=== PATIENT | male | born 1935 | race Caucasian/White ===

== ENCOUNTER → 2016-11-17 | Day surgery (SDC) | payer OTHER ==
[~2016-11-17] MED LIST: PICC LINE 8 ML FLUSH PROTOCOL IVPUSH PRN
== END | disposition home or self-care (01) ==
LOC: JRADIR 10:32
PROVIDERS: ATTEND Surgery Vascular Surgery
PROC: 02HV33Z Insertion of Infusion Device into Superior Vena Cava, Percutaneous Approach (ICD-10-PCS; principal; 2016-11-17)
PROC: B518ZZA Fluoroscopy of Superior Vena Cava, Guidance (ICD-10-PCS; 2016-11-17)
PROC: 02HV33Z Insertion of Infusion Device into Superior Vena Cava, Percutaneous Approach (ICD-10-PCS; 2016-11-17)
PROC: B548ZZA Ultrasonography of Superior Vena Cava, Guidance (ICD-10-PCS; 2016-11-17)
DX: M86.9 Osteomyelitis, unspecified (principal)
CPT/HCPCS: 36569; 77001-TC; C1751

== ENCOUNTER 2016-12-01 09:24 | Emergency (ER) | payer OTHER ==
[2016-12-01 09:33] VITALS: BP 125/96; PULSE 83; TEMP 97.8; BMI 19.8
--- NOTE | 2016-12-01 10:24 | PDOC ---
History of Present Illness - General Chief Complaint: RX Refill Stated Complaint: REVISIT Time Seen by Provider: 12/01/16 10:07 History Source: Patient Exam Limitations: No Limitations - History of Present Illness Initial Comments: This is an 81 yo male with h/o diabetic toe ulcer and osteomyelitis (currently on ceftriaxone via PICC line), IDDM, CVA, and HTN who presents for antibiotic administration. He normally sees his offender employment specialist who administers his ceftriaxone through his PICC line, but they are closed today d/t the . He notes no new bodily pain other than the right 2nd toe, no SOB, and no known reactions to the antibiotic. Past History - Past Medical History Allergies/Adverse Reactions: Allergies Allergy/AdvReac Type Severity Reaction Status Date / Time No Known Allergies Allergy Verified 12/01/16 09:30 Home Medications: Ambulatory Orders Ceftriaxone Na/Dextrose,Iso [Ceftriaxone 2 gm-D5w Bag] 2 gm IV DAILY 12/01/16 Insulin Glargine,Hum.rec.anlog [Lantus Solostar PEN (NF)] 5 units SQ HS Insulin Glargine,Hum.rec.anlog [Lantus Solostar PEN (NF)] 8 units SQ AM Insulin Lispro [Humalog] 100 unit SQ ASDIR 12/01/16 CVA: Yes Diabetes: Yes (iddm) HTN: Yes - Immunization History Immunization Up to Date: Yes - Psycho/Social/Smoking Cessation Hx Anxiety: No Suicidal Ideation: No Smoking Status: No Smoking History: Never smoked Have you smoked in the past 12 months: No Number of Cigarettes Smoked Daily: 0 Hx Alcohol Use: No Drug/Substance Use Hx: No Substance Use Type: None Review of Systems - Review of Systems Constitutional: No: Chills, Fever, Unexplained wgt Loss HEENTM: No: Nose Congestion, Throat Pain Respiratory: No: Cough, Shortness of Breath Cardiac (ROS): No: Chest Pain, Palpitations ABD/GI: No: Constipated, Diarrhea, Nausea, Vomiting : No: Burning, Dysuria Musculoskeletal: Yes: Other (right 2nd toe pain). No: Back Pain, Neck Pain Integumentary: No: Bruising, Rash Neurological: No: Headache, Numbness, Tingling, Weakness, Dizziness Endocrine: No: Unexplained Weight Gain, Unexplained Weight Loss *Physical Exam - Vital Signs Last Vital Signs Temp Pulse Resp BP Pulse Ox 97.8 F 83 18 125/96 99 12/01/16 09:30 12/01/16 09:30 12/01/16 09:30 12/01/16 09:30 12/01/16 09:30 - Physical Exam General Appearance: Yes: Nourished, Appropriately Dressed, Thin, Other (well- appearing older male who appears younger than stated age and who is conversing in Green[place]ic appropriately). No: Apparent Distress HEENT: positive: EOMI, Normal Voice, Hearing Grossly Normal. negative: Scleral Icterus (R), Scleral Icterus (L), Nasal Congestion Neck: positive: Trachea midline, Supple. negative: Tender, Rigid Respiratory/Chest: positive: Lungs Clear, Normal Breath Sounds. negative: Respiratory Distress, Crackles, Rhonchi, Stridor, Wheezing Cardiovascular: positive: Regular Rhythm, Regular Rate. negative: Murmur Gastrointestinal/Abdominal: positive: Normal Bowel Sounds, Soft. negative: Tender, Organomegaly, Pulsatile Mass, Guarding Musculoskeletal: positive: Normal Inspection. negative: Decreased Range of Motion, Vertebral Tenderness Extremity: positive: Normal Capillary Refill, Normal Inspection, Normal Range of Motion, Other (RUE with PICC line in place without surrounding warmth, erythema, or swelling; right foot onychomycosis with 2nd toe tenderness and mild swelling/erythema). negative: Tender, Cyanosis Integumentary: positive: Normal Color, Dry, Warm. negative: Erythema, Rash, Bruising Neurologic: positive: chinese herbalist II-XII NML intact, Fully Oriented, Alert, Normal Mood/ Affect, Normal Response, Motor Strength 5/5 Medical Decision Making - Medical Decision Making 81 yo male with recently diagnosed osteomyelitis from right 2nd toe infection and IDDM presents for PICC line abx. He presents with his normal dose of ceftriaxone and reporting no new symptoms. He is given his ceftriaxone through the PICC without complication. He is given bacitracin to take home. He is appropriate for outpatient management with close f/u with wound care. *DC/Admit/Observation/Transfer Diagnosis at time of Disposition: Medication administered - Discharge Dispostion Disposition: HOME Condition at time of disposition: Stable Admit: No - Referrals Referrals: Ej Stacy MD [Primary Care Provider] - - Patient Instructions Additional Instructions: You were seen in the emergency room for antibiotic administration through your PICC line. We gave you your medication without any complications. Please follow up with your regular doctor or offender employment specialist, or return to the emergency department for any new or worsening symptoms like shortness of breath , rash, fever, new or worsening pain, or other symptoms.
--- NOTE | 2016-12-01 10:31 | PDOC ---
Attending Attestation - HPI HPI: 12/01/16 10:44 The patient is a 81 year old male, with a significant past medical history of IDDM, chronic foot ulcer treated for osteomyelitis at wound care, hypertension, and CVA, who presents to the emergency department for abx administration. Patient is here with his own abx that he routinely gets administered via picc line at the wound care and he is due for his dose today but the wound care clinic is closed. Patient was prompted to present to the ED for medication administration. Patient has no other complaints today. - Medical Decision Making 12/01/16 10:44 Documentation prepared by YAMILEX Bacon, acting as special forces medical sergeant for Renee Green MD. <Anamaria Malcolm - Last Filed: 12/01/16 10:44> - Resident Resident Name: JazmyneRakel - ED Attending Attestation I have performed the following: I have examined & evaluated the patient, The case was reviewed & discussed with the resident, I agree w/resident's findings & plan, Exceptions are as noted - Physicial Exam PE: GENERAL: Awake, alert, and fully oriented, in no acute distress HEAD: No signs of trauma EYES: PERRLA, EOMI, sclera anicteric, conjunctiva clear ENT: Auricles normal inspection, hearing grossly normal, nares patent, oropharynx clear without exudates. Moist mucosa NECK: Normal ROM, supple, no lymphadenopathy, JVD, or masses EXTREMITIES: R upper arm PICC line in place, site is nonerythematous, dressing intact. R 2nd toe with purple tinted, dried material applied. Toe is erythematous, edematous, with healing wound to the tip. No active drainage. Remainder of extremities with normal range of motion, no edema. No clubbing or cyanosis. No cords, erythema, or tenderness NEUROLOGICAL: Cranial nerves II through XII grossly intact. Normal speech, normal gait SKIN: Warm, Dry, normal turgor, no rashes. - Medical Decision Making 12/01/16 10:52 Will access PICC line and administer abx. After that, patient stable for DC home. <Renee Green - Last Filed: 12/01/16 10:53>
[2016-12-01] MEDS ORDERED: BACITRACIN 0.9 GM PACKET ONE (11:16)
== END 2016-12-01 11:22 | disposition home or self-care (01) ==
LOC: JER 09:24 → JERFT 09:24 → JER 11:22
DX: E10.69 Type 1 diabetes mellitus with other specified complication (principal); M86.9 Osteomyelitis, unspecified; E10.621 Type 1 diabetes mellitus with foot ulcer; L97.519 Non-pressure chronic ulcer of other part of right foot with unspecified severity; Z79.4 Long term (current) use of insulin; I10 Essential (primary) hypertension; Z86.73 Personal history of transient ischemic attack (TIA), and cerebral infarction without residual deficits
CPT/HCPCS: 96365; 99282-25

== ENCOUNTER 2016-12-02 16:02 | Emergency (ER) | payer OTHER ==
[2016-12-02 16:08] VITALS: BP 148/58; PULSE 76; TEMP 98; BMI 20.9
--- NOTE | 2016-12-02 17:23 | PDOC ---
History of Present Illness - General Chief Complaint: Wound Stated Complaint: ANTIBIOTIC INFUSION Time Seen by Provider: 12/02/16 16:24 History Source: Patient Exam Limitations: Language Barrier ([employer] lump maker number [id number]) - History of Present Illness Initial Comments: 12/02/16 17:17 CHIEF COMPLAINT: Here for antibiotic infusion HISTORY OF PRESENT ILLNESS: Patient is an 81 year old male, with a significant past medical history of IDDM, chronic foot ulcer treated for osteomyelitis at wound care, hypertension, and CVA, who presents to the emergency department for second day of abx administration. Patient reports that he was seen in wound care and the infusion center was not foot up in insurance will not cover the infusions. Reports having nursing come to his house on Thursday and Thursday and did not return. She presents here with ceftriaxone 2 g, 2 flushes and a heparin flush. Patient has no other complaints today. Location: reports: feet Respiratory Risk Factors: reports: no cause identified Associated Symptoms: denies: fever Past History - Past Medical History Allergies/Adverse Reactions: Allergies Allergy/AdvReac Type Severity Reaction Status Date / Time No Known Allergies Allergy Verified 12/02/16 16:08 Home Medications: Ambulatory Orders Ceftriaxone Na/Dextrose,Iso [Ceftriaxone 2 gm-D5w Bag] 2 gm IV DAILY 12/01/16 Insulin Glargine,Hum.rec.anlog [Lantus Solostar PEN (NF)] 5 units SQ HS Insulin Glargine,Hum.rec.anlog [Lantus Solostar PEN (NF)] 8 units SQ AM Insulin Lispro [Humalog] 100 unit SQ ASDIR 12/01/16 CVA: Yes Diabetes: Yes (iddm) HTN: Yes - Immunization History Immunization Up to Date: Yes - Psycho/Social/Smoking Cessation Hx Anxiety: No Suicidal Ideation: No Smoking Status: No Smoking History: Never smoked Have you smoked in the past 12 months: No Number of Cigarettes Smoked Daily: 0 Information on smoking cessation initiated: No Hx Alcohol Use: No Drug/Substance Use Hx: No Substance Use Type: None Review of Systems - Review of Systems Constitutional: No: Symptoms Reported HEENTM: No: Symptoms Reported Respiratory: No: Symptoms reported Cardiac (ROS): No: Symptoms Reported ABD/GI: No: Symptoms Reported : No: Symptoms Reported Musculoskeletal: No: Symptoms Reported Integumentary: Yes: Erythema (right second toe. ) Neurological: No: Symptoms reported Hematologic/Lymphatic: No: Symptoms Reported All Other Systems: Reviewed and Negative *Physical Exam - Vital Signs Last Vital Signs Temp Pulse Resp BP Pulse Ox 98 F 76 18 148/58 98 12/02/16 16:04 12/02/16 16:04 12/02/16 16:04 12/02/16 16:04 12/02/16 16:04 - Physical Exam General Appearance: Yes: Appropriately Dressed. No: Apparent Distress Musculoskeletal: positive: Normal Inspection Extremity: positive: Swelling, Erythema (right second toe and right foot. ) Integumentary: positive: Erythema, Swelling. negative: Ecchymosis, Bruising Neurologic: positive: Alert, Normal Mood/Affect Medical Decision Making - Medical Decision Making 12/02/16 17:26 A/P: Patient here for IV infusion, ceftriaxone infused using proper protocol, tempted to call physician 2 awaiting call back to clarify and have social work* to set up his infusions at the infusion center. Social work to follow 12/02/16 18:09 Spoke to Shaned and from social work, trying to set patient up for outpatient infusion, awaiting requested for patient to stay until proper set up is initiated 12/02/16 18:42 IV was completed and flushed, patient eloped from emergency department prior to rapid discharge, patient was awaiting future set up of IV infusions. *DC/Admit/Observation/Transfer Diagnosis at time of Disposition: eloped - Discharge Dispostion Disposition: ELOPED - Referrals Referrals: Mihaela Card MD [Primary Care Provider] -
== END 2016-12-02 18:41 | disposition left against medical advice (07) ==
LOC: JERFT 16:02
DX: Z53.21 Procedure and treatment not carried out due to patient leaving prior to being seen by health care provider (principal); E11.9 Type 2 diabetes mellitus without complications; M86.9 Osteomyelitis, unspecified; I10 Essential (primary) hypertension
CPT/HCPCS: 99281-25

== ENCOUNTER 2016-12-03 09:41 | Day surgery (SDC) | payer OTHER ==
[2016-12-03] MEDS ORDERED: CEFTRIAXONE 2 GM in DEXTROSE 5%-WATER 100 ML IVPB ONE (11:00)
[2016-12-03 11:05] VITALS: TEMP 98.2
[2016-12-03 12:45] VITALS: BP 147/64; PULSE 68
== END 2016-12-03 11:40 | disposition home or self-care (01) ==
LOC: JINFUSION 09:41
PROVIDERS: ATTEND Internal Medicine Infectious Disease
DX: M19.071 Primary osteoarthritis, right ankle and foot (principal)
CPT/HCPCS: 96365

== ENCOUNTER 2016-12-04 10:29 | Day surgery (SDC) | payer OTHER ==
[2016-12-04] MEDS ORDERED: CEFTRIAXONE 2 GM in DEXTROSE 5%-WATER 100 ML IVPB ONE (10:45)
[2016-12-04 12:27] VITALS: TEMP 98
[2016-12-04 12:29] VITALS: BP 140/62; PULSE 72
== END 2016-12-04 12:00 | disposition home or self-care (01) ==
LOC: JINFUSION 10:29
PROVIDERS: ATTEND Internal Medicine Infectious Disease
DX: M19.071 Primary osteoarthritis, right ankle and foot (principal)
CPT/HCPCS: 96365

== ENCOUNTER 2016-12-05 09:34 | Day surgery (SDC) | payer OTHER ==
[2016-12-05] MEDS ORDERED: CEFTRIAXONE 2 GM in DEXTROSE 5%-WATER 100 ML IVPB ONE (10:15)
[2016-12-05 12:07] VITALS: BP 140/60; PULSE 60; TEMP 97
== END 2016-12-05 10:44 | disposition home or self-care (01) ==
LOC: JINFUSION 09:34
PROVIDERS: ATTEND Internal Medicine Infectious Disease
DX: M19.071 Primary osteoarthritis, right ankle and foot (principal)
CPT/HCPCS: 11042; 96365

== ENCOUNTER 2016-12-06 10:43 | Day surgery (SDC) | payer OTHER ==
[2016-12-06] MEDS ORDERED: CEFTRIAXONE 2 GM in DEXTROSE 5%-WATER 100 ML IVPB ONE (11:15)
[2016-12-06] MEDS ORDERED: DEXTROSE 5%-WATER 100 ML IVPB ONE (11:26)
[2016-12-06 12:06] VITALS: BP 140/64; TEMP 98.3
[2016-12-06 12:34] VITALS: PULSE 66
== END 2016-12-06 13:13 | disposition home or self-care (01) ==
LOC: JINFUSION 10:43 → J7W 10:45 → JINFUSION 13:13
PROVIDERS: ATTEND Internal Medicine Infectious Disease
DX: M19.071 Primary osteoarthritis, right ankle and foot (principal)
CPT/HCPCS: 96365

== ENCOUNTER 2016-12-07 09:32 | Day surgery (SDC) | payer OTHER ==
[2016-12-07] MEDS ORDERED: CEFTRIAXONE 2 GM in DEXTROSE 5%-WATER 100 ML IVPB ONE (10:00)
[2016-12-07] MEDS ORDERED: DEXTROSE 5%-WATER 100 ML IVPB ONE (10:07)
[2016-12-07 11:20] VITALS: BP 136/77; PULSE 68; TEMP 97.9
== END 2016-12-07 13:39 | disposition home or self-care (01) ==
LOC: J7W 09:32 → JINFUSION 09:32
PROVIDERS: ATTEND Internal Medicine Infectious Disease
DX: M19.071 Primary osteoarthritis, right ankle and foot (principal)
CPT/HCPCS: 96365

== ENCOUNTER 2016-12-08 09:36 | Day surgery (SDC) | payer OTHER ==
[2016-12-08 10:19] VITALS: TEMP 98.3
[2016-12-08 10:57] VITALS: BP 110/56; PULSE 80
[2016-12-08 11:15] LABS: MCH 30.7 pg (25.7-33.7); MCHC 33.2 g/dl (32.0-35.9); MEAN CELL VOLUME 92.6 fl (80-96); MEAN PLT VOLUME 8.7 fl (7.5-11.1); PLATELET COUNT 184 K/MM3 (134-434); RDW 13.5 % (11.9-15.9); WHITE BLOOD COUNT 5.8 K/mm3 (4.0-10.0)
[2016-12-08 11:46] LABS: ALBUMIN 3.1 g/dl (3.4-5.0); ALK PHOS 88 U/L (45-117); ANION GAP 11 (8-16); BILIRUBIN,TOTAL 0.2 mg/dL (0.2-1.0); C-REACTIVE PROTEIN < 0.3 MG/DL (0.00-0.3); CALCIUM 8.3 mg/dL (8.5-10.1); CO2 24 mmol/L (21-32); CREATININE 1.3 mg/dL (0.7-1.3); GLUCOSE,RANDOM 299 mg/dL (74-106); SGOT/AST 19 U/L (15-37); SGPT/ALT 23 U/L (12-78); TOT PROT 6.1 g/dl (6.4-8.2)
[2016-12-08 12:29] LABS: ERYTHROCYTE SEDIMENTATION RATE 14 mm/hr (0-20)
== END 2016-12-08 11:04 | disposition home or self-care (01) ==
LOC: JINFUSION 09:36
PROVIDERS: ATTEND Internal Medicine Infectious Disease
DX: M19.071 Primary osteoarthritis, right ankle and foot (principal)
CPT/HCPCS: 36415; 80053; 85027; 85651; 86140; 96365

== ENCOUNTER 2016-12-09 09:36 | Day surgery (SDC) | payer OTHER ==
[2016-12-09] MEDS ORDERED: CEFTRIAXONE 2 GM in DEXTROSE 5%-WATER - 100 ML IVPB ONE (10:15)
[2016-12-09 10:30] VITALS: TEMP 97.8
[2016-12-09 10:58] VITALS: BP 148/71; PULSE 73
== END 2016-12-09 11:00 | disposition home or self-care (01) ==
LOC: JINFUSION 09:36
PROVIDERS: ATTEND Internal Medicine Infectious Disease
DX: M19.071 Primary osteoarthritis, right ankle and foot (principal)
CPT/HCPCS: 96365

== ENCOUNTER 2016-12-10 09:30 | Day surgery (SDC) | payer OTHER ==
[2016-12-10 10:15] VITALS: TEMP 98.1
[2016-12-10] MEDS ORDERED: CEFTRIAXONE 2 GM in DEXTROSE 5%-WATER 100 ML IVPB ONE (10:45)
[2016-12-10 10:57] VITALS: BP 120/57; PULSE 68
== END 2016-12-10 10:55 | disposition home or self-care (01) ==
LOC: JINFUSION 09:30
PROVIDERS: ATTEND Internal Medicine Infectious Disease
DX: M19.071 Primary osteoarthritis, right ankle and foot (principal)
CPT/HCPCS: 96365

== ENCOUNTER 2016-12-11 09:56 | Day surgery (SDC) | payer OTHER ==
--- NOTE | 2016-12-05 12:24 | PN ---
[facility]-Physical Exam - History History: No Change - Physical Physical: No Change - Physical Exam Extremities: Yes: Normal Pulses (By Doppler) Wound Assessment - Wound Right Toe Wound Length (cm.): 1.0 Wound Width (cm.): 1.0 Wound Depth (cm.): 0.2 Right Foot 2nd digit Wound Length (cm.): 1.0 Wound Width (cm.): 1.0 Wound Depth (cm.): 0.2 Fibrotic Tissue: No Necrotic tissue: No Granulation tissue: No Drainage: No Drainage odor: None Aseptic Debridement: Skin, Subq Tissue Dressing/Treatment: Other (santyl) Plan: 81 YO M presents due to wound on the L foot second digit. PT and DP pulses dopplerable 1. Wound debrided 2. Apply santyl 3. U/S done on 11/12 showed monophasic flow in the KARLEY of the L leg, pt informed that he will need an angiogram 4. Pt instructed that he will need medical clearance before the procedure Return to [facility]: 2 Weeks
[2016-12-11 10:22] VITALS: BP 128/64; PULSE 64; TEMP 98.1
[2016-12-11] MEDS ORDERED: CEFTRIAXONE 2 GM in DEXTROSE 5%-WATER - 100 ML IVPB ONE (10:45)
== END 2016-12-11 11:27 | disposition home or self-care (01) ==
LOC: JINFUSION 09:56
PROVIDERS: ATTEND Internal Medicine Infectious Disease
DX: M19.071 Primary osteoarthritis, right ankle and foot (principal)
CPT/HCPCS: 96365

== ENCOUNTER 2016-12-12 08:46 | Day surgery (SDC) | payer OTHER ==
[2016-12-12] MEDS ORDERED: CEFTRIAXONE 2 GM in DEXTROSE 5%-WATER 100 ML IVPB ONE (09:15)
[2016-12-12 09:26] VITALS: BP 138/50; PULSE 68; TEMP 97.8
== END 2016-12-12 10:03 | disposition home or self-care (01) ==
LOC: JINFUSION 08:46
PROVIDERS: ATTEND Internal Medicine Infectious Disease
DX: M19.071 Primary osteoarthritis, right ankle and foot
CPT/HCPCS: 96365; G0463-25

== ENCOUNTER 2016-12-13 08:31 | Day surgery (SDC) | payer OTHER ==
[2016-12-13] MEDS ORDERED: CEFTRIAXONE 2 GM in DEXTROSE 5%-WATER 100 ML IVPB ONE (09:15)
[2016-12-13] MEDS ORDERED: DEXTROSE 5%-WATER 100 ML IVPB ONE (09:24)
[2016-12-13 09:54] VITALS: TEMP 98.1
[2016-12-13 12:11] VITALS: BP 149/64; PULSE 68
== END 2016-12-13 11:40 | disposition home or self-care (01) ==
LOC: JINFUSION 08:31 → J7W 08:31 → JINFUSION 11:40
PROVIDERS: ATTEND Internal Medicine Infectious Disease
DX: M19.071 Primary osteoarthritis, right ankle and foot (principal)
CPT/HCPCS: 96365

== ENCOUNTER 2016-12-14 10:01 | Day surgery (SDC) | payer OTHER ==
[2016-12-14] MEDS ORDERED: CEFTRIAXONE 2 GM in DEXTROSE 5%-WATER 100 ML IVPB ONE (10:30)
[2016-12-14 10:32] VITALS: TEMP 98.5
[2016-12-14] MEDS ORDERED: DEXTROSE 5%-WATER 100 ML IVPB ONE (10:33)
[2016-12-14 11:50] VITALS: BP 155/69; PULSE 66
== END 2016-12-14 11:50 | disposition home or self-care (01) ==
LOC: JINFUSION 10:01 → J7W 10:02 → JINFUSION 11:50
PROVIDERS: ATTEND Internal Medicine Infectious Disease
DX: M19.071 Primary osteoarthritis, right ankle and foot (principal)
CPT/HCPCS: 96365

== ENCOUNTER 2016-12-15 08:38 | Day surgery (SDC) | payer OTHER ==
[2016-12-15 10:28] VITALS: BP 135/62; PULSE 66; TEMP 98.3
== END 2016-12-15 10:20 | disposition home or self-care (01) ==
LOC: JINFUSION 08:38
PROVIDERS: ATTEND Internal Medicine Infectious Disease
DX: M19.071 Primary osteoarthritis, right ankle and foot (principal)
CPT/HCPCS: 96365

== ENCOUNTER 2016-12-16 08:36 | Day surgery (SDC) | payer OTHER ==
[2016-12-16 09:07] VITALS: TEMP 98.3
[2016-12-16] MEDS ORDERED: cefTRIAXone 2 GM/100 ML BAG (PRE-DOCKED) IVPB ONE (09:30)
[2016-12-16 10:51] VITALS: BP 133/69; PULSE 72
== END 2016-12-16 09:50 | disposition home or self-care (01) ==
LOC: JINFUSION 08:36
PROVIDERS: ATTEND Internal Medicine Infectious Disease
DX: M19.071 Primary osteoarthritis, right ankle and foot (principal)
CPT/HCPCS: 96365; G0277

== ENCOUNTER 2016-12-17 08:18 | Day surgery (SDC) | payer OTHER ==
[~2016-12-17 08:18] MED LIST changes: +CEFTRIAXONE 2 GM in DEXTROSE 5%-WATER 100 ML IVPB ONE; +CEFTRIAXONE 2 GM in DEXTROSE 5%-WATER 100 ML IVPB SCH; -PICC LINE 8 ML FLUSH PROTOCOL IVPUSH PRN
[2016-12-17 08:54] VITALS: TEMP 97.8
[2016-12-17 09:22] VITALS: BP 139/64; PULSE 70
[2016-12-17] MEDS ORDERED: CEFTRIAXONE 2 GM in DEXTROSE 5%-WATER 100 ML IVPB ONE (11:00)
== END 2016-12-17 09:24 | disposition home or self-care (01) ==
LOC: JINFUSION 08:18
PROVIDERS: ATTEND Internal Medicine Infectious Disease
DX: E11.621 Type 2 diabetes mellitus with foot ulcer (principal); M86.671 Other chronic osteomyelitis, right ankle and foot; Z79.4 Long term (current) use of insulin
CPT/HCPCS: 96365; G0277

== ENCOUNTER 2016-12-18 08:32 | Inpatient (IN) | payer OTHER ==
[2016-12-18 09:59] LABS: BASOPHIL 0.6 % (0-2.0); EOSINOPHIL 10.6 % (0-4.5); MCH 30.8 pg (25.7-33.7); MCHC 33.3 g/dl (32.0-35.9); MEAN CELL VOLUME 92.3 fl (80-96); MEAN PLT VOLUME 8.1 fl (7.5-11.1); NEUTROPHILS 72.5 % (42.8-82.8); PLATELET COUNT 183 K/MM3 (134-434); RDW 13.3 % (11.9-15.9); WHITE BLOOD COUNT 6.7 K/mm3 (4.0-10.0)
--- NOTE | 2016-12-18 10:03 | PDOC ---
History of Present Illness - General Chief Complaint: Injury Stated Complaint: FALL, HEAD CONTUSION Time Seen by Provider: 12/18/16 08:59 History Source: Patient Exam Limitations: Language Barrier (Procedure Analyst [id number] used) - History of Present Illness Initial Comments: 12/18/16 09:56 The patient is an 81M with a PMH of CVA, HTN, IDDM, osteo (PICC with ceftriaxone) who presents to the ED after sustaining a fall. The patient states that he fell over night when he was going to the bathroom. He denies LOC. He is taking aggrenox. He denies tripping over anything. He states that he lost balance but denies any CP, SOB, n/v. He remembers the entire event. He states that he has been admitted for falling in the past with no cause found. He has no complaints currently. Last tetanus w/in 5 years. Past History - Past Medical History Allergies/Adverse Reactions: Allergies Allergy/AdvReac Type Severity Reaction Status Date / Time No Known Allergies Allergy Verified 12/18/16 08:37 Home Medications: Ambulatory Orders Ceftriaxone Na/Dextrose,Iso [Ceftriaxone 2 gm-D5w Bag] 2 gm IV DAILY 12/01/16 Insulin Glargine,Hum.rec.anlog [Lantus Solostar PEN (NF)] 5 units SQ HS Insulin Glargine,Hum.rec.anlog [Lantus Solostar PEN (NF)] 8 units SQ AM Insulin Lispro [Humalog] 100 unit SQ ASDIR 12/01/16 Becaplermin [Regranex] 15 gm TP DAILY #1 gel..gram. 12/12/16 CVA: Yes Diabetes: Yes (iddm) HTN: Yes Other medical history: Rt foot infection has PICC line RT arm 11/2016 - Immunization History Immunization Up to Date: Yes - Suicide/Smoking/Psychosocial Hx Smoking Status: No Smoking History: Never smoked Have you smoked in the past 12 months: No Number of Cigarettes Smoked Daily: 0 Information on smoking cessation initiated: No Hx Alcohol Use: No Drug/Substance Use Hx: No Substance Use Type: None Review of Systems - Review of Systems Able to Perform ROS?: Yes Is the patient limited [place] Islander proficient: No Constitutional: No: Chills, Fever HEENTM: No: Blurred Vision Respiratory: No: Cough, Shortness of Breath Cardiac (ROS): No: Chest Pain, Lightheadedness ABD/GI: No: Constipated, Diarrhea, Nausea, Vomiting : No: Burning, Dysuria, Discharge Neurological: No: Headache, Numbness, Tingling, Weakness *Physical Exam - Vital Signs Last Vital Signs Temp Pulse Resp BP Pulse Ox 75 18 133/61 98 12/18/16 08:35 12/18/16 08:35 12/18/16 08:35 12/18/16 08:35 - Physical Exam General Appearance: Yes: Nourished, Appropriately Dressed HEENT: positive: Normal Voice, Hearing Grossly Normal Respiratory/Chest: positive: Lungs Clear, Normal Breath Sounds. negative: Chest Tender, Respiratory Distress Cardiovascular: positive: Regular Rhythm, Regular Rate, S1, S2. negative: Diastolic Murmur, Systolic Murmur Gastrointestinal/Abdominal: positive: Flat, Soft. negative: Tender, Distended, Guarding, Rebound Musculoskeletal: negative: CVA Tenderness, CVA Tenderness (R), CVA Tenderness (L ) Extremity: positive: Normal Inspection, Normal Range of Motion. negative: Swelling, Calf Tenderness Integumentary: positive: Dry, Warm, Other (RU extremity PICC. L occipital 0.5cm laceration.). negative: Clammy, Swelling Neurologic: positive: dope firer II-XII NML intact, Fully Oriented, Alert, Normal Mood/ Affect, Normal Response, Motor Strength 5/5. negative: Abnormal Cranial NS, EOM Palsy, Facial Droop, Numbness, Sensory Deficit, Finger to Nose, Confused Procedures - Laceration/Wound Repair Left Upper Parietal Wound Length: to 2.5 cm Wound Explored: clean Wound's Depth, Shape: superficial Irrigated w/ Saline: Yes Betadine Prep: No Anesthesia: 1% Lidocaine Wound Debrided: minimal Wound Repaired With: [place] Suture Size/Type: other Number of Sutures: 2 (Gabbi) Sterile Dressing Applied: Yes Splint Applied: No Heart Score/ECG Review - ECG Impressions Comment:: 12/18/16 10:14 NSR. ED Treatment Course - LABORATORY CBC & Chemistry Diagram: 12/18/16 09:51 12/18/16 09:51 - RADIOLOGY Radiology Studies Ordered: Category Date Time Status HEAD CT WITHOUT CONTRAST [CT] Stat CT Scan 12/18/16 09:37 Ordered Medical Decision Making - Medical Decision Making 12/18/16 10:12 The patient is an 81M with a PMH of CVA, HTN, IDDM and osteo w/ PICC line who presents after a fall. The patient will require a head CT to r/o brain bleed, basic labs, EKG. I will reassess the patient when labs and imaging return and I will fix the laceration after CT. 12/18/16 10:[address] negative. 12/18/16 10:58 Labs WNL. BUN elevated but that is normal for patient. 12/18/16 12:51 Laceration irrigated and repaired with gabbi. Patient understands need for f/ u with PCP. 12/18/16 12:55 Postal Clerk: Dr. Hay Neurologist: Dr. León Patient discussed with Dr. Alejo. She advised that if he has family and/or aide with him when he goes home, that he can be safely discharge. If not, he should be admitted for observation. I will discuss this with the patient. PMD also expressed concern for the patient falling frequently, having an unsteady gait, and bout of hypoglycemia and would feel safer if he stayed for observation. 12/18/16 13:08 After speaking with the patient, he states that he does not feel comfortable going home with the help of his aides. This, along with his PCP's advice, makes me concerned for the patient's safety with regards to falling at home. I will page the hospitalist for an obs admission. 12/18/16 13:17 Hospitalist resident aware and will forward admission to hospitalist STORE SALES MANAGER. Pending call back. *DC/Admit/Observation/Transfer Diagnosis at time of Disposition: Fall Qualifiers: Encounter type: subsequent encounter Qualified Code(s): W19.XXXD - Unspecified fall, subsequent encounter - Discharge Dispostion Condition at time of disposition: Stable Admit: Yes - Referrals Referrals: Mihaela Card MD [Primary Care Provider] - - Patient Instructions Printed Discharge Instructions: How to Prevent Falls Additional Instructions: Please return to the ER if symptoms persist, worsen, or if new symptoms arise. Please follow up with your primary care doctor within 2-3 days. Please return to the ER or go to your primary care doctor in 7 days for removal of the gabbi. Please return if you have any fever, chills, headache, bleeding or pus come from where you cut your head. Please come to the ER if it is very red or painful. Print Language: TAJIK
--- NOTE | 2016-12-18 10:13 | PDOC ---
Attending Attestation - Resident Resident Name: Yazan Perez - ED Attending Attestation I have performed the following: I have examined & evaluated the patient, The case was reviewed & discussed with the resident, I agree w/resident's findings & plan, Exceptions are as noted - Medical Decision Making 12/18/16 10:12 Vital Signs Temp Pulse Resp BP Pulse Ox 75 18 133/61 98 12/18/16 08:35 12/18/16 08:35 12/18/16 08:35 12/18/16 08:35 81 year old male with past medical history of diabetes, CVA, hypertension, vasculitis with a right upper any PICC line presents with mechanical fall. Patient reports feeling intermittent dizzy but denies other symptoms. He had fell approximately 3:00 this morning and struck his head. Denies loss of conscious. Patient takes Aggrenox. Denies any neuro deficits at this time. Last tetanus within 5 years. I agree with the residence plan to obtain a head CT and labs and urinalysis. We' ll need lac repair and workup is unremarkable, patient be discharged with PMD follow-up. <Daquan Betancourt - Last Filed: 12/18/16 10:12> - HPI HPI: 12/18/16 10:13 The patient is a 81 year old male, with a significant past medical history of IDDM, chronic foot ulcer treated for osteomyelitis at wound care ( PICC line RT arm 11/2016), hypertension, and CVA, who presents to the emergency department s/ p mechanical fall at 3am this morning. He reports hitting his head and presents with pain to the back of his head, but states he remembers the entire event. He states he lives alone and denies any other complaints. He reports his last tetanus was within the last 5 years. He denies chest pain, shortness of breath, headache and dizziness. He denies fever, chills, nausea, vomit, diarrhea and constipation. He denies dysuria, frequency, urgency and hematuria. Allergies: NKDA Social history: Pt denies tobacco use PCP - Dr. Card - Physicial Exam PE: 12/18/16 10:14 GENERAL: Awake, alert, and fully oriented, in no acute distress HEAD: (+) 1.0 cm laceration to left posterior occipital. EYES: PERRLA, EOMI, sclera anicteric, conjunctiva clear ENT: Auricles normal inspection, hearing grossly normal, nares patent, oropharynx clear without exudates. Moist mucosa NECK: Normal ROM, supple, no lymphadenopathy, JVD, or masses LUNGS: Breath sounds equal, clear to auscultation bilaterally. No wheezes, and no crackles HEART: Regular rate and rhythm, normal S1 and S2, no murmurs, rubs or gallops ABDOMEN: Soft, nontender, normoactive bowel sounds. No guarding, no rebound. No masses EXTREMITIES: (+) RUE picc line. Normal range of motion, no edema. No clubbing or cyanosis. No cords, erythema, or tenderness NEUROLOGICAL: Cranial nerves II-XII intact. Normal speech, normal gait. Sensation intact in upper and lower extremities. 5/5 motor strength in upper and lower extremities. No pronator drift. Finger to nose intact. Rapid alternations intact. SKIN: (+) 1.0 cm laceration to left posterior occipital. Warm, Dry, normal turgor, no rashes or lesions noted. - Medical Decision Making 12/18/16 10:15 Documentation prepared by Jane Mendoza, acting as medical observer for Daquan Betancourt MD, <Jane Mendoza - Last Filed: 12/18/16 10:15> Heart Score/ECG Review #1 ECG reviewed & interpreted by me at: 10:00 12/18/16 10:12 NSR 64, no std/stefano, normal axis, normal intervals, QTC 429 msec. <Daquan Betancourt - Last Filed: 12/18/16 10:12>
[2016-12-18 10:25] LABS: ALBUMIN 3.1 g/dl (3.4-5.0); ANION GAP 6 (8-16); BILIRUBIN,TOTAL 0.4 mg/dL (0.2-1.0); CALCIUM 8.6 mg/dL (8.5-10.1); CO2 27 mmol/L (21-32); CREATININE 1.3 mg/dL (0.7-1.3); GLUCOSE,RANDOM 153 mg/dL (74-106); SGOT/AST 19 U/L (15-37); SGPT/ALT 22 U/L (12-78); TOT PROT 6.3 g/dl (6.4-8.2)
[2016-12-18 10:26] LABS: ALK PHOS 98 U/L (45-117)
[2016-12-18 13:18] LABS: URINE APPEARANCE CLEAR; URINE BILIRUBIN NEGATIVE (NEGATIVE); URINE BLOOD NEGATIVE (NEGATIVE); URINE COLOR YELLOW; URINE GLUCOSE (UA) 1+ (NEGATIVE); URINE KETONE TRACE (NEGATIVE); URINE LEUK ESTERASE NEGATIVE (NEGATIVE); URINE NITRITE NEGATIVE (NEGATIVE); URINE PROTEIN 2+ (NEGATIVE); URINE UROBILINOGEN NEGATIVE mg/dL (0.2-1.0)
[2016-12-18 13:20] LABS: URINE HYALINE CAST 5 /lpf; URINE MUCUS RARE; URINE RBC 1 /hpf (0-3); URINE WBC 3 /hpf (3-5)
--- NOTE | 2016-12-18 13:32 | EKG ---
Test Reason : Blood Pressure : / mmHG Vent. Rate : 064 BPM Atrial Rate : 064 BPM P-R Int : 168 ms QRS Dur : 084 ms QT Int : 416 ms P-R-T Axes : 064 001 042 degrees QTc Int : 429 ms NORMAL SINUS RHYTHM NORMAL ECG WHEN COMPARED WITH ECG OF 21-JAN-2016 23:59, CRITERIA FOR SEPTAL INFARCT ARE NO LONGER PRESENT QT HAS SHORTENED Confirmed by LEOLA CARPIO, KAREN ([id number]) on 12/18/2016 1:32:24 PM Referred By: Confirmed By:KAREN BHAGAT MD
[2016-12-18] MEDS ORDERED: CEFTRIAXONE 2 GM in DEXTROSE 5%-WATER - 100 ML IVPB ONE (14:12)
[2016-12-18] MEDS ORDERED: CEFTRIAXONE 100 ML IVPB ONE (14:30)
--- NOTE | 2016-12-18 16:28 | HP ---
CHIEF COMPLAINT: Fall when walking to bathroom at night. 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 Patient presented to the ED after falling last night when he lost his balance going to the bathroom. Patient lives alone and this was an unwitnessed fall. Patient denies LOC and states he remembers all events before and after. He sustained a 2.5cm laceration to left upper parietal scalp requiring two gabbi in the ED. 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 12/12/16 REVIEW OF SYSTEMS CONSTITUTIONAL: Absent: fever, chills, diaphoresis, generalized weakness, malaise, loss of appetite, weight change HEENT: Absent: rhinorrhea, nasal congestion, throat pain, throat swelling, difficulty swallowing, mouth swelling, ear pain, eye pain, visual changes CARDIOVASCULAR: Absent: chest pain, syncope, palpitations, irregular heart rate, lightheadedness , peripheral edema RESPIRATORY: Absent: cough, shortness of breath, dyspnea with exertion, orthopnea, wheezing, stridor, hemoptysis GASTROINTESTINAL: Absent: abdominal pain, abdominal distension, nausea, vomiting, diarrhea, constipation, melena, hematochezia GENITOURINARY: Absent: dysuria, frequency, urgency, hesitancy, hematuria, flank pain, genital pain MUSCULOSKELETAL: Absent: myalgia, arthralgia, joint swelling, back pain, neck pain SKIN: Absent: rash, itching, pallor HEMATOLOGIC/IMMUNOLOGIC: Absent: easy bleeding, easy bruising, lymphadenopathy, frequent infections ENDOCRINE: Absent: unexplained weight gain, unexplained weight loss, heat intolerance, cold intolerance NEUROLOGIC: Present: previous falls, unsteady gait Absent: headache, focal weakness or paresthesias, dizziness, seizure, mental status changes, bladder or bowel incontinence PSYCHIATRIC: Absent: anxiety, depression, suicidal or homicidal ideation, hallucinations. PHYSICAL EXAMINATION Vital Signs Period Temp Pulse Resp BP Sys/Ellis Pulse Ox Last 24 Hr 97.7 F-98.7 F 72-80 16-20 133-172/61-72 97-98 GENERAL: Awake, alert, and fully oriented, in no acute distress. HEAD: Two surgical gabbi right parietal scalp. No bleeding, swelling, or tenderness. EYES: Pupils equal, round and reactive to light, extraocular movements intact, sclera anicteric, conjunctiva clear. No ptosis. EARS, NOSE, THROAT: Ears normal, nares patent, oropharynx clear without exudates. Moist mucous membranes. NECK: Normal range of motion, supple without lymphadenopathy, JVD, or masses. LUNGS: Breath sounds equal, clear to auscultation bilaterally. No wheezes, and no crackles. No accessory muscle use. HEART: Regular rate and rhythm, normal S1 and S2 without murmur, rub or gallop. ABDOMEN: Soft, nontender, not distended, normoactive bowel sounds, no guarding, no rebound, no masses. No hepatomegaly or splenomegaly. MUSCULOSKELETAL: Normal range of motion at all joints. No bony deformities or tenderness. No CVA tenderness. UPPER EXTREMITIES: 2+ pulses, warm, well-perfused. No cyanosis. No clubbing. No peripheral edema. LOWER EXTREMITIES: Scab on left knee; bilateral 2+ pulses, warm, well-perfused. No calf tenderness. No peripheral edema. Vascular wounds to toes on right foot. NEUROLOGICAL: Cranial nerves II-XII intact. Normal speech. Gait not observed. ASSESSMENT/PLAN: 81 year-old male with a PMH significant for HTN, h/o CVA, IDDM, chronic foot ulcer with osteo with PICC line on ceftriaxone. Admitted s/p fall and minor head laceration. Fall --unwitnessed fall, patient lost his balance walking to bathroom --minor head laceration --nonfocal physical exam --first CT head negative; second CT ordered x 12 hours from first --neuro consult pending Hypertension --on no medications h/o CVA --patient reports chronic gait instability --PT evaluation IDDM --Levemir qam and qhs --Novolog sliding scale Osteo of toes of right foot --continue ceftriaxone 2g IV daily --patient uses Regranex topical daily; non-forumlary; if hospitalization stay is extended will need to bring from home DVT prophylaxis: no chemical prophylaxis pending CT scan; SCDs Visit type - Emergency Visit Emergency Visit: Yes ED Registration Date: 12/18/16 Care time: The patient presented to the Emergency Department on the above date and was hospitalized for further evaluation of their emergent condition. - New Patient This patient is new to me today: Yes Date on this admission: 12/18/16 - Critical Care Critical Care patient: No
[2016-12-18 17:41] VITALS: BMI 18.8
[2016-12-18] MEDS ORDERED: INSULIN (NOVOLOG) ASPART 100 UNITS/ML 10ML VIAL ONE (21:03)
[2016-12-18] MEDS: INSULIN DETEMIR 100 UNITS/ML MDV SQ SCH (21:41)
[2016-12-18] MEDS: INSULIN SLIDING SCALE (NOVOLOG) 1 VIAL SQ SCH (21:42)
[2016-12-19] MEDS: INSULIN SLIDING SCALE (NOVOLOG) 1 VIAL SQ SCH ×4 (06:43→22:30)
[2016-12-19] MEDS: INSULIN DETEMIR 100 UNITS/ML MDV SQ SCH ×2 (06:44→22:31)
[2016-12-19] MEDS ORDERED: ASPIRIN 81 MG CHEWABLE TABLETS PO ONE (06:50)
[2016-12-19 07:13] LABS: BASOPHIL 0.6 % (0-2.0); EOSINOPHIL 12.6 % (0-4.5); MCH 30.8 pg (25.7-33.7); MCHC 33.5 g/dl (32.0-35.9); MEAN CELL VOLUME 92.1 fl (80-96); MEAN PLT VOLUME 8.9 fl (7.5-11.1); NEUTROPHILS 66.4 % (42.8-82.8); PLATELET COUNT 193 K/MM3 (134-434); RDW 13.3 % (11.9-15.9); WHITE BLOOD COUNT 5.4 K/mm3 (4.0-10.0)
[2016-12-19 07:29] LABS: ALBUMIN 3.1 g/dl (3.4-5.0); ANION GAP 7 (8-16); CALCIUM 8.4 mg/dL (8.5-10.1); CO2 28 mmol/L (21-32); GLUCOSE,RANDOM 154 mg/dL (74-106); MAGNESIUM 2.4 mg/dL (1.8-2.4); SGOT/AST 19 U/L (15-37); SGPT/ALT 21 U/L (12-78)
[2016-12-19 07:31] LABS: ALK PHOS 90 U/L (45-117); BILIRUBIN,TOTAL 0.9 mg/dL (0.2-1.0); TOT PROT 5.8 g/dl (6.4-8.2)
[2016-12-19] MEDS ORDERED: DEXTROSE 5%-WATER 100 ML IVPB ONE (09:06)
[2016-12-19] MEDS: CEFTRIAXONE 2 GM in DEXTROSE 5%-WATER 100 ML IVPB SCH (09:09)
--- NOTE | 2016-12-19 10:36 | CONSULT ---
Consult - text type - Consultation Consultation Note: Neurology 81M with a PMH of CVA, HTN, IDDM, osteo (PICC with ceftriaxone) who presents to the ED after sustaining a fall. The patient states that he fell over night when he was going to the bathroom. He denies LOC. He is taking aggrenox. He denies tripping over anything. He states that he lost balance but denies any CP , SOB, n/v. He remembers the entire event. Initial CT head did not show acute changes, age related volume loss seen. Repeat CT with ? R occipital infarct, MRI brain recommended. Clinically, does not have deficit and would not be TPA case as there is no deficit. Past History - Past Medical History Allergies/Adverse Reactions: Allergies Allergy/AdvReac Type Severity Reaction Status Date / Time No Known Allergies Allergy Verified 12/18/16 08:37 Home Medications: Ambulatory Orders Ceftriaxone Na/Dextrose,Iso [Ceftriaxone 2 gm-D5w Bag] 2 gm IV DAILY 12/01/16 Insulin Glargine,Hum.rec.anlog [Lantus Solostar PEN (NF)] 5 units SQ HS Insulin Glargine,Hum.rec.anlog [Lantus Solostar PEN (NF)] 8 units SQ AM Insulin Lispro [Humalog] 100 unit SQ ASDIR 12/01/16 Becaplermin [Regranex] 15 gm TP DAILY #1 gel..gram. 12/12/16 CVA: Yes Diabetes: Yes (iddm) HTN: Yes Other medical history: Rt foot infection has PICC line RT arm 11/2016 - Immunization History Immunization Up to Date: Yes - Suicide/Smoking/Psychosocial Hx Smoking Status: No Smoking History: Never smoked Have you smoked in the past 12 months: No Number of Cigarettes Smoked Daily: 0 Information on smoking cessation initiated: No Hx Alcohol Use: No Drug/Substance Use Hx: No Substance Use Type: None Review of Systems - Review of Systems Able to Perform ROS?: Yes Is the patient limited Finnish proficient: No Constitutional: No: Chills, Fever HEENTM: No: Blurred Vision Respiratory: No: Cough, Shortness of Breath Cardiac (ROS): No: Chest Pain, Lightheadedness ABD/GI: No: Constipated, Diarrhea, Nausea, Vomiting : No: Burning, Dysuria, Discharge Neurological: No: Headache, Numbness, Tingling, Weakness *Physical Exam - Vital Signs Last Vital Signs Temp Pulse Resp BP Pulse Ox 75 18 133/61 98 12/18/16 08:35 12/18/16 08:35 12/18/16 08:35 12/18/16 08:35 - Physical Exam General Appearance: Yes: Nourished, Appropriately Dressed HEENT: positive: Normal Voice, Hearing Grossly Normal Respiratory/Chest: positive: Lungs Clear, Normal Breath Sounds. negative: Chest Tender, Respiratory Distress Cardiovascular: positive: Regular Rhythm, Regular Rate, S1, S2. negative: Diastolic Murmur, Systolic Murmur Gastrointestinal/Abdominal: positive: Flat, Soft. negative: Tender, Distended, Guarding, Rebound Musculoskeletal: negative: CVA Tenderness, CVA Tenderness (R), CVA Tenderness (L ) Extremity: positive: Normal Inspection, Normal Range of Motion. negative: Swelling, Calf Tenderness Integumentary: positive: Dry, Warm, Other (RU extremity PICC. L occipital 0.5cm laceration.). negative: Clammy, Swelling Neurologic: positive: clock and watch hands painter II-XII NML intact, Fully Oriented, Alert, Normal Mood/ Affect, Normal Response, Motor Strength 5/5. Sensory intact, no field cut, gait deferred - RADIOLOGY CT head reviewed X 2 CBCD WBC 5.4 K/mm3 (4.0-10.0) 12/19/16 06:15 RBC 3.49 M/mm3 (4.00-5.60) L 12/19/16 06:15 Hgb 10.8 GM/dL (11.7-16.9) L 12/19/16 06:15 Hct 32.2 % (35.4-49) L 12/19/16 06:15 MCV 92.1 fl (80-96) 12/19/16 06:15 MCHC 33.5 g/dl (32.0-35.9) 12/19/16 06:15 RDW 13.3 % (11.9-15.9) 12/19/16 06:15 Plt Count 193 K/MM3 (134-434) 12/19/16 06:15 MPV 8.9 fl (7.5-11.1) 12/19/16 06:15 CMP Sodium 140 mmol/L (136-145) 12/19/16 06:15 Potassium 4.9 mmol/L (3.5-5.1) 12/19/16 06:15 Chloride 105 mmol/L (98-107) 12/19/16 06:15 Carbon Dioxide 28 mmol/L (21-32) 12/19/16 06:15 Anion Gap 7 (8-16) L 12/19/16 06:15 BUN 24 mg/dL (7-18) H 12/19/16 06:15 Creatinine 1.0 mg/dL (0.7-1.3) D 12/19/16 06:15 Creat Clearance w eGFR > 60 (>60) 12/19/16 06:15 Calcium 8.4 mg/dL (8.5-10.1) L 12/19/16 06:15 Total Bilirubin 0.9 mg/dL (0.2-1.0) D 12/19/16 06:15 AST 19 U/L (15-37) 12/19/16 06:15 ALT 21 U/L (12-78) 12/19/16 06:15 Alkaline Phosphatase 90 U/L (45-117) 12/19/16 06:15 Total Protein 5.8 g/dl (6.4-8.2) L 12/19/16 06:15 Albumin 3.1 g/dl (3.4-5.0) L 12/19/16 06:15 Plan: 81M with a PMH of CVA, HTN, IDDM, osteo (PICC with ceftriaxone) who presents to the ED after sustaining a fall. The patient states that he fell over night when he was going to the bathroom. He denies LOC. He is taking aggrenox. He denies tripping over anything. He states that he lost balance but denies any CP , SOB, n/v. He remembers the entire event. Initial CT head did not show acute changes, age related volume loss seen. Repeat CT with ? R occipital infarct, MRI brain recommended. Clinically, does not have deficit and would not be TPA case as there is no deficit. Received ASA. Would recommend evaluating with MRI brain to rule out CVA. If CVA, then would need full work up including Carotid Doppler, echo, lipid profile, etc. but would want to confirm infarct first.
[2016-12-19] MEDS ORDERED: INSULIN (NOVOLOG) ASPART 100 UNITS/ML 10ML VIAL ONE ×2 (11:15→16:10)
--- NOTE | 2016-12-19 15:27 | PN ---
Physical Exam: SUBJECTIVE: Patient seen and examined OBJECTIVE: GENERAL: The patient is awake, alert, and fully oriented, in no acute distress. HEAD: Normal with no signs of trauma. EYES: PERRL, extraocular movements intact, sclera anicteric, conjunctiva clear. No ptosis. ENT: Ears normal, nares patent, oropharynx clear without exudates, moist mucous membranes. NECK: Trachea midline, full range of motion, supple. LUNGS: Breath sounds equal, clear to auscultation bilaterally, no wheezes, no crackles, no accessory muscle use. HEART: Regular rate and rhythm, S1, S2 without murmur, rub or gallop. ABDOMEN: Soft, nontender, nondistended, normoactive bowel sounds, no guarding, no rebound, no hepatosplenomegaly, no masses. EXTREMITIES: 2+ pulses, warm, well-perfused, no edema. NEUROLOGICAL: Cranial nerves II through XII grossly intact. Normal speech, gait not observed. PSYCH: Normal mood, normal affect. SKIN: Warm, dry, normal turgor, no rashes or lesions noted Laboratory Results - last 24 hr 12/19/16 11:18 POC Glucometer 328 Active Medications Generic Name Dose Route Start Last Admin Trade Name Freq PRN Reason Stop Dose Admin Atorvastatin Calcium 40 mg 12/19/16 22:00 Lipitor - PO HS AARON Ceftriaxone Sodium 2 gm/ 100 mls @ 200 mls/hr 12/19/16 10:00 12/19/16 09:09 Dextrose IVPB 200 mls/hr DAILY AARON Administration Insulin Aspart 1 vial 12/18/16 22:00 12/19/16 11:19 Novolog Vial Sliding Scale - SQ 8 units ACHS AARON Administration Protocol Insulin Detemir 5 units 12/18/16 22:00 12/18/16 21:41 Levemir Vial SQ 5 units HS AARON Administration Insulin Detemir 8 units 12/19/16 07:00 12/19/16 06:44 Levemir Vial SQ Not Given AM AARON ASSESSMENT/PLAN:
--- NOTE | 2016-12-19 16:01 | DS ---
Physical Exam: SUBJECTIVE: Patient seen and examined OBJECTIVE: Vital Signs Period Temp Pulse Resp BP Sys/Ellis Pulse Ox Last 24 Hr 98.5 F 68 20 147/61 PHYSICAL EXAM GENERAL: The patient is awake, alert, and fully oriented, in no acute distress. HEAD: Normal with no signs of trauma. EYES: PERRL, extraocular movements intact, sclera anicteric, conjunctiva clear. ENT: Ears normal, nares patent, oropharynx clear without exudates, moist mucous membranes. NECK: Trachea midline, full range of motion, supple. LUNGS: Breath sounds equal, clear to auscultation bilaterally, no wheezes, no crackles, no accessory muscle use. HEART: Regular rate and rhythm, S1, S2 without murmur, rub or gallop. ABDOMEN: Soft, nontender, nondistended, normoactive bowel sounds, no guarding, no rebound, no hepatosplenomegaly, no masses. EXTREMITIES: 2+ pulses, warm, well-perfused, no edema. NEUROLOGICAL: Cranial nerves II through XII grossly intact. Normal speech, gait not observed. PSYCH: Normal mood, normal affect. SKIN: Warm, dry, normal turgor, no rashes or lesions noted. LABS Laboratory Results - last 24 hr 12/19/16 11:18 POC Glucometer 328 HOSPITAL COURSE: Date of Admission:12/19/16 Date of Discharge: 12/19/16 Discharge Summary Reason For Visit: FALL Current Active Problems Fall (Acute) Condition: Improved - Instructions Diet, Activity, Other Instructions: Please return to the ER if symptoms persist, worsen, or if new symptoms arise. Please follow up with your primary care doctor within 2-3 days. Please return to the ER or go to your primary care doctor in 7 days for removal of the gabbi. Please return if you have any fever, chills, headache, bleeding or pus come from where you cut your head. Please come to the ER if it is very red or painful. Referrals: Mihaela Card MD [Primary Care Provider] - Disposition: HOME - Home Medications Comprehensive Discharge Medication List: Ambulatory Orders Ceftriaxone Na/Dextrose,Iso [Ceftriaxone 2 gm-D5w Bag] 2 gm IV DAILY 12/01/16 Insulin Glargine,Hum.rec.anlog [Lantus Solostar PEN -] 5 units SQ HS 12/01/16 Insulin Glargine,Hum.rec.anlog [Lantus Solostar PEN -] 8 units SQ AM 12/01/16 Insulin Lispro [Humalog] 100 unit SQ ASDIR 12/01/16 Becaplermin [Regranex] 15 gm TP DAILY #1 gel..gram. 12/12/16
--- NOTE | 2016-12-19 17:56 | PN ---
Physical Exam: SUBJECTIVE: Patient seen and examined OBJECTIVE: Vital Signs Period Temp Pulse Resp BP Sys/Ellis Pulse Ox Last 24 Hr 98.5 F 68 20 147/61 GENERAL: The patient is awake, alert, and fully oriented, in no acute distress. HEAD: Normal with no signs of trauma. EYES: PERRL, extraocular movements intact, sclera anicteric, conjunctiva clear. No ptosis. LUNGS: Breath sounds equal, clear to auscultation bilaterally, no wheezes, no crackles, no accessory muscle use. HEART: Regular rate and rhythm, S1, S2 without murmur, rub or gallop. ABDOMEN: Soft, nontender, nondistended, normoactive bowel sounds, no guarding, no rebound UPPER EXTREMITIES: 2+ pulses, warm, well-perfused. No cyanosis. No clubbing. No peripheral edema. LOWER EXTREMITIES: Scab on left knee; bilateral 2+ pulses, warm, well-perfused. No calf tenderness. No peripheral edema. Vascular wounds to toes on right foot. NEUROLOGICAL: Cranial nerves II-XII intact. Normal speech. Gait not observed. CBCD WBC 5.4 K/mm3 (4.0-10.0) 12/19/16 06:15 RBC 3.49 M/mm3 (4.00-5.60) L 12/19/16 06:15 Hgb 10.8 GM/dL (11.7-16.9) L 12/19/16 06:15 Hct 32.2 % (35.4-49) L 12/19/16 06:15 MCV 92.1 fl (80-96) 12/19/16 06:15 MCHC 33.5 g/dl (32.0-35.9) 12/19/16 06:15 RDW 13.3 % (11.9-15.9) 12/19/16 06:15 Plt Count 193 K/MM3 (134-434) 12/19/16 06:15 MPV 8.9 fl (7.5-11.1) 12/19/16 06:15 CMP Sodium 140 mmol/L (136-145) 12/19/16 06:15 Potassium 4.9 mmol/L (3.5-5.1) 12/19/16 06:15 Chloride 105 mmol/L (98-107) 12/19/16 06:15 Carbon Dioxide 28 mmol/L (21-32) 12/19/16 06:15 Anion Gap 7 (8-16) L 12/19/16 06:15 BUN 24 mg/dL (7-18) H 12/19/16 06:15 Creatinine 1.0 mg/dL (0.7-1.3) D 12/19/16 06:15 Creat Clearance w eGFR > 60 (>60) 12/19/16 06:15 Calcium 8.4 mg/dL (8.5-10.1) L 12/19/16 06:15 Total Bilirubin 0.9 mg/dL (0.2-1.0) D 12/19/16 06:15 AST 19 U/L (15-37) 12/19/16 06:15 ALT 21 U/L (12-78) 12/19/16 06:15 Alkaline Phosphatase 90 U/L (45-117) 12/19/16 06:15 Total Protein 5.8 g/dl (6.4-8.2) L 12/19/16 06:15 Albumin 3.1 g/dl (3.4-5.0) L 12/19/16 06:15 Active Medications Generic Name Dose Route Start Last Admin Trade Name Carlosq PRN Reason Stop Dose Admin Atorvastatin Calcium 40 mg 12/19/16 22:00 Lipitor - PO HS [facility] Ceftriaxone Sodium 2 gm/ 100 mls @ 200 mls/hr 12/19/16 10:00 12/19/16 09:09 Dextrose IVPB 200 mls/hr DAILY [facility] Administration Insulin Aspart 1 vial 12/18/16 22:00 12/19/16 16:19 Novolog Vial Sliding Scale - SQ 8 units ACHS [facility] Administration Protocol Insulin Detemir 5 units 12/18/16 22:00 12/18/16 21:41 Levemir Vial SQ 5 units HS [facility] Administration Insulin Detemir 8 units 12/19/16 07:00 12/19/16 06:44 Levemir Vial SQ Not Given AM [facility] ASSESSMENT/PLAN 81 year-old male with a PMH significant for HTN, h/o CVA, IDDM, chronic foot ulcer with osteo with PICC line on ceftriaxone. Admitted s/p fall and minor head laceration. Fall --unwitnessed fall, patient lost his balance walking to bathroom --minor head laceration --nonfocal physical exam --first CT head negative; second CT suggestive of developing infarct but MRI negative for any acute event --seen and evaluated by neuro Dr. Rhoades, no further intervention indicated Hypertension --on no medications h/o CVA --patient reports chronic gait instability; has a walker at home, encouraged to use it --seen and evaluated by PT IDDM --Levemir qam and qhs --Novolog sliding scale Osteo of toes of right foot --continue ceftriaxone 2g IV daily --patient uses Regranex topical daily; non-forumlary; if hospitalization stay is extended will need to bring from home DVT prophylaxis: OK to start subq heparin. Dispo: scheduled for discharge today but [facility] could not provide home health aide until Thursday. Patient lives alone and there is no family involvement. Full Code. Visit type - Emergency Visit Emergency Visit: Yes ED Registration Date: 12/19/16 Care time: The patient presented to the Emergency Department on the above date and was hospitalized for further evaluation of their emergent condition. - New Patient This patient is new to me today: No - Critical Care Critical Care patient: No
[2016-12-19] MEDS: HEPARIN NA (PORCINE) 5,000 UNITS/ML 1ML VIAL SQ SCH (22:30)
[2016-12-19] MEDS: ATORVASTATIN CA 40 MG TABLET (FP) PO SCH (22:31)
[2016-12-20] MEDS: INSULIN DETEMIR 100 UNITS/ML MDV SQ SCH ×2 (06:12→21:21)
[2016-12-20] MEDS: INSULIN SLIDING SCALE (NOVOLOG) 1 VIAL SQ SCH ×4 (06:13→21:20)
[2016-12-20] MEDS: HEPARIN NA (PORCINE) 5,000 UNITS/ML 1ML VIAL SQ SCH ×3 (06:13→21:21)
[2016-12-20] MEDS ORDERED: PT OWN MED DRAWER 7, Y5N ONE (07:01)
[2016-12-20] MEDS ORDERED: DEXTROSE 5%-WATER 100 ML IVPB ONE (09:28)
[2016-12-20] MEDS: CEFTRIAXONE 2 GM in DEXTROSE 5%-WATER 100 ML IVPB SCH (09:37)
--- NOTE | 2016-12-20 17:39 | PN ---
Physical Exam: SUBJECTIVE: Patient seen and examined at the bedside. Reports feeling well. Denies any pain or dizziness. OBJECTIVE: Spoke to son who is asking about rehab vs home on d/c Assured son I will speak with SW Vital Signs Period Temp Pulse Resp BP Sys/Ellis Pulse Ox Last 24 Hr 98.1 F-98.6 F 63-79 16-18 116-151/56-66 100 GENERAL: The patient is awake, alert, and fully oriented, in no acute distress. Denies pain. HEAD: 2 gabbi to his left upper parietal scalp intact, no drainage. EYES: PERRL, extraocular movements intact, sclera anicteric, conjunctiva clear. No ptosis. LUNGS: Breath sounds equal, clear to auscultation bilaterally, no wheezes, no crackles, no accessory muscle use. ABDOMEN: Soft, nontender, nondistended, normoactive bowel sounds, no guarding, no rebound LOWER EXTREMITIES: +vascular wounds to toes on right foot, followed by Dr. Stacy and under care/treatment with Ceftriaxone via right upper arm picc NEUROLOGICAL: Normal speech. Fall Risk, walks with cane. Laboratory Results - last 24 hr 12/19/16 12/20/16 12/20/16 22:29 04:39 05:59 POC Glucometer 304 210 316 12/20/16 12/20/16 12:13 16:37 POC Glucometer 321 160 Active Medications Generic Name Dose Route Start Last Admin Trade Name Freq PRN Reason Stop Dose Admin Atorvastatin Calcium 40 mg 12/19/16 22:00 12/19/16 22:31 Lipitor - PO 40 mg HS [facility]ON Administration Heparin Sodium (Porcine) 5,000 unit 12/19/16 22:00 12/20/16 14:06 Heparin - SQ 5,000 unit TID [facility]ON Administration Ceftriaxone Sodium 2 gm/ 100 mls @ 200 mls/hr 12/19/16 10:00 12/20/16 09:37 Dextrose IVPB 200 mls/hr DAILY [facility] Administration Insulin Aspart 1 vial 12/18/16 22:00 12/20/16 17:34 Novolog Vial Sliding Scale - SQ 2 units ACHS [facility]ON Administration Protocol Insulin Detemir 5 units 12/18/16 22:00 12/19/16 22:31 Levemir Vial SQ Not Given HS AARON Insulin Detemir 8 units 12/19/16 07:00 12/20/16 06:12 Levemir Vial SQ 8 units AM [facility] Administration ASSESSMENT/PLAN: Patient is an 81 year old male with a significant past medical hx of hypertension, CVA, diabetes and a chronic +vascular wounds to toes on right foot , followed by Dr. Stacy. Patient is currently under care/treatment with Ceftriaxone via right upper arm picc for this chronic wound. Patient was admitted on 12/19/2016 s/p fall with small head laceration. On exam, patient denied any dizziness or headaches. Neuro: Fall with Injury in an elderly patient - acute A/P: As per ED notes, patient had an unwitnessed fall at home while attempting to ambulate to bathroom He sustained a minor head laceration requiring 2 gabbi to his left upper parietal scalp, open to air CT head 11/28/2016 showed possibility of developing infarct, but MRI negative for same Followed by neurology, noted reviewed At present time, no further interventions needed CVA - history A/P: Continue to have PT ambulation Will be followed by home [facility] aide for home safety Patient has cane and walker Fall risk precautions Endocrine: Diabetes - chronic A/P: Novolog sliding scale, Levemir Skeletal: Chronic +vascular wounds to toes on right foot A/P: Patient followed by [facility] as an outpatient On ceftriaxone 2g IV daily Monitor cbc/bmp in am. Prophylaxis: DVT: Heparin TID GI: deferred Disposition: Awaiting safe discharge home with [facility] will be available on Thursday. Likely d/c Thursday. Full code. Visit type - Emergency Visit Emergency Visit: Yes ED Registration Date: 12/19/16 Care time: The patient presented to the Emergency Department on the above date and was hospitalized for further evaluation of their emergent condition. - New Patient This patient is new to me today: Yes Date on this admission: 12/20/16 - Critical Care Critical Care patient: No - Discharge Referral Referred to [facility] Med [facility] No
[2016-12-20] MEDS ORDERED: INSULIN (NOVOLOG) ASPART 100 UNITS/ML 10ML VIAL ONE (21:18)
[2016-12-20] MEDS: ATORVASTATIN CA 40 MG TABLET (FP) PO SCH (21:21)
[2016-12-21] MEDS: HEPARIN NA (PORCINE) 5,000 UNITS/ML 1ML VIAL SQ SCH ×3 (05:42→21:20)
[2016-12-21] MEDS: INSULIN DETEMIR 100 UNITS/ML MDV SQ SCH ×2 (06:38→21:19)
[2016-12-21] MEDS: INSULIN SLIDING SCALE (NOVOLOG) 1 VIAL SQ SCH ×4 (06:38→21:20)
[2016-12-21 07:30] LABS: BASOPHIL 0.7 % (0-2.0); EOSINOPHIL 10.2 % (0-4.5); MCH 30.9 pg (25.7-33.7); MEAN CELL VOLUME 90.8 fl (80-96); MEAN PLT VOLUME 8.7 fl (7.5-11.1); NEUTROPHILS 69.4 % (42.8-82.8); PLATELET COUNT 212 K/MM3 (134-434); RDW 13.4 % (11.9-15.9); WHITE BLOOD COUNT 6.7 K/mm3 (4.0-10.0)
[2016-12-21 07:49] LABS: ALBUMIN 3.1 g/dl (3.4-5.0); ANION GAP 9 (8-16); CALCIUM 8.3 mg/dL (8.5-10.1); CO2 26 mmol/L (21-32); GLUCOSE,RANDOM 144 mg/dL (74-106)
[2016-12-21 07:53] LABS: ALK PHOS 107 U/L (45-117); BILIRUBIN,TOTAL 0.3 mg/dL (0.2-1.0); SGOT/AST 18 U/L (15-37); SGPT/ALT 21 U/L (12-78); TOT PROT 6.2 g/dl (6.4-8.2)
[2016-12-21] MEDS ORDERED: DEXTROSE 5%-WATER 100 ML IVPB ONE (10:05)
[2016-12-21] MEDS: CEFTRIAXONE 2 GM in DEXTROSE 5%-WATER 100 ML IVPB SCH (10:06)
[2016-12-21] MEDS ORDERED: INSULIN (NOVOLOG) ASPART 100 UNITS/ML 10ML VIAL ONE (11:53)
--- NOTE | 2016-12-21 12:21 | PN ---
Physical Exam: SUBJECTIVE: Patient seen and examined at the bedside. Denies any dizziness or shortness of breath. Patient states he feels like he may benefit from rehab since he is having increased weakness with ambulation at home. This year alone he states he has fallen 6 times since March 2016. He denies any LOC but states that he feels that his legs "give out" OBJECTIVE: Will discuss patient's concern and safety issues with SW prior to d/c Vital Signs Period Temp Pulse Resp BP Sys/Ellis Pulse Ox Last 24 Hr 97.9 F-98.5 F 66-70 18-20 141-160/60-67 100 GENERAL: The patient is awake, alert, and fully oriented, in no acute distress. Denies pain. HEAD: 2 gabbi to his left upper parietal scalp intact, no drainage - gabbi were placed on 12/18 - to be removed on 12/25 EYES: PERRL, extraocular movements intact, sclera anicteric, conjunctiva clear. No ptosis. LUNGS: Breath sounds equal, clear to auscultation bilaterally, no wheezes, no crackles, no accessory muscle use. ABDOMEN: Soft, nontender, nondistended, normoactive bowel sounds, no guarding, no rebound LOWER EXTREMITIES: +vascular wounds on right foot, on tip of 2nd toe, followed by Dr. Stacy and under care/treatment with Ceftriaxone via right upper arm picc which started on 11/28 for 6 weeks. NEUROLOGICAL: Normal speech. Fall Risk, walks with cane and has a rolling walker at home. Laboratory Results - last 24 hr 12/20/16 12/20/16 12/20/16 12:13 16:37 20:52 WBC RBC Hgb Hct MCV MCH MCHC RDW Plt Count MPV Neutrophils % Lymphocytes % Monocytes % Eosinophils % Basophils % Sodium Potassium Chloride Carbon Dioxide Anion Gap BUN Creatinine Creat Clearance w eGFR POC Glucometer 321 160 320 Random Glucose Calcium Total Bilirubin AST ALT Alkaline Phosphatase Total Protein Albumin 12/21/16 12/21/16 12/21/16 05:40 06:30 06:30 WBC 6.7 RBC 3.74 L Hgb 11.5 L Hct 33.9 L MCV 90.8 MCH 30.9 MCHC 34.0 RDW 13.4 Plt Count 212 MPV 8.7 Neutrophils % 69.4 Lymphocytes % 13.8 Monocytes % 5.9 Eosinophils % 10.2 H Basophils % 0.7 Sodium 141 Potassium 4.5 Chloride 106 Carbon Dioxide 26 Anion Gap 9 BUN 27 H Creatinine 1.0 Creat Clearance w eGFR > 60 POC Glucometer 79 Random Glucose 144 H Calcium 8.3 L Total Bilirubin 0.3 D AST 18 ALT 21 Alkaline Phosphatase 107 Total Protein 6.2 L Albumin 3.1 L 12/21/16 11:12 WBC RBC Hgb Hct MCV MCH MCHC RDW Plt Count MPV Neutrophils % Lymphocytes % Monocytes % Eosinophils % Basophils % Sodium Potassium Chloride Carbon Dioxide Anion Gap BUN Creatinine Creat Clearance w eGFR POC Glucometer 282 Random Glucose Calcium Total Bilirubin AST ALT Alkaline Phosphatase Total Protein Albumin Active Medications Generic Name Dose Route Start Last Admin Trade Name Freq PRN Reason Stop Dose Admin Atorvastatin Calcium 40 mg 12/19/16 22:00 12/20/16 21:21 Lipitor - PO 40 mg HS AARON Administration Heparin Sodium (Porcine) 5,000 unit 12/19/16 22:00 12/21/16 05:42 Heparin - SQ 5,000 unit TID AARON Administration Ceftriaxone Sodium 2 gm/ 100 mls @ 200 mls/hr 12/19/16 10:00 12/21/16 10:06 Dextrose IVPB 200 mls/hr DAILY AARON Administration Insulin Aspart 1 vial 12/18/16 22:00 12/21/16 11:53 Novolog Vial Sliding Scale - SQ 6 units ACHS AARON Administration Protocol Insulin Detemir 5 units 12/18/16 22:00 12/20/16 21:21 Levemir Vial SQ 5 units HS AARON Administration Insulin Detemir 8 units 12/19/16 07:00 12/21/16 06:38 Levemir Vial SQ 8 units AM AARON Administration ASSESSMENT/PLAN: Patient is an 81 year old male with a significant past medical hx of hypertension, CVA, diabetes and 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 Patient is currently under care/treatment with vascular MD (Dr. Stacy) who is currently treating patient with Ceftriaxone 2 gm daily via right upper arm PICC. He was started on IV Ceftriaxone on 11/28/2016 and is scheduled for 6 weeks of this IV therapy. Patient was admitted on 12/19/2016 s/p fall with small head laceration. On exam , patient denied any dizziness or headaches but reports to me that he has fallen 6 times at home this year. He denies any LOC, states that during ambulation, he experiences lower ext weakness. Muscular/Skeletal: Fall with Injury in an elderly patient - acute on chronic A/P: As per ED notes, patient had an unwitnessed fall at home while attempting to ambulate to bathroom He sustained a minor head laceration requiring 2 gabbi to his left upper parietal scalp, open to air Patient reports multiple falls at home in the past without injury. 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 Likely d/c Thursday. Full code. Visit type - Emergency Visit Emergency Visit: Yes ED Registration Date: 12/19/16 Care time: The patient presented to the Emergency Department on the above date and was hospitalized for further evaluation of their emergent condition. - New Patient This patient is new to me today: No - Critical Care Critical Care patient: No - Discharge Referral Referred to [facility] Med P.C.: No
[2016-12-21] MEDS: ATORVASTATIN CA 40 MG TABLET (FP) PO SCH (21:20)
[2016-12-22] MEDS: HEPARIN NA (PORCINE) 5,000 UNITS/ML 1ML VIAL SQ SCH (06:09)
[2016-12-22 06:16] VITALS: BP 137/69; PULSE 64; TEMP 97.6
[2016-12-22] MEDS ORDERED: INSULIN (NOVOLOG) ASPART 100 UNITS/ML 10ML VIAL ONE (06:26)
[2016-12-22] MEDS: INSULIN SLIDING SCALE (NOVOLOG) 1 VIAL SQ SCH (06:45)
[2016-12-22] MEDS: INSULIN DETEMIR 100 UNITS/ML MDV SQ SCH (06:45)
[2016-12-22 08:36] LABS: BASOPHIL 0.8 % (0-2.0); EOSINOPHIL 28.3 % (0-4.5); MCH 30.5 pg (25.7-33.7); MCHC 33.8 g/dl (32.0-35.9); MEAN CELL VOLUME 90.4 fl (80-96); MEAN PLT VOLUME 8.8 fl (7.5-11.1); NEUTROPHILS 45.6 % (42.8-82.8); PLATELET COUNT 207 K/MM3 (134-434); RDW 13.4 % (11.9-15.9); WHITE BLOOD COUNT 6.5 K/mm3 (4.0-10.0)
--- NOTE | 2016-12-22 09:08 | DS ---
Physical Exam: SUBJECTIVE: Patient seen and examined at the bedside. States he feels well, denies any shortness of breath, chest pain or discomfort. OBJECTIVE: Eosinophils elevated, clinically patient appears unchanged, will need repeat labs with PCP Right foot 2nd toe unchanged Repeat labs with PCP Vital Signs Period Temp Pulse Resp BP Sys/Ellis Pulse Ox Last 24 Hr 97.6 F-98.8 F 64-71 18-20 125-148/58-69 PHYSICAL EXAM GENERAL: The patient is awake, alert, and fully oriented, in no acute distress. Denies pain. HEAD: 2 gabbi to his left upper parietal scalp intact, no drainage - gabbi were placed on 12/18 - to be removed on 12/25 EYES: PERRL, extraocular movements intact, sclera anicteric, conjunctiva clear. No ptosis. LUNGS: Breath sounds equal, clear to auscultation bilaterally, no wheezes, no crackles, no accessory muscle use. ABDOMEN: Soft, nontender, nondistended, normoactive bowel sounds, no guarding, no rebound LOWER EXTREMITIES: +vascular wounds on right foot, on tip of 2nd toe, followed by Dr. Stacy and under care/treatment with Ceftriaxone via right upper arm picc which started on 11/28 for 6 weeks. NEUROLOGICAL: Normal speech. Fall Risk, walks with cane and has a rolling walker at home. LABS Laboratory Results - last 24 hr 12/21/16 12/21/16 12/21/16 11:12 12:20 16:52 WBC RBC Hgb Hct MCV MCH MCHC RDW Plt Count MPV Neutrophils % Lymphocytes % Monocytes % Eosinophils % Basophils % POC Glucometer 282 165 Hemoglobin A1c % 7.1 H 12/21/16 12/21/16 12/22/16 21:17 21:25 05:49 WBC RBC Hgb Hct MCV MCH MCHC RDW Plt Count MPV Neutrophils % Lymphocytes % Monocytes % Eosinophils % Basophils % POC Glucometer 250 253 186 Hemoglobin A1c % 12/22/16 07:30 WBC 6.5 RBC 3.65 L Hgb 11.1 L Hct 33.0 L MCV 90.4 MCH 30.5 MCHC 33.8 RDW 13.4 Plt Count 207 MPV 8.8 Neutrophils % 45.6 D Lymphocytes % 18.5 D Monocytes % 6.8 Eosinophils % 28.3 H* D Basophils % 0.8 POC Glucometer Hemoglobin A1c % HOSPITAL COURSE: Date of Admission:12/19/16 Date of Discharge: 12/22/16 ASSESSMENT/PLAN: Patient is an 81 year old male with a significant past medical hx of hypertension, CVA, diabetes and 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 Patient is currently under care/treatment with vascular MD (Dr. Stacy) who is currently treating patient with Ceftriaxone 2 gm daily via right upper arm PICC. He was started on IV Ceftriaxone on 11/28/2016 and is scheduled for 6 weeks of this IV therapy for osteomylitis of the right foot, second toe. Patient was admitted on 12/19/2016 s/p fall with small head laceration. On exam , patient denied any dizziness or headaches but reports to me that he has fallen 6 times at home this year. He denies any LOC, states that during ambulation, he experiences lower ext weakness. 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 SW made aware. Muscular/Skeletal: Fall with Injury in an elderly patient - acute on chronic A/P: As per ED notes, patient had an unwitnessed fall at home while attempting to ambulate to bathroom He sustained a minor head laceration requiring 2 gabbi to his left upper parietal scalp, open to air Patient reports multiple falls at home in the past without injury. 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 Discharge home today. Minutes to complete discharge: 60 Discharge Summary Reason For Visit: FALL Current Active Problems Fall (Acute) Condition: Improved - Instructions Diet, Activity, Other Instructions: Please return to the ER if symptoms persist, worsen, or if new symptoms arise. Please follow up with your primary care doctor within 2-3 days. Please return to the ER or go to your primary care doctor in 7 days for removal of the gabbi. Please return if you have any fever, chills, headache, bleeding or pus come from where you cut your head. Please come to the ER if it is very red or painful. Referrals: Mihaela Card MD [Primary Care Provider] - Ej Stacy MD [Staff Physician] - Disposition: HOME - Home Medications Comprehensive Discharge Medication List: Ambulatory Orders Ceftriaxone Na/Dextrose,Iso [Ceftriaxone 2 gm-D5w Bag] 2 gm IV DAILY 12/01/16 Insulin Glargine,Hum.rec.anlog [Lantus Solostar PEN -] 5 units SQ HS 12/01/16 Insulin Glargine,Hum.rec.anlog [Lantus Solostar PEN -] 8 units SQ AM 12/01/16 Insulin Lispro [Humalog] 100 unit SQ ASDIR 12/01/16 Becaplermin [Regranex] 15 gm TP DAILY #1 gel..gram. 12/12/16 This patient is new to me today: No Emergency Visit: Yes ED Registration Date: 12/19/16 Care time: The patient presented to the Emergency Department on the above date and was hospitalized for further evaluation of their emergent condition. Critical Care patient: No - Discharge Referral Referred to [facility] Med P.C.: No
[2016-12-22 09:21] LABS: ALBUMIN 2.9 g/dl (3.4-5.0); ANION GAP 5 (8-16); BILIRUBIN,TOTAL 0.3 mg/dL (0.2-1.0); CALCIUM 8.3 mg/dL (8.5-10.1); CO2 29 mmol/L (21-32); GLUCOSE,RANDOM 149 mg/dL (74-106); SGOT/AST 18 U/L (15-37); SGPT/ALT 22 U/L (12-78); TOT PROT 5.9 g/dl (6.4-8.2)
[2016-12-22 09:22] LABS: ALK PHOS 99 U/L (45-117)
[2016-12-22] MEDS ORDERED: DEXTROSE 5%-WATER 100 ML IVPB ONE (09:46)
[2016-12-22] MEDS: CEFTRIAXONE 2 GM in DEXTROSE 5%-WATER 100 ML IVPB SCH (09:59)
--- NOTE | 2016-12-22 10:36 | PN ---
Progress Note (short form) - Note Progress Note: Neurology 81M with a PMH of CVA, HTN, IDDM, osteo (PICC with ceftriaxone) who presents to the ED after sustaining a fall. The patient states that he fell over night when he was going to the bathroom. He denies LOC. He is taking aggrenox. He denies tripping over anything. He states that he lost balance but denies any CP , SOB, n/v. He remembers the entire event. Initial CT head did not show acute changes, age related volume loss seen. Repeat CT with ? R occipital infarct, repeat imaging without abnormality. Clinically, stable over the weekend and plan for dischage. Active Medications Atorvastatin Calcium (Lipitor -) 40 mg PO HS [facility] Last Admin: 12/21/16 21:20 Dose: 40 mg Heparin Sodium (Porcine) (Heparin -) 5,000 unit SQ TID [facility] Last Admin: 12/22/16 06:09 Dose: 5,000 unit Ceftriaxone Sodium 2 gm/ (Dextrose) 100 mls @ 200 mls/hr IVPB DAILY [facility] Last Admin: 12/22/16 09:59 Dose: 200 mls/hr Insulin Aspart (Novolog Vial Sliding Scale -) 1 vial SQ ACHS [facility] PRN Reason: Protocol Last Admin: 12/22/16 06:45 Dose: 2 units Insulin Detemir (Levemir Vial) 5 units SQ HS [facility] Last Admin: 12/21/16 21:19 Dose: 5 units Insulin Detemir (Levemir Vial) 8 units SQ AM [facility] Last Admin: 12/22/16 06:45 Dose: 8 units *Physical Exam Vital Signs Temperature 97.6 F 12/22/16 06:00 Pulse Rate 64 12/22/16 06:00 Respiratory Rate 18 12/22/16 06:00 Blood Pressure 137/69 12/22/16 06:00 O2 Sat by Pulse Oximetry (%) 100 12/20/16 19:56 - Physical Exam General Appearance: Yes: Nourished, Appropriately Dressed HEENT: positive: Normal Voice, Hearing Grossly Normal Respiratory/Chest: positive: Lungs Clear, Normal Breath Sounds. negative: Chest Tender, Respiratory Distress Cardiovascular: positive: Regular Rhythm, Regular Rate, S1, S2. negative: Diastolic Murmur, Systolic Murmur Gastrointestinal/Abdominal: positive: Flat, Soft. negative: Tender, Distended, Guarding, Rebound Musculoskeletal: negative: CVA Tenderness, CVA Tenderness (R), CVA Tenderness (L ) Extremity: positive: Normal Inspection, Normal Range of Motion. negative: Swelling, Calf Tenderness Integumentary: positive: Dry, Warm, Other (RU extremity PICC. L occipital 0.5cm laceration.). negative: Clammy, Swelling Neurologic: positive: technical product manager II-XII NML intact, Fully Oriented, Alert, Normal Mood/ Affect, Normal Response, Motor Strength 5/5. Sensory intact, no field cut, gait deferred - RADIOLOGY CT head reviewed X 2 CBCD WBC 6.5 K/mm3 (4.0-10.0) 12/22/16 07:30 RBC 3.65 M/mm3 (4.00-5.60) L 12/22/16 07:30 Hgb 11.1 GM/dL (11.7-16.9) L 12/22/16 07:30 Hct 33.0 % (35.4-49) L 12/22/16 07:30 MCV 90.4 fl (80-96) 12/22/16 07:30 MCHC 33.8 g/dl (32.0-35.9) 12/22/16 07:30 RDW 13.4 % (11.9-15.9) 12/22/16 07:30 Plt Count 207 K/MM3 (134-434) 12/22/16 07:30 MPV 8.8 fl (7.5-11.1) 12/22/16 07:30 CMP Sodium 140 mmol/L (136-145) 12/22/16 06:00 Potassium 4.2 mmol/L (3.5-5.1) 12/22/16 06:00 Chloride 106 mmol/L (98-107) 12/22/16 06:00 Carbon Dioxide 29 mmol/L (21-32) 12/22/16 06:00 Anion Gap 5 (8-16) L 12/22/16 06:00 BUN 28 mg/dL (7-18) H 12/22/16 06:00 Creatinine 1.0 mg/dL (0.7-1.3) 12/22/16 06:00 Creat Clearance w eGFR > 60 (>60) 12/22/16 06:00 Calcium 8.3 mg/dL (8.5-10.1) L 12/22/16 06:00 Total Bilirubin 0.3 mg/dL (0.2-1.0) 12/22/16 06:00 AST 18 U/L (15-37) 12/22/16 06:00 ALT 22 U/L (12-78) 12/22/16 06:00 Alkaline Phosphatase 99 U/L (45-117) 12/22/16 06:00 Total Protein 5.9 g/dl (6.4-8.2) L 12/22/16 06:00 Albumin 2.9 g/dl (3.4-5.0) L 12/22/16 06:00 Plan: 81M with a PMH of CVA, HTN, IDDM, osteo (PICC with ceftriaxone) who presents to the ED after sustaining a fall. The patient states that he fell over night when he was going to the bathroom. He denies LOC. He is taking aggrenox. He denies tripping over anything. He states that he lost balance but denies any CP , SOB, n/v. He remembers the entire event. Initial CT head did not show acute changes, age related volume loss seen. Repeat CT with ? R occipital infarct, imaging did not confirm. Neurologically stable and at baseline. Planned for discharge today.
== END 2016-12-22 11:00 | disposition home or self-care (01) | DRG 605 ==
LOC: JER 08:32 → JERBED 15:10 → J6S 17:15 → OBSVTOIN 12-19 08:34
PROVIDERS: ADMIT Internal Medicine; ATTEND Nurse Practitioner Family
PROC: 0HQ0XZZ Repair Scalp Skin, External Approach (ICD-10-PCS; principal; 2016-12-18)
DX: S01.81XA Laceration without foreign body of other part of head, initial encounter (principal); M86.8X7 Other osteomyelitis, ankle and foot; W18.39XA Other fall on same level, initial encounter; Y93.89 Activity, other specified; Y92.098 Other place in other non-institutional residence as the place of occurrence of the external cause; I10 Essential (primary) hypertension; E11.69 Type 2 diabetes mellitus with other specified complication; Z86.73 Personal history of transient ischemic attack (TIA), and cerebral infarction without residual deficits; Z79.4 Long term (current) use of insulin
CPT/HCPCS: 36415; 70450-TC; 70551-TC; 71010-TC; 80053; 81003; 81015; 83036; 83735; 85025; 87086; 93005; 93010; 96365; 97116-GP; 97161-GP; 99284-25; G0277; G0378; J1644

== ENCOUNTER 2016-12-23 08:19 | Day surgery (SDC) | payer OTHER ==
[2016-12-23 08:36] VITALS: PULSE 78; TEMP 97.9
[2016-12-23] MEDS ORDERED: CEFTRIAXONE 2 GM in DEXTROSE 5%-WATER - 100 ML IVPB ONE (08:45)
[2016-12-23 09:43] VITALS: BP 120/71
== END 2016-12-23 09:45 | disposition home or self-care (01) ==
LOC: JINFUSION 08:19
PROVIDERS: ATTEND Internal Medicine Infectious Disease
DX: M86.8X7 Other osteomyelitis, ankle and foot (principal)
CPT/HCPCS: 96365; G0277

== ENCOUNTER 2016-12-24 08:35 | Day surgery (SDC) | payer OTHER ==
[2016-12-24] MEDS ORDERED: CEFTRIAXONE 2 GM in DEXTROSE 5%-WATER 100 ML IVPB ONE (09:30)
[2016-12-24 10:03] VITALS: TEMP 98.3
[2016-12-24 10:07] VITALS: BP 133/69; PULSE 67
== END 2016-12-24 10:00 | disposition home or self-care (01) ==
LOC: JINFUSION 08:35
PROVIDERS: ATTEND Internal Medicine Infectious Disease
DX: M86.8X7 Other osteomyelitis, ankle and foot (principal)
CPT/HCPCS: 96365; G0277

== ENCOUNTER 2016-12-25 08:26 | Day surgery (SDC) | payer OTHER ==
[2016-12-25] MEDS ORDERED: CEFTRIAXONE 2 GM in DEXTROSE 5%-WATER - 100 ML IVPB ONE (09:15)
[2016-12-25 09:44] VITALS: TEMP 98.1
[2016-12-25 09:51] VITALS: BP 162/71; PULSE 66
== END 2016-12-25 09:45 | disposition home or self-care (01) ==
LOC: JINFUSION 08:26
PROVIDERS: ATTEND Internal Medicine Infectious Disease
DX: M86.8X7 Other osteomyelitis, ankle and foot (principal)
CPT/HCPCS: 96365; G0277

== ENCOUNTER 2016-12-26 08:37 | Day surgery (SDC) | payer OTHER ==
[2016-12-26] MEDS ORDERED: CEFTRIAXONE 2 GM in DEXTROSE 5%-WATER - 100 ML IVPB ONE (09:15)
[2016-12-26 13:39] VITALS: BP 146/62; PULSE 66; TEMP 96.5
== END 2016-12-26 09:57 | disposition home or self-care (01) ==
LOC: JINFUSION 08:37
PROVIDERS: ATTEND Internal Medicine Infectious Disease
DX: M86.8X7 Other osteomyelitis, ankle and foot (principal); E11.621 Type 2 diabetes mellitus with foot ulcer; M86.671 Other chronic osteomyelitis, right ankle and foot; Z79.4 Long term (current) use of insulin
CPT/HCPCS: 96365; G0277; G0463-25

== ENCOUNTER 2016-12-28 09:01 | Day surgery (SDC) | payer OTHER ==
[2016-12-28] MEDS ORDERED: DEXTROSE 5%-WATER 100 ML IVPB ONE (10:04)
[2016-12-28] MEDS ORDERED: CEFTRIAXONE 2 GM in DEXTROSE 5%-WATER 100 ML IVPB ONE (11:00)
[2016-12-28 12:57] VITALS: BP 140/71; PULSE 72; TEMP 98.1
== END 2016-12-28 13:02 | disposition home or self-care (01) ==
LOC: J7W 09:01 → JINFUSION 09:01
PROVIDERS: ATTEND Internal Medicine Infectious Disease
DX: M86.8X7 Other osteomyelitis, ankle and foot (principal)
CPT/HCPCS: 96365

== ENCOUNTER 2016-12-29 08:24 | Day surgery (SDC) | payer OTHER ==
[2016-12-29 09:06] LABS: MCH 30.9 pg (25.7-33.7); MCHC 33.7 g/dl (32.0-35.9); MEAN CELL VOLUME 91.5 fl (80-96); MEAN PLT VOLUME 8.3 fl (7.5-11.1); PLATELET COUNT 198 K/MM3 (134-434); RDW 13.3 % (11.9-15.9); WHITE BLOOD COUNT 6.2 K/mm3 (4.0-10.0)
[2016-12-29 09:34] LABS: ALBUMIN 3.1 g/dl (3.4-5.0); ANION GAP 9 (8-16); BILIRUBIN,TOTAL 0.4 mg/dL (0.2-1.0); C-REACTIVE PROTEIN < 0.3 MG/DL (0.00-0.3); CO2 25 mmol/L (21-32); CREATININE 1.3 mg/dL (0.7-1.3); GLUCOSE,RANDOM 194 mg/dL (74-106); SGOT/AST 17 U/L (15-37); SGPT/ALT 23 U/L (12-78); TOT PROT 5.9 g/dl (6.4-8.2)
[2016-12-29 09:35] LABS: ALK PHOS 122 U/L (45-117)
[2016-12-29 10:29] VITALS: BP 137/62; PULSE 71
[2016-12-29 10:29] LABS: ERYTHROCYTE SEDIMENTATION RATE 15 mm/hr (0-20)
[2016-12-29] MEDS ORDERED: CEFTRIAXONE 2 GM in DEXTROSE 5%-WATER 100 ML IVPB ONE (11:15)
== END 2016-12-29 10:29 | disposition home or self-care (01) ==
LOC: JINFUSION 08:24
PROVIDERS: ATTEND Internal Medicine Infectious Disease
DX: M86.8X7 Other osteomyelitis, ankle and foot (principal)
CPT/HCPCS: 36415; 80053; 85027; 85651; 86140; 96365; G0277

== ENCOUNTER 2016-12-30 08:22 | Day surgery (SDC) | payer OTHER ==
[2016-12-30] MEDS ORDERED: CEFTRIAXONE 2 GM in DEXTROSE 5%-WATER 100 ML IVPB ONE (09:00)
[2016-12-30 09:24] VITALS: BP 143/63; PULSE 65; TEMP 98.2
== END 2016-12-30 09:51 | disposition home or self-care (01) ==
LOC: JINFUSION 08:22
PROVIDERS: ATTEND Internal Medicine Infectious Disease
DX: M86.8X7 Other osteomyelitis, ankle and foot (principal)
CPT/HCPCS: 96365; G0277

== ENCOUNTER 2016-12-31 08:33 | Day surgery (SDC) | payer OTHER ==
[2016-12-31 10:07] VITALS: BP 136/64; PULSE 73; TEMP 97.7
[2016-12-31] MEDS ORDERED: CEFTRIAXONE 2 GM in DEXTROSE 5%-WATER - 100 ML IVPB ONE (11:30)
== END 2016-12-31 09:00 | disposition home or self-care (01) ==
LOC: JINFUSION 08:33
PROVIDERS: ATTEND Internal Medicine Infectious Disease
DX: M86.8X7 Other osteomyelitis, ankle and foot (principal)
CPT/HCPCS: 96365; G0277

== ENCOUNTER 2017-01-01 08:39 | Day surgery (SDC) | payer OTHER ==
[2017-01-01] MEDS ORDERED: CEFTRIAXONE 2 GM in DEXTROSE 5%-WATER - 100 ML IVPB ONE (09:15)
[2017-01-01 09:29] VITALS: TEMP 98.3
[2017-01-01 09:57] VITALS: BP 137/68; PULSE 66
== END 2017-01-01 09:57 | disposition home or self-care (01) ==
LOC: JINFUSION 08:39
PROVIDERS: ATTEND Internal Medicine Infectious Disease
DX: M86.8X7 Other osteomyelitis, ankle and foot (principal)
CPT/HCPCS: 96365

== ENCOUNTER 2017-01-02 08:44 | Day surgery (SDC) | payer OTHER ==
[2017-01-02 09:07] VITALS: BP 146/60; PULSE 63; TEMP 98.4
[2017-01-02] MEDS ORDERED: CEFTRIAXONE 2 GM in DEXTROSE 5%-WATER - 100 ML IVPB ONE (10:00)
== END 2017-01-02 09:49 | disposition home or self-care (01) ==
LOC: JINFUSION 08:44
PROVIDERS: ATTEND Internal Medicine Infectious Disease
DX: M86.8X7 Other osteomyelitis, ankle and foot (principal); E11.621 Type 2 diabetes mellitus with foot ulcer; M86.671 Other chronic osteomyelitis, right ankle and foot; Z79.4 Long term (current) use of insulin
CPT/HCPCS: 96365; G0277

== ENCOUNTER 2017-01-03 08:21 | Day surgery (SDC) | payer OTHER ==
[2017-01-03] MEDS ORDERED: CEFTRIAXONE 2 GM in DEXTROSE 5%-WATER 100 ML IVPB ONE (09:30)
[2017-01-03] MEDS ORDERED: DEXTROSE 5%-WATER 100 ML IVPB ONE (09:34)
[2017-01-03 09:52] VITALS: BP 132/63; PULSE 63; TEMP 98
== END 2017-01-03 10:26 | disposition home or self-care (01) ==
LOC: J7W 08:21 → JINFUSION 08:21
PROVIDERS: ATTEND Internal Medicine Infectious Disease
DX: M86.8X7 Other osteomyelitis, ankle and foot (principal)
CPT/HCPCS: 96365

== ENCOUNTER 2017-01-04 08:28 | Day surgery (SDC) | payer OTHER ==
[2017-01-04] MEDS ORDERED: DEXTROSE 5%-WATER 100 ML IVPB ONE (08:51)
[2017-01-04] MEDS ORDERED: CEFTRIAXONE 2 GM in DEXTROSE 5%-WATER 100 ML IVPB ONE (09:00)
[2017-01-04 09:54] VITALS: TEMP 98.5
[2017-01-04 09:58] VITALS: BP 138/63; PULSE 83; BMI 24.3
== END 2017-01-04 10:23 | disposition home or self-care (01) ==
LOC: JINFUSION 08:28 → J7W 08:29 → JINFUSION 10:23
PROVIDERS: ATTEND Internal Medicine Infectious Disease
DX: M86.8X7 Other osteomyelitis, ankle and foot (principal)
CPT/HCPCS: 96365

== ENCOUNTER 2017-01-05 08:36 | Day surgery (SDC) | payer OTHER ==
[2017-01-05 09:27] VITALS: BP 114/64; PULSE 62; TEMP 97.9
[2017-01-05] MEDS ORDERED: CEFTRIAXONE 2 GM in DEXTROSE 5%-WATER - 100 ML IVPB ONE (10:00)
== END 2017-01-05 10:20 | disposition home or self-care (01) ==
LOC: JINFUSION 08:36
PROVIDERS: ATTEND Internal Medicine Infectious Disease
DX: M86.8X7 Other osteomyelitis, ankle and foot (principal); E11.621 Type 2 diabetes mellitus with foot ulcer; M86.671 Other chronic osteomyelitis, right ankle and foot; Z79.4 Long term (current) use of insulin
CPT/HCPCS: 96365; G0277

== ENCOUNTER 2017-01-06 08:41 | Day surgery (SDC) | payer OTHER ==
[2017-01-06] MEDS ORDERED: CEFTRIAXONE 2 GM in DEXTROSE 5%-WATER - 100 ML IVPB ONE (09:00)
[2017-01-06 09:15] VITALS: BP 144/61; PULSE 68; TEMP 98.2
== END 2017-01-06 09:55 | disposition home or self-care (01) ==
LOC: JINFUSION 08:41
PROVIDERS: ATTEND Internal Medicine Infectious Disease
DX: M86.8X7 Other osteomyelitis, ankle and foot (principal)
CPT/HCPCS: 96365; G0277

== ENCOUNTER 2017-01-07 08:38 | Day surgery (SDC) | payer OTHER ==
[2017-01-07 09:22] VITALS: BP 135/65; PULSE 62; TEMP 98.1
[2017-01-07] MEDS ORDERED: CEFTRIAXONE 2 GM in DEXTROSE 5%-WATER - 100 ML IVPB ONE (10:15)
== END 2017-01-07 10:01 | disposition home or self-care (01) ==
LOC: JINFUSION 08:38
PROVIDERS: ATTEND Internal Medicine Infectious Disease
DX: M86.8X7 Other osteomyelitis, ankle and foot (principal)
CPT/HCPCS: 96365; G0277

== ENCOUNTER 2017-01-08 08:37 | Day surgery (SDC) | payer OTHER ==
[2017-01-08 09:12] VITALS: BP 133/62; PULSE 64; TEMP 97.9
[2017-01-08] MEDS ORDERED: CEFTRIAXONE 2 GM in DEXTROSE 5%-WATER 100 ML IVPB ONE (10:00)
== END 2017-01-08 09:52 | disposition home or self-care (01) ==
LOC: JINFUSION 08:37
PROVIDERS: ATTEND Internal Medicine Infectious Disease
DX: M86.8X7 Other osteomyelitis, ankle and foot (principal)
CPT/HCPCS: 96365; G0277

== ENCOUNTER 2017-01-09 08:51 | Day surgery (SDC) | payer OTHER ==
[2017-01-09] MEDS ORDERED: CEFTRIAXONE 2 GM in DEXTROSE 5%-WATER - 100 ML IVPB ONE (10:00)
--- NOTE | 2017-01-09 13:40 | PN ---
Past Medical History Chief Complaint: right 2nd toe ulcer History Provided By: Patient Limitations to Obtaining History: Yes: No Limitations - Past Medical History Vital Signs: Last Vital Signs Temp Pulse Resp BP Pulse Ox 97.9 F 66 20 139/76 01/09/17 09:35 01/09/17 09:35 01/09/17 09:35 01/09/17 09:35 PMH,PSH,Fam Hx, Meds,Allergies,Previous Tx: Reviewed in Nursing Documentation and no changes since last visit. Review of Systems Constitutional: reports: No Symptoms Eyes: reports: No Symptoms Cardiovascular: reports: No Symptoms Respiratory: reports: No Symptoms Musculoskeletal: reports: No Symptoms Integumentary: reports: Wound Neurological: reports: No Symptoms Endocrine: reports: No Symptoms Hematology/Lymphatic: reports: No Symptoms Psychiatric: reports: No Symptoms Nutrition: Good appetite - Appearance General Appearance: Well groomed, Well nourished, No acute distress Assistive Devices: Cane - Vascular Lower extremity Pulses: 2+ Right Dorsalis Pedis, 2+ Right Posterior Tibial, 2+ Right Popliteal, 2+ Right Femoral, 2+ Left Doralis Pedis, 2+ Left Posterior Tibial, 2+ Left Popliteal, 2+ Left Femoral Varicosities: No Skin Temperature: Warm CFT: Instantaneous Amputations: No - Wound Assessment Right Toe 2nd digit Assessment: Right Drainage: Serous Drainage amount: Scant Wound length (cm) [Pre-debridement]: 0.2 Wound width(cm) [Pre-debridement]: 0.2 Wound depth (cm) [Pre-debridement]: 0.2 Wound bed: Latta/Red Plan of Care: A history was completed , an examination was performed. Continue to use Santyl. RTC in 3 weeks. Goal of Care __x___ To Heal To Maintain (wound healing is slow or stalled but stable, little / no deterioration) To Monitor / Manage ( wound healing not achievable due to untreatable underlying condition e.g. cancer, un-reversible severe peripheral vascular disease. Patient Counseled on: Diagnosis and Tx Plan, Medication use and possible effects Instructions: Instructions were provided to the Patient/Family/PATTERN ILLUSTRATOR, and the patient is to RTC in 3 weeks.. Continue to use Santyl. Patient demonstrated verbal understanding of all that was said today and they agreed to alert me on effectiveness. Problem List - Problems (1) Osteomyelitis Code(s): M86.9 - OSTEOMYELITIS, UNSPECIFIED
[2017-01-09 16:46] VITALS: BP 122/74; PULSE 70; TEMP 96.1
== END 2017-01-09 10:20 | disposition home or self-care (01) ==
LOC: JINFUSION 08:51
PROVIDERS: ATTEND Internal Medicine Infectious Disease
DX: M86.8X7 Other osteomyelitis, ankle and foot (principal); E11.621 Type 2 diabetes mellitus with foot ulcer; M86.671 Other chronic osteomyelitis, right ankle and foot; Z79.4 Long term (current) use of insulin
CPT/HCPCS: 96365; G0277

== ENCOUNTER 2017-01-10 08:24 | Day surgery (SDC) | payer OTHER ==
[2017-01-10] MEDS ORDERED: CEFTRIAXONE 1 G/50 ML PREMIX 50 ML IVPB ONE (09:15)
[2017-01-10] MEDS ORDERED: CEFTRIAXONE 2 GM in DEXTROSE 5%-WATER - 100 ML IVPB ONE (09:30)
[2017-01-10 10:51] VITALS: BMI 20.3
[2017-01-10 10:54] VITALS: BP 177/55; PULSE 70; TEMP 98.1
== END 2017-01-10 11:10 | disposition home or self-care (01) ==
LOC: JINFUSION 08:24 → J7W 08:24 → JINFUSION 11:10
PROVIDERS: ATTEND Internal Medicine Infectious Disease
DX: M86.8X7 Other osteomyelitis, ankle and foot (principal)
CPT/HCPCS: 96365

== ENCOUNTER 2017-01-11 08:19 | Day surgery (SDC) | payer OTHER ==
[2017-01-11 08:47] VITALS: TEMP 97.7
[2017-01-11] MEDS ORDERED: DEXTROSE 5%-WATER 100 ML IVPB ONE (08:49)
[2017-01-11 09:26] VITALS: BP 136/70; PULSE 77
[2017-01-11] MEDS ORDERED: CEFTRIAXONE 2 GM in DEXTROSE 5%-WATER 100 ML IVPB ONE (10:00)
== END 2017-01-11 09:26 | disposition home or self-care (01) ==
LOC: JINFUSION 08:19 → J7W 08:21 → JINFUSION 09:26
PROVIDERS: ATTEND Internal Medicine Infectious Disease
DX: M86.8X7 Other osteomyelitis, ankle and foot (principal)
CPT/HCPCS: 96365

== ENCOUNTER 2017-01-12 08:36 | Day surgery (SDC) | payer OTHER ==
[2017-01-12 09:00] LABS: MCH 30.3 pg (25.7-33.7); MEAN CELL VOLUME 91.7 fl (80-96); MEAN PLT VOLUME 8.3 fl (7.5-11.1); PLATELET COUNT 204 K/MM3 (134-434); RDW 13.7 % (11.9-15.9); WHITE BLOOD COUNT 5.8 K/mm3 (4.0-10.0)
[2017-01-12 09:33] LABS: ALBUMIN 3.1 g/dl (3.4-5.0); ANION GAP 5 (8-16); BILIRUBIN,TOTAL 0.4 mg/dL (0.2-1.0); CO2 27 mmol/L (21-32); CREATININE 1.4 mg/dL (0.7-1.3); GLUCOSE,RANDOM 206 mg/dL (74-106); SGOT/AST 25 U/L (15-37); SGPT/ALT 28 U/L (12-78)
[2017-01-12 09:34] LABS: ALK PHOS 120 U/L (45-117)
[2017-01-12 09:35] LABS: C-REACTIVE PROTEIN < 0.3 MG/DL (0.00-0.3)
[2017-01-12] MEDS ORDERED: CEFTRIAXONE 2 GM in DEXTROSE 5%-WATER - 100 ML IVPB ONE (10:00)
[2017-01-12 10:27] LABS: ERYTHROCYTE SEDIMENTATION RATE 18 mm/hr (0-20)
[2017-01-12 14:23] VITALS: BP 136/63; PULSE 74; TEMP 97.5
== END 2017-01-12 10:05 | disposition home or self-care (01) ==
LOC: JINFUSION 08:36
PROVIDERS: ATTEND Internal Medicine Infectious Disease
DX: M86.8X7 Other osteomyelitis, ankle and foot (principal); E11.621 Type 2 diabetes mellitus with foot ulcer; M86.671 Other chronic osteomyelitis, right ankle and foot; Z79.4 Long term (current) use of insulin
CPT/HCPCS: 36415; 80053; 85027; 85651; 86140; 96365; G0277; G0463-25

== ENCOUNTER 2017-01-13 08:33 | Day surgery (SDC) | payer OTHER ==
--- NOTE | 2016-12-29 12:44 | PN ---
[facility]-Physical Exam - Physical Physical: No Change - Physical Exam Constitutional: Yes: Well Nourished ENT: Yes: Clear Lungs: Yes: Clear to auscultation Heart: Yes: Regular rate & rhythm Abdomen: Yes: Soft Extremities: Yes: Normal Pulses Edema: No Neurological: Yes: Intact Wound Assessment - Wound Right Toe Wound Length (cm.): 1.0 Wound Width (cm.): 1.0 Wound Depth (cm.): 0.2 Right Foot 2nd digit Assessment: Improved Wound Length (cm.): 0.6 Wound Width (cm.): 1.0 Wound Depth (cm.): 0.1 Fibrotic Tissue: No Necrotic tissue: No Granulation tissue: Yes Drainage: No Drainage odor: None Dressing/Treatment: Other (santyl) Plan: doing well Healing cont nat ID on the case Return to [facility]: 3 Weeks
[2017-01-13] MEDS ORDERED: CEFTRIAXONE 2 GM in DEXTROSE 5%-WATER - 100 ML IVPB ONE (09:00)
[2017-01-13 12:25] VITALS: TEMP 97.4
[2017-01-13 12:29] VITALS: BP 139/73; PULSE 67
== END 2017-01-13 09:50 | disposition home or self-care (01) ==
LOC: JINFUSION 08:33
PROVIDERS: ATTEND Internal Medicine Infectious Disease
DX: M86.8X7 Other osteomyelitis, ankle and foot (principal)
CPT/HCPCS: 96365; G0277

== ENCOUNTER 2017-01-14 08:38 | Day surgery (SDC) | payer OTHER ==
[2017-01-14] MEDS ORDERED: CEFTRIAXONE 2 GM in DEXTROSE 5%-WATER - 100 ML IVPB ONE (10:00)
[2017-01-14 11:27] VITALS: BP 138/62; PULSE 63; TEMP 97.9
== END 2017-01-14 10:15 | disposition home or self-care (01) ==
LOC: JINFUSION 08:38
PROVIDERS: ATTEND Internal Medicine Infectious Disease
DX: M86.8X7 Other osteomyelitis, ankle and foot (principal)
CPT/HCPCS: 96365; G0277

== ENCOUNTER 2017-02-11 15:47 | Observation (INO) | payer OTHER ==
--- NOTE | 2017-02-11 16:05 | PDOC ---
History of Present Illness - General Chief Complaint: Syncope/Near Syncope Stated Complaint: Syncope/Near Syncope Time Seen by Provider: 02/11/17 16:05 - History of Present Illness Initial Comments: 02/11/17 16:07 81 yo M with h/o NIDDM, HTN, and CVA who presents with syncope. Patient reports 1 hour PIANO ACCOMPANIST he checked his BS and read 400. After home health aide administered 8 U Insulin while on couch his daughter ( at bedside) reports he became lethargic, disoriented to place, and unresponsive to questions. Pt. reports he was lightheaded following the Insulin. Recheck BS was 167 and patient was given soup.Symptoms resolved after 10 minutes. Endorses fatigue. Denies any other associated complaints, chest pain, SOB, N/V, fevers/chills, LOC, seizures, urinary complaints, or GI/abdominal complaints. Chronic gait instability. Ambulates with cane. MRI Head ( 12/19/16). Chronic atrophy and microvascular ischemic changes. Old left periventricular focal infarct w/ no evidence of acute infarct. PCP Dr. Shrestha. Past History - Past Medical History Allergies/Adverse Reactions: Allergies Allergy/AdvReac Type Severity Reaction Status Date / Time No Known Allergies Allergy Verified 02/11/17 16:15 Home Medications: Ambulatory Orders Insulin Glargine,Hum.rec.anlog [Lantus Solostar PEN -] 5 units SQ HS 12/01/16 Insulin Glargine,Hum.rec.anlog [Lantus Solostar PEN -] 8 units SQ AM 12/01/16 Insulin Lispro [Humalog] 100 unit SQ ASDIR 12/01/16 Becaplermin [Regranex] 15 gm TP DAILY #1 gel..gram. 12/12/16 Aspirin/Dipyridamole [Aggrenox -] 1 combo PO BID 02/11/17 Cholecalciferol (Vitamin D3) [Vitamin D3] 5,000 unit PO WEEKLY 02/11/17 Ibuprofen [Motrin -] 400 mg PO TID PRN 02/11/17 Melatonin 5 mg PO HS 02/11/17 CVA: Yes Diabetes: Yes (iddm) HTN: Yes - Immunization History Immunization Up to Date: Yes - Suicide/Smoking/Psychosocial Hx Smoking Status: No Smoking History: Never smoked Have you smoked in the past 12 months: No Number of Cigarettes Smoked Daily: 0 Hx Alcohol Use: No Drug/Substance Use Hx: No Substance Use Type: None Review of Systems - Review of Systems Comments:: 02/11/17 16:08 GENERAL/CONSTITUTIONAL: + Weakness, and fatigue. No fever or chills. No weakness. HEAD, EYES, EARS, NOSE AND THROAT: No change in vision. No ear pain or discharge. No sore throat.- CARDIOVASCULAR: No chest pain or shortness of breath RESPIRATORY: No cough, wheezing, or hemoptysis. GASTROINTESTINAL: No nausea, vomiting, diarrhea or constipation. GENITOURINARY: No dysuria, frequency, or change in urination. MUSCULOSKELETAL: No joint or muscle swelling or pain. No neck or back pain. SKIN: No rash NEUROLOGIC: No headache, vertigo, loss of consciousness, or change in strength/ sensation. ENDOCRINE: No increased thirst. No abnormal weight change HEMATOLOGIC/LYMPHATIC: No anemia, easy bleeding, or history of blood clots. ALLERGIC/IMMUNOLOGIC: No hives or skin allergy. Is the patient limited Citizen Of [place] proficient: No *Physical Exam - Physical Exam Comments: 02/11/17 16:08 GENERAL: Awake, alert, and fully oriented, in no acute distress HEAD: No signs of trauma, normocephalic, atraumatic EYES: PERRLA, EOMI, sclera anicteric, conjunctiva clear ENT: hearing grossly normal, nares patent, oropharynx clear without exudates. Moist mucosa NECK: Normal ROM, supple, no lymphadenopathy, JVD, or masses LUNGS: No distress, speaks full sentences, clear to auscultation bilaterally HEART: Regular rate and rhythm, normal S1 and S2, no murmurs, rubs or gallops, peripheral pulses normal and equal bilaterally. EXTREMITIES : Normal inspection, Normal range of motion, no edema. No clubbing or cyanosis. NEUROLOGICAL: Cranial nerves II through XII grossly intact. Normal speech, normal gait, no focal sensorimotor deficits. Normal MARSHA, absent dysmetria on FTN. Normal Heel joel. 5/5 UE and LE strength. SKIN: Warm, Dry, normal turgor, no rashes or lesions noted. ED Treatment Course - LABORATORY CBC & Chemistry Diagram: 02/12/17 05:30 02/12/17 05:30 Medical Decision Making - Medical Decision Making 02/11/17 16:47 81 yo M with h/o NIDDM, HTN, and CVA who presents with presyncope 1 hour PIANO ACCOMPANIST following Insulin administration. 8 U Insulin given after BS~400 with subsequent drop to 167. Experienced transient episode of lethargy, and disorientation. Now resting comfortably at bedside, with complaint of fatigue. Arrived hemodynamically stable and denies chest pain, SOB, N/V, fevers/chills, LOC, seizures, urinary complaints, or GI/abdominal complaints. Patient with no neruo deficits nd cardiopulmanry exam unremarkable. Previous MRI Head ( 12/19/16 ). Chronic atrophy and microvascular ischemic changes. Old left periventricular focal infarct w/ no evidence of acute infarct. Symptoms and clinical report suggest that pateint experienced transeint hypoglycemic event following 8 U insulin. Low suspicion of CVA, with Neg Hope Stroke scale. Conisder Orthostasis. ED Course: CBC, CMP, Trop, Cardiac EKG, CXR ADRIEN Stroke scale 0. 02/11/17 17:39 02/11/17 17:49 Constantino Hutchinson Medical Student:Orthostatic vitals : Laying 166/55, Sitting 165/56, Standing 115/55 02/11/17 18:30 CR 1.4 ( 1.0-1.3) 02/11/17 18:30 CKI 0.2,TROP NEG 02/11/17 18:31 GLU 293 02/11/17 18:31 UA NEG 02/11/17 18:31 CXR: No acute lung change or caridopulm pathology. EKG: NSR with absent PATTIE, STD, or inverted T waves. Absent QT prolongation. 02/11/17 18:32 Admit inpatient med obs admitting symphony. PCP Michelle. Concern for ILANA, fluid down on physical exam. 1 L NS. Micoblogged Hospitalist group. *DC/Admit/Observation/Transfer Diagnosis at time of Disposition: Hypoglycemia associated with diabetes, Orthostatic hypotension, ILANA (acute kidney injury) - Discharge Dispostion Condition at time of disposition: Fair Admit: No - Referrals - Patient Instructions - Post Discharge Activity
[2017-02-11 16:59] VITALS: BMI 19.8
[2017-02-11 17:25] LABS: MCH 30.6 pg (25.7-33.7); MCHC 33.7 g/dl (32.0-35.9); MEAN CELL VOLUME 90.7 fl (80-96); MEAN PLT VOLUME 8.6 fl (7.5-11.1); PLATELET COUNT 190 K/MM3 (134-434); WHITE BLOOD COUNT 5.8 K/mm3 (4.0-10.0)
--- NOTE | 2017-02-11 17:31 | PDOC ---
Attending Attestation - Physicial Exam PE: 02/11/17 18:50 GENERAL: Awake, alert, and fully oriented, in no acute distress HEAD: No signs of trauma EYES: PERRLA, EOMI, sclera anicteric, conjunctiva clear ENT: Auricles normal inspection, hearing grossly normal, nares patent, oropharynx clear without exudates. +Dry mucous membranes, dry cracked mouth. NECK: Normal ROM, supple, no lymphadenopathy, JVD, or masses LUNGS: Breath sounds equal, clear to auscultation bilaterally. No wheezes, and no crackles HEART: Regular rate and rhythm, normal S1 and S2, no murmurs, rubs or gallops ABDOMEN: Soft, nontender, normoactive bowel sounds. No guarding, no rebound. No masses EXTREMITIES: Normal range of motion, no edema. No clubbing or cyanosis. No cords, erythema, or tenderness NEUROLOGICAL: Cranial nerves II through XII grossly intact. Normal speech, normal gait SKIN: +tenting of skin, warm, Dry, no rashes or lesions noted. <Saira Rain - Last Filed: 02/11/17 18:50> - Resident Resident Name: Jas Altamirano - ED Attending Attestation I have performed the following: I have examined & evaluated the patient, The case was reviewed & discussed with the resident, I agree w/resident's findings & plan, Exceptions are as noted - HPI HPI: 02/13/17 01:12 81yo male with lightheadedness/confusion, low bp sent by clinic for eval. currently resolved. - Medical Decision Making 02/11/17 17:31 I, Dr. Lisa Centeno, DO, attest that this document has been prepared under my direction and personally reviewed by me in its entirety. I further attest, that it accurately reflects all work, treatment, procedures and medical decision -making performed by me. 02/11/17 19:58 case discussed with IM AIRPORT SKILLED MAINTENANCE SUPERVISOR who accepts pt to service under Dr. 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 glucose check given elevated glucose around 400 then took insulin then felt confused orthostatic vs 02/13/17 01:41 pt was orthostatic 160systolic when laying, 153 systolic when sitting, 115 sysotlic when standing will give ivf 02/13/17 01:41 pt with dehydration and orthostatic hypotension, will keep in obs for ivf hydration and further eval <Lisa Centeno - Last Filed: 02/13/17 01:42> Discharge Disposition <Saira Rain - Last Filed: 02/11/17 18:50> - Discharge Dispostion Last Admission D/C Date: 12/22/16 Admit: Yes <Lisa Centeno - Last Filed: 02/13/17 01:42> - Diagnosis Hypoglycemia associated with diabetes, Orthostatic hypotension, ILANA (acute kidney injury) - Discharge Dispostion Condition at time of disposition: Fair
[2017-02-11 17:43] LABS: ALBUMIN 2.9 g/dl (3.4-5.0); ANION GAP 6 (8-16); CALCIUM 7.9 mg/dL (8.5-10.1); CO2 24 mmol/L (21-32); CREATININE 1.4 mg/dL (0.7-1.3); GLUCOSE,RANDOM 293 mg/dL (74-106); SGOT/AST 13 U/L (15-37); SGPT/ALT 18 U/L (12-78)
[2017-02-11 17:44] LABS: ALK PHOS 157 U/L (45-117); BILIRUBIN,TOTAL 0.2 mg/dL (0.2-1.0); TOT PROT 5.8 g/dl (6.4-8.2)
[2017-02-11 17:45] LABS: CPK 594 IU/L (39-308); TROPONIN I < 0.02 ng/ml (0.00-0.05)
[2017-02-11 17:46] LABS: URINE APPEARANCE CLEAR; URINE BILIRUBIN NEGATIVE (NEGATIVE); URINE BLOOD NEGATIVE (NEGATIVE); URINE COLOR LTYELLOW; URINE GLUCOSE (UA) 3+ (NEGATIVE); URINE KETONE NEGATIVE (NEGATIVE); URINE NITRITE NEGATIVE (NEGATIVE); URINE UROBILINOGEN NEGATIVE mg/dL (0.2-1.0)
[2017-02-11 18:00] LABS: URINE PROTEIN 2+ (NEGATIVE)
[2017-02-11] MEDS ORDERED: SODIUM CHLORIDE 0.9% 1000 ML INFUS.BAG IV ONE (18:04)
[2017-02-11 18:13] LABS: URINE HYALINE CAST 3 /lpf; URINE RBC < 1
[2017-02-11 18:33] LABS: INR 0.89 (0.82-1.09); PROTHROMBIN TIME (PATIENT) 10.1 SEC (9.98-11.88)
--- NOTE | 2017-02-11 20:19 | HP ---
CHIEF COMPLAINT: PCP: HISTORY OF PRESENT ILLNESS: This is a 81 y.o man with a PMHx of IDDM, CKD Stage III, HLD, Anemia. Who presents from home with syncope, hyperglycemia x today. Patient is Yakut speaking, [employer] line used #[id number]. Patient reports after having his blood sugar checked it was 400, and that he was given 8 units of insulin by his SAVINGS COUNSELOR. He reports subsequently feeling lightheaded and dizzy. He states he was given soup by his daughter but was brought in for evaluation. Patient now at bedside, is requesting to leave, he states" they do tests on me and never find anything wrong. Patient was advised of the risks and dangers of leaving against medical advice, his daughter was contacted and he agreed to stay to continue his treatment. 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 12/12/16 Aspirin/Dipyridamole [Aggrenox -] 1 combo PO BID 02/11/17 Cholecalciferol (Vitamin D3) 5,000 unit PO WEEKLY 02/11/17 [Vitamin D3] Ibuprofen [Motrin -] 400 mg PO TID PRN 02/11/17 Melatonin 5 mg PO HS 02/11/17 REVIEW OF SYSTEMS CONSTITUTIONAL: malaise Absent: fever, chills, diaphoresis, generalized weakness, loss of appetite, weight change HEENT: Absent: rhinorrhea, nasal congestion, throat pain, throat swelling, difficulty swallowing, mouth swelling, ear pain, eye pain, visual changes CARDIOVASCULAR: syncope, Absent: chest pain, palpitations, irregular heart rate, lightheadedness, peripheral edema RESPIRATORY: Absent: cough, shortness of breath, dyspnea with exertion, orthopnea, wheezing, stridor, hemoptysis GASTROINTESTINAL: Absent: abdominal pain, abdominal distension, nausea, vomiting, diarrhea, constipation, melena, hematochezia GENITOURINARY: Absent: dysuria, frequency, urgency, hesitancy, hematuria, flank pain, genital pain MUSCULOSKELETAL: Absent: myalgia, arthralgia, joint swelling, back pain, neck pain SKIN: Absent: rash, itching, pallor HEMATOLOGIC/IMMUNOLOGIC: Absent: easy bleeding, easy bruising, lymphadenopathy, frequent infections ENDOCRINE: Absent: unexplained weight gain, unexplained weight loss, heat intolerance, cold intolerance NEUROLOGIC: mental status changes Absent: headache, focal weakness or paresthesias, dizziness, unsteady gait, seizure, bladder or bowel incontinence PSYCHIATRIC: Absent: anxiety, depression, suicidal or homicidal ideation, hallucinations. PHYSICAL EXAMINATION Vital Signs - 24 hr 02/11/17 16:20 Temperature 98.3 F Pulse Rate 63 Respiratory 18 Rate Blood Pressure 144/50 GENERAL: Awake, alert, and fully oriented, in no acute distress. HEAD: Normal with no signs of trauma. EYES: Pupils round and reactive to light, extraocular movements intact, sclera anicteric, conjunctiva clear. No lid lag. EARS, NOSE, THROAT: Ears normal, nares patent, oropharynx clear without exudates. Dry mucous membranes. NECK: Normal range of motion, supple without lymphadenopathy, JVD, or masses. LUNGS: Breath sounds equal, clear to auscultation bilaterally. No wheezes, and no crackles. No accessory muscle use. HEART: Regular rate and rhythm, normal S1 and S2 without murmur, rub or gallop. ABDOMEN: Soft, nontender, not distended, normoactive bowel sounds, no guarding, no rebound, no masses. No hepatomegaly or splenomegaly. MUSCULOSKELETAL: Normal range of motion at all joints. No bony deformities or tenderness. No CVA tenderness. UPPER EXTREMITIES: 2+ pulses, warm, well-perfused. No cyanosis. No clubbing. No peripheral edema. LOWER EXTREMITIES: 2+ pulses, warm, well-perfused. No calf tenderness. No peripheral edema. NEUROLOGICAL: Cranial nerves II-XII intact. Normal speech. Gait not observed. PSYCHIATRIC: Cooperative. Good eye contact. Appropriate mood and affect. SKIN: Warm, dry, normal turgor, no rashes or lesions noted, normal capillary refill. Laboratory Results - last 24 hr 02/11/17 02/11/17 02/11/17 16:50 16:50 16:50 WBC 5.8 RBC 3.32 L Hgb 10.1 L Hct 30.1 L MCV 90.7 MCH 30.6 MCHC 33.7 RDW 14.0 Plt Count 190 MPV 8.6 Neutrophils % No Result Required. Neutrophils % (Manual) 48.0 Band Neutrophils % 2.0 Lymphocytes % No Result Required. Lymphocytes % (Manual) 15.0 Monocytes % (Manual) 8 Eosinophils % (Manual) 27.0 H PT with INR 10.10 INR 0.89 Sodium Potassium Chloride Carbon Dioxide Anion Gap BUN Creatinine Creat Clearance w eGFR Random Glucose Calcium Total Bilirubin AST ALT Alkaline Phosphatase Creatine Kinase 594 H Creatine Kinase Index 0.3 CK-MB (CK-2) 1.950 Troponin I < 0.02 Total Protein Albumin Urine Color Urine Appearance Urine pH Ur Specific Boring Urine Protein Urine Glucose (UA) Urine Ketones Urine Blood Urine Nitrite Urine Bilirubin Urine Urobilinogen Urine WBC (Auto) Urine RBC (Auto) Ur Epithelial Cells Hyaline Casts 02/11/17 02/11/17 16:50 17:20 WBC RBC Hgb Hct MCV MCH MCHC RDW Plt Count MPV Neutrophils % Neutrophils % (Manual) Band Neutrophils % Lymphocytes % Lymphocytes % (Manual) Monocytes % (Manual) Eosinophils % (Manual) PT with INR INR Sodium 141 Potassium 4.7 Chloride 111 H Carbon Dioxide 24 Anion Gap 6 L BUN 35 H D Creatinine 1.4 H Creat Clearance w eGFR 48.40 Random Glucose 293 H D Calcium 7.9 L Total Bilirubin 0.2 D AST 13 L D ALT 18 D Alkaline Phosphatase 157 H D Creatine Kinase Creatine Kinase Index CK-MB (CK-2) Troponin I Total Protein 5.8 L Albumin 2.9 L Urine Color Ltyellow Urine Appearance Clear Urine pH 6.0 Ur Specific Boring 1.012 Urine Protein 2+ H Urine Glucose (UA) 3+ H Urine Ketones Negative Urine Blood Negative Urine Nitrite Negative Urine Bilirubin Negative Urine Urobilinogen Negative Urine WBC (Auto) No Result Required. Urine RBC (Auto) < 1 Ur Epithelial Cells Rare Hyaline Casts 3 ASSESSMENT/PLAN: This is a 81 y/o man with a PMHx of:iDDM, HTN, CVA. Placed on Tele Observation for Syncope, Dehydration for further evaluation of their emergent condition. FEN - NS@42cc/hr - Replete lytes prn - NPO Code Status: Full Code Dispo: Tele Obs Problem List - Problem (1) Syncope Assessment/Plan: - Likely secondary to Arrhythmia vs Hyperglycemia vs Anemia - Tele monitoring - Serial Enzymes - EKG reviewed - Appreciate Cardiology consult - Echo in am - CBC, BMP, Lipid Panel in am Code(s): R55 - SYNCOPE AND COLLAPSE (2) Dehydration Assessment/Plan: - Likely secondary to poor PO intake - BUN 35 above baseline - NS bolus given in ED- patient reports feeling better - Will continue gentle IVF overnight and reassess in am- concern for BP elevation, fluid overload - Monitor vitals - Repeat CBC, BMP in am Code(s): E86.0 - DEHYDRATION (3) HTN (hypertension) Assessment/Plan: - Monitor BP - Will need to verify with family, if patient is taking Norvasc 2.5 daily (per patient summary) Code(s): I10 - ESSENTIAL (PRIMARY) HYPERTENSION (4) CVA (cerebral vascular accident) Assessment/Plan: - Continue Aggrenox - Fall precautions Code(s): I63.9 - CEREBRAL INFARCTION, UNSPECIFIED (5) Diabetes mellitus, insulin dependent (IDDM), uncontrolled Assessment/Plan: - Not well controlled - BGMs - ISS- with close parameters, according to patient's outpatient records, he has a hx of being very brittle- concern for hypoglycemia - HgbA1C in am - FU with Endocrinology outpatient - RD Code(s): E10.65 - TYPE 1 DIABETES MELLITUS WITH HYPERGLYCEMIA (6) Anemia Assessment/Plan: Hgb 10.1 at baseline -Will transfuse if Hgb < 7.0 -Repeat CBC in am Code(s): D64.9 - ANEMIA, UNSPECIFIED (7) CKD (chronic kidney disease) stage 3, GFR 30-59 ml/min Assessment/Plan: - Likely secondary to poorly controlled Diabetes - Cr 1.4, slightly above baseline (0.9-1.3) - Monitor renal function - Avoid nephrotoxic drugs - FU with nephrology as needed in outpatient Code(s): N18.3 - CHRONIC KIDNEY DISEASE, STAGE 3 (MODERATE) (8) HLD (hyperlipidemia) Assessment/Plan: - Lipid profile in am - No record of a statin, will need to verify with patient's PMD or home pharmacy Code(s): E78.5 - HYPERLIPIDEMIA, UNSPECIFIED (9) DVT prophylaxis Assessment/Plan: -OOB -SCDs -Consider ACs if LOS > 48 hrs Code(s): QHI7884 - Visit type - Emergency Visit Emergency Visit: Yes ED Registration Date: 02/11/17 Care time: The patient presented to the Emergency Department on the above date and was hospitalized for further evaluation of their emergent condition. - New Patient This patient is new to me today: Yes Date on this admission: 02/11/17 - Critical Care Critical Care patient: No
[2017-02-11 21:26] LABS: URINE LEUK ESTERASE Negative (NEGATIVE)
[2017-02-11] MEDS ORDERED: ASPIRIN/DIPYRIDAMOLE 25 MG/200 MG CAPSULE (FP) ONE (22:07)
[2017-02-11] MEDS: ASPIRIN/DIPYRIDAMOLE 25 MG/200 MG CAPSULE (FP) PO SCH (22:09)
[2017-02-12] MEDS ORDERED: SODIUM CHLORIDE 1,000 ML IV SCH (05:15)
[2017-02-12] MEDS ORDERED: INSULIN SLIDING SCALE (NOVOLOG) 1 VIAL SQ SCH ×2 (05:45→08:40)
[2017-02-12 05:56] LABS: BASOPHIL 0.4 % (0-2.0); EOSINOPHIL 27.7 % (0-4.5); MCH 29.9 pg (25.7-33.7); MCHC 33.1 g/dl (32.0-35.9); MEAN CELL VOLUME 90.2 fl (80-96); MEAN PLT VOLUME 8.8 fl (7.5-11.1); NEUTROPHILS 46.3 % (42.8-82.8); PLATELET COUNT 188 K/MM3 (134-434); RDW 13.8 % (11.9-15.9); WHITE BLOOD COUNT 6.5 K/mm3 (4.0-10.0)
[2017-02-12 06:22] LABS: ANION GAP 6 (8-16); CALCIUM 7.5 mg/dL (8.5-10.1); CHOLESTEROL 165 mg/dL (50-200); CO2 25 mmol/L (21-32); CREATININE 1.1 mg/dL (0.7-1.3); GLUCOSE,RANDOM 265 mg/dL (74-106)
[2017-02-12 06:24] LABS: CPK 519 IU/L (39-308); TROPONIN I < 0.02 ng/ml (0.00-0.05)
[2017-02-12] MEDS ORDERED: LISINOPRIL 10 MG TABLET (FP) PO SCH (08:00)
[2017-02-12] MEDS ORDERED: ASPIRIN/DIPYRIDAMOLE 25 MG/200 MG CAPSULE (FP) PO ONE (11:15)
[2017-02-12] MEDS: INSULIN SLIDING SCALE (NOVOLOG) 1 VIAL SQ SCH ×3 (11:59→21:12)
--- NOTE | 2017-02-12 12:24 | EKG ---
Test Reason : Blood Pressure : / mmHG Vent. Rate : 066 BPM Atrial Rate : 066 BPM P-R Int : 158 ms QRS Dur : 090 ms QT Int : 406 ms P-R-T Axes : 057 -20 026 degrees QTc Int : 425 ms NORMAL SINUS RHYTHM NORMAL ECG WHEN COMPARED WITH ECG OF 18-DEC-2016 09:58, NO SIGNIFICANT CHANGE WAS FOUND Confirmed by KAREN BHAGAT MD ([id number]) on 02/12/2017 12:23:44 PM Referred By: Confirmed By:KAREN BHAGAT MD
[2017-02-12 13:01] LABS: CPK 562 IU/L (39-308); TROPONIN I < 0.02 ng/ml (0.00-0.05)
--- NOTE | 2017-02-12 13:04 | PN ---
Progress Note (short form) - Note Progress Note: Subjective: The patient was seen and examined at the bedside, he has no complaints at this time. He denies any chest pain or palpitations Awaiting ECHO Current Medications Generic Name Dose Route Start Last Admin Trade Name Med PRN Reason Stop Dose Admin Dipyridamole/Aspirin 1 combo 02/11/17 22:00 02/11/17 22:09 Aggrenox - PO 1 combo BID AARON Administration Insulin Aspart 1 vial 02/12/17 11:45 02/12/17 11:59 Novolog Vial Sliding Scale - SQ 8 units 0745,1145,1715,2200 AARON Administration Protocol Lisinopril 10 mg 02/12/17 08:00 02/12/17 09:50 Prinivil PO Not Given DAILY AARON Objective: Vital Signs Period Temp Pulse Resp BP Sys/Ellis Pulse Ox Last 24 Hr 97.9 F-98.7 F 63-77 18-18 85-168/43-90 98-99 Physical Exam: General: NAD, A&Ox3 Lungs: CTA bilaterally Heart: RRR, S1S2 Abd: Soft, non-tender, non-distended. Normoactive bowel sounds Ext: Refused to remove shoes. No edema CBCD WBC 6.5 K/mm3 (4.0-10.0) 02/12/17 05:30 RBC 3.23 M/mm3 (4.00-5.60) L 02/12/17 05:30 Hgb 9.6 GM/dL (11.7-16.9) L 02/12/17 05:30 Hct 29.1 % (35.4-49) L 02/12/17 05:30 MCV 90.2 fl (80-96) 02/12/17 05:30 MCHC 33.1 g/dl (32.0-35.9) 02/12/17 05:30 RDW 13.8 % (11.9-15.9) 02/12/17 05:30 Plt Count 188 K/MM3 (134-434) 02/12/17 05:30 MPV 8.8 fl (7.5-11.1) 02/12/17 05:30 CMP Sodium 142 mmol/L (136-145) 02/12/17 05:30 Potassium 4.0 mmol/L (3.5-5.1) 02/12/17 05:30 Chloride 111 mmol/L (98-107) H 02/12/17 05:30 Carbon Dioxide 25 mmol/L (21-32) 02/12/17 05:30 Anion Gap 6 (8-16) L 02/12/17 05:30 BUN 29 mg/dL (7-18) H 02/12/17 05:30 Creatinine 1.1 mg/dL (0.7-1.3) D 02/12/17 05:30 Creat Clearance w eGFR 48.40 (>60) 02/11/17 16:50 Random Glucose 265 mg/dL (74-106) H 02/12/17 05:30 Calcium 7.5 mg/dL (8.5-10.1) L 02/12/17 05:30 Total Bilirubin 0.2 mg/dL (0.2-1.0) D 02/11/17 16:50 AST 13 U/L (15-37) L D 02/11/17 16:50 ALT 18 U/L (12-78) D 02/11/17 16:50 Alkaline Phosphatase 157 U/L (45-117) H D 02/11/17 16:50 Total Protein 5.8 g/dl (6.4-8.2) L 02/11/17 16:50 Albumin 2.9 g/dl (3.4-5.0) L 02/11/17 16:50 CARDIAC ENZYMES Creatine Kinase 562 IU/L (39-308) H 02/12/17 12:10 Troponin I < 0.02 ng/ml (0.00-0.05) 02/12/17 12:10 Assessment: This is an 81 year old male with PMHx of IDDM, CKD, hyperlipidemia, anemia, chronic eosinophilia who presented to the ED with syncope and hyperglycemia. Plan: 1) Syncope - Continuous cardiac monitoring - F/u ECHO - Trop x3 negative - F/u carotid dopplers - EKG NSR - Head CT with no acute intracranial process. Sinusitis (no sinus tenderness, no WBC elevation, afebrile, will not treat with abx at this time as the patient is asymptomatic) - F/u cardiology consult 2) IDDM - BGM ACHS - Resume home insulin 8u sq am and 5u sq hs 3) CKD - Cr at baseline 4) Anemia - Continue to trend - F/u pcp for further workup 5) Chronic eosinophilia - Has been worked up in the past by hematology - F/u with hematology (Dr. Simpson) as an outpatient 6) F/E/N: - Diabetic/sodium controlled diet - Monitor electrolytes 7) Prophylaxis: - SCDs bilaterally - OOB ambulating 8) Dispo: - Pending ECHO and cards consult CODE STATUS: FULL CODE Visit type - Emergency Visit Emergency Visit: Yes ED Registration Date: 02/11/17 Care time: The patient presented to the Emergency Department on the above date and was hospitalized for further evaluation of their emergent condition. - New Patient This patient is new to me today: Yes Date on this admission: 02/12/17 - Critical Care Critical Care patient: No
--- NOTE | 2017-02-12 16:04 | CON.CARD ---
Consult Consult Specialty:: Cardiology Reason for Consultation:: Syncope - History of Present Illness Chief Complaint: Syncope History of Present Illness: This is an 81 year old male with a PMH of DM, HTN, and a history of a past CVA. He presents now with an episode of syncope. His blood sugar was 400 and his home health aide gave him 8 units of insulin. He then became lethargic and disoriented. A recheck of his fingerstick was 167. He was noted to be orthostatic. Sitting BP was 165/56 mmHg and standing BP was 115/55 mmHg. He may have had some degree of dehydration because his BUN was 35 and his Cr was 1.4. Troponin negative. EKG NSR with no acute changes - Past Surgical History Past Surgical History: Yes: Cataract Removal, Tonsillectomy - Alcohol/Substance Use Hx Alcohol Use: No - Smoking History Smoking history: Never smoked Have you smoked in the past 12 months: No Aproximately how many cigarettes per day: 0 Home Medications - Allergies Allergies/Adverse Reactions: Allergies Allergy/AdvReac Type Severity Reaction Status Date / Time No Known Allergies Allergy Verified 02/11/17 16:15 - Home Medications Home Medications: Ambulatory Orders Insulin Glargine,Hum.rec.anlog [Lantus Solostar PEN -] 5 units SQ HS 12/01/16 Insulin Glargine,Hum.rec.anlog [Lantus Solostar PEN -] 8 units SQ AM 12/01/16 Insulin Lispro [Humalog] 100 unit SQ ASDIR 12/01/16 Becaplermin [Regranex] 15 gm TP DAILY #1 gel..gram. 12/12/16 Aspirin/Dipyridamole [Aggrenox -] 1 combo PO BID 02/11/17 Cholecalciferol (Vitamin D3) [Vitamin D3] 5,000 unit PO WEEKLY 02/11/17 Ibuprofen [Motrin -] 400 mg PO TID PRN 02/11/17 Melatonin 5 mg PO HS 02/11/17 Review of Systems Unable to obtain ROS, reason: As per HPI Vital Signs: Vital Signs Temperature 98.3 F 02/12/17 14:24 Pulse Rate 69 02/12/17 14:24 Respiratory Rate 18 02/12/17 14:24 Blood Pressure 128/51 02/12/17 14:24 O2 Sat by Pulse Oximetry (%) 97 02/12/17 09:00 Constitutional: Yes: No Distress Neck: Yes: WNL Respiratory: Yes: CTA Bilaterally Gastrointestinal: Yes: Soft Cardiovascular: Yes: Regular Rate and Rhythm (NL S1S2, no MRHG) Extremities: Yes: WNL Psychiatric: Yes: Alert, Oriented (Grossly nonfocal) - Other Data Labs, Other Data: CBC, BMP 02/12/17 05:30 02/12/17 05:30 INR, PTT INR 0.89 (0.82-1.09) 02/11/17 16:50 Troponin, BNP 02/11/17 02/12/17 02/12/17 16:50 05:30 12:10 Troponin I < 0.02 < 0.02 < 0.02 Troponin, BNP 02/11/17 02/12/17 02/12/17 16:50 05:30 12:10 Troponin I < 0.02 < 0.02 < 0.02 Assessment/Plan Syncope Eitology is unclear May have been dehydrated with blood glucose of 400 The episode may have been related to swings in blood glucose Would obtain an echocardiogram Would lower lisinopril from 10 mg daily to 5 mg daily Repeat orthostatics Will follow with you
[2017-02-12] MEDS: LISINOPRIL 10 MG TABLET (FP) PO SCH (17:05)
[2017-02-12] MEDS: ASPIRIN/DIPYRIDAMOLE 25 MG/200 MG CAPSULE (FP) PO SCH (21:12)
[2017-02-12] MEDS ORDERED: INSULIN DETEMIR 100 UNITS/ML MDV SQ SCH (22:00)
[2017-02-12] MEDS ORDERED: INSULIN GLARGINE HUM REC ANLOG 5 UNIT SQ SCH (22:00)
[2017-02-13] MEDS ORDERED: INSULIN GLARGINE HUM REC ANLOG 8 UNIT SQ SCH (07:00)
[2017-02-13] MEDS ORDERED: INSULIN DETEMIR 100 UNITS/ML MDV SQ SCH (07:00)
[2017-02-13] MEDS: INSULIN SLIDING SCALE (NOVOLOG) 1 VIAL SQ SCH (07:42)
--- NOTE | 2017-02-13 08:15 | DS ---
Physical Examination Vital Signs: Vital Signs Temperature 98.4 F 02/13/17 06:00 Pulse Rate 65 02/13/17 06:00 Respiratory Rate 18 02/13/17 06:00 Blood Pressure 141/60 02/13/17 06:00 O2 Sat by Pulse Oximetry (%) 96 02/12/17 22:00 Labs: CBC, BMP 02/12/17 05:30 02/12/17 05:30 Discharge Summary Reason For Visit: ORTHOSTATIC HYPOTENSION Current Active Problems ILANA (acute kidney injury) (Acute) Anemia (Acute) CKD (chronic kidney disease) stage 3, GFR 30-59 ml/min (Acute) CVA (cerebral vascular accident) (Acute) DVT prophylaxis (Acute) Dehydration (Acute) Diabetes mellitus, insulin dependent (IDDM), uncontrolled (Acute) HLD (hyperlipidemia) (Acute) HTN (hypertension) (Acute) Hypoglycemia associated with diabetes (Acute) Orthostatic hypotension (Acute) Syncope (Acute) Condition: Improved - Instructions Diet, Activity, Other Instructions: Please return to the ED with new, persistent, or worsening symptoms. Please follow-up with providers as indicated. Referrals: Nasir Moses MD [Staff Physician] - (Please follow-up with cardiology for further outpatient management of your high blood pressure) Mihaela Card MD [Primary Care Provider] - 1 Week (Please follow-up with your primary care provider for further management of your diabetes and to have your elevated eosinophilia worked up) Chai Simpson MD [Staff Physician] - (Please follow-up with Dr. Simpson within 1 week to have your chronic eosinophila worked up) Disposition: VNS/HOME HEALTH CARE - Home Medications Comprehensive Discharge Medication List: Ambulatory Orders Becaplermin [Regranex] 15 gm TP DAILY #1 gel..gram. 12/12/16 Aspirin/Dipyridamole [Aggrenox -] 1 combo PO BID 02/11/17 Cholecalciferol (Vitamin D3) [Vitamin D3] 5,000 unit PO WEEKLY 02/11/17 Ibuprofen [Motrin -] 400 mg PO TID PRN 02/11/17 Melatonin 5 mg PO HS 02/11/17 Insulin Glargine,Hum.rec.anlog [Lantus Solostar PEN -] 3 units SQ HS #0 ml 02/13 Insulin Glargine,Hum.rec.anlog [Lantus Solostar PEN -] 5 units SQ AM #0 ml 02/13 Insulin Lispro [Humalog] 0 unit SQ ASDIR #0 ml 02/13/17 Lisinopril 5 mg PO DAILY #30 tablet 02/13/17
[2017-02-13] MEDS: ASPIRIN/DIPYRIDAMOLE 25 MG/200 MG CAPSULE (FP) PO SCH (09:06)
[2017-02-13] MEDS: LISINOPRIL 10 MG TABLET (FP) PO SCH (09:06)
[2017-02-13 09:08] VITALS: BP 132/58; PULSE 78; TEMP 98
== END 2017-02-13 10:40 | disposition home health service (06) ==
LOC: JER 15:47 → JERBED 19:57 → J4W 02-12 01:29
PROVIDERS: ADMIT Internal Medicine; ATTEND Registered Nurse
PROC: 3E013VG Introduction of Insulin into Subcutaneous Tissue, Percutaneous Approach (ICD-10-PCS; principal; 2017-02-11)
PROC: 3E0337Z Introduction of Electrolytic and Water Balance Substance into Peripheral Vein, Percutaneous Approach (ICD-10-PCS; 2017-02-11)
DX: I95.1 Orthostatic hypotension (principal); E11.649 Type 2 diabetes mellitus with hypoglycemia without coma; I12.9 Hypertensive chronic kidney disease with stage 1 through stage 4 chronic kidney disease, or unspecified chronic kidney disease; E11.22 Type 2 diabetes mellitus with diabetic chronic kidney disease; N18.3 Chronic kidney disease, stage 3 (moderate); N17.9 Acute kidney failure, unspecified; E86.0 Dehydration; D64.9 Anemia, unspecified; Z79.4 Long term (current) use of insulin; Z86.73 Personal history of transient ischemic attack (TIA), and cerebral infarction without residual deficits; Z79.82 Long term (current) use of aspirin
CPT/HCPCS: 36415; 70450-TC; 71010-TC; 80048; 80053; 80061; 81003; 81015; 82550; 82553; 83036; 83721; 84484; 85025; 85610; 93005; 93010; 93306-TC; 93880-TC; 96372; 99285-25; G0277; G0378

== ENCOUNTER 2017-02-28 23:10 | Observation (INO) | payer OTHER ==
[2017-02-28 23:32] LABS: MCH 30.9 pg (25.7-33.7); MCHC 33.9 g/dl (32.0-35.9); MEAN CELL VOLUME 91.3 fl (80-96); MEAN PLT VOLUME 8.3 fl (7.5-11.1); PLATELET COUNT 194 K/MM3 (134-434); RDW 14.7 % (11.9-15.9); WHITE BLOOD COUNT 7.3 K/mm3 (4.0-10.0)
--- NOTE | 2017-02-28 23:33 | PDOC ---
History of Present Illness - General History Source: Patient Exam Limitations: No Limitations - History of Present Illness Initial Comments: 03/01/17 01:11 The patient is a 81 year old male, with a significant past medical history of IDDM, hypertension, CVA, and enlarged prostate, who presents to the emergency department [facility] for evaluation of hypoglycemia earlier this evening. Per EMS, they received a call from patients family members, who monitor him by cameras, due to patients altered mental status and unresponsiveness. When EMS arrived on scene, the patients blood glucose was 27. Patient reports he blacked out for 10- 15 minutes. However, he remembers taking 5 units of insulin at around 19:00 today. Patient reports eating a regular meal shortly after. Patient denies any head trauma, changes in vision, headache, dizziness, or lightheadedness. He denies any fever, chills, cough, headache, or dizziness. He denies any abdominal pain, nausea, vomiting, diarrhea, constipation, melena, or hematochezia. He denies any chest pain, shortness of breath, diaphoresis, or palpitations. Patient reports difficulty starting a urinary stream, which is part of his baseline, but denies any dysuria, hematuria, frequency, or urgency. He denies any recent travel or sick contacts. Patient reports no other complaints at this time. Allergies: NKDA Past Surgical History: None reported Social History: Non smoker. No ETOH or recreational drug use. 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 <Kathy Tapia - Last Filed: 03/01/17 01:11> <Chai Solorio - Last Filed: 03/01/17 01:50> <Marissa Suarez - Last Filed: 03/02/17 04:02> - General Chief Complaint: Blood Sugar Problem Stated Complaint: Sugar Problem Time Seen by Provider: 02/28/17 23:16 Past History <Kathy Tapia - Last Filed: 03/01/17 01:11> - Past Medical History CVA: Yes COPD: No Diabetes: Yes (iddm) HTN: Yes - Immunization History Immunization Up to Date: Yes - Suicide/Smoking/Psychosocial Hx Smoking Status: No Smoking History: Never smoked Have you smoked in the past 12 months: No Number of Cigarettes Smoked Daily: 0 Hx Alcohol Use: No Drug/Substance Use Hx: No Substance Use Type: None Hx Substance Use Treatment: No <Chai Solorio - Last Filed: 03/01/17 01:50> <Marissa Suarez - Last Filed: 03/02/17 04:02> - Past Medical History Allergies/Adverse Reactions: Allergies Allergy/AdvReac Type Severity Reaction Status Date / Time No Known Allergies Allergy Verified 02/11/17 16:15 Home Medications: Ambulatory Orders Aspirin/Dipyridamole [Aggrenox -] 1 combo PO BID 02/11/17 Cholecalciferol (Vitamin D3) [Vitamin D3] 5,000 unit PO WEEKLY 02/11/17 Ibuprofen [Motrin -] 400 mg PO TID PRN 02/11/17 Melatonin 5 mg PO HS 02/11/17 Insulin Lispro [Humalog] 0 unit SQ ASDIR #0 ml 02/13/17 Lisinopril 5 mg PO DAILY #30 tablet 02/13/17 Insulin Glargine,Hum.rec.anlog [Lantus Solostar PEN -] 5 units SQ HS 02/28/17 Insulin Glargine,Hum.rec.anlog [Lantus Solostar PEN -] 8 units SQ AM 02/28/17 Review of Systems - Review of Systems Able to Perform ROS?: Yes Comments:: 03/01/17 01:11 CONSTITUTIONAL: +Hypoglycemia No reported: Fever, Chills, Diaphoresis, Generalized Weakness, Malaise, Loss of Appetite HEENT: No reported: Rhinorrhea, Nasal Congestion, Throat Pain, Throat Swelling, Difficulty Swallowing, Mouth Swelling, Ear Pain, Eye Pain, Visual Changes CARDIOVASCULAR: No reported: Chest Pain, Syncope, Palpitations, Irregular Heart Rate, Lightheadedness, Peripheral Edema RESPIRATORY: No reported: Cough, Shortness of Breath, SOB with Exertion, Orthopnea, Wheezing , Stridor, Hemoptysis GASTROINTESTINAL: No reported: Abdominal pain, Abdominal Distension, Nausea, Vomiting, Diarrhea, Constipation, Melena, Hematochezia GENITOURINARY: No reported: Dysuria, Frequency, Urgency, Hesitancy, Flank Pain, Genital Pain MUSCULOSKELETAL: No reported: Myalgia, Arthralgia, Joint Swelling, Back pain, Neck Pain SKIN: No reported: Rash, Itching, Pallor HEMATOLOGIC/IMMUNOLOGIC: No reported: Easy Bleeding, Easy Bruising, Lymphadenopathy, Frequent infections ENDOCRINE: No reported: Unexplained Weight Gain, Unexplained Weight Loss, Heat Intolerance , Cold Intolerance NEUROLOGIC: +Altered mental status, +Unresponsive, +Syncope No reported: Headache, Focal Weakness, Paresthesias, Vertigo, Lightheadedness, Unsteady Gait, Seizure,, Incontinence PSYCHIATRIC: No reported: Anxiety, Depression <Kathy Tapia - Last Filed: 03/01/17 01:11> *Physical Exam - Vital Signs Last Vital Signs Temp Pulse Resp BP Pulse Ox 62 18 176/58 100 02/28/17 23:13 02/28/17 23:13 02/28/17 23:13 02/28/17 23:13 - Physical Exam Comments: 03/01/17 01:11 GENERAL: The patient is awake, alert, and fully oriented, Nontoxic - in no acute distress. HEAD: Normocephalic, atraumatic. EYES: extraocular movements intact, sclera anicteric, conjunctiva clear. ENT: Normal voice, Moist mucous membranes. NECK: Normal range of motion, supple LUNGS: Breath sounds equal, clear to auscultation bilaterally. No wheezes, no rhonchi, no rales. HEART: Regular rate and rhythm, without murmur, rub or gallop. ABDOMEN: Soft, nontender, normoactive bowel sounds. No guarding, no rebound.No CVA tenderness EXTREMITIES: Normal range of motion, no edema. No clubbing or cyanosis. No cords, erythema, or tenderness. NEUROLOGICAL: No facial assymetry, Normal speech, PSYCH: Normal mood, normal affect. SKIN: Warm, Dry, normal turgor <Kathy Tapia - Last Filed: 03/01/17 01:11> - Vital Signs Last Vital Signs Temp Pulse Resp BP Pulse Ox 61 16 142/59 100 03/01/17 01:48 03/01/17 01:48 03/01/17 01:48 02/28/17 23:13 <Marissa Suarez - Last Filed: 03/02/17 04:02> Heart Score/ECG Review - ECG Impressions Comment:: 03/01/17 00:04 Twelve-lead EKG was performed and reviewed by me. There is normal sinus rhythm with a rate of 58 The axis is normal. The intervals are normal. There is normal R wave progression There are no ST or T wave abnormalities. Impression: Sinus bradycardia <Chai Solorio - Last Filed: 03/01/17 01:50> ED Treatment Course - LABORATORY CBC & Chemistry Diagram: 02/28/17 23:24 02/28/17 23:24 - ADDITIONAL ORDERS Additional order review: Laboratory Results 02/28/17 23:24 Sodium 143 Potassium 4.1 Chloride 111 H Carbon Dioxide 24 Anion Gap 8 BUN 32 H Creatinine 1.4 H D Creat Clearance w eGFR 48.40 Random Glucose 148 H D Calcium 7.9 L Total Bilirubin 0.3 D AST 13 L ALT 18 Alkaline Phosphatase 104 D Total Protein 6.1 L Albumin 3.2 L 02/28/17 23:24 RBC 3.43 L MCV 91.3 MCHC 33.9 RDW 14.7 MPV 8.3 Neutrophils % No Result Required. Lymphocytes % No Result Required. <Kathy Tapia - Last Filed: 03/01/17 01:11> - LABORATORY CBC & Chemistry Diagram: 02/28/17 23:24 02/28/17 23:24 <OsminChai swift - Last Filed: 03/01/17 01:50> - LABORATORY CBC & Chemistry Diagram: 02/28/17 23:24 02/28/17 23:24 - ADDITIONAL ORDERS Additional order review: Laboratory Results 03/01/17 02/28/17 01:55 23:24 Sodium 143 Potassium 4.1 Chloride 111 H Carbon Dioxide 24 Anion Gap 8 BUN 32 H Creatinine 1.4 H D Creat Clearance w eGFR 48.40 Random Glucose 148 H D Calcium 7.9 L Total Bilirubin 0.3 D AST 13 L ALT 18 Alkaline Phosphatase 104 D Total Protein 6.1 L Albumin 3.2 L Urine Color Lt. yellow Urine Appearance Clear Urine pH 6.0 Ur Specific [place] 1.025 Urine Protein 2+ H Urine Glucose (UA) 1+ H Urine Ketones Trace H Urine Blood Negative Urine Nitrite Negative Urine Bilirubin Negative Urine Urobilinogen 0.2 Urine WBC (Auto) <1 Urine RBC (Auto) 2 Ur Epithelial Cells Rare Hyaline Casts 6 Urine Mucus Rare 02/28/17 23:24 RBC 3.43 L MCV 91.3 MCHC 33.9 RDW 14.7 MPV 8.3 Neutrophils % No Result Required. Lymphocytes % No Result Required. <Marissa Suarez - Last Filed: 03/02/17 04:02> Medical Decision Making - Medical Decision Making 03/01/17 00:02 81y M hx of IDDM, HTN, CVA, presenst with episode of hypoglycemia. Was noted to have BGM of 27 by EMS, was given D10, BGM improved to the hundreds. pt currently asypmntomatic. NO pcomplaints prior to hypoglycemic episode. Denies any usage of oral antihypoglycemics. will ck absic labs will r/o occult infection will recheck his bgm in 10 hr if neg will dc with pmd fu return precautions were disucssed A portion of this note was documented by scribe services under my direction. I have reviewed the details of the note, within reason, and agree with the documentation with the following case summary and management plan written by me 03/01/17 01:35 pts labs noted for mild elevatin of cr - possibly prerenal azotemia awaiting UA awaiting repeat bgm if neg will dc with pmd fu <Chai Solorio - Last Filed: 03/01/17 01:50> - Medical Decision Making 03/01/17 02:23 UA is normal. BGM repeat is stable. Pt will be discharged home in the AM after a course of ED observation, as he seems shaky. Pt lives alone and I do not want to send him home at 2:30AM. 03/02/17 04:01 Pt was signed out to the day team as he is under ED obs status. <Marissa Suarez - Last Filed: 03/02/17 04:02> *DC/Admit/Observation/Transfer - Attestations Scribe Attestion: 03/01/17 01:12 Documentation prepared by Kathy Tapia, acting as medical staff services manager for Chai Solorio MD. <Kathy Tapia - Last Filed: 03/01/17 01:11> <Chai Solorio - Last Filed: 03/01/17 01:50> - Discharge Dispostion Admit: Yes <Marissa Suarez - Last Filed: 03/02/17 04:02> Diagnosis at time of Disposition: Hypoglycemia due to insulin, Dehydration, Eosinophilia - Discharge Dispostion Disposition: HOME Condition at time of disposition: Stable
[2017-02-28 23:39] VITALS: BMI 22.8
[2017-02-28 23:56] LABS: ALBUMIN 3.2 g/dl (3.4-5.0); ALK PHOS 104 U/L (45-117); ANION GAP 8 (8-16); BILIRUBIN,TOTAL 0.3 mg/dL (0.2-1.0); CALCIUM 7.9 mg/dL (8.5-10.1); CO2 24 mmol/L (21-32); CREATININE 1.4 mg/dL (0.7-1.3); GLUCOSE,RANDOM 148 mg/dL (74-106); SGOT/AST 13 U/L (15-37); SGPT/ALT 18 U/L (12-78); TOT PROT 6.1 g/dl (6.4-8.2)
[2017-03-01 00:43] LABS: TOTAL CELLS COUNTED 100
[2017-03-01] MEDS ORDERED: SODIUM CHLORIDE 500 ML IV STA (01:35)
[2017-03-01 02:03] LABS: URINE APPEARANCE CLEAR; URINE BILIRUBIN NEGATIVE (NEGATIVE); URINE BLOOD NEGATIVE (NEGATIVE); URINE COLOR LT. YELLOW; URINE GLUCOSE (UA) 1+ (NEGATIVE); URINE KETONE TRACE (NEGATIVE); URINE NITRITE NEGATIVE (NEGATIVE); URINE UROBILINOGEN 0.2 mg/dL (0.2-1.0)
[2017-03-01 02:04] LABS: URINE PROTEIN 2+ (NEGATIVE)
[2017-03-01 02:09] LABS: URINE HYALINE CAST 6 /lpf; URINE MUCUS RARE; URINE RBC 2 /hpf (0-3); URINE WBC <1 /hpf (3-5)
--- NOTE | 2017-03-01 07:37 | PDOC ---
*Physical Exam - Vital Signs Last Vital Signs Temp Pulse Resp BP Pulse Ox 61 16 142/59 100 03/01/17 01:48 03/01/17 01:48 03/01/17 01:48 02/28/17 23:13 - Physical Exam Comments: 03/01/17 07:31 gen: aaox3, sitting up, had been ambulatory in the ED HEENT: MMM, eomi Neck: supple heart;+s1s2 reg Lungs: cta b/l abd: soft, nt/nd +bs Ext: no c/c/e neuro: cn ii-xii grossly intact, no focal deficits. skin: no rashes ED Treatment Course - LABORATORY CBC & Chemistry Diagram: 02/28/17 23:24 02/28/17 23:24 - ADDITIONAL ORDERS Additional order review: Laboratory Results 03/01/17 02/28/17 01:55 23:24 Sodium 143 Potassium 4.1 Chloride 111 H Carbon Dioxide 24 Anion Gap 8 BUN 32 H Creatinine 1.4 H D Creat Clearance w eGFR 48.40 Random Glucose 148 H D Calcium 7.9 L Total Bilirubin 0.3 D AST 13 L ALT 18 Alkaline Phosphatase 104 D Total Protein 6.1 L Albumin 3.2 L Urine Color Lt. yellow Urine Appearance Clear Urine pH 6.0 Ur Specific [place] 1.025 Urine Protein 2+ H Urine Glucose (UA) 1+ H Urine Ketones Trace H Urine Blood Negative Urine Nitrite Negative Urine Bilirubin Negative Urine Urobilinogen 0.2 Urine WBC (Auto) <1 Urine RBC (Auto) 2 Ur Epithelial Cells Rare Hyaline Casts 6 Urine Mucus Rare 02/28/17 23:24 RBC 3.43 L MCV 91.3 MCHC 33.9 RDW 14.7 MPV 8.3 Neutrophils % No Result Required. Lymphocytes % No Result Required. - Medications Given in the ED: ED Medications Discontinued Medications Generic Name Dose Route Start Last Admin Trade Name Freq PRN Reason Stop Dose Admin Sodium Chloride 500 mls @ 500 mls/hr 03/01/17 01:35 03/01/17 01:39 Normal Saline - IV 03/01/17 02:34 500 mls/hr ASDIR STA Administration Medical Decision Making - Medical Decision Making 03/01/17 07:35 pt signed out pending re-eval from nighttime staff after being found at home hypoglycemic. pt states he takes his lantus with dinner, but then was supposed to drink glucerna and eat a sandwich before bed. States his glucose dropped before he could get to the sandwich. Pt states feeling much better. Denies all complaints and states he felt normal yesterday. Pt has been ambulatory in the ED. Tolerated PO. Sitting up in a chair. States his home improvement advisor comes at 8am. Contacted home improvement advisor so she will wait. Call placed to son Bret and daughter Sophia to update, left messages. Pt stable for d/c to home. Glucose has been stable in the ED. *DC/Admit/Observation/Transfer Diagnosis at time of Disposition: Hypoglycemia due to insulin, Dehydration, Eosinophilia - Discharge Dispostion Disposition: HOME Condition at time of disposition: Stable Admit: No - Referrals - Patient Instructions - Post Discharge Activity
[2017-03-01 08:00] VITALS: BP 140/67; PULSE 78; TEMP 97.9
--- NOTE | 2017-03-01 08:46 | EKG ---
Test Reason : Blood Pressure : / mmHG Vent. Rate : 058 BPM Atrial Rate : 058 BPM P-R Int : 176 ms QRS Dur : 084 ms QT Int : 432 ms P-R-T Axes : 056 -02 038 degrees QTc Int : 424 ms SINUS BRADYCARDIA OTHERWISE NORMAL ECG WHEN COMPARED WITH ECG OF 11-FEB-2017 16:24, NO SIGNIFICANT CHANGE WAS FOUND Confirmed by GABRIELE VORA MD ([id number]) on 03/01/2017 8:46:23 AM Referred By: Confirmed By:GABRIELE VORA MD
[2017-03-01 11:27] LABS: URINE LEUK ESTERASE Negative (NEGATIVE)
== END 2017-03-01 08:00 | disposition home or self-care (01) ==
LOC: JER 23:10 → JERBED 03-01 02:46
PROVIDERS: ADMIT Internal Medicine; ATTEND Internal Medicine
PROC: 3E0337Z Introduction of Electrolytic and Water Balance Substance into Peripheral Vein, Percutaneous Approach (ICD-10-PCS; principal; 2017-03-01)
DX: E10.649 Type 1 diabetes mellitus with hypoglycemia without coma (principal); Z79.4 Long term (current) use of insulin; I10 Essential (primary) hypertension; N40.0 Benign prostatic hyperplasia without lower urinary tract symptoms; Z86.73 Personal history of transient ischemic attack (TIA), and cerebral infarction without residual deficits
CPT/HCPCS: 36415; 80053; 81003; 81015; 85025; 93005; 93010; 96360; 99284-25; G0378

== ENCOUNTER 2018-07-31 18:46 | Inpatient (IN) | payer OTHER ==
[2018-07-31 19:10] VITALS: BMI 22.8
[2018-07-31 20:13] LABS: BASO % 0.6 % (0-2.0); EOS % 30.8 % (0-4.5); HEMATOCRIT 30.7 % (35.4-49); HEMOGLOBIN 10.1 GM/dL (11.7-16.9); LYMPH % 21.8 % (8-40); MCH 30.2 pg (25.7-33.7); MEAN CELL VOLUME 91.5 fl (80-96); MEAN PLT VOLUME 8.9 fl (7.5-11.1); MONO % 7.5 % (3.8-10.2); NEUT % 39.3 % (42.8-82.8); PLATELET COUNT 206 K/MM3 (134-434); RBC 3.36 M/mm3 (4.00-5.60); RDW 13.6 % (11.9-15.9); WHITE BLOOD COUNT 5.7 K/mm3 (4.0-10.0)
--- NOTE | 2018-07-31 20:43 | PDOC ---
History of Present Illness - General Chief Complaint: Chest Pain Stated Complaint: CHEST PAIN - History of Present Illness Initial Comments: The pt is an 83M w/ a history of HTN, HLD, reported previous [place] 11 years ago, CVA per chart review who presents w/ 3 weeks of intermittent, non-exertional, non-radiating, left-sided chest pain described as 'thumping'. Denies associated SOB, RUFFIN, vision changes, N/V/C/D, abdominal pain, sweating, dysuria, hematuria. Denies recent illness or fevers. Pt states that he presented today because the pain is worse today. 07/31/18 21:29 Past History - Past Medical History Allergies/Adverse Reactions: Allergies Allergy/AdvReac Type Severity Reaction Status Date / Time No Known Allergies Allergy Verified 02/11/17 16:15 Home Medications: Ambulatory Orders Aspirin/Dipyridamole [Aggrenox -] 1 combo PO BID 02/11/17 Cholecalciferol (Vitamin D3) [Vitamin D3] 50,000 unit PO WEEKLY 02/11/17 Ibuprofen [Motrin -] 400 mg PO TID PRN 02/11/17 Insulin Glargine,Hum.rec.anlog [Lantus Solostar PEN -] 100 units SQ AM 02/28/17 Atorvastatin Calcium 20 mg PO DAILY 07/31/18 Clotrimazole 1 applic TP DAILY 07/31/18 Finasteride 5 mg PO DAILY 07/31/18 Fluticasone Prop 0.05% Nasal [Flonase -] 1 spray NS DAILY 07/31/18 Insulin Lispro [Humalog] 100 unit SQ ASDIR 07/31/18 Lisinopril 2.5 mg PO DAILY 07/31/18 CVA: Yes COPD: No Diabetes: Yes (iddm) HTN: Yes - Immunization History Immunization Up to Date: Yes - Suicide/Smoking/Psychosocial Hx Smoking Status: No Smoking History: Never smoked Have you smoked in the past 12 months: No Number of Cigarettes Smoked Daily: 0 Information on smoking cessation initiated: No Hx Alcohol Use: No Drug/Substance Use Hx: No Substance Use Type: None Hx Substance Use Treatment: No Review of Systems - Review of Systems Able to Perform ROS?: Yes Comments:: GENERAL/CONSTITUTIONAL: No fever or chills. No weakness HEAD, EYES, EARS, NOSE AND THROAT: No change in vision. No ear pain or discharge. No sore throat CARDIOVASCULAR: No shortness of breath RESPIRATORY: Denies cough, hemoptysis GASTROINTESTINAL: No nausea, vomiting, diarrhea or constipation GENITOURINARY: No dysuria, frequency, or change in urination MUSCULOSKELETAL: No joint or muscle swelling or pain. No neck or back pain SKIN: No rash NEUROLOGIC: No headache, vertigo, loss of consciousness, or change in strength/ sensation ENDOCRINE: No increased thirst. No abnormal weight change ALLERGIC/IMMUNOLOGIC: No hives or skin allergy 07/31/18 21:32 *Physical Exam - Vital Signs Last Vital Signs Temp Pulse Resp BP Pulse Ox 98.5 F 70 18 121/58 L 99 07/31/18 19:02 07/31/18 19:02 07/31/18 19:02 07/31/18 19:02 07/31/18 19:02 - Physical Exam Comments: GENERAL: Awake, alert, and oriented to person/place/time, in no acute distress HEAD: No signs of trauma, normocephalic, atraumatic EYES: PERRLA, EOMI, sclera anicteric, conjunctiva clear ENT: Hearing grossly normal, nares patent, oropharynx clear without exudates. Moist mucosa LUNGS: No distress, speaks full sentences, clear to auscultation bilaterally CHEST: Chest wall mildly TTP inferior to left nipple w/o rash or bony crepitus HEART: Regular rate and rhythm, normal S1 and S2, no murmurs appreciated, peripheral pulses normal and equal bilaterally ABDOMEN: Soft, nontender, normoactive bowel sounds. No guarding, no rebound EXTREMITIES: Normal inspection, Normal range of motion, no edema. No clubbing or cyanosis NEUROLOGICAL: Cranial nerves II through XII grossly intact. Normal speech, normal gait, no focal sensorimotor deficits SKIN: Warm, Dry 07/31/18 21:33 ED Treatment Course - LABORATORY CBC & Chemistry Diagram: 07/31/18 20:01 07/31/18 19:56 - ADDITIONAL ORDERS Additional order review: Laboratory Results 07/31/18 19:14 POC Glucometer 127 07/31/18 07/31/18 20:01 19:14 RBC 3.36 L MCV 91.5 MCHC 33.0 RDW 13.6 MPV 8.9 Neutrophils % 39.3 L Lymphocytes % 21.8 Monocytes % 7.5 Eosinophils % 30.8 H* Basophils % 0.6 POC Glucometer 127 Medical Decision Making - Medical Decision Making The pt is an 83M w/ a history HTN, HLD, reported previous [place] who presents for evaluation of atypical chest pain for 3 weeks that is worse today. Ddx: ACS; PNA; consider PNX, shingles, MSK ED Course Labs sent CXR ECG ECG w/ NSR; HR 65; QTc 436; No evidence of acute ischemia Eosinophilia - Reportedly has been worked up in the past by hematology. F/u with hematology ( Dr. Simpson) as an outpatient 07/31/18 20:39 Initial Trop I neg Lytes wnl LFTs wnl BUN mildly elevated, Cr wnl Plan for tele obs admission 07/31/18 21:42 *DC/Admit/Observation/Transfer Diagnosis at time of Disposition: Chest pain Qualifiers: Chest pain type: unspecified Qualified Code(s): R07.9 - Chest pain, unspecified HTN (hypertension) Qualifiers: Hypertension type: unspecified Qualified Code(s): I10 - Essential (primary) hypertension Diabetes Qualifiers: Diabetes mellitus type: other specified (including [employer]) Diabetes mellitus upstairs maid insulin use: unspecified group home insulin use status Diabetes mellitus complication status: with unspecified complications Qualified Code(s): E13.8 - Other specified diabetes mellitus with unspecified complications - Discharge Dispostion Condition at time of disposition: Good Decision to Admit order: Yes - Referrals Referrals: Mihaela Card MD [Primary Care Provider] - - Patient Instructions - Post Discharge Activity
--- NOTE | 2018-07-31 21:09 | PDOC ---
Documentation entered by Barbi Olvera SCRIBE, acting as scribe for Varsha Fulton MD. Varsha Fulton MD: This documentation has been prepared by the bridgettibeWade Lincy, SCRIBE, under my direction and personally reviewed by me in its entirety. I confirm that the documentation accurately reflects all work, treatment, procedures, and medical decision making performed by me. Attending Attestation - Resident Resident Name: YennisusiTrey - ED Attending Attestation I have performed the following: I have examined & evaluated the patient, The case was reviewed & discussed with the resident, I agree w/resident's findings & plan, Exceptions are as noted - HPI HPI: 07/31/18 19:59 The patient is an 83-year-old male with a past medical history significant for HTN, HLD, DM, and [place] (11 years ago) presents to the emergency department with chest pain. The patient presents with 3 weeks of intermittent, nonexertional chest pain, associated with palpitations, localized to the left chest wall. The patient reports the pain is present at rest and with exertion. Denies fever, chills, cough, shortness of breath, nausea, vomiting, diaphoresis. Denies prior history of PE, DVT or CVA. Denies leg pain or swelling. The patient had an echo done on 07/27 which was unremarkable. Allergies: NKDA Surgical history: NKDA Social history: Denies the use of tobacco, alcohol or recreational drug use. PCP: Dr. Alejo. - Physicial Exam PE: 07/31/18 19:42 awake alert lungs clear bilaterally heart rrr no mrg abd soft nt nd ext wwp no edema. skin warm neuro alert and oriented x 3. - Medical Decision Making 07/31/18 23:29 83 yo male h/o htn dm hld prior mi here with c/o intermittent cp. denies sob or nausea. no mod factor.s happens at rest. has been happening for several weeks. did have an echo last week. denies prior stress test. no h/o tobacco use. no pain currently. no leg swelling. no h/o pe or dvt. on exam pt normal cardiac and lung exam. no peripheral edema. differential acs, dysrhythmia, infection such as pna, msk pain no pe risk factors. plan asa, ekg cxr labs will likely require admission for r/o acs. trop and cxr negative. labs unremarkable. asa given. Heart Score/ECG Review #1 General ECG Interpretation: Sinus Rhythm, Normal Rate (65), Normal Intervals, No acute ischemic changes
[2018-07-31] MEDS ORDERED: ASPIRIN 81 MG CHEWABLE TABLETS PO ONE (21:32)
[2018-07-31 21:41] LABS: ALK PHOS 92 U/L (45-117); ANION GAP 7 MMOL/L (8-16); BILIRUBIN,TOTAL 0.2 mg/dL (0.2-1); BLOOD UREA NITROGEN 30 mg/dL (7-18); CALCIUM 8.3 mg/dL (8.5-10.1); CHLORIDE 108 mmol/L (98-107); CO2 24 mmol/L (21-32); CREATININE 1.1 mg/dL (0.55-1.3); GLUCOSE,RANDOM 151 mg/dL (74-106); POTASSIUM 4.7 mmol/L (3.5-5.1); SGOT/AST 19 U/L (15-37); SGPT/ALT 18 U/L (13-61); SODIUM 139 mmol/L (136-145)
[2018-07-31] MEDS ORDERED: ASPIRIN 81 MG CHEWABLE TABLETS ONE (21:42)
[2018-07-31 21:50] LABS: ANISOCYTOSIS 1+; MACROCYTOSIS 1+; PLATELET ESTIMATE NORMAL
--- NOTE | 2018-08-01 00:03 | PN ---
Teaching Attending Note Name of Resident: Denice Love ATTENDING PHYSICIAN STATEMENT I saw and evaluated the patient. I reviewed the resident's note and discussed the case with the resident. I agree with the resident's findings and plan as documented. SUBJECTIVE: Seen and examined; please refer to resident note for further historical information. Briefly, this is a 83 y/o male presenting with several weeks of atypical L-sided throbbing chest pain. Associated with cough making it worse. No SOB, no orthopnea, no LE edema, no fevers, no chills. Chest pain is reported to be reproducible. He was seen here in the past by Dr. Moses in cardiology for syncope. He has a PMH of DM, HTN, HLD, remote HI, CVA. Had CXR and echo done here on 07/27; studies reviewed. 10 sys ROS done and negative aside from HPI PMH, PSH, FH, SH reviewed Home Medications Medication Instructions Recorded Aspirin/Dipyridamole [Aggrenox -] 1 combo PO BID 02/11/17 Cholecalciferol (Vitamin D3) 50,000 unit PO WEEKLY 02/11/17 [Vitamin D3] Ibuprofen [Motrin -] 400 mg PO TID PRN 02/11/17 Insulin Glargine,Hum.rec.anlog 100 units SQ AM 02/28/17 [Lantus Solostar PEN -] Atorvastatin Calcium 20 mg PO DAILY 07/31/18 Clotrimazole 1 applic TP DAILY 07/31/18 Finasteride 5 mg PO DAILY 07/31/18 Fluticasone Prop 0.05% Nasal 1 spray NS DAILY 07/31/18 [Flonase -] Insulin Lispro [Humalog] 100 unit SQ ASDIR 07/31/18 Lisinopril 2.5 mg PO DAILY 07/31/18 OBJECTIVE: VS, labs, imaging reviewed NAD, AAO, resting comfortably in bed NC AT EOMI PERRLA RRR s1/2 no mgr Lungs CTAB, w/ sym exp NT ND +BS CN2-12 wnl, no fnd Normal mood, appropriate behavior Echo 07/27/18: Normal LVEF with normal RV. Mild MR with mild TR. Moderate to severe aortic sclerosis with mild AR EKG reviewed CXR reviewed ASSESSMENT AND PLAN: Patient presents with atypical chest pain; does have risk factors for CAD. Has seen Dr. Moses before here Atypical CP, r/o HI -Place on observation on medical service; can consult his CV in AM nonurgently. Echo reviewed. Trend trops, monitor telemetry. Pain is atypical. Followup A1c, TSH, Lipids to fully risk stratify. Continue him on home aggrenox CAD s/p HI -Continue him on home aggrenox, home atorva; no home BB documented. Continue AGUSTO. HTN -Reconcile and continue appropriate home medications HLD -Continue statin; checking lipids Chronic Severe Eosinophilia -Follows with hematology (Dr. Simpson); known on labs since 2017 Full Code
--- NOTE | 2018-08-01 00:14 | HP ---
CHIEF COMPLAINT: " i have chest pain" PCP: Dr Alejo HISTORY OF PRESENT ILLNESS: This is an 83 yo M with PMH of HTN, HLD, [place] 11 yrs ago, CVA, IDDM (hgb a1c 7.9 1 yr ago), who presents due to cp x 3 w. pain is L sided, contant but varies in severity, non-exertional, non-radiating and worse today, prompting his arrival to ED. Pain has no alleviating factors but is worse in the morning and when patient coughs. He states that at this time is is almost gone but is 8/10 at its worst. he denies orthopnea, sob, palpitations, le edema, weight gain or poor appetitie. Denies h/a, vision changes, N/V/C/D, abdominal pain, dysuria, hematuria, f/c. does have dribbling and difficulty initiating urination. Last TTE 07/27/18 normal ef, mild mr and tr, mod-severe aortic sclerosis ER course was notable for: (1)labs (2)ekg, cxr (3) asa 81 Recent Travel: denies PAST MEDICAL HISTORY: as above PAST SURGICAL HISTORY: as above Social History: Smoking: denies Alcohol: denies Drugs: denies Family History: htn, hld Allergies No Known Allergies Allergy (Verified 02/11/17 16:15) HOME MEDICATIONS: Home Medications Medication Instructions Recorded Aspirin/Dipyridamole [Aggrenox -] 1 combo PO BID 02/11/17 Cholecalciferol (Vitamin D3) 50,000 unit PO WEEKLY 02/11/17 [Vitamin D3] Ibuprofen [Motrin -] 400 mg PO TID PRN 02/11/17 Insulin Glargine,Hum.rec.anlog 100 units SQ AM 02/28/17 [Lantus Solostar PEN -] Atorvastatin Calcium 20 mg PO DAILY 07/31/18 Clotrimazole 1 applic TP DAILY 07/31/18 Finasteride 5 mg PO DAILY 07/31/18 Fluticasone Prop 0.05% Nasal 1 spray NS DAILY 07/31/18 [Flonase -] Insulin Lispro [Humalog] 100 unit SQ ASDIR 07/31/18 Lisinopril 2.5 mg PO DAILY 07/31/18 REVIEW OF SYSTEMS CONSTITUTIONAL: Absent: fever, chills HEENT: Absent: rhinorrhea, nasal congestion, throat pain CARDIOVASCULAR: Absent: syncope, palpitations, irregular heart rate, lightheadedness, peripheral edema RESPIRATORY: Absent: shortness of breath, dyspnea with exertion, orthopnea, wheezing, stridor , hemoptysis GASTROINTESTINAL: Absent: abdominal pain, abdominal distension, nausea, vomiting, diarrhea, constipation, melena, hematochezia GENITOURINARY: Absent: dysuria MUSCULOSKELETAL: Absent: back pain, neck pain SKIN: Absent: rash, itching, pallor HEMATOLOGIC/IMMUNOLOGIC: Absent: easy bleeding, easy bruising ENDOCRINE: Absent: heat intolerance, cold intolerance NEUROLOGIC: Absent: headache, focal weakness or paresthesias PSYCHIATRIC: Absent: anxiety, depression PHYSICAL EXAMINATION Vital Signs - 24 hr 07/31/18 19:02 Temperature 98.5 F Pulse Rate 70 Respiratory 18 Rate Blood Pressure 121/58 L O2 Sat by Pulse 99 Oximetry (%) GENERAL: Awake, alert, and fully oriented, in no acute distress. HEAD: Normal with no signs of trauma. EYES: Pupils equal, round and reactive to light, extraocular movements intact, sclera anicteric, conjunctiva clear. EARS, NOSE, THROAT: Moist mucous membranes. NECK: supple without JVD LUNGS: Breath sounds equal, clear to auscultation bilaterally. HEART: Regular rate and rhythm, normal S1 and S2. reproducible CP under left nipple ABDOMEN: Soft, nontender, not distended, normoactive bowel sounds, no guarding, no rebound, no masses. MUSCULOSKELETAL: No CVA tenderness. UPPER EXTREMITIES: 2+ pulses, warm, well-perfused. peripheral edema. LOWER EXTREMITIES: warm, well-perfused. No calf tenderness. No peripheral edema. NEUROLOGICAL: Cranial nerves II-XII grossly intact. Normal speech. PSYCHIATRIC: Cooperative. Good eye contact. Appropriate mood and affect. SKIN: Warm, dry Laboratory Results - last 24 hr 07/31/18 07/31/18 07/31/18 19:14 19:56 20:01 WBC 5.7 RBC 3.36 L Hgb 10.1 L Hct 30.7 L MCV 91.5 MCH 30.2 MCHC 33.0 RDW 13.6 Plt Count 206 MPV 8.9 Absolute Neuts (auto) 2.2 Neutrophils % 39.3 L Neutrophils % (Manual) 44.0 Lymphocytes % 21.8 Lymphocytes % (Manual) 20.0 Monocytes % 7.5 Monocytes % (Manual) 6 D Eosinophils % 30.8 H* Eosinophils % (Manual) 30.0 H Basophils % 0.6 Nucleated RBC % 0 Hypochromia 1+ Platelet Estimate Normal Platelet Comment No clumping noted Anisocytosis 1+ Macrocytosis 1+ Sodium 139 Potassium 4.7 Chloride 108 H Carbon Dioxide 24 Anion Gap 7 L BUN 30 H Creatinine 1.1 Creat Clearance w eGFR 63.62 POC Glucometer 127 Random Glucose 151 H Calcium 8.3 L Total Bilirubin 0.2 AST 19 ALT 18 Alkaline Phosphatase 92 Creatine Kinase 222 Creatine Kinase Index 0.8 CK-MB (CK-2) 1.8 Troponin I < 0.02 Total Protein 6.0 L Albumin 3.0 L ASSESSMENT/PLAN: This is an 83 yo M with PMH of HTN, HLD, [place] 11 yrs ago, CVA, IDDM (hgb a1c 7.9 1 yr ago), who presents due to cp x 3 w. atypical reproducible chest pain, likely musculoskeletal r/o acs normocytic anemia at baseline htn hld cad IDDM -recent tte noted -ekg unremarkable for acs -trop negative x 1, trend 3 qh -f/u tfts, a1c, lipid panel -cardio consult -tyenol prn -bgm achs, iss -tele monitoring -obs please reconcile home meds in the morning, especially dose of long acting insulin Visit type - Emergency Visit Emergency Visit: Yes ED Registration Date: 07/31/18 Care time: The patient presented to the Emergency Department on the above date and was hospitalized for further evaluation of their emergent condition. - New Patient This patient is new to me today: Yes Date on this admission: 08/01/18 - Critical Care Critical Care patient: No
[2018-08-01] MEDS ORDERED: ACETAMINOPHEN 325 MG TABLET (FP) PO PRN ×2 (01:33→16:22)
[2018-08-01] MEDS ORDERED: INSULIN REGULAR HUMAN 100 UNITS/ML *VIAL SQ ONE (06:39)
[2018-08-01] MEDS ORDERED: INSULIN (NOVOLOG) ASPART 100 UNITS/ML 10ML VIAL SQ ONE (06:39)
[2018-08-01] MEDS: INSULIN SLIDING SCALE (NOVOLOG) 1 VIAL SQ SCH ×5 (06:43→21:56)
[2018-08-01 07:56] LABS: ALBUMIN 3.2 g/dl (3.4-5.0); ALK PHOS 98 U/L (45-117); ANION GAP 16 MMOL/L (8-16); BILIRUBIN,TOTAL 0.6 mg/dL (0.2-1); BLOOD UREA NITROGEN 42 mg/dL (7-18); CALCIUM 8.4 mg/dL (8.5-10.1); CHLORIDE 101 mmol/L (98-107); CO2 18 mmol/L (21-32); CREATININE 1.8 mg/dL (0.55-1.3); POTASSIUM 5.5 mmol/L (3.5-5.1); SGOT/AST 14 U/L (15-37); SGPT/ALT 15 U/L (13-61); SODIUM 135 mmol/L (136-145); TOT PROT 5.9 g/dl (6.4-8.2)
[2018-08-01 08:00] LABS: GLUCOSE,RANDOM 710 mg/dL (74-106)
[2018-08-01] MEDS ORDERED: SODIUM CHLORIDE 500 ML IV STA (08:41)
[2018-08-01 08:42] LABS: ARTERIAL BLD GAS O2 SATURATION 97.3 % (95-98); ARTERIAL BLOOD GAS BASE EXCESS -5.7 meq/l (-2-2); ARTERIAL BLOOD GAS PO2 98.7 mmHg (80-105); ARTERIAL BLOOD GAS pH 7.37 (7.35-7.45)
[2018-08-01 08:44] LABS: ALLENS TEST POSITIVE
[2018-08-01] MEDS ORDERED: INSULIN REGULAR 100 UNITS in SODIUM CHLORIDE 99 ML IVPB SCH ×2 (08:45→16:22)
[2018-08-01] MEDS ORDERED: SODIUM CHLORIDE 1,000 ML IV SCH (08:45)
[2018-08-01] MEDS ORDERED: INSULIN REGULAR HUMAN 100 UNITS/ML *VIAL ONE (08:46)
--- NOTE | 2018-08-01 08:49 | PN ---
Progress Note (short form) - Note Progress Note: Subjective: conference interpreter [id number] used has CP , minimal, improved, constant. lasted for few days. no abd pain,no d iarhea, no dysuria, no SOB, . he uses insulin lantus and NOvolog per his sugar. he did not use any insulin yesterday. his sugar was normal yesterday. he has no fever. Objective: Vital Signs: Last Vital Signs Temp Pulse Resp BP Pulse Ox 98.5 F 87 16 127/56 L 98 07/31/18 19:02 08/01/18 05:31 08/01/18 05:31 08/01/18 05:31 08/01/18 05:31 Laboratory Results - last 24 hr 07/31/18 07/31/18 07/31/18 19:14 19:56 20:01 WBC 5.7 RBC 3.36 L Hgb 10.1 L Hct 30.7 L MCV 91.5 MCH 30.2 MCHC 33.0 RDW 13.6 Plt Count 206 MPV 8.9 Absolute Neuts (auto) 2.2 Neutrophils % 39.3 L Neutrophils % (Manual) 44.0 Lymphocytes % 21.8 Lymphocytes % (Manual) 20.0 Monocytes % 7.5 Monocytes % (Manual) 6 D Eosinophils % 30.8 H* Eosinophils % (Manual) 30.0 H Basophils % 0.6 Nucleated RBC % 0 Hypochromia 1+ Platelet Estimate Normal Platelet Comment No clumping noted Anisocytosis 1+ Macrocytosis 1+ Anticoagulation Therapy O2 Delivery Device Oxygen Flow Rate Vent Mode Vent Rate Mechanical Rate Pressure Support Vent Sodium 139 Potassium 4.7 Chloride 108 H Carbon Dioxide 24 Anion Gap 7 L BUN 30 H Creatinine 1.1 Creat Clearance w eGFR 63.62 POC Glucometer 127 Random Glucose 151 H Hemoglobin A1c % Calcium 8.3 L Total Bilirubin 0.2 AST 19 ALT 18 Alkaline Phosphatase 92 Creatine Kinase 222 Creatine Kinase Index 0.8 CK-MB (CK-2) 1.8 Troponin I < 0.02 Total Protein 6.0 L Albumin 3.0 L Triglycerides Cholesterol Total LDL Cholesterol HDL Cholesterol TSH Free T4 08/01/18 08/01/18 08/01/18 02:00 05:20 05:20 WBC RBC Hgb Hct MCV MCH MCHC RDW Plt Count MPV Absolute Neuts (auto) Neutrophils % Neutrophils % (Manual) Lymphocytes % Lymphocytes % (Manual) Monocytes % Monocytes % (Manual) Eosinophils % Eosinophils % (Manual) Basophils % Nucleated RBC % Hypochromia Platelet Estimate Platelet Comment Anisocytosis Macrocytosis Anticoagulation Therapy O2 Delivery Device Oxygen Flow Rate Vent Mode Vent Rate Mechanical Rate Pressure Support Vent Sodium Potassium Chloride Carbon Dioxide Anion Gap BUN Creatinine Creat Clearance w eGFR POC Glucometer Random Glucose Hemoglobin A1c % 7.1 H Calcium Total Bilirubin AST ALT Alkaline Phosphatase Creatine Kinase Creatine Kinase Index CK-MB (CK-2) Troponin I < 0.02 Total Protein Albumin Triglycerides 60 Cholesterol 127 Total LDL Cholesterol 57 HDL Cholesterol 61 H TSH 2.26 Free T4 1.36 H 08/01/18 08/01/18 08/01/18 06:21 06:24 06:50 WBC RBC Hgb Hct MCV MCH MCHC RDW Plt Count MPV Absolute Neuts (auto) Neutrophils % Neutrophils % (Manual) Lymphocytes % Lymphocytes % (Manual) Monocytes % Monocytes % (Manual) Eosinophils % Eosinophils % (Manual) Basophils % Nucleated RBC % Hypochromia Platelet Estimate Platelet Comment Anisocytosis Macrocytosis Anticoagulation Therapy O2 Delivery Device Oxygen Flow Rate Vent Mode Vent Rate Mechanical Rate Pressure Support Vent Sodium 135 L Potassium 5.5 H Chloride 101 Carbon Dioxide 18 L Anion Gap 16 BUN 42 H Creatinine 1.8 H Creat Clearance w eGFR 36.04 POC Glucometer > 600 > 600 Random Glucose 710 H* Hemoglobin A1c % Calcium 8.4 L Total Bilirubin 0.6 AST 14 L ALT 15 Alkaline Phosphatase 98 Creatine Kinase Creatine Kinase Index CK-MB (CK-2) Troponin I < 0.02 Total Protein 5.9 L Albumin 3.2 L Triglycerides Cholesterol Total LDL Cholesterol HDL Cholesterol TSH Free T4 08/01/18 08/01/18 08:21 08:29 WBC RBC Hgb Hct MCV MCH MCHC RDW Plt Count MPV Absolute Neuts (auto) Neutrophils % Neutrophils % (Manual) Lymphocytes % Lymphocytes % (Manual) Monocytes % Monocytes % (Manual) Eosinophils % Eosinophils % (Manual) Basophils % Nucleated RBC % Hypochromia Platelet Estimate Platelet Comment Anisocytosis Macrocytosis Anticoagulation Therapy No Result Required. O2 Delivery Device No Result Required. Oxygen Flow Rate No Result Required. Vent Mode No Result Required. Vent Rate No Result Required. Mechanical Rate No Result Required. Pressure Support Vent No Result Required. Sodium Potassium Chloride Carbon Dioxide Anion Gap BUN Creatinine Creat Clearance w eGFR POC Glucometer 509 Random Glucose Hemoglobin A1c % Calcium Total Bilirubin AST ALT Alkaline Phosphatase Creatine Kinase Creatine Kinase Index CK-MB (CK-2) Troponin I Total Protein Albumin Triglycerides Cholesterol Total LDL Cholesterol HDL Cholesterol TSH Free T4 Physical Exam: NAD, Awake, alert, cooperative HEENT: dry MM. no facial droop, round equal pupils. CV: RRR, 3/6 Sm at base with radiation to carotids, 3/6 SM at LLSB and apex with radiationt o axilla. Abd: soft, NT, Nd , NL Bs Ext : no edema or erythema. no signs o fungal infection in feet. Assessment/Plan: 83 y/o man with h/o CVAa, DM, HTN, HLP, [place] who presented with CP . 1- DKA; elevated sugar with AG of 16 ( was 7 yesterday ) . very dry clinically, has ILANA. no signs of infection. no compliance with insulin - check ABG, Phos, Mag, and UA - start insulin gtt at 0.1 units /hr. - BMP, phos q2 hrs. - BGM q 1 hr - give 500 cc bolus , then 150 cc/hr of NS - NPO for now - A1c pending 2- Atypical CP: EKG with L axis,m no ST or TW changes . cp is constant, atypical, and unlikley cardiac. trop neg x 3. last echo 07/27 reviewed. - tele monitoring. - card was consulted last night. 3-ILANA: likely prerenal from volume depletion . - IVF as above. - reports frequently urinating at night, if no improvement with IVF, will check US - hyperkalemia, will correct with insulin use. 4- H/o CAD, HTN, HLp: will confirm his home meds when pharmacy opens dispo : Transfer to ICU. will call for signout Visit type - Emergency Visit Emergency Visit: Yes ED Registration Date: 07/31/18 Care time: The patient presented to the Emergency Department on the above date and was hospitalized for further evaluation of their emergent condition. - New Patient This patient is new to me today: Yes Date on this admission: 08/01/18 - Critical Care Critical Care patient: Yes Total Critical Care Time (in minutes): 40 Critical Care Statement: The care of this patient involved high complexity decision making to prevent further life threatening deterioration of the patient 's condition and/or to evaluate & treat vital organ system(s) failure or risk of failure.
--- NOTE | 2018-08-01 09:20 | EKG ---
Test Reason : Blood Pressure : / mmHG Vent. Rate : 065 BPM Atrial Rate : 065 BPM P-R Int : 176 ms QRS Dur : 086 ms QT Int : 420 ms P-R-T Axes : 063 -27 026 degrees QTc Int : 436 ms NORMAL SINUS RHYTHM CANNOT RULE OUT ANTERIOR INFARCT , AGE UNDETERMINED ABNORMAL ECG WHEN COMPARED WITH ECG OF 28-FEB-2017 23:35, NO SIGNIFICANT CHANGE WAS FOUND Confirmed by VIELKA CARPIO, GABRIELE ([id number]) on 08/01/2018 9:19:43 AM Referred By: Confirmed By:GABRIELE VORA MD
[2018-08-01 09:36] LABS: MAGNESIUM 2.5 mg/dL (1.8-2.4); PHOSPHOROUS 4.4 mg/dL (2.5-4.9)
[2018-08-01] MEDS ORDERED: FLUTICASONE PROP 0.05% 16 GM NASAL SPRAY NS SCH (10:00)
[2018-08-01] MEDS ORDERED: INSULIN (LEVEMIR) 100 UNITS/ML UNITS SQ SCH ×2 (10:00→22:00)
[2018-08-01] MEDS ORDERED: FINASTERIDE 5 MG TABLET (FP) PO SCH (10:00)
[2018-08-01] MEDS ORDERED: ASPIRIN/DIPYRIDAMOLE 25 MG/200 MG CAPSULE (FP) PO SCH (10:00)
[2018-08-01] MEDS ORDERED: LISINOPRIL 5 MG TABLET (FP) PO SCH (10:00)
[2018-08-01] MEDS ORDERED: INSULIN (LEVEMIR) 100 UNITS/ML UNITS SQ ONE ×2 (10:12→12:25)
[2018-08-01] MEDS ORDERED: DOCUSATE SODIUM 100 MG CAPSULE (FP) PO ONE (11:04)
[2018-08-01] MEDS ORDERED: POLYETHYLENE GLYCOL 3350 119 GM BTL PO SCH (11:15)
[2018-08-01 11:47] LABS: ANION GAP 11 MMOL/L (8-16); BLOOD UREA NITROGEN 42 mg/dL (7-18); CALCIUM 8.5 mg/dL (8.5-10.1); CHLORIDE 107 mmol/L (98-107); CO2 19 mmol/L (21-32); CREATININE 1.7 mg/dL (0.55-1.3); PHOSPHOROUS 3.2 mg/dL (2.5-4.9); POTASSIUM 4.1 mmol/L (3.5-5.1); SODIUM 137 mmol/L (136-145)
[2018-08-01 11:57] LABS: GLUCOSE,RANDOM 370 mg/dL (74-106)
[2018-08-01 13:42] LABS: ANION GAP 6 MMOL/L (8-16); BLOOD UREA NITROGEN 39 mg/dL (7-18); CALCIUM 8.4 mg/dL (8.5-10.1); CHLORIDE 110 mmol/L (98-107); CO2 24 mmol/L (21-32); GLUCOSE,RANDOM 149 mg/dL (74-106); SODIUM 141 mmol/L (136-145)
[2018-08-01 14:08] LABS: CREATININE 1.5 mg/dL (0.55-1.3); PHOSPHOROUS 3.1 mg/dL (2.5-4.9)
--- NOTE | 2018-08-01 15:12 | CON.CARD ---
Consult Consult Specialty:: Cardiology Reason for Consultation:: chest pain - History of Present Illness History of Present Illness: 83 yo M with PMH of HTN, HLD, [place] 11 yrs ago, CVA, IDDM, presented with almost constant and daily chest pain. Symptoms are left sided and do not change with activity, varies in severity, non-radiating. VAN negative x 2 and currently mild. A recent echocardiogram showed normal LV size and function with Aortic valve sclerosis but no evidence of stenosis. - History Source Limitations to Obtaining History: No Limitations - Past Medical History [employer]: Yes: CVA Cardio/Vascular: Yes: CAD, HTN - Past Surgical History Past Surgical History: Yes: Cataract Removal, Tonsillectomy - Alcohol/Substance Use Hx Alcohol Use: No - Smoking History Smoking history: Never smoked Have you smoked in the past 12 months: No Aproximately how many cigarettes per day: 0 Home Medications - Allergies Allergies/Adverse Reactions: Allergies Allergy/AdvReac Type Severity Reaction Status Date / Time No Known Allergies Allergy Verified 02/11/17 16:15 - Home Medications Home Medications: Ambulatory Orders Aspirin/Dipyridamole [Aggrenox -] 1 combo PO BID 02/11/17 Cholecalciferol (Vitamin D3) [Vitamin D3] 50,000 unit PO WEEKLY 02/11/17 Ibuprofen [Motrin -] 400 mg PO TID PRN 02/11/17 Insulin Glargine,Hum.rec.anlog [Lantus Solostar PEN -] 100 units SQ AM 02/28/17 Atorvastatin Calcium 20 mg PO DAILY 07/31/18 Clotrimazole 1 applic TP DAILY 07/31/18 Finasteride 5 mg PO DAILY 07/31/18 Fluticasone Prop 0.05% Nasal [Flonase -] 1 spray NS DAILY 07/31/18 Insulin Lispro [Humalog] 100 unit SQ ASDIR 07/31/18 Lisinopril 2.5 mg PO DAILY 07/31/18 Review of Systems - Review of Systems Constitutional: reports: No Symptoms Eyes: reports: No Symptoms HENT: reports: No Symptoms Neck: reports: No Symptoms Cardiovascular: reports: Chest Pain Respiratory: reports: No Symptoms Gastrointestinal: reports: No Symptoms Genitourinary: reports: No Symptoms Breasts: reports: No Symptoms Reported Musculoskeletal: reports: No Symptoms Vital Signs: Vital Signs Temperature 98.2 F 08/01/18 12:18 Pulse Rate 80 08/01/18 10:20 Respiratory Rate 18 08/01/18 10:20 Blood Pressure 119/57 L 08/01/18 10:20 O2 Sat by Pulse Oximetry (%) 100 08/01/18 15:02 Constitutional: Yes: Well Nourished, No Distress, Calm Eyes: Yes: Conjunctiva Clear, EOM Intact HENT: Yes: Atraumatic, Normocephalic Neck: Yes: Supple, Trachea Midline Respiratory: Yes: Regular, CTA Bilaterally Gastrointestinal: Yes: Normal Bowel Sounds Cardiovascular: Yes: Regular Rate and Rhythm JVD: No Carotid Bruit: No PMI: Non-Displaced Heart Sounds: Yes: S1, S2 Murmur: No: Systolic Murmur, Diastolic Murmur Edema: No Peripheral Pulses WNL: Yes - Other Data Labs, Other Data: CBC, BMP 07/31/18 20:01 08/01/18 12:20 Troponin, BNP 07/31/18 08/01/18 08/01/18 19:56 02:00 06:50 Troponin I < 0.02 < 0.02 < 0.02 Troponin, BNP 07/31/18 08/01/18 08/01/18 19:56 02:00 06:50 Troponin I < 0.02 < 0.02 < 0.[address] T changes. Echo: Report Reviewed Imaging - Results Chest X-ray: Report Reviewed Problem List - Problems (1) Chest pain Code(s): R07.9 - CHEST PAIN, UNSPECIFIED Qualifiers: Chest pain type: unspecified Qualified Code(s): R07.9 - Chest pain, unspecified Assessment/Plan Chronic chest pain syndrome which is atypical and almost constant. Waxing and waning in quality without exacerbation on effort. ECG, recent echo and cardiac enzymes are negative for ischemia. Continue out patient therapy. Can DC telemetry. Out patient cardiac follow up. Will see as needed.
[2018-08-01] MEDS: SODIUM CHLORIDE 1,000 ML IV SCH (18:42)
[2018-08-01 21:29] LABS: EPI CELLS 0.2 /HPF (0-5/HPF); URINE APPEARANCE CLEAR; URINE BACTERIA 0.7 /hpf (NEGATIVE); URINE BILIRUBIN NEGATIVE (NEGATIVE); URINE CASTS 4 /lpf (0-8); URINE COLOR YELLOW; URINE GLUCOSE (UA) 1+ (NEGATIVE); URINE KETONE NEGATIVE (NEGATIVE); URINE LEUK ESTERASE NEGATIVE (NEGATIVE); URINE NITRITE NEGATIVE (NEGATIVE); URINE PROTEIN 1+ (NEGATIVE); URINE RBC 1 /hpf (0-4); URINE UROBILINOGEN 0.2 mg/dL (0.2-1.0); URINE WBC 0 /hpf (0-5)
[2018-08-01] MEDS: ATORVASTATIN CA 20 MG TABLET (FP) PO SCH (21:33)
[2018-08-01] MEDS: ASPIRIN/DIPYRIDAMOLE 25 MG/200 MG CAPSULE (FP) PO SCH (21:33)
[2018-08-01] MEDS: CHLORHEXIDINE GLUCONATE 4% CLEANSER FOR DECOLONIZATION TP SCH (21:34)
[2018-08-01] MEDS ORDERED: SENNOSIDES 8.6MG TABLET (FP) PO SCH (22:00)
[2018-08-01] MEDS ORDERED: MUPIROCIN 2% TOPICAL OINTMENT FOR DECOLONIZATION NS SCH (22:00)
[2018-08-01] MEDS ORDERED: ATORVASTATIN CA 20 MG TABLET (FP) PO SCH (22:00)
[2018-08-02] MEDS: SODIUM CHLORIDE 1,000 ML IV SCH ×2 (02:44→16:39)
[2018-08-02] MEDS: INSULIN SLIDING SCALE (NOVOLOG) 1 VIAL SQ SCH ×4 (06:23→21:34)
[2018-08-02] MEDS ORDERED: INSULIN (LEVEMIR) 100 UNITS/ML UNITS SQ SCH (07:00)
[2018-08-02 08:18] LABS: ANION GAP 13 MMOL/L (8-16); BLOOD UREA NITROGEN 37 mg/dL (7-18); CHLORIDE 110 mmol/L (98-107); CO2 20 mmol/L (21-32); CREATININE 1.3 mg/dL (0.55-1.3); GLUCOSE,RANDOM 247 mg/dL (74-106); POTASSIUM 4.6 mmol/L (3.5-5.1); SODIUM 143 mmol/L (136-145)
[2018-08-02] MEDS ORDERED: FLUTICASONE PROP 0.05% 16 GM NASAL SPRAY NS SCH (10:00)
[2018-08-02] MEDS ORDERED: FINASTERIDE 5 MG TABLET (FP) PO SCH (10:00)
[2018-08-02] MEDS ORDERED: DOCUSATE SODIUM 100 MG CAPSULE (FP) PO SCH (10:00)
[2018-08-02] MEDS ORDERED: LISINOPRIL 5 MG TABLET (FP) PO SCH (10:00)
[2018-08-02] MEDS: ASPIRIN/DIPYRIDAMOLE 25 MG/200 MG CAPSULE (FP) PO SCH ×2 (10:12→21:34)
[2018-08-02] MEDS ORDERED: INSULIN (LEVEMIR) 100 UNITS/ML UNITS SQ ONE (10:15)
--- NOTE | 2018-08-02 13:16 | PN ---
Teaching Attending Note Name of Resident: Antonio Hatfield ATTENDING PHYSICIAN STATEMENT I saw and evaluated the patient. I reviewed the resident's note and discussed the case with the resident. I agree with the resident's findings and plan as documented. SUBJECTIVE: No fever or chills. No RUFFIN ,no N/V. No abd pain. OBJECTIVE: NAD, Awake, alert, cooperative HEENT: MMM. no facial droop, round equal pupils. CV: RRR, 3/6 SM at base with radiation to carotids, 3/6 SM at LLSB and apex with radiation to axilla. Abd: soft, NT, Nd , NL Bs Ext : no edema or erythema. . No axillary sweating Assessment/Plan: 83 y/o man with h/o CVAa, DM, HTN, HLP, [place] who presented with CP . 1- DKA; resolved. off insulin gtt since yesterday. - Bicarb is down and AG is slightly higher than yesterday. sugar improved. - repeat BMP for AG and Bicarb - increase levemir to 14 units . cont SSI for now. - cont IVF . 2- Atypical CP: out pt f/u 3-ILANA: resolved. still mild evidence of volume depletion . cont IVF at this rate 4- H/o CAD, HTN, HLp: resident to confirm meds dispo : Possible dc home if BMP and volume status improves. will assess later . dietitian education. diabetes teaching
[2018-08-02 14:02] LABS: ANION GAP 9 MMOL/L (8-16); BLOOD UREA NITROGEN 32 mg/dL (7-18); CHLORIDE 112 mmol/L (98-107); CO2 24 mmol/L (21-32); CREATININE 1.3 mg/dL (0.55-1.3); GLUCOSE,RANDOM 147 mg/dL (74-106); POTASSIUM 4.2 mmol/L (3.5-5.1); SODIUM 144 mmol/L (136-145)
--- NOTE | 2018-08-02 19:52 | DS ---
Physical Exam: SUBJECTIVE: Patient seen and examined this AM. States he is doing well. He is still having chest pain which is stable. Denies any SOB, weakness, n/v/d. OBJECTIVE: Vital Signs Period Temp Pulse Resp BP Sys/Ellis Pulse Ox Last 24 Hr 97.3 F-98.7 F 66-92 18-20 103-142/46-67 PHYSICAL EXAM GEN: A&O, no acute distress HEENT: Moist mucus membranes, no pharyngeal erythema/exudate CHEST: chest pain not reproducible HEART: RRR, no murmurs noted LUNGS: CTA b/l, no wheezes or rhonchi ABDOMEN: Soft, nontender, normoactive bowel sounds EXTREMITIES: no peripheral edema or calf pain LABS Laboratory Results - last 24 hr 08/01/18 08/01/18 08/02/18 20:25 21:36 05:33 Sodium Potassium Chloride Carbon Dioxide Anion Gap BUN Creatinine Creat Clearance w eGFR POC Glucometer 203 159 Random Glucose Calcium Phosphorus Urine Color Yellow Urine Appearance Clear Urine pH 5.0 Ur Specific [place] 1.017 Urine Protein 1+ H Urine Glucose (UA) 1+ H Urine Ketones Negative Urine Blood Negative Urine Nitrite Negative Urine Bilirubin Negative Urine Urobilinogen 0.2 Ur Leukocyte Esterase Negative Urine WBC (Auto) 0 Urine RBC (Auto) 1 Urine Casts (Auto) 4 U Epithel Cells (Auto) 0.2 Urine Bacteria (Auto) 0.7 08/02/18 08/02/18 08/02/18 06:30 10:38 12:55 Sodium 143 144 Potassium 4.6 4.2 Chloride 110 H 112 H Carbon Dioxide 20 L 24 Anion Gap 13 9 BUN 37 H 32 H Creatinine 1.3 1.3 Creat Clearance w eGFR 52.47 52.47 POC Glucometer 213 Random Glucose 247 H 147 H Calcium 8.0 L 8.0 L Phosphorus 4.0 Urine Color Urine Appearance Urine pH Ur Specific [place] Urine Protein Urine Glucose (UA) Urine Ketones Urine Blood Urine Nitrite Urine Bilirubin Urine Urobilinogen Ur Leukocyte Esterase Urine WBC (Auto) Urine RBC (Auto) Urine Casts (Auto) U Epithel Cells (Auto) Urine Bacteria (Auto) 08/02/18 16:38 Sodium Potassium Chloride Carbon Dioxide Anion Gap BUN Creatinine Creat Clearance w eGFR POC Glucometer 235 Random Glucose Calcium Phosphorus Urine Color Urine Appearance Urine pH Ur Specific [place] Urine Protein Urine Glucose (UA) Urine Ketones Urine Blood Urine Nitrite Urine Bilirubin Urine Urobilinogen Ur Leukocyte Esterase Urine WBC (Auto) Urine RBC (Auto) Urine Casts (Auto) U Epithel Cells (Auto) Urine Bacteria (Auto) HOSPITAL COURSE: Date of Admission:08/01/18 Date of Discharge: 08/02/18 HPI on Admission: This is an 83 yo M with PMH of HTN, HLD, [place] 11 yrs ago, CVA, IDDM (hgb a1c 7.9 1 yr ago), who presents due to cp x 3 w. pain is L sided, contant but varies in severity, non-exertional, non-radiating and worse today, prompting his arrival to ED. Pain has no alleviating factors but is worse in the morning and when patient coughs. He states that at this time is is almost gone but is 8/10 at its worst. he denies orthopnea, sob, palpitations, le edema, weight gain or poor appetitie. Denies h/a, vision changes, N/V/C/D, abdominal pain, dysuria, hematuria, f/c. does have dribbling and difficulty initiating urination. Last TTE 07/27/18 normal ef, mild mr and tr, mod-severe aortic sclerosis Hospital Course: EKG without new concerning changes. Troponins negative. Seen by cardiology who did not feel the patient was having any acute cardiac event. Though initially normal, pts glucose was found to be >700 with anion gap of 13 (9 on admission). Started on insulin drip and fluids. Glucose resolved and gap closed. Home insulin Lantus increased to 14. Pt counseled about Insulin sliding scale and deemed medically safe for discharge with close follow up by primary care and cardiology. Minutes to complete discharge: 35 Discharge Summary Reason For Visit: DIABETES MELLITUS,ACUTE CORONARY SYNDROME. Current Active Problems DKA (diabetic ketoacidoses) (Acute) Chest pain (Chronic) Diabetes (Chronic) Diabetes mellitus, insulin dependent (IDDM), uncontrolled (Chronic) HTN (hypertension) (Chronic) Condition: Good - Instructions Diet, Activity, Other Instructions: You were in the hospital because of chest pain. You were seen by a process mold technician who feel you were safe for discharge with follow up by a process mold technician in the office. Your blood sugar was very high when you were in the hospital. You were given insulin and fluids which corrected your blood sugar. you were in a condition called diabetic ketoacidosis You need to take the following medications: Insulin Lantus 14 units every day in morning Insulin sliding scale for short acting insulin (Humalog): Blood sugar Insulin 101-150 0 units 151-200 2 units 201-250 4 units 251-300 6 units 301-350 8 units 351-400 10 units >400 12 units and call your doctor Continue taking your other medications as before. check your sugar before each meal . if you develop low numbers 9 < 0) drink orange juice, do not inject inslin and call your doctor right away for instructions . this could be very serious and life threatening. if your sugar is > 400 inject your insulin and call MD Please follow up with your process mold technician, Dr. Moses. You should also follow up with your primary care physician Dr. Alejo. we have referred you to an filterer ( Dr. Martell) , please follow with him for better control of your diabetes If you have any further concerning symptoms, you should call your doctor or return to the emergency department for further evaluation. diabetic diet Referrals: Nasir Moses MD [Staff Physician] - 1 Week Mihaela Card MD [Primary Care Provider] - Cuong Welsh MD [Staff Physician] - 2 Weeks Disposition: HOME - Home Medications Comprehensive Discharge Medication List: Ambulatory Orders Aspirin/Dipyridamole [Aggrenox -] 25 - 200 combo PO BID 02/11/17 Cholecalciferol (Vitamin D3) [Vitamin D3] 50,000 unit PO DAILY 02/11/17 Insulin Glargine,Hum.rec.anlog [Lantus Solostar PEN -] 14 units SQ AM 02/28/17 Atorvastatin Calcium 20 mg PO DAILY 07/31/18 Finasteride 5 mg PO DAILY 07/31/18 Fluticasone Prop 0.05% Nasal [Flonase -] 1 spray NS DAILY 07/31/18 Insulin Lispro [Humalog] See Protocol SQ ASDIR 07/31/18 Lisinopril 2.5 mg PO DAILY 07/31/18 Donepezil HCl 10 mg PO DAILY 08/02/18 Latanoprost 1 drop OU HS 08/02/18 Tamsulosin HCl 0.4 mg PO DAILY 08/02/18 This patient is new to me today: Yes Date on this admission: 08/02/18 Emergency Visit: Yes ED Registration Date: 08/01/18 Care time: The patient presented to the Emergency Department on the above date and was hospitalized for further evaluation of their emergent condition. Critical Care patient: No - Discharge Referral Referred to [facility] No
[2018-08-02 20:47] VITALS: BP 133/57; PULSE 60; TEMP 98.1
[2018-08-02] MEDS: ATORVASTATIN CA 20 MG TABLET (FP) PO SCH (21:34)
[2018-08-02] MEDS: CHLORHEXIDINE GLUCONATE 4% CLEANSER FOR DECOLONIZATION TP SCH (22:18)
== END 2018-08-02 21:46 | disposition home or self-care (01) | DRG 638 ==
LOC: JER 18:46 → JERBED 22:52 → OBSVTOIN 08-01 10:50 → J8W 08-01 15:55
PROVIDERS: ADMIT Internal Medicine; ATTEND Internal Medicine
DX: E11.10 Type 2 diabetes mellitus with ketoacidosis without coma (principal); N17.9 Acute kidney failure, unspecified; R07.89 Other chest pain; I10 Essential (primary) hypertension; E78.5 Hyperlipidemia, unspecified; E11.9 Type 2 diabetes mellitus without complications; I25.2 Old myocardial infarction; Z86.73 Personal history of transient ischemic attack (TIA), and cerebral infarction without residual deficits; Z79.4 Long term (current) use of insulin; I25.10 Atherosclerotic heart disease of native coronary artery without angina pectoris; D72.1 Eosinophilia; I70.0 Atherosclerosis of aorta; D64.9 Anemia, unspecified
CPT/HCPCS: 36415; 36600; 71046-TC-FY; 80048; 80053; 80061; 81003; 82550; 82553; 82803; 82962; 83036; 83721; 83735; 84100; 84439; 84443; 84484; 85025; 93005; 93010; 99285-25; G0378; J7030

== ENCOUNTER 2018-10-01 14:40 | Inpatient (IN) | payer OTHER ==
[2018-10-01 15:45] LABS: BASO % 0.4 % (0-2.0); EOS % 20.5 % (0-4.5); HEMATOCRIT 32.8 % (35.4-49); LYMPH % 14.6 % (8-40); MCH 30.4 pg (25.7-33.7); MCHC 33.5 g/dl (32.0-35.9); MEAN CELL VOLUME 90.9 fl (80-96); MEAN PLT VOLUME 8.7 fl (7.5-11.1); MONO % 5.9 % (3.8-10.2); NEUT % 58.6 % (42.8-82.8); PLATELET COUNT 209 K/MM3 (134-434); RBC 3.61 M/mm3 (4.00-5.60); RDW 14.2 % (11.9-15.9); WHITE BLOOD COUNT 6.9 K/mm3 (4.0-10.0)
[2018-10-01 16:14] LABS: ALBUMIN 3.3 g/dl (3.4-5.0); ALK PHOS 113 U/L (45-117); AMYLASE 69 U/L (25-115); ANION GAP 6 MMOL/L (8-16); BILIRUBIN,TOTAL 0.4 mg/dL (0.2-1); BLOOD UREA NITROGEN 24.4 mg/dL (7-18); CALCIUM 8.3 mg/dL (8.5-10.1); CHLORIDE 109 mmol/L (98-107); CO2 29 mmol/L (21-32); CREATININE 1.2 mg/dL (0.55-1.3); GLUCOSE,RANDOM 159 mg/dL (74-106); LIPASE 141 U/L (73-393); POTASSIUM 5.1 mmol/L (3.5-5.1); SGOT/AST 15 U/L (15-37); SGPT/ALT 16 U/L (13-61); SODIUM 144 mmol/L (136-145); TOT PROT 6.3 g/dl (6.4-8.2)
[2018-10-01 16:52] LABS: EPI CELLS 0.4 /HPF (0-5/HPF); HYALINE CASTS 0 /lpf (0-8); PH,URINE 7.5 (5.0-8.0); URINE APPEARANCE CLEAR; URINE BACTERIA 1.4 /hpf (NEGATIVE); URINE BILIRUBIN NEGATIVE (NEGATIVE); URINE COLOR YELLOW; URINE GLUCOSE (UA) NEGATIVE (NEGATIVE); URINE KETONE NEGATIVE (NEGATIVE); URINE LEUK ESTERASE NEGATIVE (NEGATIVE); URINE NITRITE NEGATIVE (NEGATIVE); URINE PROTEIN 2+ (NEGATIVE); URINE RBC 2 /hpf (0-4); URINE WBC 0 /hpf (0-5)
--- NOTE | 2018-10-01 17:03 | PDOC ---
History of Present Illness - General Chief Complaint: Nausea/Vomiting Stated Complaint: Nausea/Vomiting Time Seen by Provider: 10/01/18 15:39 History Source: Patient - History of Present Illness Initial Comments: 10/01/18 17:04 The patient is an 83 year old male with a PMH of NIDDM, HTN and CVA who presents to our ED c/o 2 week h/o nausea/decreased appetite and acute onset of vomiting. Aide @ bedside assists in history. States pateint has been complaining of nausea for two weeks and eating very little with a 5 pound weight loss. This morning patient vomited after breakfast and has been vomiting intermittently, NBNB all day. 10/01/18 17:16 10/09/18 17:19 Past History - Past Medical History Allergies/Adverse Reactions: Allergies Allergy/AdvReac Type Severity Reaction Status Date / Time tamsulosin AdvReac Low Blood Verified 10/07/18 16:15 Pressure Home Medications: Ambulatory Orders Cholecalciferol (Vitamin D3) [Vitamin D3] 50,000 unit PO DAILY 02/11/17 Insulin Glargine,Hum.rec.anlog [Lantus Solostar PEN -] 5 units SQ AM 02/28/17 Atorvastatin Calcium 20 mg PO DAILY 07/31/18 Insulin Lispro [Humalog] See Protocol SQ ASDIR 07/31/18 Lisinopril 2.5 mg PO DAILY 07/31/18 Donepezil HCl 10 mg PO DAILY 10/05/18 Tamsulosin HCl 0.4 mg PO DAILY 10/05/18 Tolterodine Tartrate LA [Detrol LA -] 4 mg PO DAILY 10/05/18 traZODone HCL [Trazodone HCl] 50 mg PO DAILY 10/05/18 Cardiac Disorders: Yes ([place] 11 years ago) CVA: Yes COPD: No Dementia: Yes Diabetes: Yes (iddm) HTN: Yes Hypercholesterolemia: Yes Other medical history: left foot fracture - Immunization History Immunization Up to Date: Yes - Suicide/Smoking/Psychosocial Hx Smoking Status: No Smoking History: Never smoked Have you smoked in the past 12 months: No Number of Cigarettes Smoked Daily: 0 Hx Alcohol Use: No Drug/Substance Use Hx: No Substance Use Type: None Hx Substance Use Treatment: No Review of Systems - Review of Systems Constitutional: No: Chills, Fever HEENTM: No: Recent change in vision Respiratory: No: Cough, Shortness of Breath Cardiac (ROS): No: Chest Pain, Lightheadedness, Palpitations, Syncope ABD/GI: Yes: Nausea, Vomiting. No: Constipated, Diarrhea, Rectal Bleeding : No: Burning, Dysuria *Physical Exam - Vital Signs Last Vital Signs Temp Pulse Resp BP Pulse Ox 98.0 F 64 19 155/66 98 10/01/18 14:41 10/01/18 14:41 10/01/18 14:41 10/01/18 14:41 10/01/18 14:41 - Physical Exam General Appearance: Yes: Appropriately Dressed, Thin HEENT: positive: Normal Voice, Hearing Grossly Normal Neck: positive: Trachea midline, Supple Respiratory/Chest: positive: Lungs Clear, Normal Breath Sounds Cardiovascular: positive: S1, S2 Vascular Pulses: Dorsalis-Pedis (R): 2+, Doralis-Pedis (L): 2+ Gastrointestinal/Abdominal: positive: Normal Bowel Sounds, Soft. negative: Tenderness, Hernia, Mass ED Treatment Course - LABORATORY CBC & Chemistry Diagram: 10/09/18 07:03 10/09/18 07:03 - ADDITIONAL ORDERS Additional order review: Laboratory Results 10/01/18 10/01/18 16:36 15:30 Sodium 144 Potassium 5.1 Chloride 109 H Carbon Dioxide 29 Anion Gap 6 L BUN 24.4 H Creatinine 1.2 Est GFR (CKD-EPI)AfAm 63.52 Est GFR (CKD-EPI)NonAf 54.81 Random Glucose 159 H Calcium 8.3 L Total Bilirubin 0.4 AST 15 ALT 16 Alkaline Phosphatase 113 Creatine Kinase 103 Troponin I < 0.02 Total Protein 6.3 L Albumin 3.3 L Total Amylase 69 Lipase 141 Urine Color Yellow Urine Appearance Clear Urine pH 7.5 D Ur Specific [place] 1.015 Urine Protein 2+ H Urine Glucose (UA) Negative Urine Ketones Negative Urine Blood Negative Urine Nitrite Negative Urine Bilirubin Negative Urine Urobilinogen 1.0 Ur Leukocyte Esterase Negative Urine WBC (Auto) 0 Urine RBC (Auto) 2 Urine Casts (Auto) 0 U Epithel Cells (Auto) 0.4 Urine Bacteria (Auto) 1.4 10/01/18 15:30 RBC 3.61 L MCV 90.9 MCHC 33.5 RDW 14.2 MPV 8.7 Neutrophils % 58.6 D Lymphocytes % 14.6 D Monocytes % 5.9 Eosinophils % 20.5 H* Basophils % 0.4 Medical Decision Making - Medical Decision Making 10/09/18 17:23 83 y/o male w/2 weeks of nausea, acute onset of NBNB emesis today VS unremarkable Belly soft, non-tender, (+) bowel sounds Will obtain belly labs as well CTAP -r/o acute abdomen Reassess. Patient signed out to Dr. Tam, labs and imaging pending. *DC/Admit/Observation/Transfer Diagnosis at time of Disposition: Frequent falls Failure to thrive Qualifiers: Failure to thrive age range: in adult Qualified Code(s): R62.7 - Adult failure to thrive - Referrals - Patient Instructions - Post Discharge Activity
--- NOTE | 2018-10-01 18:01 | PDOC ---
Documentation entered by Demetrice Linn SCRIBE, acting as scribe for Jessenia Aguillon MD. Jessenia Aguillon MD: This documentation has been prepared by the Temitope hood Sammi, SCRIBE, under my direction and personally reviewed by me in its entirety. I confirm that the documentation accurately reflects all work, treatment, procedures, and medical decision making performed by me. Attending Attestation - Resident Resident Name: Jenniffer Schofield - ED Attending Attestation I have performed the following: I have examined & evaluated the patient, The case was reviewed & discussed with the resident, I agree w/resident's findings & plan, Exceptions are as noted - HPI HPI: 10/01/18 17:32 The patient is an 83 year old male, with a significant PMH of HTN, NIDDM, CVA, who presents to the emergency department, with aide, for evaluation of 2 weeks nausea, vomiting, and decreased PO. The patients aide notes the patient has lost 5 pounds during these 2 weeks. PCP: Sapna - Physicial Exam PE: 10/01/18 17:14 GENERAL: The patient is in no acute distress, actually standing to urinate when I was in the room to examine him. ENT: Ears normal, nares patent, oropharynx clear without exudates. Moist mucous membranes. NECK: Normal range of motion, supple LUNGS: Breath sounds equal, clear to auscultation bilaterally. No wheezes, and no crackles. HEART:Regular rate and rhythm, normal S1 and S2 without murmur, rub or gallop. ABDOMEN: Soft, nontender, no distention, no involuntary guarding EXTREMITIES: Normal range of motion, no edema. NEUROLOGICAL: Cranial nerves II through XII grossly intact. Normal speech. No focal neurological deficits. SKIN: No rash noted 10/01/18 17:22 - Medical Decision Making 10/01/18 17:14 EKG - NSR rate of 66 bpm, axis nml, intervals nml, no st elevation or depression , t waves upright 10/01/18 17:28 83 yo M h/o Presenting to the ER with a complaint of 2 weeks nausea, today pt vomited No diarrhea No fevers or chills No recent travel No ill contacts Pt has no distention or tenderness on examination DD broad and includes Pancreatitis, biliary pathology, SBO, gastritis, ACS Will do: Labs EKG IV CT abd and pelvis 10/01/18 17:31 Laboratory Tests 10/01/18 10/01/18 10/01/18 15:30 15:30 16:36 WBC 6.9 Hgb 11.0 L Hct 32.8 L Plt Count 209 BUN 24.4 H Creatinine 1.2 Creatine Kinase 103 Troponin I < 0.02 Urine Blood Negative Urine Nitrite Negative Ur Leukocyte Esterase Negative Urine Bacteria (Auto) 1.4 CT pending Signed out to Dr. Betancourt
--- NOTE | 2018-10-01 19:12 | PDOC ---
*Physical Exam - Vital Signs Last Vital Signs Temp Pulse Resp BP Pulse Ox 98.0 F 64 19 155/66 98 10/01/18 14:41 10/01/18 14:41 10/01/18 14:41 10/01/18 14:41 10/01/18 14:41 ED Treatment Course - LABORATORY CBC & Chemistry Diagram: 10/01/18 15:30 10/01/18 15:30 - ADDITIONAL ORDERS Additional order review: Laboratory Results 10/01/18 10/01/18 16:36 15:30 Sodium 144 Potassium 5.1 Chloride 109 H Carbon Dioxide 29 Anion Gap 6 L BUN 24.4 H Creatinine 1.2 Est GFR (CKD-EPI)AfAm 63.52 Est GFR (CKD-EPI)NonAf 54.81 Random Glucose 159 H Calcium 8.3 L Total Bilirubin 0.4 AST 15 ALT 16 Alkaline Phosphatase 113 Creatine Kinase 103 Troponin I < 0.02 Total Protein 6.3 L Albumin 3.3 L Total Amylase 69 Lipase 141 Urine Color Yellow Urine Appearance Clear Urine pH 7.5 D Ur Specific [place] 1.015 Urine Protein 2+ H Urine Glucose (UA) Negative Urine Ketones Negative Urine Blood Negative Urine Nitrite Negative Urine Bilirubin Negative Urine Urobilinogen 1.0 Ur Leukocyte Esterase Negative Urine WBC (Auto) 0 Urine RBC (Auto) 2 Urine Casts (Auto) 0 U Epithel Cells (Auto) 0.4 Urine Bacteria (Auto) 1.4 10/01/18 15:30 RBC 3.61 L MCV 90.9 MCHC 33.5 RDW 14.2 MPV 8.7 Neutrophils % 58.6 D Lymphocytes % 14.6 D Monocytes % 5.9 Eosinophils % 20.5 H* Basophils % 0.4 Medical Decision Making - Medical Decision Making 10/01/18 19:[address] Schofield. Patient is an 83 yo male w/ pmh of NIDDM, HTN, CVA in the past who presents for evaluation of decreased PO and frequent falls. Patient evaluated with Head, C-spine, Abd/Pelvis CT's w/ no acute findings. Patient will be admitted for frequent falls and failure to thrive. *DC/Admit/Observation/Transfer Diagnosis at time of Disposition: Frequent falls Failure to thrive Qualifiers: Failure to thrive age range: in adult Qualified Code(s): R62.7 - Adult failure to thrive - Discharge Dispostion Decision to Admit order: Yes - Referrals Referrals: Mihaela Card MD [Primary Care Provider] - - Patient Instructions - Post Discharge Activity
--- NOTE | 2018-10-01 20:42 | HP ---
CHIEF COMPLAINT: Dysphagia HISTORY OF PRESENT ILLNESS: The patient is an 83 year old male with PMHx of IDDM, HTN, CVA, dementia, [place], [place] (11 years ago), hypercholesterolemia who was brought from home by aide with 2 week history of dysphagia and decreased appetite. Aide at bedside assists in history. Pt complains of nausea and sensation that "food is stuck in his chest" for 2 weeks. This afternoon, patient vomited his food immediately after eating lunch. Per aide, he has been eating less and recently lost 5 pounds. Pt denies abd pain, diarrhea, or constipation. Last BM was yesterday. He has not had any other vomiting episodes. Aide reports pt has had a mild cough with phelgm for 2 weeks. ER course was notable for: (1) CXR, CT abd, CT head unremarkable (2) CBC, CMP unremarkable (3) EKG normal Recent Travel: No PAST MEDICAL HISTORY: MR Dementia IDDM HTN CVA [place] (11 years ago) Hypercholesterolemia PAST SURGICAL HISTORY: Social History: Smoking: denies Alcohol: denies Drugs: denies Family History: Unable to obtain due to pt's mental status. Aide was unable to provide any information. Allergies tamsulosin Adverse Reaction (Verified 10/01/18 15:13) Low Blood Pressure HOME MEDICATIONS: Home Medications Medication Instructions Recorded Aspirin/Dipyridamole [Aggrenox -] 25 - 200 combo PO BID 02/11/17 Cholecalciferol (Vitamin D3) 50,000 unit PO DAILY 02/11/17 [Vitamin D3] Insulin Glargine,Hum.rec.anlog 5 units SQ AM 02/28/17 [Lantus Solostar PEN -] Atorvastatin Calcium 20 mg PO DAILY 07/31/18 Finasteride 5 mg PO DAILY 07/31/18 Insulin Lispro [Humalog] See Protocol SQ ASDIR 07/31/18 Lisinopril 2.5 mg PO DAILY 07/31/18 REVIEW OF SYSTEMS CONSTITUTIONAL: weight change, loss of appetite Absent: fever, chills, diaphoresis, generalized weakness, malaise HEENT: difficulty swallowing Absent: rhinorrhea, nasal congestion, throat pain, throat swelling, mouth swelling, ear pain, eye pain, visual changes CARDIOVASCULAR: Absent: chest pain, syncope, palpitations, irregular heart rate, lightheadedness, peripheral edema RESPIRATORY: mild cough for several weeks Absent: shortness of breath, dyspnea with exertion, orthopnea, wheezing, stridor, hemoptysis GASTROINTESTINAL: nausea, vomiting Absent: abdominal pain, abdominal distension, diarrhea, constipation, melena , hematochezia GENITOURINARY: Absent: dysuria, frequency, urgency, hesitancy, hematuria, flank pain, genital pain MUSCULOSKELETAL: Absent: myalgia, arthralgia, joint swelling, back pain, neck pain NEUROLOGIC: unsteady gait (chronic) Absent: headache, focal weakness or paresthesias, dizziness, seizure, mental status changes, bladder or bowel incontinence PSYCHIATRIC: Absent: anxiety, depression, suicidal or homicidal ideation, hallucinations. PHYSICAL EXAMINATION Vital Signs - 24 hr 10/01/18 10/01/18 14:41 19:53 Temperature 98.0 F 98.4 F Pulse Rate 64 Pulse Rate [ 68 Apical] Respiratory 19 18 Rate Blood Pressure 155/66 Blood Pressure 154/68 [Left Arm] O2 Sat by Pulse 98 98 Oximetry (%) GENERAL: Awake, alert, in no acute distress. HEAD: Normal with no signs of trauma. EYES: Pupils equal, round and reactive to light, extraocular movements intact, sclera anicteric, conjunctiva clear. No lid lag. EARS, NOSE, THROAT: Ears normal, nares patent, oropharynx clear without exudates. Moist mucous membranes. NECK: Normal range of motion, supple without lymphadenopathy, JVD, or masses. LUNGS: Breath sounds equal, clear to auscultation bilaterally. No wheezes, and no crackles. No accessory muscle use. HEART: Regular rate and rhythm, normal S1 and S2 without murmur, rub or gallop. ABDOMEN: Soft, nontender, not distended, normoactive bowel sounds, no guarding, no rebound, no masses. No hepatomegaly or splenomegaly. MUSCULOSKELETAL: Decreased range of motion at all joints. No bony deformities or tenderness. No CVA tenderness. UPPER EXTREMITIES: 2+ pulses, warm, well-perfused. No cyanosis. No clubbing. No peripheral edema. LOWER EXTREMITIES: 2+ pulses, warm, well-perfused. No calf tenderness. No peripheral edema. Left foot in AGUSTO bandage from recent left foot fracture. NEUROLOGICAL: Gait not observed (pt has limited mobility) PSYCHIATRIC: Unable to assess due to mental status. SKIN: Warm, dry, normal turgor. Several ecchymoses noted on extremities. Several crusted lesions noted on LUE. Laboratory Results - last 24 hr 10/01/18 10/01/18 10/01/18 15:30 15:30 16:36 WBC 6.9 RBC 3.61 L Hgb 11.0 L Hct 32.8 L MCV 90.9 MCH 30.4 MCHC 33.5 RDW 14.2 Plt Count 209 MPV 8.7 Absolute Neuts (auto) 4.0 Neutrophils % 58.6 D Lymphocytes % 14.6 D Monocytes % 5.9 Eosinophils % 20.5 H* Basophils % 0.4 Nucleated RBC % 0 Sodium 144 Potassium 5.1 Chloride 109 H Carbon Dioxide 29 Anion Gap 6 L BUN 24.4 H Creatinine 1.2 Est GFR (CKD-EPI)AfAm 63.52 Est GFR (CKD-EPI)NonAf 54.81 Random Glucose 159 H Calcium 8.3 L Total Bilirubin 0.4 AST 15 ALT 16 Alkaline Phosphatase 113 Creatine Kinase 103 Troponin I < 0.02 Total Protein 6.3 L Albumin 3.3 L Total Amylase 69 Lipase 141 Urine Color Yellow Urine Appearance Clear Urine pH 7.5 D Ur Specific [place] 1.015 Urine Protein 2+ H Urine Glucose (UA) Negative Urine Ketones Negative Urine Blood Negative Urine Nitrite Negative Urine Bilirubin Negative Urine Urobilinogen 1.0 Ur Leukocyte Esterase Negative Urine WBC (Auto) 0 Urine RBC (Auto) 2 Urine Casts (Auto) 0 U Epithel Cells (Auto) 0.4 Urine Bacteria (Auto) 1.4 ASSESSMENT/PLAN: Pt is an 83 y/o M with PMHx of IDDM, HTN, CVA, dementia, [place], [place] (11 years ago), hypercholesterolemia brought from home by aide for dysphagia and decreased appetite. #Dysphagia Consult GI and speech and swallow NPO IVF NS PT on board Dysphagia precautions #Hyperglycemia Insulin sliding scale F/u Hgb a1c% #CKD Stage 1 Order renal US IVF NS Monitor I&Os, weight, CBC, CMP Recommend nephro f/u as outpt #Anemia Order ferritin, iron, Fe sat, TIBC, B12, TSH #Apical scarring per chest XR Consider quantiferon #Eosinophilia Blood smears RBC and WBCs #DVT prophylaxis Heparin 5,000 unit SQ BID #FEN NPO IVF NS Replete lytes as needed #Dispo Med surg Visit type - Emergency Visit Emergency Visit: Yes ED Registration Date: 10/01/18 Care time: The patient presented to the Emergency Department on the above date and was hospitalized for further evaluation of their emergent condition. - New Patient This patient is new to me today: Yes Date on this admission: 10/02/18 - Critical Care Critical Care patient: No
[2018-10-01] MEDS ORDERED: INSULIN SLIDING SCALE (NOVOLOG) 1 VIAL SQ SCH (22:00)
[2018-10-01 22:01] LABS: ANISOCYTOSIS 1+; MACROCYTOSIS 1+
[2018-10-01 22:02] LABS: OVALOCYTE 1+
[2018-10-01 22:03] LABS: PLATELET ESTIMATE ADEQUATE
[2018-10-02 00:23] VITALS: BMI 21.6
[2018-10-02] MEDS: INSULIN SLIDING SCALE (NOVOLOG) 1 VIAL SQ SCH ×4 (00:55→18:20)
[2018-10-02] MEDS: SODIUM CHLORIDE 1,000 ML IV SCH (01:05)
--- NOTE | 2018-10-02 04:05 | PN ---
Teaching Attending Note Name of Resident: Shelia Johnson ATTENDING PHYSICIAN STATEMENT I saw and evaluated the patient. chart, imaging, reviewed I reviewed the resident's note and discussed the case with the resident. I agree with the resident's findings and plan as documented. SUBJECTIVE: 83 year man with probable underlying dementia, CVAs, anemia, DM, with failure to thrive and reported difficulty in swallowing solid food for several days. Patient with reported history of falls however no signs of trauma on exam OBJECTIVE: Last Vital Signs Temp Pulse Resp BP Pulse Ox 97.3 F L 64 20 150/60 98 10/02/18 01:10/02/18 01:10/02/18 01:10/02/18 01:10/01/18 21:00 general - oriented to person and place, not time heent- atruamtic neck supple cor-s1+s2+ chest clear msk -no tenderness on palpation of limbs or head Abnormal Lab Results 10/01/18 10/01/18 10/01/18 15:30 15:30 16:36 RBC 3.61 L Hgb 11.0 L Hct 32.8 L Eosinophils % 20.5 H* Eosinophils % (Manual) 13.0 H Chloride 109 H Anion Gap 6 L BUN 24.4 H Random Glucose 159 H Calcium 8.3 L Total Protein 6.3 L Albumin 3.3 L Urine Protein 2+ H imaging studies reviewed - CT of abd/pelvis showed lower lung granulomas, apical pleural scarring suggesting 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 N o evidence of active pulmonary disease -quantiferon gold -obtain old medical records/ treatments #Uncontrolled hyperglycemia -tighter glucose control -a1c #dvt ppx -heparin sc
[2018-10-02] MEDS: INSULIN (LEVEMIR) 100 UNITS/ML UNITS SQ SCH (06:41)
[2018-10-02 07:42] LABS: BASO % 0.5 % (0-2.0); HEMATOCRIT 31.3 % (35.4-49); HEMOGLOBIN 10.7 GM/dL (11.7-16.9); LYMPH % 16.6 % (8-40); MCH 30.6 pg (25.7-33.7); MEAN CELL VOLUME 89.9 fl (80-96); MEAN PLT VOLUME 9.1 fl (7.5-11.1); MONO % 7.7 % (3.8-10.2); NEUT % 49.2 % (42.8-82.8); RBC 3.48 M/mm3 (4.00-5.60); RDW 13.7 % (11.9-15.9); WHITE BLOOD COUNT 5.5 K/mm3 (4.0-10.0)
[2018-10-02 07:51] LABS: ALBUMIN 3.1 g/dl (3.4-5.0); BILIRUBIN,TOTAL 0.6 mg/dL (0.2-1); CALCIUM 8.2 mg/dL (8.5-10.1); MAGNESIUM 2.4 mg/dL (1.8-2.4); PHOSPHOROUS 3.2 mg/dL (2.5-4.9); POTASSIUM 4.3 mmol/L (3.5-5.1); TOT PROT 5.8 g/dl (6.4-8.2)
[2018-10-02 08:39] LABS: PLATELET COUNT 191 K/MM3 (134-434)
[2018-10-02] MEDS: FINASTERIDE 5 MG TABLET (FP) PO SCH (09:00)
[2018-10-02] MEDS: LISINOPRIL 5 MG TABLET (FP) PO SCH (09:01)
[2018-10-02] MEDS ORDERED: PATIENT'S OWN MEDICATION (NON-FORMULARY) (Cholecalciferol (Vitamin D3) [Vitamin D3] 50,000 PO SCH (10:00)
[2018-10-02] MEDS ORDERED: HEPARIN NA (PORCINE) 5,000 UNITS/ML 1ML VIAL SQ SCH (10:00)
[2018-10-02 11:38] LABS: BASO % 0.5 % (0-2.0); EOS % 19.7 % (0-4.5); HEMATOCRIT 34.5 % (35.4-49); HEMOGLOBIN 11.4 GM/dL (11.7-16.9); LYMPH % 18.7 % (8-40); MCH 30.3 pg (25.7-33.7); MCHC 33.1 g/dl (32.0-35.9); MEAN CELL VOLUME 91.6 fl (80-96); MEAN PLT VOLUME 8.6 fl (7.5-11.1); MONO % 6.4 % (3.8-10.2); NEUT % 54.7 % (42.8-82.8); RBC 3.77 M/mm3 (4.00-5.60); RDW 14.1 % (11.9-15.9); WHITE BLOOD COUNT 6.3 K/mm3 (4.0-10.0)
[2018-10-02] MEDS: ONDANSETRON 4 MG/2 ML VIAL IVPB PRN (12:19)
[2018-10-02 12:24] LABS: PLATELET COUNT 220 K/MM3 (134-434)
[2018-10-02 12:33] LABS: ANISOCYTOSIS 2+; MACROCYTOSIS 1+; OVALOCYTE 1+; PLATELET ESTIMATE NORMAL
--- NOTE | 2018-10-02 14:37 | EKG ---
Test Reason : Blood Pressure : / mmHG Vent. Rate : 066 BPM Atrial Rate : 078 BPM P-R Int : 176 ms QRS Dur : 088 ms QT Int : 428 ms P-R-T Axes : 043 -21 044 degrees QTc Int : 448 ms SINUS RHYTHM WITH atrial bigemini SEPTAL INFARCT (CITED ON OR BEFORE 31-JUL-2018) ABNORMAL ECG Confirmed by MD HAQUE MOYSES ([id number]) on 10/02/2018 2:36:37 PM Referred By: Confirmed By:MARIANELA HAQUE MD
--- NOTE | 2018-10-02 16:35 | CON.GI ---
Consult Consult Specialty:: Gastroenterology ( covering the [facility] GI service) Referred by:: Dr. Azalea Villanueva Reason for Consultation:: vomiting - History of Present Illness Chief Complaint: vomiting x 15 days History of Present Illness: 83M Estonian speaking male has postprandial vomiting for the past 15 days leading to 5kg weight loss. 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 He also reports nose bleeding and black stools. He denies iron usage. He had an EGD remotely and belies that it was normal. I found and EGD and a colonoscopy with Dr Palomares in 2005 which were essentially normal. He denies dysphagia but has had acid reflux recently that reaches his throat. 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) Cardio/Vascular: Yes: CAD, HTN, Hyperlipdemia, MA Renal/: Yes: BPH, Renal Calculi Endocrine: Yes: Diabetes Mellitus - Past Surgical History Past Surgical History: Yes: Cataract Removal, Colonoscopy, Tonsillectomy, Upper Endoscopy - Alcohol/Substance Use Hx Alcohol Use: No - Smoking History Smoking history: Former smoker Have you smoked in the past 12 months: No Aproximately how many cigarettes per day: 0 If you are a former smoker, when did you quit?: as a teenager - Social History Usual Living Arrangement: Alone ADL: Independent 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 (year): age 38 History of Recent Travel: No Home Medications - Allergies Allergies/Adverse Reactions: Allergies Allergy/AdvReac Type Severity Reaction Status Date / Time tamsulosin AdvReac Low Blood Verified 10/01/18 15:13 Pressure - Home Medications Home Medications: Ambulatory Orders Aspirin/Dipyridamole [Aggrenox -] 25 - 200 combo PO BID 02/11/17 Cholecalciferol (Vitamin D3) [Vitamin D3] 50,000 unit PO DAILY 02/11/17 Insulin Glargine,Hum.rec.anlog [Lantus Solostar PEN -] 5 units SQ AM 02/28/17 Atorvastatin Calcium 20 mg PO DAILY 07/31/18 Finasteride 5 mg PO DAILY 07/31/18 Insulin Lispro [Humalog] See Protocol SQ ASDIR 07/31/18 Lisinopril 2.5 mg PO DAILY 07/31/18 Family Disease History - Family Disease History Family Disease History: Other: Father ( age 70 pneumonia), Mother (lived to 102) Review of Systems - Review of Systems Constitutional: reports: Unintentional Wgt. Loss Gastrointestinal: reports: Melena, Nausea, Vomiting Physical Exam-GI Vital Signs: Vital Signs Temperature 98.1 F 10/02/18 14:16 Pulse Rate 71 10/02/18 14:16 Respiratory Rate 18 10/02/18 14:16 Blood Pressure 156/76 10/02/18 14:16 O2 Sat by Pulse Oximetry (%) 98 10/02/18 08:52 CBC,CMP WBC 6.3 K/mm3 (4.0-10.0) 10/02/18 11:00 RBC 3.77 M/mm3 (4.00-5.60) L 10/02/18 11:00 Hgb 11.4 GM/dL (11.7-16.9) L 10/02/18 11:00 Hct 34.5 % (35.4-49) L 10/02/18 11:00 MCV 91.6 fl (80-96) 10/02/18 11:00 MCH 30.3 pg (25.7-33.7) 10/02/18 11:00 MCHC 33.1 g/dl (32.0-35.9) 10/02/18 11:00 RDW 14.1 % (11.9-15.9) 10/02/18 11:00 Plt Count 220 K/MM3 (134-434) 10/02/18 11:00 MPV 8.6 fl (7.5-11.1) 10/02/18 11:00 Absolute Neuts (auto) 3.4 K/mm3 (1.5-8.0) 10/02/18 11:00 Total Counted 100 10/01/18 15:30 Neutrophils % 54.7 % (42.8-82.8) 10/02/18 11:00 Neutrophils % (Manual) 57.0 % (42.8-82.8) D 10/02/18 05:50 Band Neutrophils % 0.0 % 10/02/18 05:50 Lymphocytes % 18.7 % (8-40) 10/02/18 11:00 Lymphocytes % (Manual) 15.0 % (8-40) D 10/02/18 05:50 Monocytes % 6.4 % (3.8-10.2) 10/02/18 11:00 Monocytes % (Manual) 4 % (3.8-10.2) 10/02/18 05:50 Eosinophils % 19.7 % (0-4.5) H 10/02/18 11:00 Eosinophils % (Manual) 22.0 % (0-4.5) H 10/02/18 05:50 Basophils % 0.5 % (0-2.0) 10/02/18 11:00 Basophils % (Manual) 0.0 % (0-2.0) 10/02/18 05:50 Myelocytes % (Man) 0 % (0-2) 10/02/18 05:50 Promyelocytes % (Man) 0 % (0-2) 10/02/18 05:50 Blast Cells % (Manual) 0 % (0-0) 10/02/18 05:50 Nucleated RBC % 0 % (0-0) 10/02/18 11:00 Metamyelocytes 0 % (0-2) 10/02/18 05:50 Hypochromia 0 10/02/18 05:50 Platelet Estimate Normal 10/02/18 05:50 Platelet Comment Present 10/02/18 05:50 Polychromasia 0 10/02/18 05:50 Poikilocytosis 2+ 10/02/18 05:50 Basophilic Stippling 1+ 10/02/18 05:50 Anisocytosis 2+ 10/02/18 05:50 Microcytosis 1+ 10/02/18 05:50 Macrocytosis 1+ 10/02/18 05:50 Spherocytes 1+ 10/02/18 05:50 Ovalocytes 1+ 10/02/18 05:50 Stomatocytes Few 10/01/18 15:30 Naty Cells 1+ 10/02/18 05:50 Acanthocytes (Spur) 1+ 10/01/18 15:30 Fragmented RBCs 1+ 10/02/18 05:50 Schistocytes 1+ 10/02/18 05:50 Sodium 140 mmol/L (136-145) 10/02/18 05:50 Potassium 4.3 mmol/L (3.5-5.1) 10/02/18 05:50 Chloride 105 mmol/L (98-107) 10/02/18 05:50 Carbon Dioxide 26 mmol/L (21-32) 10/02/18 05:50 Anion Gap 9 MMOL/L (8-16) 10/02/18 05:50 BUN 21.0 mg/dL (7-18) H 10/02/18 05:50 Creatinine 1.0 mg/dL (0.55-1.3) 10/02/18 05:50 Est GFR (CKD-EPI)AfAm 79.19 10/02/18 05:50 Est GFR (CKD-EPI)NonAf 68.33 10/02/18 05:50 POC Glucometer 200 UNITS (80-120) 10/02/18 13:20 Random Glucose 273 mg/dL (74-106) H 10/02/18 05:50 Hemoglobin A1c % 7.1 % (4.2-6.3) H 10/02/18 05:50 Calcium 8.2 mg/dL (8.5-10.1) L 10/02/18 05:50 Phosphorus 3.2 mg/dL (2.5-4.9) 10/02/18 05:50 Magnesium 2.4 mg/dL (1.8-2.4) 10/02/18 05:50 Ferritin 63.2 ng/ml (8-388) 10/02/18 05:50 Total Bilirubin 0.6 mg/dL (0.2-1) 10/02/18 05:50 AST 11 U/L (15-37) L 10/02/18 05:50 ALT 14 U/L (13-61) 10/02/18 05:50 Alkaline Phosphatase 105 U/L (45-117) 10/02/18 05:50 Creatine Kinase 103 U/L (26-308) 10/01/18 15:30 Troponin I < 0.02 ng/ml (0.00-0.05) 10/01/18 15:30 Total Protein 5.8 g/dl (6.4-8.2) L 10/02/18 05:50 Albumin 3.1 g/dl (3.4-5.0) L 10/02/18 05:50 Total Amylase 69 U/L (25-115) 10/01/18 15:30 Lipase 141 U/L (73-393) 10/01/18 15:30 Vitamin B12 676 pg/ml (193-986) 10/02/18 05:50 TSH 3.16 uIU/ml (0.358-3.74) D 10/02/18 05:50 Current Medications Generic Name Dose Route Start Last Admin Trade Name Freq PRN Reason Stop Dose Admin Atorvastatin Calcium 20 mg 10/02/18 22:00 Lipitor - PO HS AARON Finasteride 5 mg 10/02/18 10:00 10/02/18 09:00 Proscar - PO 5 mg DAILY AARON Administration Sodium Chloride 1,000 mls @ 75 mls/hr 10/02/18 00:45 10/02/18 01:05 Normal Saline - IV 10/03/18 14:04 75 mls/hr ASDIR AARON Administration Insulin Aspart 1 vial 10/02/18 00:41 10/02/18 13:22 Novolog Vial Sliding Scale - SQ Not Given Q6HPO [facility] Protocol Insulin Detemir 5 units 10/02/18 07:00 10/02/18 06:41 Levemir Vial SQ 5 units AM AARON Administration Lisinopril 2.5 mg 10/02/18 10:00 10/02/18 09:01 Prinivil PO 2.5 mg DAILY AARON Administration Ondansetron HCl 4 mg 10/02/18 12:05 10/02/18 12:19 Zofran Injection IVPB 4 mg Q8H PRN Administration NAUSEA AND/OR VOMITING Constitutional: Yes: No Distress Eyes: Yes: Conjunctiva Clear HENT: Yes: Atraumatic Neck: Yes: Supple Cardiovascular: Yes: Regular Rate and Rhythm Respiratory: Yes: CTA Bilaterally Gastrointestinal Inspection: Yes: WNL ...Auscultate: Yes: Normoactive Bowel Sounds ...Palpate: Yes: Soft, Other (nontender) ...Rectal Exam: Yes: Guaiac Negative (black guaiac positive stool) Labs: CBC, BMP 10/02/18 11:00 10/02/18 05:50 Imaging - Results Cat Scan: Report Reviewed ( Final Report CT ABDOMEN & PELVIS CT WITH CONTR Show Printer-Friendly Version Patient Name: Inder Chamorro : Apr-1935 ID: [id number] Study Date: 01-Oct-2018 18:06 Iggy Iglesias Name: INDER CHAMORRO DEPARTMENT OF RADIOLOGY Phys: Jenniffer Schofield RESIDENT : 1935 Age: 83 Sex: M [facility] Acct: [id number] Loc: [facility] [address] [facility] Exam Date: 10/01/18 Status: LIZETH Bonner Unit Number: [id number] EXAM#: TYPE/EXAM: RESULT: CT/ABDOMEN PELVIS CT WITH CONTR Abdomen and pelvis CT with contrast Clinical information given: not tolerating PO Multiplanar imaging was performed following the intravenous administration of nonionic contrast. A small amount of radiopaque material is seen within the descending colon possibly representing administered oral contrast. No evidence of pneumoperitoneum, abscess, free intraperitoneal fluid or bowel obstruction. The stomach and small bowel demonstrate no gross pathology allowing for lack of intraluminal contrast. The appendix is partially visualized and demonstrates no obvious abnormality. No indirect CT signs of acute appendicitis are noted. There is no definite evidence of acute diverticulitis or obvious colitis. The liver, spleen, pancreas, gallbladder, adrenal glands and kidneys demonstrate no definite abnormality allowing for respiratory motion artifact. Left renal cortical cyst. There is no aortic aneurysm. No obvious lymphadenopathy is identified. There is no definite CT evidence of pelvic pathology. Minimal to mild prostate enlargement. The visualized osseous structures appear diffusely demineralized. Moderate lumbar levoscoliosis. Small calcified right lower lobe pulmonary granulomas. Impression: No CT evidence of acute pathology allowing for motion artifact. There has been no obvious interval change in comparison to a prior CT exam of 03/04/2005. Reported By: Rodger Coulter MD 10/01/181903 Jenniffer Schofield Technologist: Hannah Stacy Transcribed Date/Time: 10/01/181903 Machinery Mover: Rodger Coulter Printed Date/Time: By: Signed by: Rodger Coulter Signed on: 01-Oct-2018 19:04) Problem List - Problems (1) Vomiting Assessment/Plan: Although the 15 day history of weight loss and vomiting suggest diabetic gastroparesis the melena suggests a gastric outlet obstruction due to an ulcer or neoplasm. EGD was advised and consent was obtained after informing Inder of the potential for such adverse effects as bleeding and perforation. Will start Reglan and stop aggrenox while starting a PPI drip. Code(s): R11.10 - VOMITING, UNSPECIFIED (2) Weight loss Code(s): R63.4 - ABNORMAL WEIGHT LOSS (3) Melena Code(s): K92.1 - MELENA (4) Nephrolithiasis Code(s): N20.0 - CALCULUS OF KIDNEY (5) BPH without urinary obstruction Code(s): N40.0 - BENIGN PROSTATIC HYPERPLASIA WITHOUT LOWER URINRY TRACT SYMP (6) Coronary artery disease Code(s): I25.10 - ATHSCL HEART DISEASE OF [place] CORONARY ARTERY W/O ANG PCTRS (7) History of myocardial infarction Code(s): I25.2 - OLD MYOCARDIAL INFARCTION (8) Diabetes mellitus, insulin dependent (IDDM), uncontrolled Code(s): E10.65 - TYPE 1 DIABETES MELLITUS WITH HYPERGLYCEMIA Assessment/Plan Impression - Although the 15 day history of weight loss and vomiting suggest diabetic gastroparesis the melena suggests a gastric outlet obstruction due to an ulcer or neoplasm. EGD was advised and consent was obtained after informing Inder of the potential for such adverse effects as bleeding and perforation. Plan: --Will start Reglan and stop aggrenox while starting a PPI drip. -- Serial CBCs -- CEA
[2018-10-02] MEDS ORDERED: PT OWN MED DRAWER 7, Y5N ONE (16:55)
--- NOTE | 2018-10-02 17:14 | PN ---
Progress Note (short form) - Note Progress Note: Patient is an 83yo male Lao speaking male with PMHx of T2DM , who presented with postprandial vomiting for the past 15 days leading to 5kg weight loss. He is also c/o having nose bleeds and and black stools. last EGD and a colonoscopy was done by Dr Palomares in 2005 which were essentially normal. also c/o having acid reflux. Vital Signs Temperature 98.1 F 10/02/18 14:16 Pulse Rate 71 10/02/18 14:16 Respiratory Rate 18 10/02/18 14:16 Blood Pressure 156/76 10/02/18 14:16 O2 Sat by Pulse Oximetry (%) 98 10/02/18 08:52 GENERAL: The patient is awake, alert, and fully oriented, in no acute distress. HEAD: Normal with no signs of trauma. EYES: PERRL, extraocular movements intact, sclera anicteric, conjunctiva clear. ENT: Ears normal, oropharynx clear without exudates, moist mucous membranes. NECK: Trachea midline, full range of motion, supple. LUNGS: Breath sounds equal, clear to auscultation bilaterally, no wheezes, no crackles, no accessory muscle use. HEART: RRR, S1, S2 positive for ANTOLIN 2/6, no rub or gallop. ABDOMEN: Soft, NT,ND, normoactive bowel sounds, no guarding, no rebound, no hepatosplenomegaly, no masses. EXTREMITIES: 2+ pulses, warm, well-perfused, no edema. NEUROLOGICAL: Cranial nerves II through XII grossly intact. Normal speech, gait not observed. PSYCH: Normal mood, normal affect. SKIN: Warm, dry, normal turgor, no rashes or lesions noted CBCD WBC 6.3 K/mm3 (4.0-10.0) 10/02/18 11:00 RBC 3.77 M/mm3 (4.00-5.60) L 10/02/18 11:00 Hgb 11.4 GM/dL (11.7-16.9) L 10/02/18 11:00 Hct 34.5 % (35.4-49) L 10/02/18 11:00 MCV 91.6 fl (80-96) 10/02/18 11:00 MCHC 33.1 g/dl (32.0-35.9) 10/02/18 11:00 RDW 14.1 % (11.9-15.9) 10/02/18 11:00 Plt Count 220 K/MM3 (134-434) 10/02/18 11:00 MPV 8.6 fl (7.5-11.1) 10/02/18 11:00 CMP Sodium 140 mmol/L (136-145) 10/02/18 05:50 Potassium 4.3 mmol/L (3.5-5.1) 10/02/18 05:50 Chloride 105 mmol/L (98-107) 10/02/18 05:50 Carbon Dioxide 26 mmol/L (21-32) 10/02/18 05:50 Anion Gap 9 MMOL/L (8-16) 10/02/18 05:50 BUN 21.0 mg/dL (7-18) H 10/02/18 05:50 Creatinine 1.0 mg/dL (0.55-1.3) 10/02/18 05:50 Random Glucose 273 mg/dL (74-106) H 10/02/18 05:50 Calcium 8.2 mg/dL (8.5-10.1) L 10/02/18 05:50 Total Bilirubin 0.6 mg/dL (0.2-1) 10/02/18 05:50 AST 11 U/L (15-37) L 10/02/18 05:50 ALT 14 U/L (13-61) 10/02/18 05:50 Alkaline Phosphatase 105 U/L (45-117) 10/02/18 05:50 Total Protein 5.8 g/dl (6.4-8.2) L 10/02/18 05:50 Albumin 3.1 g/dl (3.4-5.0) L 10/02/18 05:50 CARDIAC ENZYMES Creatine Kinase 103 U/L (26-308) 10/01/18 15:30 Troponin I < 0.02 ng/ml (0.00-0.05) 10/01/18 15:30 Current Medications Generic Name Dose Route Start Last Admin Trade Name Freq PRN Reason Stop Dose Admin Atorvastatin Calcium 20 mg 10/02/18 22:00 Lipitor - PO HS AARON Finasteride 5 mg 10/02/18 10:00 10/02/18 09:00 Proscar - PO 5 mg DAILY AARON Administration Sodium Chloride 1,000 mls @ 75 mls/hr 10/02/18 00:45 10/02/18 01:05 Normal Saline - IV 10/03/18 14:04 75 mls/hr ASDIR AARON Administration Pantoprazole Sodium 80 mg/ 100 mls @ 10 mls/hr 10/02/18 17:00 Sodium Chloride IVPB Q10H AARON 8 MG/HR Insulin Aspart 1 vial 10/02/18 00:41 10/02/18 13:22 Novolog Vial Sliding Scale - SQ Not Given Q6HPO AARON Protocol Insulin Detemir 5 units 10/02/18 07:00 10/02/18 06:41 Levemir Vial SQ 5 units AM AARON Administration Lisinopril 2.5 mg 10/02/18 10:00 10/02/18 09:01 Prinivil PO 2.5 mg DAILY AARON Administration Metoclopramide HCl 10 mg 10/02/18 17:00 Reglan Injection - IVPUSH Q6H AARON Ondansetron HCl 4 mg 10/02/18 12:05 10/02/18 12:19 Zofran Injection IVPB 4 mg Q8H PRN Administration NAUSEA AND/OR VOMITING Home Medications Medication Instructions Recorded Aspirin/Dipyridamole [Aggrenox -] 25 - 200 combo PO BID 02/11/17 Cholecalciferol (Vitamin D3) 50,000 unit PO DAILY 02/11/17 [Vitamin D3] Insulin Glargine,Hum.rec.anlog 5 units SQ AM 02/28/17 [Lantus Solostar PEN -] Atorvastatin Calcium 20 mg PO DAILY 07/31/18 Finasteride 5 mg PO DAILY 07/31/18 Insulin Lispro [Humalog] See Protocol SQ ASDIR 07/31/18 Lisinopril 2.5 mg PO DAILY 07/31/18 CT of brain showed b/l chronic infarcts imaging studies reviewed - CT of abd/pelvis showed lower lung granulomas, apical pleural scarring suggesting possible old TB ASSESSMENT AND PLAN: Patient is an 83yo man with T2DM with elevated BS, ckd, 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 #Dysphagia with solids: GI evaluation for further up , keep npo for now, q6hrs blood glucose checks. As per GI : 15 day history of weight loss and vomiting suggestive of diabetic gastroparesis the melena suggests a gastric outlet obstruction due to an ulcer or neoplasm. EGD was advised and consent was obtained by dr lE after informing Brandon of the potential adverse effects of EGD. started on Reglan and aggrenox is on hold and PPI drip. Serial CBCs, CEA ordered as well. 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 N o evidence of active pulmonary disease -quantiferon gold , obtain old medical records/ treatments #Uncontrolled hyperglycemia: tighter glucose control ,a1c #dvt ppx -heparin sc Visit type - Emergency Visit Emergency Visit: Yes ED Registration Date: 10/01/18 Care time: The patient presented to the Emergency Department on the above date and was hospitalized for further evaluation of their emergent condition. - New Patient This patient is new to me today: No - Critical Care Critical Care patient: No - Discharge Referral Referred to [facility] Med P.C.: No
[2018-10-02] MEDS: PANTOPRAZOLE SODIUM 80 MG in SODIUM CHLORIDE 100 ML IVPB SCH (17:56)
[2018-10-02] MEDS: METOCLOPRAMIDE HCL INJECTION 10 MG/2 ML VIAL IVPUSH SCH ×2 (17:59→22:00)
[2018-10-02] MEDS: ATORVASTATIN CA 20 MG TABLET (FP) PO SCH (21:59)
[2018-10-03] MEDS: INSULIN SLIDING SCALE (NOVOLOG) 1 VIAL SQ SCH ×4 (01:41→17:24)
[2018-10-03] MEDS: PANTOPRAZOLE SODIUM 80 MG in SODIUM CHLORIDE 100 ML IVPB SCH ×3 (02:36→22:17)
[2018-10-03 04:10] LABS: SERUM IRON SATURATION 34 % (15-55); TOTAL IRON BINDING CAPACITY 252 ug/dL (250-450)
[2018-10-03] MEDS: METOCLOPRAMIDE HCL INJECTION 10 MG/2 ML VIAL IVPUSH SCH ×4 (05:45→22:20)
[2018-10-03] MEDS: INSULIN (LEVEMIR) 100 UNITS/ML UNITS SQ SCH (06:04)
[2018-10-03] MEDS: SODIUM CHLORIDE 1,000 ML IV SCH (06:06)
[2018-10-03 06:47] LABS: BASO % 0.6 % (0-2.0); EOS % 24.3 % (0-4.5); HEMATOCRIT 32.9 % (35.4-49); HEMOGLOBIN 11.1 GM/dL (11.7-16.9); LYMPH % 19.6 % (8-40); MCH 30.7 pg (25.7-33.7); MCHC 33.6 g/dl (32.0-35.9); MEAN CELL VOLUME 91.3 fl (80-96); MONO % 7.1 % (3.8-10.2); NEUT % 48.4 % (42.8-82.8); PLATELET COUNT 191 K/MM3 (134-434); RBC 3.61 M/mm3 (4.00-5.60); RDW 13.6 % (11.9-15.9); WHITE BLOOD COUNT 5.4 K/mm3 (4.0-10.0)
[2018-10-03 07:12] LABS: ALBUMIN 3.2 g/dl (3.4-5.0); ALK PHOS 100 U/L (45-117); ANION GAP 6 MMOL/L (8-16); BILIRUBIN,TOTAL 0.6 mg/dL (0.2-1); BLOOD UREA NITROGEN 16.8 mg/dL (7-18); CALCIUM 8.2 mg/dL (8.5-10.1); CHLORIDE 108 mmol/L (98-107); CO2 27 mmol/L (21-32); CREATININE 1.1 mg/dL (0.55-1.3); GLUCOSE,RANDOM 260 mg/dL (74-106); POTASSIUM 4.9 mmol/L (3.5-5.1); SGOT/AST 12 U/L (15-37); SGPT/ALT 15 U/L (13-61); SODIUM 140 mmol/L (136-145); TOT PROT 5.8 g/dl (6.4-8.2)
[2018-10-03] MEDS: FINASTERIDE 5 MG TABLET (FP) PO SCH (10:26)
[2018-10-03] MEDS: LISINOPRIL 5 MG TABLET (FP) PO SCH (10:26)
--- NOTE | 2018-10-03 10:41 | PN.GI ---
GI Progress Note Subjective: GI NOte ( Covering the [facility] GI service) Feeling better. No vomiting. No melena overnight. Hb stable - Objective Vital Signs: Vital Signs Temperature 97.3 F L 10/03/18 06:00 Pulse Rate 90 10/03/18 06:00 Respiratory Rate 19 10/03/18 06:00 Blood Pressure 141/66 10/03/18 06:00 O2 Sat by Pulse Oximetry (%) 98 10/02/18 21:00 Laboratory Tests 10/02/18 10/02/18 10/03/18 05:50 11:00 05:28 Hgb 10.7 L 11.4 L 11.1 L Constitutional: Calm ...Auscultate: Yes: Normoactive Bowel Sounds ...Palpate: Yes: Soft, Other (nontender) Labs: CBC, BMP 10/03/18 05:28 Assessment/Plan Impression: - Weight loss and vomiting suggest diabetic gastroparesis however the melena suggests a gastric outlet obstruction due to an ulcer or neoplasm. Plan: -- Clear liquids -- NPO after midnight for possible EGD tomorrow -- Continue Reglan and PPI drip. Problem List - Problems (1) Vomiting Assessment/Plan: Although the 15 day history of weight loss and vomiting suggest diabetic gastroparesis the melena suggests a gastric outlet obstruction due to an ulcer or neoplasm. EGD was advised and consent was obtained after informing Brandon of the potential for such adverse effects as bleeding and perforation. Will start Reglan and stop aggrenox while starting a PPI drip. Code(s): R11.10 - VOMITING, UNSPECIFIED (2) Weight loss Code(s): R63.4 - ABNORMAL WEIGHT LOSS (3) Melena Code(s): K92.1 - MELENA (4) Nephrolithiasis Code(s): N20.0 - CALCULUS OF KIDNEY (5) BPH without urinary obstruction Code(s): N40.0 - BENIGN PROSTATIC HYPERPLASIA WITHOUT LOWER URINRY TRACT SYMP (6) Coronary artery disease Code(s): I25.10 - ATHSCL HEART DISEASE OF [place] CORONARY ARTERY W/O ANG PCTRS (7) History of myocardial infarction Code(s): I25.2 - OLD MYOCARDIAL INFARCTION (8) Diabetes mellitus, insulin dependent (IDDM), uncontrolled Code(s): E10.65 - TYPE 1 DIABETES MELLITUS WITH HYPERGLYCEMIA (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
[2018-10-03 10:51] LABS: HEMOGLOBIN 11.2 GM/dL (11.7-16.9)
[2018-10-03 10:53] LABS: ANISOCYTOSIS 1+; MACROCYTOSIS 0; OVALOCYTE 1+; PLATELET ESTIMATE NORMAL
[2018-10-03 11:19] LABS: BASO % 0.7 % (0-2.0); EOS % 17.6 % (0-4.5); HEMATOCRIT 33.3 % (35.4-49); LYMPH % 20.6 % (8-40); MCH 30.4 pg (25.7-33.7); MCHC 33.6 g/dl (32.0-35.9); MEAN CELL VOLUME 90.5 fl (80-96); MEAN PLT VOLUME 8.7 fl (7.5-11.1); MONO % 6.4 % (3.8-10.2); NEUT % 54.7 % (42.8-82.8); RBC 3.68 M/mm3 (4.00-5.60); RDW 13.9 % (11.9-15.9)
[2018-10-03 11:39] LABS: PLATELET COUNT 198 K/MM3 (134-434)
--- NOTE | 2018-10-03 16:03 | PN ---
Physical Exam: SUBJECTIVE: Patient seen and examined OBJECTIVE: Vital Signs Period Temp Pulse Resp BP Sys/Ellis Pulse Ox Last 24 Hr 97.3 F-98.7 F 60-94 18-19 141-159/66-84 98-98 GENERAL: The patient is awake, alert, and fully oriented, in no acute distress. HEAD: Normal with no signs of trauma. EYES: PERRL, extraocular movements intact, sclera anicteric, conjunctiva clear. No ptosis. ENT: Ears normal, nares patent, oropharynx clear without exudates, moist mucous membranes. NECK: Trachea midline, full range of motion, supple. LUNGS: Breath sounds equal, clear to auscultation bilaterally, no wheezes, no crackles, no accessory muscle use. HEART: Regular rate and rhythm, S1, S2 without murmur, rub or gallop. ABDOMEN: Soft, nontender, nondistended, normoactive bowel sounds, no guarding, no rebound, no hepatosplenomegaly, no masses. EXTREMITIES: 2+ pulses, warm, well-perfused, no edema. NEUROLOGICAL: Cranial nerves II through XII grossly intact. Normal speech, gait not observed. PSYCH: Normal mood, normal affect. SKIN: Warm, dry, normal turgor, no rashes or lesions noted Laboratory Results - last 24 hr 10/02/18 10/02/18 10/03/18 05:50 18:26 05:28 WBC RBC Hgb Hct MCV MCH MCHC RDW Plt Count MPV Absolute Neuts (auto) Neutrophils % Neutrophils % (Manual) Band Neutrophils % Lymphocytes % Lymphocytes % (Manual) Monocytes % Monocytes % (Manual) Eosinophils % Eosinophils % (Manual) Basophils % Basophils % (Manual) Myelocytes % (Man) Promyelocytes % (Man) Blast Cells % (Manual) Nucleated RBC % Metamyelocytes Hypochromia Platelet Estimate Platelet Comment Polychromasia Poikilocytosis Anisocytosis Microcytosis Macrocytosis Ovalocytes Naty Cells Acanthocytes (Spur) Sodium 140 Potassium 4.9 Chloride 108 H Carbon Dioxide 27 Anion Gap 6 L BUN 16.8 Creatinine 1.1 Est GFR (CKD-EPI)AfAm 70.57 Est GFR (CKD-EPI)NonAf 60.89 POC Glucometer 166 Random Glucose 260 H Calcium 8.2 L Iron 85 TIBC 252 Iron Saturation 34 Unsaturated IBC 167 Total Bilirubin 0.6 AST 12 L ALT 15 Alkaline Phosphatase 100 C-Reactive Protein < 0.3 Total Protein 5.8 L Albumin 3.2 L 10/03/18 10/03/18 10/03/18 05:28 06:00 10:02 WBC 5.4 6.0 RBC 3.61 L 3.68 L Hgb 11.1 L 11.2 L Hct 32.9 L 33.3 L MCV 91.3 90.5 MCH 30.7 30.4 MCHC 33.6 33.6 RDW 13.6 13.9 Plt Count 191 198 MPV 9.0 8.7 Absolute Neuts (auto) 2.6 3.3 Neutrophils % 48.4 54.7 Neutrophils % (Manual) 56.0 Band Neutrophils % 2.0 Lymphocytes % 19.6 20.6 Lymphocytes % (Manual) 10.0 D Monocytes % 7.1 6.4 Monocytes % (Manual) 2 L Eosinophils % 24.3 H* 17.6 H Eosinophils % (Manual) 25.0 H Basophils % 0.6 0.7 Basophils % (Manual) 1.0 D Myelocytes % (Man) 0 Promyelocytes % (Man) 0 Blast Cells % (Manual) 0 Nucleated RBC % 0 0 Metamyelocytes 0 Hypochromia 0 Platelet Estimate Normal Platelet Comment Present Polychromasia 1+ Poikilocytosis 1+ Anisocytosis 1+ Microcytosis 1+ Macrocytosis 0 Ovalocytes 1+ Naty Cells 1+ Acanthocytes (Spur) 2+ Sodium Potassium Chloride Carbon Dioxide Anion Gap BUN Creatinine Est GFR (CKD-EPI)AfAm Est GFR (CKD-EPI)NonAf POC Glucometer 254 Random Glucose Calcium Iron TIBC Iron Saturation Unsaturated IBC Total Bilirubin AST ALT Alkaline Phosphatase C-Reactive Protein Total Protein Albumin Active Medications Generic Name Dose Route Start Last Admin Trade Name Freq PRN Reason Stop Dose Admin Atorvastatin Calcium 20 mg 10/02/18 22:00 10/02/18 21:59 Lipitor - PO 20 mg HS AARON Administration Finasteride 5 mg 10/02/18 10:00 10/03/18 10:26 Proscar - PO 5 mg DAILY AARON Administration Pantoprazole Sodium 80 mg/ 100 mls @ 10 mls/hr 10/02/18 17:00 10/03/18 15:42 Sodium Chloride IVPB 10 mls/hr Q10H AARON Administration 8 MG/HR Insulin Aspart 1 vial 10/02/18 00:41 10/03/18 13:44 Novolog Vial Sliding Scale - SQ Not Given Q6HPO [facility] Protocol Insulin Detemir 5 units 10/02/18 07:00 10/03/18 06:04 Levemir Vial SQ 5 units AM AARON Administration Lisinopril 2.5 mg 10/02/18 10:00 10/03/18 10:26 Prinivil PO 2.5 mg DAILY AARON Administration Lisinopril 5 mg 10/04/18 10:00 Prinivil PO DAILY AARON Metoclopramide HCl 10 mg 10/02/18 17:00 10/03/18 10:29 Reglan Injection - IVPUSH 10 mg Q6H AARON Administration Ondansetron HCl 4 mg 10/02/18 12:05 10/02/18 12:19 Zofran Injection IVPB 4 mg Q8H PRN Administration NAUSEA AND/OR VOMITING ASSESSMENT/PLAN: The patient is an 83 year old male with PMHx of IDDM, HTN, CVA, dementia, MR, [place] (11 years ago), hypercholesterolemia who was brought from home by aide with 2 week history of dysphagia and decreased appetite. Aide at bedside assists in history. Pt complained of nausea and sensation that "food is stuck in his chest " for 2 weeks. Per aide, he has been eating less and recently lost 5 pounds. Pt denies abd pain, diarrhea, or constipation. He has not had any other vomiting episodes. Aide reports pt has had a mild cough with phelgm for 2 weeks. #Dysphagia due to ?Gastric outlet obstruction As per GI (Dr. Nobles)- Although the 15 day history of weight loss and vomiting suggests diabetic gastroparesis, the melena suggests a gastric outlet obstruction due to an ulcer or neoplasm. He has put pt on clear liquid diet and NPO after midnight to prepare pt for EGD tm am in hospital. -Started Reglan and IV protonix 80mg ggt. -Serial CBCs to monitor H&H and wbc specifically. -CEA pending for Colon CA. #Hyperglycemia Insulin sliding scale F/u Hgb a1c% #CKD Stage 1 renal US shows left renal exophytic simple cyst 4X3.9cm. Both kidneys unremarkable, no stones. IVF NS Monitor I&Os, weight, CBC, CMP Recommend nephro f/u as outpt #Anemia anemia workup within normal limits. #Eosinophilia - r/o eosinophillic esophagitis as cause for elevated eosinophil count of 24.3 - -> 17.6 except commonly presents within first 3 decades of life. - EGD will be done tm and potentially could do bx to dx if this is cause of dysphagia. - potentially due to pork ingestion or helminthic infection however B12 is normal. 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 #DVT prophylaxis Heparin 5,000 unit SQ BID D/c by pharmacy. SCD's ordered to be applied b/l #FEN clear liquids, NPO after midnight IVF NS 125 mL/hr Replete lytes as needed Visit type - Emergency Visit Emergency Visit: No - New Patient This patient is new to me today: Yes Date on this admission: 10/03/18 - Critical Care Critical Care patient: No - Discharge Referral Referred to [facility] Med P.C.: No
--- NOTE | 2018-10-03 18:53 | PN ---
Teaching Attending Note Name of Resident: Carroll Venegas ATTENDING PHYSICIAN STATEMENT I saw and evaluated the patient. I reviewed the resident's note and discussed the case with the resident. I agree with the resident's findings and plan as documented. SUBJECTIVE: Patient is an 83yo male Kazakh speaking male with PMHx of T2DM , who presented with postprandial vomiting for the past 15 days leading to 5kg weight loss. He is also c/o having nose bleeds and and black stools. last EGD and a colonoscopy was done by Dr Palomares in 2005 which were essentially normal. also c/o having acid reflux. OBJECTIVE: Vital Signs Temperature 98.2 F 10/03/18 15:15 Pulse Rate 83 10/03/18 15:15 Respiratory Rate 18 10/03/18 15:15 Blood Pressure 144/74 10/03/18 15:15 O2 Sat by Pulse Oximetry (%) 98 10/03/18 09:00 GENERAL: The patient is awake, alert, and fully oriented, in no acute distress. HEAD: Normal with no signs of trauma. EYES: PERRL, extraocular movements intact, sclera anicteric, conjunctiva clear. ENT: Ears normal, oropharynx clear without exudates, moist mucous membranes. NECK: Trachea midline, full range of motion, supple. LUNGS: Breath sounds equal, clear to auscultation bilaterally, no wheezes, no crackles, no accessory muscle use. HEART: RRR, S1, S2 positive for ANTOLIN 2/6, no rub or gallop. ABDOMEN: Soft, NT,ND, normoactive bowel sounds, no guarding, no rebound, no hepatosplenomegaly, no masses. EXTREMITIES: 2+ pulses, warm, well-perfused, no edema. NEUROLOGICAL: Cranial nerves II through XII grossly intact. Normal speech, gait not observed. PSYCH: Normal mood, normal affect. SKIN: Warm, dry, normal turgor, no rashes or lesions noted CBCD WBC 6.0 K/mm3 (4.0-10.0) 10/03/18 10:02 RBC 3.68 M/mm3 (4.00-5.60) L 10/03/18 10:02 Hgb 11.2 GM/dL (11.7-16.9) L 10/03/18 10:02 Hct 33.3 % (35.4-49) L 10/03/18 10:02 MCV 90.5 fl (80-96) 10/03/18 10:02 MCHC 33.6 g/dl (32.0-35.9) 10/03/18 10:02 RDW 13.9 % (11.9-15.9) 10/03/18 10:02 Plt Count 198 K/MM3 (134-434) 10/03/18 10:02 MPV 8.7 fl (7.5-11.1) 10/03/18 10:02 CMP Sodium 140 mmol/L (136-145) 10/03/18 05:28 Potassium 4.9 mmol/L (3.5-5.1) 10/03/18 05:28 Chloride 108 mmol/L (98-107) H 10/03/18 05:28 Carbon Dioxide 27 mmol/L (21-32) 10/03/18 05:28 Anion Gap 6 MMOL/L (8-16) L 10/03/18 05:28 BUN 16.8 mg/dL (7-18) 10/03/18 05:28 Creatinine 1.1 mg/dL (0.55-1.3) 10/03/18 05:28 Random Glucose 260 mg/dL (74-106) H 10/03/18 05:28 Calcium 8.2 mg/dL (8.5-10.1) L 10/03/18 05:28 Total Bilirubin 0.6 mg/dL (0.2-1) 10/03/18 05:28 AST 12 U/L (15-37) L 10/03/18 05:28 ALT 15 U/L (13-61) 10/03/18 05:28 Alkaline Phosphatase 100 U/L (45-117) 10/03/18 05:28 Total Protein 5.8 g/dl (6.4-8.2) L 10/03/18 05:28 Albumin 3.2 g/dl (3.4-5.0) L 10/03/18 05:28 CARDIAC ENZYMES Creatine Kinase 103 U/L (26-308) 10/01/18 15:30 Troponin I < 0.02 ng/ml (0.00-0.05) 10/01/18 15:30 Home Medications Medication Instructions Recorded Aspirin/Dipyridamole [Aggrenox -] 25 - 200 combo PO BID 02/11/17 Cholecalciferol (Vitamin D3) 50,000 unit PO DAILY 02/11/17 [Vitamin D3] Insulin Glargine,Hum.rec.anlog 5 units SQ AM 02/28/17 [Lantus Solostar PEN -] Atorvastatin Calcium 20 mg PO DAILY 07/31/18 Finasteride 5 mg PO DAILY 07/31/18 Insulin Lispro [Humalog] See Protocol SQ ASDIR 07/31/18 Lisinopril 2.5 mg PO DAILY 07/31/18 CT of brain showed b/l chronic infarcts imaging studies reviewed - CT of abd/pelvis showed lower lung granulomas, apical pleural scarring suggesting possible old TB ASSESSMENT AND PLAN: Patient is an 83yo man with T2DM with elevated BS, ckd, 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 #Dysphagia with solids: GI evaluation for further up , keep npo for now. EGD since patient has eight loss of 15 Pounds and dysphagia with solids. 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 No evidence of active pulmonary disease -quantiferon gold , obtain old medical records/ treatments #Uncontrolled hyperglycemia: tighter glucose control ,a1c #dvt ppx -heparin sc
[2018-10-03] MEDS: ATORVASTATIN CA 20 MG TABLET (FP) PO SCH (21:20)
[2018-10-03] MEDS: ONDANSETRON 4 MG/2 ML VIAL IVPB PRN (22:16)
[2018-10-04] MEDS: INSULIN SLIDING SCALE (NOVOLOG) 1 VIAL SQ SCH ×6 (01:56→21:36)
[2018-10-04] MEDS ORDERED: DEXTROSE 50%-WATER 25 GM/50 ML DISP.SYRIN ONE (02:31)
[2018-10-04] MEDS ORDERED: DEXTROSE 50%-WATER - 25 GM/50 ML VIAL ONE (02:34)
[2018-10-04] MEDS ORDERED: DEXTROSE 50%-WATER - 25 GM/50 ML VIAL IVPUSH PRN (02:39)
[2018-10-04] MEDS ORDERED: DEXTROSE 5%-WATER - 1,000 ML IV SCH (02:45)
--- NOTE | 2018-10-04 03:15 | RAPID ---
Physical Examination Vital Signs: Vital Signs Temperature 98.3 F 10/03/18 18:00 Pulse Rate 56 L 10/03/18 18:00 Respiratory Rate 18 10/03/18 18:00 Blood Pressure 145/53 L 10/03/18 18:00 O2 Sat by Pulse Oximetry (%) 98 10/03/18 09:00 Findings/Remarks: Rapid response was called at 2:29AM, team arrived at 2:30AM. Patient was seen to be seizing while sitting upright and held by nurses. Patient was not responding to nurses' commands. Earlier in the evening at 11 PM point of care blood sugar was measured to be 241 and no intervention was given. Patient's blood sugar upon testing at bedside during LOBBY PORTER was 15. Vitals at arrival were BP : 136/102, HR 100. 2 ampules of D50 were given through the right arm IV, and repeat sugar was 231. EKG was done and showed normal sinus rhythm, with some PVCs, but with artifact present on EKG. Repeat vitals showed: BP 139/75 and HR: 76. Patient was responsive to nurses and complaining of some chest pain. Constitutional: Yes: Thin Respiratory: Yes: WNL, CTA Bilaterally Labs: CBC, BMP 10/03/18 10:02 10/03/18 05:28
[2018-10-04] MEDS: METOCLOPRAMIDE HCL INJECTION 10 MG/2 ML VIAL IVPUSH SCH ×4 (06:12→23:34)
[2018-10-04] MEDS: INSULIN (LEVEMIR) 100 UNITS/ML UNITS SQ SCH (06:18)
[2018-10-04 07:42] LABS: BASO % 0.4 % (0-2.0); HEMATOCRIT 32.9 % (35.4-49); HEMOGLOBIN 11.1 GM/dL (11.7-16.9); LYMPH % 15.1 % (8-40); MCH 30.7 pg (25.7-33.7); MCHC 33.9 g/dl (32.0-35.9); MEAN CELL VOLUME 90.4 fl (80-96); MONO % 6.5 % (3.8-10.2); PLATELET COUNT 201 K/MM3 (134-434); RBC 3.63 M/mm3 (4.00-5.60); RDW 14.2 % (11.9-15.9); WHITE BLOOD COUNT 5.9 K/mm3 (4.0-10.0)
[2018-10-04 07:52] LABS: ALBUMIN 3.3 g/dl (3.4-5.0); BILIRUBIN,TOTAL 0.6 mg/dL (0.2-1); BLOOD UREA NITROGEN 12.9 mg/dL (7-18); CALCIUM 8.3 mg/dL (8.5-10.1); CREATININE 1.1 mg/dL (0.55-1.3); POTASSIUM 3.8 mmol/L (3.5-5.1); TOT PROT 5.8 g/dl (6.4-8.2)
[2018-10-04] MEDS ORDERED: DEXTROSE 5%-0.45% SALINE 1,000 ML IV SCH (08:00)
--- NOTE | 2018-10-04 08:59 | PN ---
Progress Note, DEXIGRAPH OPERATOR - Note Progress Note: Consultation received for routine dysphagia evaluation. Pt is currently NPO secondary to pending medical procedure in the OR. DEXIGRAPH OPERATOR to attempt to evaluate swallow status latter today.
[2018-10-04] MEDS ORDERED: PT OWN MED DRAWER 7, Y5N ONE (09:37)
[2018-10-04] MEDS: FINASTERIDE 5 MG TABLET (FP) PO SCH (10:09)
[2018-10-04] MEDS: PANTOPRAZOLE SODIUM 80 MG in SODIUM CHLORIDE 100 ML IVPB SCH ×3 (10:09→23:39)
[2018-10-04] MEDS: LISINOPRIL 5 MG TABLET (FP) PO SCH ×2 (10:09→10:10)
--- NOTE | 2018-10-04 10:14 | PN ---
Physical Exam: SUBJECTIVE: Patient seen and examined at bedside and in no acute distress. Pt had a hypoglycemic episode at 3am with blood sugar 15. He was given 2amps D5 IVF. Pt has good appetite and is tolerating foods well. No complaints at this time. OBJECTIVE: Vital Signs Period Temp Pulse Resp BP Sys/Ellis Pulse Ox Last 24 Hr 97.5 F-98.3 F 55-83 18-20 137-145/53-74 95 GENERAL: Awake, alert, in no acute distress. HEAD: Normal with no signs of trauma. EYES: Pupils equal, round and reactive to light, extraocular movements intact, sclera anicteric, conjunctiva clear. No lid lag. EARS, NOSE, THROAT: Ears normal, nares patent, oropharynx clear without exudates. Moist mucous membranes. NECK: Normal range of motion, supple without lymphadenopathy, JVD, or masses. LUNGS: Breath sounds equal, clear to auscultation bilaterally. No wheezes, and no crackles. No accessory muscle use. HEART: Regular rate and rhythm, normal S1 and S2 without murmur, rub or gallop. ABDOMEN: Soft, nontender, not distended, normoactive bowel sounds, no guarding, no rebound, no masses. No hepatomegaly or splenomegaly. MUSCULOSKELETAL: Decreased range of motion at all joints. No bony deformities or tenderness. No CVA tenderness. UPPER EXTREMITIES: 2+ pulses, warm, well-perfused. No cyanosis. No clubbing. No peripheral edema. LOWER EXTREMITIES: 2+ pulses, warm, well-perfused. No calf tenderness. No peripheral edema. Left foot in AGUSTO bandage from recent left foot fracture. NEUROLOGICAL: Gait not observed (pt has limited mobility) PSYCHIATRIC: Unable to assess due to mental status. SKIN: Warm, dry, normal turgor. Several ecchymoses noted on extremities. Several crusted lesions noted on LUE. Laboratory Results - last 24 hr CBC, BMP 10/04/18 06:40 10/04/18 06:40 Active Medications Atorvastatin Calcium (Lipitor -) 20 mg PO HS [facility] Last Admin: 10/03/18 21:20 Dose: 20 mg Finasteride (Proscar -) 5 mg PO DAILY AARON Last Admin: 10/04/18 10:09 Dose: 5 mg Pantoprazole Sodium 80 mg/ (Sodium Chloride) 100 mls @ 10 mls/hr IVPB Q10H AARON Last Admin: 10/04/18 10:09 Dose: 10 mls/hr Insulin Aspart (Novolog Vial Sliding Scale -) 1 vial SQ Q6HPO [facility]; Protocol Last Admin: 10/04/18 11:42 Dose: 8 units Lisinopril (Prinivil) 5 mg PO DAILY [facility] Last Admin: 10/04/18 10:09 Dose: 5 mg Metoclopramide HCl (Reglan Injection -) 10 mg IVPUSH Q6H [facility] Last Admin: 10/04/18 11:40 Dose: 10 mg Ondansetron HCl (Zofran Injection) 4 mg IVPB Q8H PRN PRN Reason: NAUSEA AND/OR VOMITING Last Admin: 10/03/18 22:16 Dose: 4 mg ASSESSMENT/PLAN: The patient is an 83 year old male with PMHx of IDDM, HTN, CVA, dementia, MR, [place] (11 years ago), hypercholesterolemia who was brought from home by aide with 2 week history of dysphagia and decreased appetite. #Dysphagia due to ?Gastric outlet obstruction - EGD tomorrow. As per GI (Dr. Nobles) - Although the 15 day history of weight loss and vomiting suggests diabetic gastroparesis, the melena suggests a gastric outlet obstruction due to an ulcer or neoplasm. - Reglan 10mg and IV protonix 80mg ggt. - Serial CBCs to monitor H&H and WBC - Dysphagia precautions - CEA pending for Colon CA. #Hyperglycemia - Insulin sliding scale - Frequent monitoring of FSG - F/u Hgb a1c% #CKD Stage 1 - Renal US shows left renal exophytic simple cyst 4X3.9cm. Both kidneys unremarkable, no stones. - Monitor I&Os, weight, CBC, CMP - Recommend nephro f/u as outpt #Anemia - Anemia workup within normal limits. #Eosinophilia - R/o eosinophillic esophagitis as cause for elevated eosinophil count of 24.3 - -> 17.6 except commonly presents within first 3 decades of life. - EGD will be done tm and potentially could do bx to dx if this is cause of dysphagia. - Potentially due to pork ingestion or helminthic infection however B12 is normal. 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 #DVT prophylaxis - Heparin 5,000 unit SQ BID D/c by pharmacy. - SCD's ordered to be applied b/l #FEN - Dysphagia puree diet, NPO after midnight to prepare for EGD in am - D/c fluids - Replete lytes as needed Visit type - Emergency Visit Emergency Visit: No - New Patient This patient is new to me today: No - Critical Care Critical Care patient: No ATTENDING PHYSICIAN STATEMENT I saw and evaluated the patient. I reviewed the resident's note and discussed the case with the resident. I agree with the resident's findings and plan as documented. SUBJECTIVE: OBJECTIVE: ASSESSMENT AND PLAN:
--- NOTE | 2018-10-04 11:11 | EKG ---
Test Reason : Blood Pressure : / mmHG Vent. Rate : 072 BPM Atrial Rate : 072 BPM P-R Int : 144 ms QRS Dur : 092 ms QT Int : 430 ms P-R-T Axes : 003 -37 -05 degrees QTc Int : 470 ms POOR DATA QUALITY, INTERPRETATION MAY BE ADVERSELY AFFECTED NORMAL SINUS RHYTHM WITH SINUS ARRHYTHMIA LEFT AXIS DEVIATION NONSPECIFIC ST ABNORMALITY ABNORMAL ECG WHEN COMPARED WITH ECG OF 01-OCT-2018 15:31, CRITERIA FOR SEPTAL INFARCT ARE NO LONGER PRESENT Confirmed by DIANNE PARDO MD ([id number]) on 10/04/2018 11:11:04 AM Referred By: Confirmed By:DIANNE PARDO MD
--- NOTE | 2018-10-04 12:02 | PN ---
Progress Note (short form) - Note Progress Note: Patient seen and examined Labs reviewed Had a hypoglycemic seizure at 3am with blood sugar 15. Now getting D5. No abdominal pain Reports last bm was yesterday Vital Signs Temp 97.9 F 10/04/18 10:00 Pulse 92 H 10/04/18 10:00 Resp 20 10/04/18 10:00 BP 141/50 L 10/04/18 10:00 Pulse Ox 95 10/03/18 21:00 Chronically ill appearing Abdomen soft NT ND CBC, BMP 10/04/18 06:40 10/04/18 06:40 Impression: Melena and weight loss. Warrants endoscopic evaluation. Now off Aggrenox since Thursday. Given hypoglycemic seizure this am, defer EGD for today and will plan for tomorrow. Hgb is stable and pt is hemodynamically stable. - can switch PPI to BID - trend hgb - diabetic diet today, NPO after MN for EGD tomorrow - frequent monitoring of fsg
--- NOTE | 2018-10-04 16:20 | CONSULT ---
Admitting History and Physical - Past Medical History CODING TECHNICIAN: Yes: CVA (left sided on MRI) Cardiovascular: Yes: CAD, HTN, Hyperlipdemia, TN Renal/: Yes: BPH, Renal Calculi Endocrine: Yes: Diabetes Mellitus - Past Surgical History Past Surgical History: Yes: Cataract Removal, Colonoscopy, Tonsillectomy, Upper Endoscopy - Smoking History Smoking history: Former smoker Have you smoked in the past 12 months: No Aproximately how many cigarettes per day: 0 If you are a former smoker, when did you quit?: as a teenager - Alcohol/Substance Use Hx Alcohol Use: No - Social History ADL: Independent 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 History of Recent Travel: No History - Admission Reason For Visit: FAILURE TO THRIVE/RECURRENT FALLS - Hearing Hearing: Normal Hearing Aide: No With Patient: No Speech Evaluation - Communication Primary Language: TURKISH Communication: Yes: Simple Responses, Language Barrier Oral Expression Ability: Yes: Mild Impairment - Speech Production Apraxia: No Able to Make Needs Known: Yes: Mildly Impaired Intelligibility: Yes: WNL - Speech Characteristics Voice Loudness: Normal Voice Pitch: Yes: Normal Voice Phonatory-based Quality: Yes: Normal Speech Pattern: Normal Nasal Resonance: Normal Articulation: Yes: Precise Voice Comment: Vocal quality is WNL for his environment - Language/Auditory Comprehension Follows: Yes: 1 Stage Simple Commands Observation: Able to respond to yes/no queries: Yes, Yes/No Confusion: No, Comprehends Conversational Speech: Yes, Benefits from Slow Speech: No, Benefits from Repetiton: Yes, Benefits from Increased Volume of Speech: No - Language/Verbal Expression Able to Respond to Simple Queries: Yes: WNL Able to Communicate Wants and Needs: Yes: WNL Functional Communication Status: Yes: WNL Aware of Errors: Yes Attempts to Correct Errors: Yes Use of Gestures: Yes Written Expression: Not examined Oral Expression: Language barrier. Primary language is Vincentian. Pt is able to expressive himself in Vincentian Reading Comprehension: Not examined Calculations: Not examined Attention: Yes: Intact - Memory/Perception custodial Memory: Yes: Mildly Impaired Short Term Memory: Yes: WNL - Swallow Evaluation/Bedside Assessment Current Nutritional Intake: Dysphagia Pureed, Thin Liquids Oral Secretions: Yes: WFL Tracheostomy Present: No Patient on Ventilator: No Dentition: Yes: Adequate Facial Symmetry at Rest: Symmetrical Facial Symmetry on Retraction: Symmetrical Facial Movement: Controlled Sensation: Normal Facial Comment: Not examined Jaw Position: Closed at Rest Against Resistance Opening: Normal Against Resistance Closing: Normal Pucker Lips: Normal Smile: Normal Lips, Comment: Not examined Lingual Movement: Normal Lingual Speed of Movement: Normal Lingual Movement Strgth Against Opposition: Normal Lingual Movement Characteristics: Normal Lingual Comment: Not examined Soft Palate Description: Normal Color Hard Palate Description: Normal Color Gag Reflex: Strong Bite Reflex: Present Laryngeal Elevation: WFL Laryngeal Movement: Able to Palpate Needs Assistance: No Rate of Intake: WFL Bolus Size: WFL Labial Seal: WFL Chewing: WFL Oral Prep Time: WFL A-P Transit: WFL Timing of Swallow: WFL Coughing/Throat Clear: No Change in Voice: No Other Findings/Remarks: 83 yo tremaine seen at chairside for swallow eval to r/o dysphagia. Pt is verbla in Vincentian, A&Ox2 cooperative. CC; dysphagia. Pt and personal aide reported that "food feels like it gets stuck in his chest." PMHX includes HTN, CVA, dementia, MR and TN. Vocal quality is WNL with adequate airway protection. Current diet: puree with thin liquids secondary to dysphagia. Pt given po trials of pureed, and mech soft solids without minimal assistance revealed, good acceptance, adequate mastication, bolus formation and transport. Pharyngeal swallows appears timely with no change in voicing or respiration. Thin liquid trials without assistance were unremarkable for dysphagia and / or aspiration at this time. Recommendations - Speech Evaluation, Impression/Plan Impression: 83 yo male presents with possible esphageal phase dysphagia for solids. Pt is able to tolerate purees, soft solids with thin liquids without s/ s of aspiration at chairside at this time. Language is WFL when given in Vincentian. Alf Goals: tolerate the least restrictive diet without s/s of aspiration. Short Term Goals: tolerate pureed, mech soft solids with thin liquids without s/ s of aspiration. - Dysphagia Impressions/Plan Swallowing Skills: Impaired Dysphagia Impressions: Minimal Impairment, Risk of Aspiration *Silent aspiration: cannot be R/O at bedside Dysphagia Treatment Plan: Small Bites, Safe Rate, 1/2 tsp. at a time, Elevate HOB during feed, OOB for meals, OOB for 1 h. after meals, Other (Monitor nutritional intake and pulmonary status) Dysphagia Evaluation Summary: Recommendations: Upgrade solids to dysphagia whole with thin liquids as tolerated. OOB for meals (if possible); observe standard aspiration precautions. Medications can be given whole with liquids. Results given verbally to charge weigher and PCP via chart. PHOTOGRAMMETRIST to follow up for diet tolerance. Consider GI consultation for esophagial dysmotilitiy. Recommendations: GI Consult (esophagial dysmotility??) - Recommendations Diet Consistency: Dysphagia Whole Medication Administration: Whole with water Liquids: Thin Liquids
--- NOTE | 2018-10-04 18:08 | PN ---
Teaching Attending Note Name of Resident: Shelia Johnson ATTENDING PHYSICIAN STATEMENT I saw and evaluated the patient. I reviewed the resident's note and discussed the case with the resident. I agree with the resident's findings and plan as documented. SUBJECTIVE: Events noted overnight, patient is feeling better now. OBJECTIVE: Vital Signs Temperature 99.3 F 10/04/18 14:01 Pulse Rate 80 10/04/18 14:01 Respiratory Rate 20 10/04/18 14:01 Blood Pressure 123/54 L 10/04/18 14:01 O2 Sat by Pulse Oximetry (%) 98 10/04/18 09:00 GENERAL: The patient is awake, alert, and fully oriented, in no acute distress. HEAD: Normal with no signs of trauma. EYES: PERRL, extraocular movements intact, sclera anicteric, conjunctiva clear. ENT: Ears normal, oropharynx clear without exudates, moist mucous membranes. NECK: Trachea midline, full range of motion, supple. LUNGS: Breath sounds equal, clear to auscultation bilaterally, no wheezes, no crackles, no accessory muscle use. HEART: RRR, S1, S2 positive for ANTOLIN 2/6, no rub or gallop. ABDOMEN: Soft, NT, ND, normoactive bowel sounds, no guarding, no rebound, no hepatosplenomegaly, no masses. EXTREMITIES: 2+ pulses, warm, well-perfused, no edema. NEUROLOGICAL: Cranial nerves II through XII grossly intact. PSYCH: Normal mood, normal affect. SKIN: Warm, dry, normal turgor, no rashes or lesions noted CBCD WBC 5.9 K/mm3 (4.0-10.0) 10/04/18 06:40 RBC 3.63 M/mm3 (4.00-5.60) L 10/04/18 06:40 Hgb 11.1 GM/dL (11.7-16.9) L 10/04/18 06:40 Hct 32.9 % (35.4-49) L 10/04/18 06:40 MCV 90.4 fl (80-96) 10/04/18 06:40 MCHC 33.9 g/dl (32.0-35.9) 10/04/18 06:40 RDW 14.2 % (11.9-15.9) 10/04/18 06:40 Plt Count 201 K/MM3 (134-434) 10/04/18 06:40 MPV 9.0 fl (7.5-11.1) 10/04/18 06:40 CMP Sodium 142 mmol/L (136-145) 10/04/18 06:40 Potassium 3.8 mmol/L (3.5-5.1) 10/04/18 06:40 Chloride 109 mmol/L (98-107) H 10/04/18 06:40 Carbon Dioxide 24 mmol/L (21-32) 10/04/18 06:40 Anion Gap 9 MMOL/L (8-16) 10/04/18 06:40 BUN 12.9 mg/dL (7-18) 10/04/18 06:40 Creatinine 1.1 mg/dL (0.55-1.3) 10/04/18 06:40 Random Glucose 137 mg/dL (74-106) H 10/04/18 06:40 Calcium 8.3 mg/dL (8.5-10.1) L 10/04/18 06:40 Total Bilirubin 0.6 mg/dL (0.2-1) 10/04/18 06:40 AST 15 U/L (15-37) 10/04/18 06:40 ALT 14 U/L (13-61) 10/04/18 06:40 Alkaline Phosphatase 96 U/L (45-117) 10/04/18 06:40 Total Protein 5.8 g/dl (6.4-8.2) L 10/04/18 06:40 Albumin 3.3 g/dl (3.4-5.0) L 10/04/18 06:40 CARDIAC ENZYMES Creatine Kinase 103 U/L (26-308) 10/01/18 15:30 Troponin I < 0.02 ng/ml (0.00-0.05) 10/01/18 15:30 Current Medications Generic Name Dose Route Start Last Admin Trade Name Carlosq PRN Reason Stop Dose Admin Atorvastatin Calcium 20 mg 10/02/18 22:00 10/03/18 21:20 Lipitor - PO 20 mg HS AARON Administration Finasteride 5 mg 10/02/18 10:00 10/04/18 10:09 Proscar - PO 5 mg DAILY AARON Administration Pantoprazole Sodium 80 mg/ 100 mls @ 10 mls/hr 10/02/18 17:00 10/04/18 10:09 Sodium Chloride IVPB 10 mls/hr Q10H AARON Administration 8 MG/HR Insulin Aspart 1 vial 10/02/18 00:41 10/04/18 17:43 Novolog Vial Sliding Scale - SQ 8 units Q6HPO AARON Administration Protocol Lisinopril 5 mg 10/04/18 10:00 10/04/18 10:09 Prinivil PO 5 mg DAILY AARON Administration Metoclopramide HCl 10 mg 10/02/18 17:00 10/04/18 16:27 Reglan Injection - IVPUSH 10 mg Q6H A[facility]ON Administration Ondansetron HCl 4 mg 10/02/18 12:05 10/03/18 22:16 Zofran Injection IVPB 4 mg Q8H PRN Administration NAUSEA AND/OR VOMITING Home Medications Medication Instructions Recorded RX: Aspirin/Dipyridamole [Aggrenox 25 - 200 combo PO BID 02/11/17 -] RX: Cholecalciferol (Vitamin D3) 50,000 unit PO DAILY 02/11/17 [Vitamin D3] RX: Insulin Glargine,Hum.rec.anlog 5 units SQ AM 02/28/17 [Lantus Solostar PEN -] RX: Atorvastatin Calcium 20 mg PO DAILY 07/31/18 RX: Finasteride 5 mg PO DAILY 07/31/18 RX: Insulin Lispro [Humalog] See Protocol SQ ASDIR 07/31/18 RX: Lisinopril 2.5 mg PO DAILY 07/31/18 CT of brain showed b/l chronic infarcts imaging studies reviewed - CT of abd/pelvis showed lower lung granulomas, apical pleural scarring suggesting possible old TB ASSESSMENT AND PLAN: Patient is an 83yo man with T2DM with elevated BS, ckd, 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 #Dysphagia with solids: GI evaluation for further up , keep npo for EGD in am . 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 No evidence of active pulmonary disease -quantiferon gold , obtain old medical records/ treatments #T2DM : ss with IV d51/2 ns, hold levemir dose . #dvt ppx -heparin sc
[2018-10-04] MEDS ORDERED: INSULIN (NOVOLOG) ASPART 100 UNITS/ML 10ML VIAL ONE (20:31)
[2018-10-04] MEDS: ATORVASTATIN CA 20 MG TABLET (FP) PO SCH (21:35)
[2018-10-05] MEDS: INSULIN SLIDING SCALE (NOVOLOG) 1 VIAL SQ SCH ×6 (01:52→22:15)
[2018-10-05] MEDS: METOCLOPRAMIDE HCL INJECTION 10 MG/2 ML VIAL IVPUSH SCH (05:07)
[2018-10-05] MEDS: PANTOPRAZOLE SODIUM 80 MG in SODIUM CHLORIDE 100 ML IVPB SCH (05:09)
--- NOTE | 2018-10-05 07:25 | PN ---
Physical Exam: SUBJECTIVE: Patient seen and examined at bedside. No acute events overnight. Pt slept well, denies any pain or discomfort. OBJECTIVE: Vital Signs Period Temp Pulse Resp BP Sys/Ellis Pulse Ox Last 24 Hr 97.9 F-99.3 F 63-92 18-20 123-161/50-61 98-99 GENERAL: Awake, alert, in no acute distress. HEAD: Normal with no signs of trauma. EYES: Pupils equal, round and reactive to light, extraocular movements intact, sclera anicteric, conjunctiva clear. No lid lag. EARS, NOSE, THROAT: Ears normal, nares patent, oropharynx clear without exudates. Moist mucous membranes. NECK: Normal range of motion, supple without lymphadenopathy, JVD, or masses. LUNGS: Breath sounds equal, clear to auscultation bilaterally. No wheezes, and no crackles. No accessory muscle use. HEART: Regular rate and rhythm, normal S1 and S2 without murmur, rub or gallop. ABDOMEN: Soft, nontender, not distended, normoactive bowel sounds, no guarding, no rebound, no masses. No hepatomegaly or splenomegaly. EXTREMITIES: 2+ pulses, warm, well-perfused, no edema. NEUROLOGICAL: Cranial nerves II through XII grossly intact. Normal speech, gait not observed. PSYCH: Normal mood, normal affect. SKIN: Warm, dry, normal turgor, no rashes or lesions noted Laboratory Results - last 24 hr CBC, BMP 10/05/18 06:16 10/05/18 06:16 Active Medications Atorvastatin Calcium (Lipitor -) 20 mg PO HS [facility] Last Admin: 10/04/18 21:35 Dose: 20 mg Finasteride (Proscar -) 5 mg PO DAILY [facility] Last Admin: 10/04/18 10:09 Dose: 5 mg Pantoprazole Sodium 80 mg/ (Sodium Chloride) 100 mls @ 10 mls/hr IVPB Q10H [facility] Last Admin: 10/05/18 05:09 Dose: Not Given Insulin Aspart (Novolog Vial Sliding Scale -) 1 vial SQ Q4HPO [facility]; Protocol Last Admin: 10/05/18 05:09 Dose: Not Given Lisinopril (Prinivil) 5 mg PO DAILY [facility] Last Admin: 10/04/18 10:09 Dose: 5 mg Metoclopramide HCl (Reglan Injection -) 10 mg IVPUSH Q6H [facility] Last Admin: 10/05/18 05:07 Dose: 10 mg Ondansetron HCl (Zofran Injection) 4 mg IVPB Q8H PRN PRN Reason: NAUSEA AND/OR VOMITING Last Admin: 10/03/18 22:16 Dose: 4 mg ASSESSMENT/PLAN: The patient is an 83 year old male with PMHx of IDDM, HTN, CVA, dementia, MR, [place] (11 years ago), hypercholesterolemia who was brought from home by aide with 2 week history of dysphagia and decreased appetite. #Dysphagia due to ?Gastric outlet obstruction - EGD was unable to be done today because surgeon could not get consent or ahold of family. Will try again tomorrow - Per GI (Dr. Nobles) - Although the 15 day history of weight loss and vomiting suggests diabetic gastroparesis, the melena suggests a gastric outlet obstruction due to an ulcer or neoplasm - IV protonix changed to 40mg BID per GI - Serial CBCs to monitor H&H and WBC - Dysphagia precautions - CEA normal: 3.2 #Acute renal failure - BUN/Cr: 20.6/1.5 (increase from 12.9/1.1) - Hold lisinopril and reglan for now - Started on 1 bag IVF NS - Continue to monitor kidney function #Hyperglycemia - Insulin sliding scale - Frequent monitoring of FSG #CKD Stage 1 - Renal US shows left renal exophytic simple cyst 4X3.9cm. Both kidneys unremarkable, no stones. - Monitor I&Os, weight, CBC, CMP - Recommend nephro f/u as outpt #Anemia - Anemia workup within normal limits #Eosinophilia - R/o eosinophillic esophagitis as cause for elevated eosinophil count of 24.3 - -> 17.6 except commonly presents within first 3 decades of life. - EGD tomorrow, potentially could do bx to dx if this is cause of dysphagia. - Potentially due to pork ingestion or helminthic infection however B12 is normal. 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 Pending strongyloides serology #DVT prophylaxis - SCDs BL #FEN - Dysphagia puree diet, NPO after midnight to prepare for EGD in am - Per S&S, upgrade diet to dysphagia whole with thin liquids as tolerated - Replete lytes as needed Visit type - Emergency Visit Emergency Visit: No - New Patient This patient is new to me today: No - Critical Care Critical Care patient: No ATTENDING PHYSICIAN STATEMENT I saw and evaluated the patient. I reviewed the resident's note and discussed the case with the resident. I agree with the resident's findings and plan as documented. SUBJECTIVE: OBJECTIVE: ASSESSMENT AND PLAN:
[2018-10-05 07:31] LABS: HEMATOCRIT 30.8 % (35.4-49); HEMOGLOBIN 10.4 GM/dL (11.7-16.9); MCH 30.8 pg (25.7-33.7); MCHC 33.9 g/dl (32.0-35.9); PLATELET COUNT 192 K/MM3 (134-434); RBC 3.39 M/mm3 (4.00-5.60); WHITE BLOOD COUNT 7.1 K/mm3 (4.0-10.0)
[2018-10-05 07:53] LABS: ALBUMIN 3.1 g/dl (3.4-5.0); BILIRUBIN,TOTAL 0.7 mg/dL (0.2-1); BLOOD UREA NITROGEN 20.6 mg/dL (7-18); CALCIUM 8.2 mg/dL (8.5-10.1); CREATININE 1.5 mg/dL (0.55-1.3); POTASSIUM 4.5 mmol/L (3.5-5.1); TOT PROT 5.5 g/dl (6.4-8.2)
[2018-10-05] MEDS ORDERED: SODIUM CHLORIDE 1,000 ML IV SCH (08:15)
[2018-10-05] MEDS: LISINOPRIL 5 MG TABLET (FP) PO SCH (09:26)
[2018-10-05] MEDS: PANTOPRAZOLE SODIUM 40 MG VIAL IVPUSH SCH ×2 (09:30→22:03)
[2018-10-05] MEDS: FINASTERIDE 5 MG TABLET (FP) PO SCH (09:30)
--- NOTE | 2018-10-05 10:04 | PN ---
Teaching Attending Note Name of Resident: Shelia Johnson ATTENDING PHYSICIAN STATEMENT I saw and evaluated the patient. I reviewed the resident's note and discussed the case with the resident. I agree with the resident's findings and plan as documented. SUBJECTIVE: Patient is comfortable going for EGD. OBJECTIVE: Vital Signs Temperature 98.5 F 10/05/18 09:17 Pulse Rate 83 10/05/18 09:17 Respiratory Rate 18 10/05/18 09:17 Blood Pressure 132/61 10/05/18 09:17 O2 Sat by Pulse Oximetry (%) 99 10/04/18 21:00 GENERAL: The patient is awake, alert, and fully oriented, in no acute distress. HEAD: Normal with no signs of trauma. EYES: PERRL, extraocular movements intact, sclera anicteric, conjunctiva clear. ENT: Ears normal, oropharynx clear without exudates, moist mucous membranes. NECK: Trachea midline, full range of motion, supple. LUNGS: Breath sounds equal, clear to auscultation bilaterally, no wheezes, no crackles, no accessory muscle use. HEART: RRR, S1, S2 positive for ANTOLIN 2/6, no rub or gallop. ABDOMEN: Soft, NT, ND, normoactive bowel sounds, no guarding, no rebound, no hepatosplenomegaly, no masses. EXTREMITIES: 2+ pulses, warm, well-perfused, no edema. NEUROLOGICAL: Cranial nerves II through XII grossly intact. PSYCH: Normal mood, normal affect. SKIN: Warm, dry, normal turgor, no rashes or lesions noted CBCD WBC 7.1 K/mm3 (4.0-10.0) 10/05/18 06:16 RBC 3.39 M/mm3 (4.00-5.60) L 10/05/18 06:16 Hgb 10.4 GM/dL (11.7-16.9) L 10/05/18 06:16 Hct 30.8 % (35.4-49) L 10/05/18 06:16 MCV 91.0 fl (80-96) 10/05/18 06:16 MCHC 33.9 g/dl (32.0-35.9) 10/05/18 06:16 RDW 14.0 % (11.9-15.9) 10/05/18 06:16 Plt Count 192 K/MM3 (134-434) 10/05/18 06:16 MPV 9.0 fl (7.5-11.1) 10/05/18 06:16 CMP Sodium 138 mmol/L (136-145) 10/05/18 06:16 Potassium 4.5 mmol/L (3.5-5.1) 10/05/18 06:16 Chloride 104 mmol/L (98-107) 10/05/18 06:16 Carbon Dioxide 23 mmol/L (21-32) 10/05/18 06:16 Anion Gap 12 MMOL/L (8-16) 10/05/18 06:16 BUN 20.6 mg/dL (7-18) H 10/05/18 06:16 Creatinine 1.5 mg/dL (0.55-1.3) H 10/05/18 06:16 Random Glucose 408 mg/dL (74-106) H* 10/05/18 06:16 Calcium 8.2 mg/dL (8.5-10.1) L 10/05/18 06:16 Total Bilirubin 0.7 mg/dL (0.2-1) 10/05/18 06:16 AST 13 U/L (15-37) L 10/05/18 06:16 ALT 17 U/L (13-61) 10/05/18 06:16 Alkaline Phosphatase 99 U/L (45-117) 10/05/18 06:16 Total Protein 5.5 g/dl (6.4-8.2) L 10/05/18 06:16 Albumin 3.1 g/dl (3.4-5.0) L 10/05/18 06:16 CARDIAC ENZYMES Creatine Kinase 103 U/L (26-308) 10/01/18 15:30 Troponin I < 0.02 ng/ml (0.00-0.05) 10/01/18 15:30 Current Medications Generic Name Dose Route Start Last Admin Trade Name Freq PRN Reason Stop Dose Admin Atorvastatin Calcium 20 mg 10/02/18 22:00 10/04/18 21:35 Lipitor - PO 20 mg HS AARON Administration Finasteride 5 mg 10/02/18 10:00 10/05/18 09:30 Proscar - PO Not Given DAILY A[facility]ON Sodium Chloride 1,000 mls @ 75 mls/hr 10/05/18 08:15 10/05/18 09:18 Normal Saline - IV 10/05/18 21:34 75 mls/hr ASDIR AARON Administration Insulin Aspart 1 vial 10/04/18 18:30 10/05/18 05:09 Novolog Vial Sliding Scale - SQ Not Given Q4HPO [facility] Protocol Lisinopril 5 mg 10/04/18 10:00 10/05/18 09:26 Prinivil PO Not Given DAILY [facility]ON Metoclopramide HCl 10 mg 10/02/18 17:00 10/05/18 05:07 Reglan Injection - IVPUSH 10 mg Q6H A[facility]ON Administration Ondansetron HCl 4 mg 10/02/18 12:05 10/03/18 22:16 Zofran Injection IVPB 4 mg Q8H PRN Administration NAUSEA AND/OR VOMITING Pantoprazole Sodium 40 mg 10/05/18 10:00 10/05/18 09:30 Protonix Iv IVPUSH 40 mg BID AARON Administration Home Medications Medication Instructions Recorded Aspirin/Dipyridamole [Aggrenox -] 25 - 200 combo PO BID 02/11/17 Cholecalciferol (Vitamin D3) 50,000 unit PO DAILY 02/11/17 [Vitamin D3] Insulin Glargine,Hum.rec.anlog 5 units SQ AM 02/28/17 [Lantus Solostar PEN -] Atorvastatin Calcium 20 mg PO DAILY 07/31/18 Finasteride 5 mg PO DAILY 07/31/18 Insulin Lispro [Humalog] See Protocol SQ ASDIR 07/31/18 Lisinopril 2.5 mg PO DAILY 07/31/18 Laboratory Tests 10/01/18 10/02/18 10/02/18 15:30 05:50 05:50 Hgb 10.7 L Eosinophils % 26.0 H* Creatinine 1.2 1.0 Strongyloides IgG Ab 10/02/18 10/02/18 10/03/18 11:00 11:00 05:28 Hgb 11.4 L Eosinophils % 19.7 H Creatinine 1.1 Strongyloides IgG Ab Pending 10/03/18 10/03/18 10/04/18 05:28 10:02 06:40 Hgb 11.1 L 11.2 L 11.1 L Eosinophils % 24.3 H* 17.6 H 17.0 H Creatinine Strongyloides IgG Ab 10/04/18 10/05/18 10/05/18 06:40 06:16 06:16 Hgb 10.4 L Eosinophils % Creatinine 1.1 1.5 H Strongyloides IgG Ab pending CT of brain showed b/l chronic infarcts imaging studies reviewed - CT of abd/pelvis showed lower lung granulomas, apical pleural scarring suggesting possible old TB ASSESSMENT AND PLAN: Patient is an 83yo man with T2DM with elevated BS, ckd, 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 # ARF: will hold Lisinopril and Reglan for now, patient is going for EGD today #Frequent falls - no evidence of fractures on exam or imaging ,fall precautions ,bed rest for now. #Dysphagia with solids: GI evaluation for further work up , npo for EGD today. 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 No evidence of active pulmonary disease -quantiferon gold , obtain old medical records/ treatments #T2DM : ss with coverage, IVf, hold levemir dose since patient became hypoglycemic yesterday morning. . #dvt ppx -heparin sc elevated Eosinophils: continue to monitor , check the result of strongoloides.
[2018-10-05] MEDS ORDERED: INSULIN (NOVOLOG) ASPART 100 UNITS/ML 10ML VIAL SQ ONE (11:11)
--- NOTE | 2018-10-05 15:20 | PN ---
Progress Note (short form) - Note Progress Note: Patient did not have witnessed consent in chart and carries diagnosis of dementia. endo staff tried repeatedly to get in touch with patient's family without response. Feed the patient, keep NPO and will attempt EGD tomorrow if consent for both procedure and anesthesia can be obtained from family
--- NOTE | 2018-10-05 17:23 | PN ---
Progress Note, LASER MACHINE OPERATOR - Note Progress Note: 83 yo male seen at bedside for follow up to swallow eval with recommendations for dysphagia whole with thin liquids. Pt is currently NPO secondary to EGD. LASER MACHINE OPERATOR spoke with field pipe lines supervisor and review nutritional intake chart. Pt is consuming approximately 75% of meals with no reported aspiration-like behaviors. LASER MACHINE OPERATOR will follow up for diet tolerance and possible upgrade once pt is cleared to consume meals again.
[2018-10-05] MEDS: ATORVASTATIN CA 20 MG TABLET (FP) PO SCH (22:03)
[2018-10-05] MEDS ORDERED: INSULIN (NOVOLOG) ASPART 100 UNITS/ML 10ML VIAL ONE (22:13)
[2018-10-05] MEDS ORDERED: SODIUM CHLORIDE 0.45% 1,000 ML IV SCH (22:15)
[2018-10-06] MEDS: INSULIN SLIDING SCALE (NOVOLOG) 1 VIAL SQ SCH ×4 (02:13→14:27)
[2018-10-06 07:55] LABS: ALBUMIN 3.1 g/dl (3.4-5.0); BILIRUBIN,TOTAL 0.7 mg/dL (0.2-1); BLOOD UREA NITROGEN 19.7 mg/dL (7-18); CALCIUM 8.1 mg/dL (8.5-10.1); CREATININE 1.4 mg/dL (0.55-1.3); TOT PROT 5.4 g/dl (6.4-8.2)
[2018-10-06 08:00] LABS: BASO % 0.4 % (0-2.0); EOS % 24.5 % (0-4.5); HEMATOCRIT 30.3 % (35.4-49); HEMOGLOBIN 10.3 GM/dL (11.7-16.9); MCH 30.7 pg (25.7-33.7); MCHC 33.9 g/dl (32.0-35.9); MEAN CELL VOLUME 90.5 fl (80-96); MONO % 7.2 % (3.8-10.2); NEUT % 47.9 % (42.8-82.8); PLATELET COUNT 200 K/MM3 (134-434); RBC 3.35 M/mm3 (4.00-5.60); RDW 14.1 % (11.9-15.9); WHITE BLOOD COUNT 7.7 K/mm3 (4.0-10.0)
[2018-10-06] MEDS ORDERED: SODIUM CHLORIDE 0.45% 1,000 ML IV SCH (09:00)
[2018-10-06] MEDS: PANTOPRAZOLE SODIUM 40 MG VIAL IVPUSH SCH ×2 (09:34→21:22)
[2018-10-06] MEDS: FINASTERIDE 5 MG TABLET (FP) PO SCH (09:35)
[2018-10-06] MEDS ORDERED: INSULIN (NOVOLOG) ASPART 100 UNITS/ML 10ML VIAL SQ ONE ×3 (09:48→11:30)
[2018-10-06] MEDS ORDERED: INSULIN (LEVEMIR) 100 UNITS/ML UNITS SQ ONE ×2 (10:40→12:11)
[2018-10-06 10:49] LABS: ANISOCYTOSIS 2+; MACROCYTOSIS 0; OVALOCYTE 1+; PLATELET ESTIMATE NORMAL
[2018-10-06] MEDS: SODIUM CHLORIDE 1,000 ML IV SCH (11:09)
--- NOTE | 2018-10-06 13:36 | PN ---
Progress Note (short form) - Note Progress Note: Attempted a few times this morning to contact pts son and daughter. Initially no answer on son's number, VM full on alternate number. Eventually able to speak with pts son, Woodrow Hargrove (#[phone]) regarding consent however glucose levels 400s therefore unable to proceed with endoscopy this am per anesthesia. Notified this afternoon that sugars are 200s however anesthesia team no longer available at this time due to staffing needs. Pt hemodynamically stable, no overt bleeding. Will resume diet and tentatively keep NPO for EGD tomorrow. Spoke again with pts son Woodrow and advised he will contacted by our team and anesthesia tomorrow if sugars controlled.
--- NOTE | 2018-10-06 15:16 | PN ---
Physical Exam: SUBJECTIVE: Patient seen and examined. No acute events overnight. Pt slept well and has been tolerating diet well. OBJECTIVE: Vital Signs Period Temp Pulse Resp BP Sys/Ellis Pulse Ox Last 24 Hr 97.7 F-98.9 F 59-83 18-20 129-155/55-61 99 GENERAL: Awake, alert, in no acute distress. HEAD: Normal with no signs of trauma. EYES: Pupils equal, round and reactive to light, extraocular movements intact, sclera anicteric, conjunctiva clear. No lid lag. EARS, NOSE, THROAT: Ears normal, nares patent, oropharynx clear without exudates. Moist mucous membranes. NECK: Normal range of motion, supple without lymphadenopathy, JVD, or masses. LUNGS: Breath sounds equal, clear to auscultation bilaterally. No wheezes, and no crackles. No accessory muscle use. HEART: Regular rate and rhythm, normal S1 and S2 without murmur, rub or gallop. ABDOMEN: Soft, nontender, not distended, normoactive bowel sounds, no guarding, no rebound, no masses. No hepatomegaly or splenomegaly. EXTREMITIES: 2+ pulses, warm, well-perfused, no edema. NEUROLOGICAL: Cranial nerves II through XII grossly intact. Normal speech, gait not observed. PSYCH: Normal mood, normal affect. SKIN: Warm, dry, normal turgor, no rashes or lesions noted Laboratory Results - last 24 hr CBC,CMP WBC 7.7 K/mm3 (4.0-10.0) RBC 3.35 M/mm3 (4.00-5.60) L Hgb 10.3 GM/dL (11.7-16.9) L Hct 30.3 % (35.4-49) L MCV 90.5 fl (80-96) MCH 30.7 pg (25.7-33.7) MCHC 33.9 g/dl (32.0-35.9) RDW 14.1 % (11.9-15.9) Plt Count 200 K/MM3 (134-434) MPV 9.0 fl (7.5-11.1) Absolute Neuts (auto) 3.7 K/mm3 (1.5-8.0) Total Counted 100 Neutrophils % 47.9 % (42.8-82.8) D Neutrophils % (Manual) 52.0 % (42.8-82.8) Band Neutrophils % 0.0 % Lymphocytes % 20.0 % (8-40) D Lymphocytes % (Manual) 23.0 % (8-40) D Monocytes % 7.2 % (3.8-10.2) Monocytes % (Manual) 3 % (3.8-10.2) L Eosinophils % 24.5 % (0-4.5) H* Eosinophils % (Manual) 22.0 % (0-4.5) H Basophils % 0.4 % (0-2.0) Basophils % (Manual) 0.0 % (0-2.0) Myelocytes % (Man) 0 % (0-2) Promyelocytes % (Man) 0 % (0-2) Blast Cells % (Manual) 0 % (0-0) Nucleated RBC % 0 % (0-0) Metamyelocytes 0 % (0-2) Hypochromia 0 Platelet Estimate Normal Platelet Comment Present Polychromasia 0 Poikilocytosis 2+ Basophilic Stippling 1+ Anisocytosis 2+ Microcytosis 1+ Macrocytosis 0 Spherocytes 1+ Ovalocytes 1+ Stomatocytes Few [place] Cells 1+ Acanthocytes (Spur) 1+ Fragmented RBCs 1+ Schistocytes 2+ Sodium 141 mmol/L (136-145) Potassium 5.0 mmol/L (3.5-5.1) Chloride 107 mmol/L (98-107) Carbon Dioxide 25 mmol/L (21-32) Anion Gap 9 MMOL/L (8-16) BUN 19.7 mg/dL (7-18) H Creatinine 1.4 mg/dL (0.55-1.3) H Est GFR (CKD-EPI)AfAm 52.72 Est GFR (CKD-EPI)NonAf 45.49 POC Glucometer 274 UNITS (80-120) Random Glucose 371 mg/dL (74-106) H* Hemoglobin A1c % 7.1 % (4.2-6.3) H Calcium 8.1 mg/dL (8.5-10.1) L Phosphorus 3.2 mg/dL (2.5-4.9) Magnesium 2.4 mg/dL (1.8-2.4) Iron 85 ug/dL (38-169) TIBC 252 ug/dL (250-450) Iron Saturation 34 % (15-55) Unsaturated IBC 167 ug/dL (111-343) Ferritin 63.2 ng/ml (8-388) Total Bilirubin 0.7 mg/dL (0.2-1) AST 13 U/L (15-37) L ALT 17 U/L (13-61) Alkaline Phosphatase 95 U/L (45-117) Creatine Kinase 103 U/L (26-308) Troponin I < 0.02 ng/ml (0.00-0.05) C-Reactive Protein < 0.3 MG/DL (0.00-0.3) Total Protein 5.4 g/dl (6.4-8.2) L Albumin 3.1 g/dl (3.4-5.0) L Total Amylase 69 U/L (25-115) Lipase 141 U/L (73-393) Carcinoembryonic Ag 3.2 ng/mL (0.0-4.7) Vitamin B12 676 pg/ml (193-986) TSH 3.16 uIU/ml (0.358-3.74) D Active Medications Atorvastatin Calcium (Lipitor -) 20 mg PO HS [facility] Last Admin: 10/05/18 22:03 Dose: 20 mg Finasteride (Proscar -) 5 mg PO DAILY [facility] Last Admin: 10/06/18 09:35 Dose: Not Given Sodium Chloride (Normal Saline -) 1,000 mls @ 75 mls/hr IV ASDIR [facility] Last Admin: 10/06/18 11:09 Dose: 75 mls/hr Insulin Aspart (Novolog Vial Sliding Scale -) 1 vial SQ Q4HPO [facility]; Protocol Last Admin: 10/06/18 14:27 Dose: 4 units Pantoprazole Sodium (Protonix Iv) 40 mg IVPUSH BID [facility] Last Admin: 10/06/18 09:34 Dose: 40 mg Polyethylene Glycol (Miralax (For Daily Use) -) 17 gm PO DAILY [facility] ASSESSMENT/PLAN: The patient is an 83 year old male with PMHx of IDDM, HTN, CVA, dementia, MR, [place] (11 years ago), hypercholesterolemia who was brought from home by aide with 2 week history of dysphagia and decreased appetite. #Dysphagia due to ?Gastric outlet obstruction EGD was unable to be done today due to glucose levels in 400s. Will try again tomorrow Per GI (Giuliano) - 15 day hx of weight loss & vomiting suggests diabetic gastroparesis, melena suggests a GOO due to an ulcer or neoplasm IV protonix changed to 40mg BID per GI Serial CBCs to monitor H&H and WBC Dysphagia precautions CEA normal: 3.2 #Acute renal failure BUN/Cr: 19.7/1.4 (decrease from 20.6/1.5) Hold lisinopril and reglan for now Started on 1 bag IVF NS Continue to monitor kidney function #Hyperglycemia Insulin sliding scale and Levemir 5mg Q.AM Pt hyperglycemic today, given 8 units Frequent monitoring of FSG #CKD Stage 1 Renal US shows left renal exophytic simple cyst 4X3.9cm. Both kidneys unremarkable, no stones. Monitor I&Os, weight, CBC, CMP Recommend nephro f/u as outpt #Anemia Anemia workup within normal limits #Eosinophilia R/o eosinophillic esophagitis as cause for elevated eosinophil count 24.3 -- > 17.6 except commonly presents within first 3 decades of life. EGD tomorrow, potentially could do bx to dx if this is cause of dysphagia. Potentially due to pork ingestion or helminthic infection however B12 is normal. 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 Pending strongyloides serology #DVT prophylaxis SCDs BL #FEN Dysphagia puree diet, NPO after midnight to prepare for EGD in am Per S&S, upgrade diet to dysphagia whole with thin liquids as tolerated Replete lytes as needed Visit type - Emergency Visit Emergency Visit: No - New Patient This patient is new to me today: No - Critical Care Critical Care patient: No ATTENDING PHYSICIAN STATEMENT I saw and evaluated the patient. I reviewed the resident's note and discussed the case with the resident. I agree with the resident's findings and plan as documented. SUBJECTIVE: OBJECTIVE: ASSESSMENT AND PLAN:
[2018-10-06] MEDS: POLYETHYLENE GLYCOL 3350 119 GM BTL PO SCH (16:21)
--- NOTE | 2018-10-06 18:37 | CONSULT ---
Consult - text type - Consultation Consultation Note: Dermatology Called to see patient for lesions on left forearm on exam patient has 1.5 cm verrucous papule consistent with a seborrheic keratosis or a squamous neoplasm requiring a procedure to remove lesion . please have patient follow up as an outpatient for minor surgical procedure. he also has multiple purpuric lesions due to solar damage. please keep skin lubricated .
--- NOTE | 2018-10-06 18:54 | PN ---
Teaching Attending Note Name of Resident: Leslee Corbin ATTENDING PHYSICIAN STATEMENT I saw and evaluated the patient. I reviewed the resident's note and discussed the case with the resident. I agree with the resident's findings and plan as documented. SUBJECTIVE: No fever or chills. No RUFFIN . no pain . OBJECTIVE: NAD, dry MM Cv: RRR Lungs: CTAB Abd: soft, NT, ND , NL BS Ext : no edema skin: L fore arm with verrocous lesion with an ulcerated base. ASSESSMENT AND PLAN: 83 y/o man with h/o DM , CKD, b/l cerebral infarcts, anemia, and dementia who presented with dysphagia. 1- Dysphagia: - EGD was canceled today. will be booked for tomorrow. 2- ILANA: probably prerenal azotemia - cont to hold lisinopril - start IVF 3- Falls: PT eval 4- Apical pleural scarring. no signs of PNA. no acute issues. old fining . f/u as out pt withpulmonary 5- Eosinophilia: follow strongyloides Abx. 6- DM : hyperglycemic today. was hypoglycemic on levemir BId - start levemir 5 units daily cont SSI no signs of DKA 7- renal cyst on CT scan : follow with repeat imaging as out pt DVT px : add heparin sq. hold befoe procedure
[2018-10-06] MEDS ORDERED: PT OWN MED DRAWER 7, Y5N ONE (19:07)
[2018-10-06] MEDS: ATORVASTATIN CA 20 MG TABLET (FP) PO SCH (21:22)
[2018-10-06] MEDS: HEPARIN NA (PORCINE) 5,000 UNITS/ML 1ML VIAL SQ SCH (21:30)
[2018-10-07] MEDS: SODIUM CHLORIDE 1,000 ML IV SCH ×2 (04:25→08:47)
[2018-10-07] MEDS: INSULIN SLIDING SCALE (NOVOLOG) 1 VIAL SQ SCH ×3 (06:41→16:52)
[2018-10-07 07:46] LABS: BASO % 0.5 % (0-2.0); EOS % 25.6 % (0-4.5); HEMATOCRIT 29.8 % (35.4-49); HEMOGLOBIN 10.4 GM/dL (11.7-16.9); LYMPH % 18.2 % (8-40); MCH 31.2 pg (25.7-33.7); MCHC 34.7 g/dl (32.0-35.9); MEAN CELL VOLUME 89.7 fl (80-96); MEAN PLT VOLUME 8.9 fl (7.5-11.1); MONO % 7.2 % (3.8-10.2); NEUT % 48.5 % (42.8-82.8); PLATELET COUNT 196 K/MM3 (134-434); RBC 3.33 M/mm3 (4.00-5.60); RDW 13.9 % (11.9-15.9); WHITE BLOOD COUNT 6.6 K/mm3 (4.0-10.0)
[2018-10-07] MEDS ORDERED: INSULIN (LEVEMIR) 100 UNITS/ML UNITS SQ ONE (08:00)
[2018-10-07 08:28] LABS: BLOOD UREA NITROGEN 21.1 mg/dL (7-18); CREATININE 1.3 mg/dL (0.55-1.3); POTASSIUM 4.3 mmol/L (3.5-5.1)
[2018-10-07] MEDS: INSULIN (LEVEMIR) 100 UNITS/ML UNITS SQ SCH (08:45)
[2018-10-07] MEDS ORDERED: MIDAZOLAM HCL 2 MG/2 ML SINGLE DOSE VIAL ONE (09:08)
[2018-10-07] MEDS: FINASTERIDE 5 MG TABLET (FP) PO SCH (09:41)
[2018-10-07] MEDS: POLYETHYLENE GLYCOL 3350 119 GM BTL PO SCH (09:41)
--- NOTE | 2018-10-07 10:27 | PN ---
Progress Note (short form) - Note Progress Note: EGD complete: report placed in procedureal section of physical chart and will be scanned into [facility]. Spoke with Bret his son. Discussed colonoscopy for continued evaluation of weight loss and guaiac positive stool noted on initial GI evaluation as EGD findings did not explain this. Discussed potential risks of the procedure like but not limited to bleeding, perforation requiring surgery to repair, infection and sedation medication effects all of which could be potentially life threatening. While he is not opposed to his father having colonoscopy, he would like to give him some time as his diet has been held for multiple days while attempts and EGD were postponed. Would be amenable for procedure on Thursday. Continued hematologic evaluation given significant peripheral eosinophilia. Blood smear for parasites negative. I placed a hematology consult yesterday.
[2018-10-07] MEDS ORDERED: SODIUM CHLORIDE 1,000 ML IV SCH ×2 (10:38→11:53)
[2018-10-07 10:46] LABS: ANISOCYTOSIS 0; MACROCYTOSIS 0; PLATELET ESTIMATE NORMAL
[2018-10-07] MEDS: PANTOPRAZOLE SODIUM 40 MG VIAL IVPUSH SCH (12:17)
--- NOTE | 2018-10-07 13:25 | CONSULT ---
Consultation: CONSULT REQUEST: HEME/ONC HISTORY OF PRESENT ILLNESS: Patient is an 83 year old male with PMHx of IDDM, HTN, CVA, dementia, MR, [place] ( 11 years ago), hypercholesterolemia who was brought from home by his aide with 2 week history of dysphagia, decreased appetite, nausea, vomiting and reported melena. He complains of postprandial vomiting for the past 15 days leading to 5kg weight loss. Patient is currently being seen by GI and is s/p EGD w/ biopsy. He was found to have an peripheral eosinophilia as high as 26% with an absolute count of 1689 today. Patient's previous visit also reveals elevated eosinophils dating back to 2011. Patient currently offers no complaints. Denies symptoms including diarrhea, sob , chest pain, cough, night sweats, allergies, asthma. He says he just ate food after his colonoscopy and is tolerating well. 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 [place] REVIEW OF SYSTEMS: CONSTITUTIONAL: loss of appetite, weight change Absent: fever, chills, diaphoresis, generalized weakness, malaise HEENT: Absent: rhinorrhea, nasal congestion, throat pain, throat swelling, difficulty swallowing, mouth swelling, ear pain, eye pain, visual changes CARDIOVASCULAR: Absent: chest pain, syncope, palpitations, irregular heart rate, lightheadedness , peripheral edema RESPIRATORY: Absent: cough, shortness of breath, dyspnea with exertion, orthopnea, wheezing, stridor, hemoptysis GASTROINTESTINAL: abd pain, nausea, vomiting Absent: abdominal distension, diarrhea, constipation, melena, hematochezia GENITOURINARY: Absent: dysuria, frequency, urgency, hesitancy, hematuria, flank pain, genital pain MUSCULOSKELETAL: Absent: myalgia, arthralgia, joint swelling, back pain, neck pain SKIN: Absent: rash, itching, pallor HEMATOLOGIC/IMMUNOLOGIC: Absent: easy bleeding, easy bruising, lymphadenopathy, frequent infections NEUROLOGIC: Absent: headache, focal weakness or paresthesias, dizziness, unsteady gait, seizure, mental status changes, bladder or bowel incontinence PHYSICAL EXAMINATION Vital Signs - 24 hr 10/06/18 10/06/18 10/06/18 18:43 21:00 21:34 Temperature 98.1 F 97.8 F Pulse Rate 60 65 Respiratory 18 20 20 Rate Blood Pressure 152/58 L 152/64 O2 Sat by Pulse 100 Oximetry (%) 10/07/18 10/07/18 10/07/18 05:38 09:00 10:00 Temperature 97.7 F 97.7 F Pulse Rate 60 64 Respiratory 20 18 14 Rate Blood Pressure 156/60 105/52 L O2 Sat by Pulse 99 Oximetry (%) 10/07/18 10/07/18 10/07/18 10:15 10:30 10:45 Temperature 97.6 F Pulse Rate 73 64 62 Respiratory 15 16 18 Rate Blood Pressure 134/62 145/59 L 169/58 L O2 Sat by Pulse 99 99 100 Oximetry (%) 10/07/18 10:50 Temperature Pulse Rate 61 Respiratory 17 Rate Blood Pressure 173/62 H O2 Sat by Pulse 100 Oximetry (%) GENERAL: Awake, alert, in no acute distress. HEAD: Normal with no signs of trauma. EYES: Pupils equal, round and reactive to light, extraocular movements intact, sclera anicteric EARS, NOSE, THROAT: Ears normal, nares patent, oropharynx clear without exudates. Moist mucous membranes. NECK: Normal range of motion, supple without lymphadenopathy, JVD, or masses. LUNGS: Breath sounds equal, clear to auscultation bilaterally. No wheezes, and no crackles. HEART: RRR, no MGR ABDOMEN: Soft, nontender, not distended, normoactive bowel sounds, no guarding, no rebound, no masses. No hepatomegaly or splenomegaly. EXTREMITIES: 2+ pulses, warm, well-perfused, no edema. NEUROLOGICAL: Cranial nerves II through XII grossly intact. Normal speech, gait not observed. Laboratory Results - last 24 hr 10/02/18 10/06/18 10/07/18 11:00 20:30 06:15 WBC 6.6 RBC 3.33 L Hgb 10.4 L Hct 29.8 L MCV 89.7 MCH 31.2 MCHC 34.7 RDW 13.9 Plt Count 196 MPV 8.9 Absolute Neuts (auto) 3.2 Neutrophils % 48.5 Neutrophils % (Manual) 54.0 Band Neutrophils % 0.0 Lymphocytes % 18.2 Lymphocytes % (Manual) 12.0 D Monocytes % 7.2 Monocytes % (Manual) 4 Eosinophils % 25.6 H* Eosinophils % (Manual) 29.0 H Basophils % 0.5 Basophils % (Manual) 0.0 Myelocytes % (Man) 0 Promyelocytes % (Man) 0 Blast Cells % (Manual) 0 Nucleated RBC % 0 Metamyelocytes 0 Hypochromia 0 Platelet Estimate Normal Polychromasia 0 Poikilocytosis 0 Anisocytosis 0 Microcytosis 0 Macrocytosis 0 Sodium Potassium Chloride Carbon Dioxide Anion Gap BUN Creatinine Est GFR (CKD-EPI)AfAm Est GFR (CKD-EPI)NonAf POC Glucometer Random Glucose Calcium Stool Occult Blood Negative Strongyloides IgG Ab Negative 10/07/18 10/07/18 10/07/18 06:15 06:36 08:06 WBC RBC Hgb Hct MCV MCH MCHC RDW Plt Count MPV Absolute Neuts (auto) Neutrophils % Neutrophils % (Manual) Band Neutrophils % Lymphocytes % Lymphocytes % (Manual) Monocytes % Monocytes % (Manual) Eosinophils % Eosinophils % (Manual) Basophils % Basophils % (Manual) Myelocytes % (Man) Promyelocytes % (Man) Blast Cells % (Manual) Nucleated RBC % Metamyelocytes Hypochromia Platelet Estimate Polychromasia Poikilocytosis Anisocytosis Microcytosis Macrocytosis Sodium 138 Potassium 4.3 Chloride 105 Carbon Dioxide 24 Anion Gap 9 BUN 21.1 H Creatinine 1.3 Est GFR (CKD-EPI)AfAm 57.66 Est GFR (CKD-EPI)NonAf 49.75 POC Glucometer 332 258 Random Glucose 364 H* Calcium 8.0 L Stool Occult Blood Strongyloides IgG Ab 10/07/18 11:51 WBC RBC Hgb Hct MCV MCH MCHC RDW Plt Count MPV Absolute Neuts (auto) Neutrophils % Neutrophils % (Manual) Band Neutrophils % Lymphocytes % Lymphocytes % (Manual) Monocytes % Monocytes % (Manual) Eosinophils % Eosinophils % (Manual) Basophils % Basophils % (Manual) Myelocytes % (Man) Promyelocytes % (Man) Blast Cells % (Manual) Nucleated RBC % Metamyelocytes Hypochromia Platelet Estimate Polychromasia Poikilocytosis Anisocytosis Microcytosis Macrocytosis Sodium Potassium Chloride Carbon Dioxide Anion Gap BUN Creatinine Est GFR (CKD-EPI)AfAm Est GFR (CKD-EPI)NonAf POC Glucometer 216 Random Glucose Calcium Stool Occult Blood Strongyloides IgG Ab Active Medications Generic Name Dose Route Start Last Admin Trade Name Freq PRN Reason Stop Dose Admin Atorvastatin Calcium 20 mg 10/02/18 22:00 10/06/18 21:22 Lipitor - PO 20 mg HS AARON Administration Finasteride 5 mg 10/02/18 10:00 10/07/18 09:41 Proscar - PO Not Given DAILY AARON Heparin Sodium (Porcine) 5,000 unit 10/06/18 22:00 10/06/18 21:30 Heparin - SQ Not Given TID AARON Sodium Chloride 1,000 mls @ 50 mls/hr 10/07/18 11:53 10/07/18 12:17 Normal Saline - IV 50 mls/hr ASDIR AARON Administration Insulin Aspart 1 vial 10/07/18 07:00 10/07/18 12:17 Novolog Vial Sliding Scale - SQ 2 units TIDAC AARON Administration Protocol Insulin Detemir 5 units 10/07/18 08:00 10/07/18 08:45 Levemir Vial SQ 5 units DAILY@0800 AARON Administration Pantoprazole Sodium 40 mg 10/05/18 10:00 10/07/18 12:17 Protonix Iv IVPUSH 40 mg BID AARON Administration Polyethylene Glycol 17 gm 10/06/18 14:15 10/07/18 09:41 Miralax (For Daily Use) - PO Not Given DAILY AARON ASSESSMENT/PLAN: #Hypereosinophilia -Blood smear for parasites negative -Strongyloides Ab negative -no history of asthma, allergies -s/p EGD: FU biopsies ,obtained to exlude eosinophilic infiltrates. -Stool O&P ordered -Tryptase level (could be elevated in myeloid variant) -CPK, ANAND,ESR,RF, Ige -Will order FISH, Flow, cytogenetics, PCP BCR-ABL -Chest CTAP without contrast Dispo: We will continue to follow the patient. Thank you for this consultative opportunity. Visit type - Emergency Visit Emergency Visit: Yes ED Registration Date: 10/01/18 Care time: The patient presented to the Emergency Department on the above date and was hospitalized for further evaluation of their emergent condition. - New Patient This patient is new to me today: Yes Date on this admission: 10/07/18 - Critical Care Critical Care patient: No ATTENDING PHYSICIAN STATEMENT I saw and evaluated the patient. I reviewed the resident's note and discussed the case with the resident. I agree with the resident's findings and plan as documented. SUBJECTIVE: OBJECTIVE: ASSESSMENT AND PLAN:
--- NOTE | 2018-10-07 14:19 | PN ---
Physical Exam: SUBJECTIVE: Patient seen and examined. No acute events overnight. Pt slept well and has been tolerating diet well. OBJECTIVE: Vital Signs Period Temp Pulse Resp BP Sys/Ellis Pulse Ox Last 24 Hr 97.6 F-98.1 F 60-73 14-20 105-173/52-64 99-100 GENERAL: Awake, alert, in no acute distress. HEAD: Normal with no signs of trauma. EYES: Pupils equal, round and reactive to light, extraocular movements intact, sclera anicteric, conjunctiva clear. No lid lag. EARS, NOSE, THROAT: Ears normal, nares patent, oropharynx clear without exudates. Moist mucous membranes. NECK: Normal range of motion, supple without lymphadenopathy, JVD, or masses. LUNGS: Breath sounds equal, clear to auscultation bilaterally. No wheezes, and no crackles. No accessory muscle use. HEART: Regular rate and rhythm, normal S1 and S2 without murmur, rub or gallop. ABDOMEN: Soft, nontender, not distended, normoactive bowel sounds, no guarding, no rebound, no masses. No hepatomegaly or splenomegaly. EXTREMITIES: 2+ pulses, warm, well-perfused, no edema. NEUROLOGICAL: Cranial nerves II through XII grossly intact. Normal speech, gait not observed. PSYCHIATRIC: Unable to assess due to mental status. SKIN: Warm, dry, normal turgor. Several ecchymoses noted on extremities. Several crusted lesions noted on LUE. Laboratory Results - last 24 hr CBC, BMP 10/07/18 06:15 10/07/18 06:15 Active Medications Atorvastatin Calcium (Lipitor -) 20 mg PO HS [facility] Last Admin: 10/06/18 21:22 Dose: 20 mg Finasteride (Proscar -) 5 mg PO DAILY [facility] Last Admin: 10/07/18 09:41 Dose: Not Given Heparin Sodium (Porcine) (Heparin -) 5,000 unit SQ TID [facility] Last Admin: 10/06/18 21:30 Dose: Not Given Sodium Chloride (Normal Saline -) 1,000 mls @ 50 mls/hr IV ASDIR [facility] Last Admin: 10/07/18 12:17 Dose: 50 mls/hr Insulin Aspart (Novolog Vial Sliding Scale -) 1 vial SQ TIDAC [facility]; Protocol Last Admin: 10/07/18 12:17 Dose: 2 units Insulin Detemir (Levemir Vial) 5 units SQ DAILY@0800 [facility] Last Admin: 10/07/18 08:45 Dose: 5 units Pantoprazole Sodium (Protonix Iv) 40 mg IVPUSH BID [facility] Last Admin: 10/07/18 12:17 Dose: 40 mg Polyethylene Glycol (Miralax (For Daily Use) -) 17 gm PO DAILY [facility] Last Admin: 10/07/18 09:41 Dose: Not Given ASSESSMENT/PLAN: The patient is an 83 year old male with PMHx of IDDM, HTN, CVA, dementia, MR, [place] (11 years ago), hypercholesterolemia who was brought from home by aide with 2 week history of dysphagia and decreased appetite. #Dysphagia due to ?Gastric outlet obstruction EGD done today: normal mucosa, multiple small non bleeding erosions, mild duodenitis. Bx taken Per GI, recommend colonoscopy, scheduled for Thursday (10/11) IV protonix 40mg BID per GI Serial CBCs to monitor H&H and WBC Dysphagia precautions CEA normal: 3.2 #Acute renal failure (prerenal azotemia) BUN/Cr: 21.1/1.3 (decrease from 20.6/1.5) Holding lisinopril and reglan for now IVF NS @ 50ml/hr Order urine Cr, urine Na, urine eosinophil #Hyperglycemia Insulin sliding scale TIDAC and Levemir 5mg Q.AM Frequent monitoring of FSG #CKD Stage 1 Renal US shows left renal exophytic simple cyst 4X3.9cm. Both kidneys unremarkable, no stones. Monitor I&Os, weight, CBC, CMP Recommend nephro f/u as outpt #Anemia Anemia workup within normal limits #Eosinophilia R/o eosinophillic esophagitis as cause for elevated eosinophil count 24.3 -- > 17.6 EGD Bx pending Strongyloides serology neg, parasite blood smear neg Consult heme/onc per GI #DVT prophylaxis SCDs BL #FEN Dysphagia whole diet with thin liquids as tolerated Replete lytes as needed Visit type - Emergency Visit Emergency Visit: No - New Patient This patient is new to me today: No - Critical Care Critical Care patient: No ATTENDING PHYSICIAN STATEMENT I saw and evaluated the patient. I reviewed the resident's note and discussed the case with the resident. I agree with the resident's findings and plan as documented. SUBJECTIVE: OBJECTIVE: ASSESSMENT AND PLAN:
--- NOTE | 2018-10-07 14:59 | PN ---
Teaching Attending Note Name of Resident: Shelia Johnson ATTENDING PHYSICIAN STATEMENT I saw and evaluated the patient. I reviewed the resident's note and discussed the case with the resident. I agree with the resident's findings and plan as documented. SUBJECTIVE: seen after EGD No fever or chills. No RUFFIN , no Abd pain, no N/V. OBJECTIVE: NAD,MMM Cv: RRR Lungs: CTAB Abd: soft, NT, ND, NL BS Ext: no edema Skin: L forearm with verrocous lesion with an ulcerated base. R forearm with superficial erosion ASSESSMENT AND PLAN: 83 y/o man with h/o DM , CKD, b/l cerebral infarcts, anemia, and dementia who presented with dysphagia. 1- Dysphagia: - EDG with atrophic gastric mucosa and duodenitis 2- ILANA: resolved with IVF - decrease IVF for today. possible dc in am 3- HTN: resume lisinopril . BP uncontrolled 4- Apical pleural scarring. no signs of PNA. no acute issues. old fining . f/u as out pt with pulmonary 5- Eosinophilia: chronic. neg strongyloides Abx. could be due to hematologic disorders. 6- DM: cont levemir and SSI 7- Renal cyst on CT scan : follow with repeat imaging as out pt 8- Normocytic anemia: no signs of iron def. nl TSH . nl B12. anemia is chronic with stable HB. ? BM disorder - colonoscopy on Thursday DVT px : DVT px with heparin
[2018-10-07] MEDS ORDERED: LISINOPRIL 5 MG TABLET (FP) PO ONE (16:30)
[2018-10-07] MEDS: HEPARIN NA (PORCINE) 5,000 UNITS/ML 1ML VIAL SQ SCH (21:22)
[2018-10-07] MEDS: ATORVASTATIN CA 20 MG TABLET (FP) PO SCH (21:22)
[2018-10-07 21:28] LABS: LDH 182 U/L (87-246)
--- NOTE | 2018-10-07 21:42 | PN ---
Teaching Attending Note Name of Resident: Shavon Stuart ATTENDING PHYSICIAN STATEMENT I saw and evaluated the patient. I reviewed the resident's note and discussed the case with the resident. I agree with the resident's findings and plan as documented. ASSESSMENT AND PLAN: 83 year old male with PMHx of IDDM, HTN, CVA, dementia, MR, [place] (11 years ago), hypercholesterolemia who was brought from home by his aide with 2 week history of dysphagia, decreased appetite, nausea, vomiting and reported melena GI w/u in progress We have been consulted for chronic eosinophilia Suspect underlying marrow pathology check stool ond P/IgElevels Strogyloides ab neg. CT a/p neg. check CT chest Check flow/FISH/cytogenetics
[2018-10-08] MEDS: HEPARIN NA (PORCINE) 5,000 UNITS/ML 1ML VIAL SQ SCH ×3 (06:04→21:47)
[2018-10-08] MEDS: INSULIN SLIDING SCALE (NOVOLOG) 1 VIAL SQ SCH ×3 (06:04→18:35)
[2018-10-08 07:28] LABS: BASO % 0.6 % (0-2.0); EOS % 22.1 % (0-4.5); HEMATOCRIT 31.1 % (35.4-49); HEMOGLOBIN 10.4 GM/dL (11.7-16.9); LYMPH % 14.2 % (8-40); MCH 30.3 pg (25.7-33.7); MCHC 33.5 g/dl (32.0-35.9); MEAN CELL VOLUME 90.5 fl (80-96); MONO % 4.9 % (3.8-10.2); NEUT % 58.2 % (42.8-82.8); PLATELET COUNT 201 K/MM3 (134-434); RBC 3.44 M/mm3 (4.00-5.60); RDW 14.2 % (11.9-15.9); WHITE BLOOD COUNT 6.7 K/mm3 (4.0-10.0)
[2018-10-08 07:52] LABS: BLOOD UREA NITROGEN 16.3 mg/dL (7-18); CALCIUM 7.9 mg/dL (8.5-10.1); CREATININE 1.1 mg/dL (0.55-1.3); POTASSIUM 3.9 mmol/L (3.5-5.1)
[2018-10-08] MEDS: INSULIN (LEVEMIR) 100 UNITS/ML UNITS SQ SCH (09:36)
[2018-10-08] MEDS: PANTOPRAZOLE 20 MG TABLET (FP) PO SCH (09:36)
[2018-10-08] MEDS: FINASTERIDE 5 MG TABLET (FP) PO SCH (09:36)
[2018-10-08] MEDS: POLYETHYLENE GLYCOL 3350 119 GM BTL PO SCH (09:36)
[2018-10-08] MEDS ORDERED: LISINOPRIL 5 MG TABLET (FP) PO SCH (10:00)
[2018-10-08] MEDS ORDERED: INSULIN (LEVEMIR) 100 UNITS/ML UNITS SQ ONE (11:09)
--- NOTE | 2018-10-08 12:16 | PN ---
Progress Note (short form) - Note Progress Note: Heme eval For colon 10/11 if blood glucose permits. Continued significant fluctuations
[2018-10-08 12:46] LABS: ANISOCYTOSIS 1+; MACROCYTOSIS 0; OVALOCYTE 1+; PLATELET ESTIMATE NORMAL
--- NOTE | 2018-10-08 14:23 | PN ---
Physical Exam: SUBJECTIVE: Patient seen and examined. No acute events overnight. Pt slept well and has been tolerating diet well. OBJECTIVE: Vital Signs Period Temp Pulse Resp BP Sys/Ellis Pulse Ox Last 24 Hr 97.4 F-97.8 F 65-77 18-20 122-140/50-69 98 GENERAL: Awake, alert, in no acute distress. HEAD: Normal with no signs of trauma. EYES: Pupils equal, round and reactive to light, extraocular movements intact, sclera anicteric, conjunctiva clear. No lid lag. EARS, NOSE, THROAT: Ears normal, nares patent, oropharynx clear without exudates. Moist mucous membranes. NECK: Normal range of motion, supple without lymphadenopathy, JVD, or masses. LUNGS: Breath sounds equal, clear to auscultation bilaterally. No wheezes, and no crackles. No accessory muscle use. HEART: Regular rate and rhythm, normal S1 and S2 without murmur, rub or gallop. ABDOMEN: Soft, nontender, not distended, normoactive bowel sounds, no guarding, no rebound, no masses. No hepatomegaly or splenomegaly. EXTREMITIES: 2+ pulses, warm, well-perfused, no edema. NEUROLOGICAL: Cranial nerves II through XII grossly intact. Normal speech, gait not observed. PSYCHIATRIC: Unable to assess due to mental status. SKIN: Warm, dry, normal turgor. Several ecchymoses noted on extremities. 1.5 cm verrucous papule on LUE Laboratory Results - last 24 hr CBC, BMP 10/08/18 06:30 10/08/18 06:30 Active Medications Atorvastatin Calcium (Lipitor -) 20 mg PO HS [facility] Last Admin: 10/07/18 21:22 Dose: 20 mg Finasteride (Proscar -) 5 mg PO DAILY [facility] Last Admin: 10/08/18 09:36 Dose: 5 mg Heparin Sodium (Porcine) (Heparin -) 5,000 unit SQ TID [facility] Last Admin: 10/08/18 06:04 Dose: 5,000 unit Insulin Aspart (Novolog Vial Sliding Scale -) 1 vial SQ TIDAC [facility]; Protocol Last Admin: 10/08/18 11:50 Dose: 6 units Insulin Detemir (Levemir Vial) 10 units SQ DAILY@0800 [facility] Lisinopril (Prinivil) 2.5 mg PO DAILY [facility] Pantoprazole Sodium (Protonix -) 20 mg PO DAILY [facility] Last Admin: 10/08/18 09:36 Dose: 20 mg Polyethylene Glycol (Miralax (For Daily Use) -) 17 gm PO DAILY [facility] Last Admin: 10/08/18 09:36 Dose: 17 grams ASSESSMENT/PLAN: The patient is an 83 year old male with PMHx of IDDM, HTN, CVA, dementia, MR, [place] (11 years ago), hypercholesterolemia who was brought from home by aide with 2 week history of dysphagia and decreased appetite. #Dysphagia due to ?Gastric outlet obstruction EGD: normal mucosa, multiple small non bleeding erosions, mild duodenitis. Bx taken Per GI, recommend colonoscopy, scheduled for Thursday (10/11) IV protonix 40mg BID per GI Serial CBCs to monitor H&H and WBC Dysphagia precautions CEA normal: 3.2 #Acute renal failure (prerenal azotemia), resolved BUN/Cr: 16.3/1.1 (decrease from 20.6/1.5) Ok to resume lisinopril Discontinue fluids #Uncontrolled HTN Restarted lisinopril 2.5mg as kidney function is ok #Hyperglycemia Insulin sliding scale TIDAC and increase Levemir to 10mg Q.AM Frequent monitoring of FSG #CKD Stage 1 Renal US shows left renal exophytic simple cyst 4X3.9cm. Both kidneys unremarkable, no stones. Monitor I&Os, weight, CBC, CMP Recommend nephro f/u as outpt #Anemia Anemia workup within normal limits #Eosinophilia EGD Bx pending Strongyloides serology neg, parasite blood smear neg Heme/onc consulted: stool O&P, IgE, flow/FISH/cytogenetics, tryptase, ANAND CT chest neg, no malignancy #DVT prophylaxis SCDs BL #FEN Dysphagia whole diet with thin liquids as tolerated Replete lytes as needed Visit type - Emergency Visit Emergency Visit: No - New Patient This patient is new to me today: No - Critical Care Critical Care patient: No ATTENDING PHYSICIAN STATEMENT I saw and evaluated the patient. I reviewed the resident's note and discussed the case with the resident. I agree with the resident's findings and plan as documented. SUBJECTIVE: OBJECTIVE: ASSESSMENT AND PLAN:
--- NOTE | 2018-10-08 14:24 | PN ---
Teaching Attending Note Name of Resident: Leslee Corbin ATTENDING PHYSICIAN STATEMENT I saw and evaluated the patient. I reviewed the resident's note and discussed the case with the resident. I agree with the resident's findings and plan as documented. SUBJECTIVE: no fever or chills. No [place], painin L heel and foot from old fracture. OBJECTIVE: NAD,MMM Cv: RRR Lungs: CTAB Ext: no edema. No tenderness of both feet. Dp 1+ b/l. no erythema of legs or feet Skin: L forearm with verrocous lesion with an ulcerated base. R forearm with superficial erosion ASSESSMENT AND PLAN: 83 y/o man with h/o DM , CKD, b/l cerebral infarcts, anemia, and dementia who presented with dysphagia. 1- Dysphagia: s/p EGD - cont PPI 2- ILANA: resolved with IVF - dc IVF. will resume again when NPO and being prepped for colo 3- HTN: cont lisinopril 4- Apical pleural scarring. no signs of PNA. no acute issues. old fining . f/u as out pt with pulmonary 5- Chronic Eosinophilia: - negative scans for malignancy - follow heme w/u. 6- DM: increase levemir to 10 . increase dose of SSI 7- Renal cyst on CT scan : follow with repeat imaging as out pt 8- Normocytic anemia: no signs of iron def. nl TSH . nl B12. anemia is chronic with stable HB. ? BM disorder - colonoscopy on Thursday DVT px : DVT px with heparin =
[2018-10-08] MEDS: ACETAMINOPHEN 325 MG TABLET (FP) PO PRN (18:39)
[2018-10-08] MEDS: ATORVASTATIN CA 20 MG TABLET (FP) PO SCH (21:47)
[2018-10-09] MEDS: INSULIN SLIDING SCALE (NOVOLOG) 1 VIAL SQ SCH ×3 (07:00→17:15)
[2018-10-09] MEDS: HEPARIN NA (PORCINE) 5,000 UNITS/ML 1ML VIAL SQ SCH ×3 (07:00→21:53)
[2018-10-09] MEDS: INSULIN (LEVEMIR) 100 UNITS/ML UNITS SQ SCH (07:01)
[2018-10-09 08:10] LABS: BLOOD UREA NITROGEN 22.7 mg/dL (7-18); CALCIUM 8.4 mg/dL (8.5-10.1); CREATININE 1.4 mg/dL (0.55-1.3); POTASSIUM 4.1 mmol/L (3.5-5.1)
--- NOTE | 2018-10-09 09:27 | PN ---
Physical Exam: SUBJECTIVE: Patient seen and examined. No acute events overnight. Pt slept well and has been tolerating diet well. OBJECTIVE: Vital Signs Period Temp Pulse Resp BP Sys/Ellis Pulse Ox Last 24 Hr 97.7 F-98.8 F 60-76 18-20 95-154/50-67 98 GENERAL: Awake, alert, in no acute distress. HEAD: Normal with no signs of trauma. EYES: Pupils equal, round and reactive to light, extraocular movements intact, sclera anicteric, conjunctiva clear. No lid lag. EARS, NOSE, THROAT: Ears normal, nares patent, oropharynx clear without exudates. Moist mucous membranes. NECK: Normal range of motion, supple without lymphadenopathy, JVD, or masses. LUNGS: Breath sounds equal, clear to auscultation bilaterally. No wheezes, and no crackles. No accessory muscle use. HEART: Regular rate and rhythm, normal S1 and S2 without murmur, rub or gallop. ABDOMEN: Soft, nontender, not distended, normoactive bowel sounds, no guarding, no rebound, no masses. No hepatomegaly or splenomegaly. EXTREMITIES: 2+ pulses, warm, well-perfused, no edema. LLE in AGUSTO bandage from previous injury. NEUROLOGICAL: Cranial nerves II through XII grossly intact. Normal speech, gait not observed. PSYCHIATRIC: Unable to assess due to mental status. SKIN: Warm, dry, normal turgor. Several ecchymoses noted on extremities. 1.5 cm verrucous papule on LUE Laboratory Results - last 24 hr CBC, BMP 10/09/18 07:03 Active Medications Acetaminophen (Tylenol -) 650 mg PO Q8H PRN PRN Reason: HEADACHE Last Admin: 10/08/18 18:39 Dose: 650 mg Atorvastatin Calcium (Lipitor -) 20 mg PO HS [facility] Last Admin: 10/08/18 21:47 Dose: 20 mg Finasteride (Proscar -) 5 mg PO DAILY [facility] Last Admin: 10/08/18 09:36 Dose: 5 mg Heparin Sodium (Porcine) (Heparin -) 5,000 unit SQ TID [facility] Last Admin: 10/09/18 07:00 Dose: 5,000 unit Insulin Aspart (Novolog Vial Sliding Scale -) 1 vial SQ TIDAC [facility]; Protocol Last Admin: 10/09/18 07:00 Dose: 6 units Insulin Detemir (Levemir Vial) 10 units SQ DAILY@0800 [facility] Last Admin: 10/09/18 07:01 Dose: 10 unit Lisinopril (Prinivil) 2.5 mg PO DAILY [facility] Pantoprazole Sodium (Protonix -) 20 mg PO DAILY [facility] Last Admin: 10/08/18 09:36 Dose: 20 mg Polyethylene Glycol (Miralax (For Daily Use) -) 17 gm PO DAILY [facility] Last Admin: 10/08/18 09:36 Dose: 17 grams ASSESSMENT/PLAN: The patient is an 83 year old male with PMHx of IDDM, HTN, CVA, dementia, MR, [place] (11 years ago), hypercholesterolemia who was brought from home by aide with 2 week history of dysphagia and decreased appetite. #Dysphagia due to ?Gastric outlet obstruction EGD: normal mucosa, multiple small non bleeding erosions, mild duodenitis. Bx taken Per GI, recommend colonoscopy, scheduled for Thursday (10/11) IV protonix 40mg BID per GI Dysphagia precautions CEA normal: 3.2 #Acute renal failure (prerenal azotemia), resolved BUN/Cr: 16.3/1.1 (decrease from 20.6/1.5) Ok to resume lisinopril Discontinue fluids #HTN Lisinopril 2.5mg #Hyperglycemia Increase insulin sliding scale TIDAC and now on Levemir 10mg Q.AM Frequent monitoring of FSG #CKD Stage 1 Renal US shows left renal exophytic simple cyst 4X3.9cm. Both kidneys unremarkable, no stones. Monitor I&Os, weight, CBC, CMP Recommend nephro f/u as outpt #Anemia Anemia workup within normal limits #Eosinophilia EGD Bx pending Strongyloides serology neg, parasite blood smear neg Heme/onc consulted: stool O&P, IgE, flow/FISH/cytogenetics, tryptase, ANAND pending CT chest neg, no malignancy #DVT prophylaxis SCDs BL #FEN Dysphagia whole diet with thin liquids as tolerated Replete lytes as needed . Visit type - Emergency Visit Emergency Visit: No - New Patient This patient is new to me today: No - Critical Care Critical Care patient: No ATTENDING PHYSICIAN STATEMENT I saw and evaluated the patient. I reviewed the resident's note and discussed the case with the resident. I agree with the resident's findings and plan as documented. SUBJECTIVE: OBJECTIVE: ASSESSMENT AND PLAN:
[2018-10-09] MEDS: LISINOPRIL 5 MG TABLET (FP) PO SCH (10:01)
[2018-10-09] MEDS: POLYETHYLENE GLYCOL 3350 119 GM BTL PO SCH (10:01)
[2018-10-09] MEDS: FINASTERIDE 5 MG TABLET (FP) PO SCH (10:01)
[2018-10-09] MEDS: PANTOPRAZOLE 20 MG TABLET (FP) PO SCH (10:01)
[2018-10-09 10:07] LABS: BASO % 0.6 % (0-2.0); HEMOGLOBIN 10.6 GM/dL (11.7-16.9); LYMPH % 16.1 % (8-40); MCH 30.8 pg (25.7-33.7); MCHC 34.3 g/dl (32.0-35.9); MEAN CELL VOLUME 89.8 fl (80-96); MEAN PLT VOLUME 9.3 fl (7.5-11.1); MONO % 5.5 % (3.8-10.2); NEUT % 55.8 % (42.8-82.8); RBC 3.45 M/mm3 (4.00-5.60); RDW 14.2 % (11.9-15.9); WHITE BLOOD COUNT 6.9 K/mm3 (4.0-10.0)
[2018-10-09 10:24] LABS: PLATELET COUNT 207 K/MM3 (134-434)
--- NOTE | 2018-10-09 12:54 | PN ---
Teaching Attending Note Name of Resident: Shelia Johnson ATTENDING PHYSICIAN STATEMENT I saw and evaluated the patient. I reviewed the resident's note and discussed the case with the resident. I agree with the resident's findings and plan as documented. SUBJECTIVE: No fever or chills. NO RUFFIN. no abd pain. No N/V. " feels perfectly fine" OBJECTIVE: NAD,MMM Cv: RRR Lungs: CTAB Ext: no edema. No tenderness of both feet. no erythema of legs or feet Skin: L forearm with verrocous lesion with an ulcerated base. R forearm with superficial erosion wrapped with gauze ASSESSMENT AND PLAN: 83 y/o man with h/o DM , CKD, b/l cerebral infarcts, anemia, and dementia who presented with dysphagia. 1- Dysphagia: s/p EGD - cont PPI 2- ILANA: resolved with IVF - resume IVF when NPO 3- HTN: cont lisinopril 4- Apical pleural scarring. f/u as out pt with pulmonary 5- Chronic Eosinophilia: - negative scans for malignancy - follow heme w/u. 6- DM:sugar has improved after incresing levemir. can increase further if needed - cont levemir at 10 and SSI 7- Renal cyst on CT scan: follow with repeat imaging as out pt 8- Normocytic anemia: no signs of iron def. nl TSH . nl B12. anemia is chronic with stable HB. ? BM disorder - colonoscopy on Thursday DVT px with heparin Needs rehab [place] = ASSESSMENT AND PLAN:
[2018-10-09 13:55] LABS: ANISOCYTOSIS 0; MACROCYTOSIS 0; PLATELET ESTIMATE NORMAL
[2018-10-09] MEDS: ACETAMINOPHEN 325 MG TABLET (FP) PO PRN (18:37)
[2018-10-09] MEDS: ATORVASTATIN CA 20 MG TABLET (FP) PO SCH (21:53)
[2018-10-09] MEDS ORDERED: INSULIN REGULAR HUMAN 100 UNITS/ML *VIAL IVPUSH ONE ×2 (23:02→23:30)
[2018-10-09] MEDS ORDERED: INSULIN (LEVEMIR) 100 UNITS/ML UNITS SQ ONE (23:37)
[2018-10-10] MEDS: HEPARIN NA (PORCINE) 5,000 UNITS/ML 1ML VIAL SQ SCH ×3 (06:09→21:37)
[2018-10-10] MEDS: INSULIN SLIDING SCALE (NOVOLOG) 1 VIAL SQ SCH ×3 (06:10→17:20)
[2018-10-10] MEDS: SODIUM CHLORIDE 1,000 ML IV SCH (09:43)
[2018-10-10 09:45] LABS: BLOOD UREA NITROGEN 25.5 mg/dL (7-18); CALCIUM 8.4 mg/dL (8.5-10.1); CREATININE 1.5 mg/dL (0.55-1.3); POTASSIUM 4.3 mmol/L (3.5-5.1)
[2018-10-10] MEDS: POLYETHYLENE GLYCOL 3350 119 GM BTL PO SCH (09:45)
[2018-10-10] MEDS: LISINOPRIL 5 MG TABLET (FP) PO SCH (09:48)
[2018-10-10] MEDS: INSULIN (LEVEMIR) 100 UNITS/ML UNITS SQ SCH (09:48)
[2018-10-10] MEDS: PANTOPRAZOLE 20 MG TABLET (FP) PO SCH (09:49)
[2018-10-10] MEDS: FINASTERIDE 5 MG TABLET (FP) PO SCH (09:49)
[2018-10-10] MEDS: ACETAMINOPHEN 325 MG TABLET (FP) PO PRN (09:49)
[2018-10-10] MEDS ORDERED: INSULIN (LEVEMIR) 100 UNITS/ML UNITS SQ ONE (15:16)
--- NOTE | 2018-10-10 15:19 | PN ---
Progress Note (short form) - Note Progress Note: Subjective: no pain or SOB Objective: Vital Signs: Last Vital Signs Temp Pulse Resp BP Pulse Ox 97.5 F L 63 20 136/57 L 100 10/10/18 14:02 10/10/18 14:02 10/10/18 14:02 10/10/18 14:02 10/10/18 09:00 Laboratory Results - last 24 hr 10/07/18 10/07/18 10/10/18 20:15 20:15 07:56 Sodium 139 Potassium 4.3 Chloride 104 Carbon Dioxide 27 Anion Gap 7 L BUN 25.5 H Creatinine 1.5 H Est GFR (CKD-EPI)AfAm 48.50 Est GFR (CKD-EPI)NonAf 41.85 Random Glucose 329 H* Calcium 8.4 L Tryptase 6.7 ANAND Screen Positive H ANAND Homogeneous Pattern 1:80 ANAND Nucleolar Pattern TNP ANAND Spindle Daniela Pattern TNP ANAND Midbody Pattern TNP ANAND Centriole Pattern TNP ANAND Nuclear Dot Pattern TNP ANAND PCNA Pattern TNP ANAND Nuclear Membr Pat TNP ANAND Speckled Pattern TNP ANAND Centromere Pattern TNP Physical Exam: NAD,MMM Cv: RRR Lungs: CTAB Ext: no edema. Skin: L forearm with verrocous lesion with an ulcerated base. R forearm with superficial erosion wrapped with gauze ASSESSMENT AND PLAN: 83 y/o man with h/o DM , CKD, b/l cerebral infarcts, anemia, and dementia who presented with dysphagia. 1- Dysphagia: s/p EGD - cont PPI 2- ILANA: resume IVF 3- HTN: hold lisnopril due to worsening cr . use Norvasc instead 4- Apical pleural scarring. f/u as out pt with pulmonary 5- Chronic Eosinophilia: - negative scans for malignancy - follow heme w/u. 6- DM: give extra dose of levemir today . for total of 15 units. cont SSI 7- Renal cyst on CT scan: follow with repeat imaging as out pt 8- Normocytic anemia: - colonoscopy tomorrow. prep per GI. now on liquid diet DVT px with heparin . hold after [place] for colonoscopy Needs rehab at [place] Visit type - Emergency Visit Emergency Visit: Yes ED Registration Date: 10/01/18 Care time: The patient presented to the Emergency Department on the above date and was hospitalized for further evaluation of their emergent condition. - New Patient This patient is new to me today: No - Critical Care Critical Care patient: No
[2018-10-10] MEDS ORDERED: POLYETHYLENE GLYCOL 3350 255 GM BTL PO ONE (16:51)
[2018-10-10] MEDS: ATORVASTATIN CA 20 MG TABLET (FP) PO SCH (21:37)
[2018-10-11] MEDS ORDERED: SODIUM PHOSPHATE/NA BIPHOS 133 ML ENEMA PR ONE ×3 (06:00→09:51)
[2018-10-11] MEDS: SODIUM CHLORIDE 1,000 ML IV SCH ×2 (06:06→10:54)
[2018-10-11] MEDS: INSULIN SLIDING SCALE (NOVOLOG) 1 VIAL SQ SCH ×3 (06:06→17:36)
[2018-10-11 07:56] LABS: BLOOD UREA NITROGEN 15.4 mg/dL (7-18); CALCIUM 7.8 mg/dL (8.5-10.1); CREATININE 1.1 mg/dL (0.55-1.3); POTASSIUM 4.2 mmol/L (3.5-5.1)
--- NOTE | 2018-10-11 08:27 | PN ---
Physical Exam: SUBJECTIVE: Patient seen and examined. No acute events overnight. OBJECTIVE: Vital Signs Period Temp Pulse Resp BP Sys/Ellis Pulse Ox Last 24 Hr 97.5 F-98.2 F 63-80 18-20 112-144/53-76 98-100 GENERAL: Awake, alert, in no acute distress. HEAD: Normal with no signs of trauma. EYES: Pupils equal, round and reactive to light, extraocular movements intact, sclera anicteric, conjunctiva clear. No lid lag. EARS, NOSE, THROAT: Ears normal, nares patent, oropharynx clear without exudates. Moist mucous membranes. NECK: Normal range of motion, supple without lymphadenopathy, JVD, or masses. LUNGS: Breath sounds equal, clear to auscultation bilaterally. No wheezes, and no crackles. No accessory muscle use. HEART: Regular rate and rhythm, normal S1 and S2 without murmur, rub or gallop. ABDOMEN: Soft, nontender, not distended, normoactive bowel sounds, no guarding, no rebound, no masses. No hepatomegaly or splenomegaly. EXTREMITIES: 2+ pulses, warm, well-perfused, no edema. LLE in AGUSTO bandage from previous injury. NEUROLOGICAL: Cranial nerves II through XII grossly intact. Normal speech, gait not observed. PSYCHIATRIC: Unable to assess due to mental status. SKIN: Warm, dry, normal turgor. Several ecchymoses noted on extremities. 1.5 cm verrucous papule on LUE Laboratory Results - last 24 hr CBC, BMP 10/09/18 07:03 10/11/18 06:36 Active Medications Acetaminophen (Tylenol -) 650 mg PO Q8H PRN PRN Reason: HEADACHE Last Admin: 10/10/18 09:49 Dose: 650 mg Amlodipine Besylate (Norvasc -) 5 mg PO DAILY [facility] Atorvastatin Calcium (Lipitor -) 20 mg PO HS [facility] Last Admin: 10/10/18 21:37 Dose: 20 mg Finasteride (Proscar -) 5 mg PO DAILY [facility] Last Admin: 10/10/18 09:49 Dose: 5 mg Heparin Sodium (Porcine) (Heparin -) 5,000 unit SQ TID [facility] Last Admin: 10/10/18 21:37 Dose: 5,000 unit Sodium Chloride (Normal Saline -) 1,000 mls @ 100 mls/hr IV ASDIR [facility] Last Admin: 10/11/18 06:06 Dose: 100 mls/hr Insulin Aspart (Novolog Vial Sliding Scale -) 1 vial SQ TIDAC [facility]; Protocol Last Admin: 10/11/18 06:06 Dose: Not Given Insulin Detemir (Levemir Vial) 10 units SQ DAILY@0800 [facility] Last Admin: 10/10/18 09:48 Dose: 10 unit Pantoprazole Sodium (Protonix -) 20 mg PO DAILY [facility] Last Admin: 10/10/18 09:49 Dose: 20 mg Polyethylene Glycol (Miralax (For Daily Use) -) 17 gm PO DAILY [facility] Last Admin: 10/10/18 09:45 Dose: 17 grams ASSESSMENT/PLAN: The patient is an 83 year old male with PMHx of IDDM, HTN, CVA, dementia, MR, [place] (11 years ago), hypercholesterolemia who was brought from home by aide with 2 week history of dysphagia and decreased appetite. #Dysphagia s/p EGD EGD: normal mucosa, multiple small non bleeding erosions, mild duodenitis. Bx taken IV protonix 40mg BID per GI Dysphagia precautions #Normocystic anemia Colonoscopy today: internal hemorrhoids, no lesions >1cm CEA normal: 3.2 #Acute renal failure (prerenal azotemia), resolved BUN/Cr: 15.4/1.1 (decrease from 25.5/1.5) Hold lisinopril due to worsening Cr. Norvasc instead Resume IVF NS @ 100ml/hr #HTN Norvasc 5mg po daily #Hyperglycemia Sliding scale TIDAC and Levemir 10mg Q.AM Frequent monitoring of FSG #CKD Stage 1 Renal US shows left renal exophytic simple cyst 4X3.9cm. Both kidneys unremarkable, no stones. Monitor I&Os, weight, CBC, CMP Recommend nephro f/u as outpt #Chronic eosinophilia EGD Bx pending Strongyloides serology neg, parasite blood smear neg Heme/onc consulted: stool O&P, IgE, flow/FISH/cytogenetics, tryptase, ANAND pending CT chest neg, no malignancy #DVT prophylaxis Heparing 5,000 units SQ #FEN Dysphagia whole diet with thin liquids as tolerated Replete lytes as needed Visit type - Emergency Visit Emergency Visit: No - New Patient This patient is new to me today: No - Critical Care Critical Care patient: No - Discharge Referral Referred to [facility] Med P.C.: No ATTENDING PHYSICIAN STATEMENT I saw and evaluated the patient. I reviewed the resident's note and discussed the case with the resident. I agree with the resident's findings and plan as documented. SUBJECTIVE: OBJECTIVE: ASSESSMENT AND PLAN:
[2018-10-11] MEDS: PANTOPRAZOLE 20 MG TABLET (FP) PO SCH ×2 (10:50→14:10)
[2018-10-11] MEDS: POLYETHYLENE GLYCOL 3350 119 GM BTL PO SCH (10:54)
[2018-10-11] MEDS: INSULIN (LEVEMIR) 100 UNITS/ML UNITS SQ SCH (10:55)
--- NOTE | 2018-10-11 12:50 | PN ---
Progress Note (short form) - Note Progress Note: Brief GI procedure note - see full report in paper chart for details Medium sized internal hemorrhoids Fair prep; exam inadequate for screening but for the purposes of this exam lesions >1cm excluded Would resume diet Await pathology from EGD
[2018-10-11] MEDS: FINASTERIDE 5 MG TABLET (FP) PO SCH (14:09)
[2018-10-11] MEDS: amLODIPine BESYLATE 5 MG TABLET (FP) PO SCH (14:10)
--- NOTE | 2018-10-11 15:37 | PN ---
Teaching Attending Note Name of Resident: Shelia Johnson ATTENDING PHYSICIAN STATEMENT I saw and evaluated the patient. I reviewed the resident's note and discussed the case with the resident. I agree with the resident's findings and plan as documented. SUBJECTIVE:seen in am No fever or chills . NO pain . feels better . OBJECTIVE: NAD,MMM Cv: RRR Lungs: CTAB Ext: no edema. Skin: L forearm with verrocous lesion with an ulcerated base. R forearm with superficial erosion wrapped with gauze ASSESSMENT AND PLAN: 83 y/o man with h/o DM , CKD, b/l cerebral infarcts, anemia, and dementia who presented with dysphagia. 1- Dysphagia: s/p EGD - cont PPI - Bx result pending 2- ILANA: resolved. can dc IVF after procedure 3- HTN: at dc can resume lisinopril and dc norvasc 4- Apical pleural scarring. f/u as out pt with pulmonary 5- Chronic Eosinophilia: - negative scans for malignancy - follow heme w/u. heme as out pt 6- DM: labile BS. will dc on 12 units of levemir and SSI ( droped with 15 units , uncontrolled with 10 ) 7- Renal cyst on CT scan: follow with repeat imaging as out pt 8- Normocytic anemia: -colo with hemorrhoids and no big polyps. in adequate prep. dispo : needs rehab, whenever a bed is available
--- NOTE | 2018-10-11 18:05 | PN ---
Progress Note (short form) - Note Progress Note: Patient seen and examined S/p EGD with resulting findings of erythematous atrophic gastritis, mild duodenits, antral ulcerations -non bleeding , normal esophagus. Multiple biopsies obtained . Past review reveals that patient has had chronic eosinophilia dating back at least to 2014. This suggests diagnosis of Hypereosinophilic syndrome ( unexplained eosinophilia of > 1500 for > 6 months Patient will likely need bone marrow biopsy to further evaluate eosinophilia Last Vital Signs Temp Pulse Resp BP Pulse Ox 99.0 F 82 20 134/51 L 100 10/11/18 13:10 10/11/18 13:10 10/11/18 13:10 10/11/18 13:10 10/11/18 13:10 HEENT: JOSUE, EOM Intact Oropharynx: No thrush, No mucositis Cor: RSR, No murmurs, No gallops Lungs: Clear to P&A Abd: Soft, Normal bowel sounds, No organomegaly Ext:No significant edema Skin: No rashes, Integument intact CBC, BMP 10/09/18 07:03 10/11/18 06:36 Current Medications Generic Name Dose Route Start Last Admin Trade Name Freq PRN Reason Stop Dose Admin Acetaminophen 650 mg 10/08/18 17:06 10/10/18 09:49 Tylenol - PO 650 mg Q8H PRN Administration HEADACHE Amlodipine Besylate 5 mg 10/11/18 10:00 10/11/18 14:10 Norvasc - PO 5 mg DAILY [facility] Administration Atorvastatin Calcium 20 mg 10/02/18 22:00 10/10/18 21:37 Lipitor - PO 20 mg HS [facility] Administration Finasteride 5 mg 10/02/18 10:00 10/11/18 14:09 Proscar - PO 5 mg DAILY [facility] Administration Heparin Sodium (Porcine) 5,000 unit 10/06/18 22:00 10/10/18 21:37 Heparin - SQ 5,000 unit TID [facility] Administration Insulin Aspart 1 vial 10/08/18 14:24 10/11/18 17:36 Novolog Vial Sliding Scale - SQ 10 units TIDAC [facility] Administration Protocol Insulin Detemir 10 units 10/08/18 11:09 10/11/18 10:55 Levemir Vial SQ 10 unit DAILY@0800 [facility] Administration Pantoprazole Sodium 20 mg 10/08/18 10:00 10/11/18 14:10 Protonix - PO 20 mg DAILY [facility] Administration Polyethylene Glycol 17 gm 10/06/18 14:15 10/11/18 10:54 Miralax (For Daily Use) - PO Not Given DAILY [facility] Sodium Phosphate 133 ml 10/11/18 09:51 Fleet Adult Rectal Enema - [place] 10/11/18 09:52 ONCE ONE Abnormal Lab Results 10/11/18 06:36 Anion Gap 5 L Random Glucose 270 H Calcium 7.8 L Impression: S/P EGD- await biopsy results Chronic eosinophilia DM Plan: Await biopsies ? bone marrow
[2018-10-11 20:33] LABS: BASO % 0.5 % (0-2.0); EOS % 14.4 % (0-4.5); HEMATOCRIT 27.9 % (35.4-49); HEMOGLOBIN 9.6 GM/dL (11.7-16.9); LYMPH % 24.8 % (8-40); MCH 31.1 pg (25.7-33.7); MCHC 34.3 g/dl (32.0-35.9); MEAN CELL VOLUME 90.7 fl (80-96); MEAN PLT VOLUME 8.8 fl (7.5-11.1); MONO % 8.8 % (3.8-10.2); NEUT % 51.5 % (42.8-82.8); PLATELET COUNT 220 K/MM3 (134-434); RBC 3.07 M/mm3 (4.00-5.60); RDW 14.1 % (11.9-15.9); WHITE BLOOD COUNT 5.2 K/mm3 (4.0-10.0)
[2018-10-11] MEDS: HEPARIN NA (PORCINE) 5,000 UNITS/ML 1ML VIAL SQ SCH (23:23)
[2018-10-11] MEDS: ATORVASTATIN CA 20 MG TABLET (FP) PO SCH (23:23)
[2018-10-12] MEDS: HEPARIN NA (PORCINE) 5,000 UNITS/ML 1ML VIAL SQ SCH (05:49)
[2018-10-12 06:35] VITALS: TEMP 98.6
[2018-10-12] MEDS: INSULIN SLIDING SCALE (NOVOLOG) 1 VIAL SQ SCH (06:46)
[2018-10-12 08:46] VITALS: BP 139/48; PULSE 83
[2018-10-12] MEDS: POLYETHYLENE GLYCOL 3350 119 GM BTL PO SCH (09:14)
[2018-10-12] MEDS: FINASTERIDE 5 MG TABLET (FP) PO SCH (09:16)
[2018-10-12] MEDS: INSULIN (LEVEMIR) 100 UNITS/ML UNITS SQ SCH (09:16)
[2018-10-12] MEDS: amLODIPine BESYLATE 5 MG TABLET (FP) PO SCH (09:16)
[2018-10-12] MEDS: PANTOPRAZOLE 20 MG TABLET (FP) PO SCH (09:16)
--- NOTE | 2018-10-12 09:21 | DS ---
Physical Exam: SUBJECTIVE: Patient seen and examined OBJECTIVE: Vital Signs Period Temp Pulse Resp BP Sys/Ellis Pulse Ox Last 24 Hr 98 F-99.0 F 75-88 16-22 103-155/45-79 100-100 PHYSICAL EXAM GENERAL: The patient is awake, alert, and fully oriented, in no acute distress. HEAD: Normal with no signs of trauma. EYES: PERRL, extraocular movements intact, sclera anicteric, conjunctiva clear. ENT: Ears normal, nares patent, oropharynx clear without exudates, moist mucous membranes. NECK: Trachea midline, full range of motion, supple. LUNGS: Breath sounds equal, clear to auscultation bilaterally, no wheezes, no crackles, no accessory muscle use. HEART: Regular rate and rhythm, S1, S2 without murmur, rub or gallop. ABDOMEN: Soft, nontender, nondistended, normoactive bowel sounds, no guarding, no rebound, no hepatosplenomegaly, no masses. EXTREMITIES: 2+ pulses, warm, well-perfused, no edema. NEUROLOGICAL: Cranial nerves II through XII grossly intact. Normal speech, gait not observed. PSYCH: Normal mood, normal affect. SKIN: Warm, dry, normal turgor, no rashes or lesions noted. LABS Laboratory Results - last 24 hr 10/11/18 10/11/18 10/11/18 10:41 12:00 17:34 WBC RBC Hgb Hct MCV MCH MCHC RDW Plt Count MPV Absolute Neuts (auto) Neutrophils % Lymphocytes % Monocytes % Eosinophils % Basophils % Nucleated RBC % POC Glucometer 367 278 369 10/11/18 10/12/18 10/12/18 19:05 06:41 09:13 WBC 5.2 RBC 3.07 L Hgb 9.6 L Hct 27.9 L MCV 90.7 MCH 31.1 MCHC 34.3 RDW 14.1 Plt Count 220 MPV 8.8 Absolute Neuts (auto) 2.7 Neutrophils % 51.5 Lymphocytes % 24.8 D Monocytes % 8.8 Eosinophils % 14.4 H Basophils % 0.5 Nucleated RBC % 0 POC Glucometer 305 247 HOSPITAL COURSE: Date of Admission:10/01/18 Patient was admitted for dysphagia. EGD and colonoscopy without any abnormalities. Eosinophilia evaluated by Hemetology and Oncology, can have bone biopsy as outpatient. Patient DM medications altered to prevent hypoglycemia. Patient stable and vitals stable for discharge. Date of Discharge: 10/12/18 Discharge Summary Reason For Visit: FAILURE TO THRIVE/RECURRENT FALLS Current Active Problems Dysphagia (Acute) Anemia (Chronic) BPH without urinary obstruction (Chronic) Coronary artery disease (Chronic) Diabetes (Chronic) Diabetes mellitus, insulin dependent (IDDM), uncontrolled (Chronic) Eosinophilia (Chronic) Frequent falls (Chronic) HLD (hyperlipidemia) (Chronic) HTN (hypertension) (Chronic) History of myocardial infarction (Chronic) Condition: Improved - Instructions Diet, Activity, Other Instructions: You were admitted to the hospital for difficulty swallowing your food and vomiting. You have had no episodes of vomiting since your admission and you have tolerated food well. You received two procedures to evaluate for any abnormalities. You should follow up with a GI doctor (Dr. Calderon) in one week to discuss the biopsy results. No other treatment is needed at this time. While you were here, your blood sugars were high. We changed your medication to better treat your Diabetes. You should take your medication as follows: - Levemir 12 units every morning - Novolog before each meal (breakfast, lunch, and dinner) based on the following : Sugar Level Dose of Insulin 100-150 0 units 151-200 2 units 201-250 4 units 251-300 6 units 301-350 8 units 351-400 10 units 400+ 10 units and call your doctor Please take Lisinopril 5 mg by mouth daily to control your blood pressure. While you were here, you were found to have some abnormal blood labs. You should follow up with a [facility] (blood specialist, Dr. Miller) in one week for further evaluation. you might need a bone Marrow biopsy Resume all other home medications as prescribed. You should follow up with your primary care provider in one week. Return to the Emergency Department if you experience vomiting, fevers, chest pain, difficulty breathing, or worsening of any symptoms. Need BMP in 1 week . Referrals: Maira Post MD [Staff Physician] - Frederick Calderon DO [Staff Physician] - Taylor Miller MD [Staff Physician] - 2 Weeks Mihaela Card MD [Primary Care Provider] - [facility]position: [facility] - Home Medications Comprehensive Discharge Medication List: Ambulatory Orders Cholecalciferol (Vitamin D3) [Vitamin D3] 50,000 unit PO DAILY 02/11/17 Donepezil HCl 10 mg PO DAILY 10/05/18 Tamsulosin HCl 0.4 mg PO DAILY 10/05/18 Tolterodine Tartrate LA [Detrol LA -] 4 mg PO DAILY 10/05/18 traZODone HCL [Trazodone HCl] 50 mg PO DAILY 10/05/18 Atorvastatin Ca [Lipitor] 20 mg PO HS #30 tablet 10/11/18 Insulin Sliding Scale [Novolog Vial Sliding Scale -] 1 vial SQ TIDAC #1 units Insulin Detemir [Levemir Flextouch] 12 unit SQ DAILY #3 insuln.pen 10/12/18 Lisinopril [Prinivil] 5 mg PO DAILY #30 tablet 10/12/18 - Discharge Referral Referred to [facility] Med P.C.: No ATTENDING PHYSICIAN STATEMENT I saw and evaluated the patient. I reviewed the resident's note and discussed the case with the resident. I agree with the resident's findings and plan as documented. SUBJECTIVE: OBJECTIVE: ASSESSMENT AND PLAN:
--- NOTE | 2018-10-12 12:26 | PATH ---
Surgical Pathology Report Patient Name: INDER CHAMORRO Med. Rec. #: [id number] /Age/Gender: 1935 (Age: 83) / M Account: [id number] Location: [facility] MED/SURG Taken: 10/07/2018 Received: 10/08/2018 Reported: 10/12/2018 Physicians: Epifanio Christie M.D. Specimen(s) Received PERIPHERAL BLOOD Clinical History Lymphocytosis, eosinophilia Final Diagnosis COMPREHENSIVE FLOW CYTOMETRY performed and interpreted at [facility] [place] ([id number]) INTERPRETATION: In the sample analyzed, there is no evidence of B or T-cell proliferative disorders or increased blasts. See [facility] report for additional details. Electronically Signed Leslee Means M.D. Addendum Reported: 10/14/2018 Addendum Diagnosis FISH ANALYSIS performed and interpreted at [facility] [place], [place] ([id number]) INTERPRETATION: No BCR/ABL1 t(9;22) translocation is detected. No FGFR1(8p11) rearrangement is detected. No PDGFRa rearrangement is detected. No PDGFR rearrangement is detected. CYTOGENETIC KARTYOTYPE ANALYSIS received from [facility] [place], [place] ([id number]) shows the following: TEST RESULTS: Tissue Culture Failure. DIAGNOSTIC INTERPRETATION: This peripheral blood specimen did not produce any analyzable metaphase cells and, therefore, chromosome analysis is not possible. A bone marrow aspirate, when clinically appropriate, is recommended. See [facility] report for additional details. Leslee Means M.D. Gross Description Received are 2 purple top tubes and 4 green top tubes of blood which are sent to [facility]. DL/10/08/2018 saudi/10/08/2018
--- NOTE | 2018-10-12 13:53 | DS ---
Physical Exam: SUBJECTIVE: Patient seen and examined. No acute events overnight. OBJECTIVE: Vital Signs Period Temp Pulse Resp BP Sys/Ellis Pulse Ox Last 24 Hr 98.6 F-99.0 F 76-83 16-18 135-155/48-71 100-100 PHYSICAL EXAM GENERAL: Awake, alert, in no acute distress. HEAD: Normal with no signs of trauma. EYES: Pupils equal, round and reactive to light, extraocular movements intact, sclera anicteric, conjunctiva clear. No lid lag. EARS, NOSE, THROAT: Ears normal, nares patent, oropharynx clear without exudates. Moist mucous membranes. NECK: Normal range of motion, supple without lymphadenopathy, JVD, or masses. LUNGS: Breath sounds equal, clear to auscultation bilaterally. No wheezes, and no crackles. No accessory muscle use. HEART: Regular rate and rhythm, normal S1 and S2 without murmur, rub or gallop. ABDOMEN: Soft, nontender, not distended, normoactive bowel sounds, no guarding, no rebound, no masses. No hepatomegaly or splenomegaly. EXTREMITIES: 2+ pulses, warm, well-perfused, no edema. LLE in AGUSTO bandage from previous injury. NEUROLOGICAL: Cranial nerves II through XII grossly intact. Normal speech, gait not observed. PSYCHIATRIC: Unable to assess due to mental status. SKIN: Warm, dry, normal turgor. Several ecchymoses noted on extremities. 1.5 cm verrucous papule on LUE LABS Laboratory Results - last 24 hr 10/11/18 10/11/18 10/12/18 17:34 19:05 06:41 WBC 5.2 RBC 3.07 L Hgb 9.6 L Hct 27.9 L MCV 90.7 MCH 31.1 MCHC 34.3 RDW 14.1 Plt Count 220 MPV 8.8 Absolute Neuts (auto) 2.7 Neutrophils % 51.5 Lymphocytes % 24.8 D Monocytes % 8.8 Eosinophils % 14.4 H Basophils % 0.5 Nucleated RBC % 0 POC Glucometer 369 305 HOSPITAL COURSE: Date of Admission:10/01/18 The patient is an 83 year old male with PMHx of IDDM, HTN, CVA, dementia, MR, NV (11 years ago), hypercholesterolemia who was admitted for dysphagia. Pt received an EGD which showed no acute pathology. Biopsies were obtained, results to be followed up as outpatient. Pt has a history of chronic anemia, so a colonoscopy was done during admission and found to be unremarkable. He also has a history of chronic eosinophilia. Heme/onc was consulted. A work-up was done and will be followed up as outpatient. Pt may need a bone biopsy. During his admission, his glucose was poorly controlled. His medications were increased to Levermir 12mg q.am and SSI for discharge. His blood pressure was elevated as well, so we increased his Lisinopril to 5mg daily for discharge. Pt is clinically improved, he has tolerated food well with no vomiting and no signs of infection. He is clinically stable to be discharged. EGD: normal mucosa, multiple small non bleeding erosions, mild duodenitis. Bx taken Colonoscopy today: internal hemorrhoids, no lesions >1cm Renal US shows left renal exophytic simple cyst 4X3.9cm. Both kidneys unremarkable, no stones. CT chest: neg, no malignancy Date of Discharge: 10/12/18 Minutes to complete discharge: 45 Discharge Summary Reason For Visit: FAILURE TO THRIVE/RECURRENT FALLS Condition: Improved - Instructions Diet, Activity, Other Instructions: You were admitted to the hospital for difficulty swallowing your food and vomiting. You have had no episodes of vomiting since your admission and you have tolerated food well. You received two procedures to evaluate for any abnormalities. You should follow up with a GI doctor (Dr. Calderon) in one week to discuss the biopsy results. No other treatment is needed at this time. While you were here, your blood sugars were high. We changed your medication to better treat your Diabetes. You should take your medication as follows: - Levemir 12 units every morning - Novolog before each meal (breakfast, lunch, and dinner) based on the following : Sugar Level Dose of Insulin 100-150 0 units 151-200 2 units 201-250 4 units 251-300 6 units 301-350 8 units 351-400 10 units 400+ 10 units and call your doctor Please take Lisinopril 5 mg by mouth daily to control your blood pressure. While you were here, you were found to have some abnormal blood labs. You should follow up with a Water Supervisor (blood specialist, Dr. Miller) in one week for further evaluation. you might need a bone Marrow biopsy Resume all other home medications as prescribed. You should follow up with your primary care provider in one week and at that time have repeat labs (BMP). Return to the Emergency Department if you experience vomiting, fevers, chest pain, difficulty breathing, or worsening of any symptoms. Referrals: Maira Post MD [Staff Physician] - Frederick Calderon DO [Staff Physician] - Taylor Miller MD [Staff Physician] - 1 Week Mihaela Card MD [Primary Care Provider] - Disposition: VNS/HOME HEALTH CARE - Home Medications Comprehensive Discharge Medication List: Ambulatory Orders Cholecalciferol (Vitamin D3) [Vitamin D3] 50,000 unit PO DAILY 02/11/17 Donepezil HCl 10 mg PO DAILY 10/05/18 Tamsulosin HCl 0.4 mg PO DAILY 10/05/18 Tolterodine Tartrate LA [Detrol LA -] 4 mg PO DAILY 10/05/18 traZODone HCL [Trazodone HCl] 50 mg PO DAILY 10/05/18 Atorvastatin Ca [Lipitor] 20 mg PO HS #30 tablet 10/11/18 Insulin Sliding Scale [Novolog Vial Sliding Scale -] 1 vial SQ TIDAC #1 units Insulin Detemir [Levemir Flextouch] 12 unit SQ DAILY #3 insuln.pen 10/12/18 Lisinopril [Prinivil] 5 mg PO DAILY #30 tablet 10/12/18 Miscellaneous Medical Supply [Outpatient Order] 1 each [facility] ASDIR #1 misc Pantoprazole Sodium [Protonix -] 20 mg PO DAILY #30 tablet.ec 10/12/18 This patient is new to me today: No Emergency Visit: No Critical Care patient: No - Discharge Referral Referred to [facility] Med [facility] No ATTENDING PHYSICIAN STATEMENT I saw and evaluated the patient. I reviewed the resident's note and discussed the case with the resident. I agree with the resident's findings and plan as documented. SUBJECTIVE: OBJECTIVE: ASSESSMENT AND PLAN:
--- NOTE | 2018-10-12 18:31 | PN ---
Teaching Attending Note Name of Resident: Shelia Johnson ATTENDING PHYSICIAN STATEMENT I saw and evaluated the patient. I reviewed the resident's note and discussed the case with the resident. I agree with the resident's findings and plan as documented. SUBJECTIVE: No fever or chills. no pain, feels better OBJECTIVE: NAD, MMM Cv: RRR Lungs: CTAB Ext: no edema. Skin: L forearm with verrocous lesion with an ulcerated base. R forearm with superficial erosion wrapped with gauze ASSESSMENT AND PLAN: 83 y/o man with h/o DM , CKD, b/l cerebral infarcts, anemia, and dementia who presented with dysphagia. 1- Dysphagia: s/p EGD - cont PPI - Bx result pending , needs to follow with Gi for results 2- ILANA: resolvede 3- HTN: resume lisinopril 4- Apical pleural scarring. f/u as out pt with pulmonary 5- Chronic Eosinophilia: - negative scans for malignancy heme as out pt 6- DM: labile BS. will dc on 12 units of levemir and SSI 7- Renal cyst on CT scan: follow with repeat imaging as out pt 8- Normocytic anemia: -colo with hemorrhoids and no big polyps. in adequate prep. Dispo : Dc home with PT today. declined rehab. above discharge plan was dw daughter over the phone ( [facility] [phone] )
== END 2018-10-12 11:54 | disposition home health service (06) | DRG 384 ==
LOC: JER 14:40 → JERBED 19:39 → J7W 21:50
PROVIDERS: ADMIT Internal Medicine; ATTEND Internal Medicine
PROC: 0DB68ZX Excision of Stomach, Via Natural or Artificial Opening Endoscopic, Diagnostic (ICD-10-PCS; principal; 2018-10-07 09:15)
PROC: 0DJD8ZZ Inspection of Lower Intestinal Tract, Via Natural or Artificial Opening Endoscopic (ICD-10-PCS; 2018-10-11)
DX: K25.9 Gastric ulcer, unspecified as acute or chronic, without hemorrhage or perforation (principal); N17.9 Acute kidney failure, unspecified; J94.8 Other specified pleural conditions; R13.10 Dysphagia, unspecified; E11.65 Type 2 diabetes mellitus with hyperglycemia; I12.9 Hypertensive chronic kidney disease with stage 1 through stage 4 chronic kidney disease, or unspecified chronic kidney disease; N18.1 Chronic kidney disease, stage 1; D64.9 Anemia, unspecified; D72.1 Eosinophilia; R62.7 Adult failure to thrive; N28.1 Cyst of kidney, acquired; K29.40 Chronic atrophic gastritis without bleeding; K64.8 Other hemorrhoids; K29.80 Duodenitis without bleeding
CPT/HCPCS: 36415; 70450-TC; 71045-TC-FY; 71250-TC; 72125-TC; 74177-TC; 76775-TC; 80048; 80053; 81003; 82150; 82272; 82378; 82550; 82607; 82728; 82785; 82947; 82962; 83036; 83520; 83540; 83550; 83615; 83690; 83735; 84100; 84443; 84484; 85025; 85027; 85651; 86038; 86140; 86431; 86682; 86850; 86900; 86901; 87086; 87207; 88300-TC; 88305-TC; 93005; 93010; 97116-GP; 97162-GP; 99283-25; J1644; J7030